=== PATIENT | female | born 1955 | race Caucasian/White ===

== ENCOUNTER 2022-10-10 09:04 | Outpatient (OUT) | payer MEDICARE, OTHER, SELFPAY ==
--- NOTE | 2022-10-10 09:16 | MM_ITS ---
Patient: ELIF DONIS Exam Date: 10/10/2022 : 1955 Gender:F Ordering : DR Maricruz Brown M.D. Admission #: [id number] Family : Order #: [id number] CLICK HERE TO VIEW EXAM RADIOLOGY REPORT PROCEDURE: MM TOMOSYNTHESIS SCREENING BI COMPARISON: MG MAMM SCREEN 3D SANDI CAD, 09/22/2021. MG MAMM SCREEN 3D SANDI CAD, 09/20/2020. MG MAMM SCREEN SANDI W CAD, 09/04/2019. BREAST LOCAL EXP, 08/06/2012. INDICATIONS: Screening Calculator Name NCI Breast Cancer Risk Assessment Tool 5 Year Breast Cancer Risk 2.30% Lifetime Breast Cancer Risk 7.70% Personal Breast Cancer No Personal Ovarian Cancer No Treatments left lower lobe lobectomy, chemo and radiation Family Cancers Grandmother-paternal with breast cancer at age 48; Father with esoph and lung cancer at age ~60; Sister with lung cancer at age 57. LOCATION: [facility] BREAST COMPOSITION: Scattered areas fibroglandular density. FINDINGS: DIAGNOSTIC CATEGORY 2--BENIGN FINDING: RIGHT BREAST: No significant suspicious finding. Scattered benign-appearing calcifications are present. No significant change has occurred. LEFT BREAST: No significant suspicious finding. Scattered benign-appearing calcifications are present. No significant change has occurred. RECOMMENDATIONS: ROUTINE MAMMOGRAM AND CLINICAL EVALUATION IN 12 MONTHS. PLEASE NOTE: A NORMAL MAMMOGRAM DOES NOT EXCLUDE THE POSSIBILITY OF BREAST CANCER. A CLINICALLY SUSPICIOUS PALPABLE LUMP SHOULD BE BIOPSIED. Dictated by: Josef Cedeño M.D. on 10/11/2022 at 12:07 Approved by: Josef Cedeño M.D. on 10/11/2022 at 13:00
== END 2022-10-10 09:05 | disposition home or self-care (01) ==
LOC: MAMMO 09:14
PROVIDERS: PCP Family Medicine; Visit Provider Family Medicine
DX: Z12.31 Encounter for screening mammogram for malignant neoplasm of breast (principal); Z80.3 Family history of malignant neoplasm of breast; Z80.0 Family history of malignant neoplasm of digestive organs; Z80.1 Family history of malignant neoplasm of trachea, bronchus and lung
CPT/HCPCS: 77063; 77067

== ENCOUNTER 2022-11-04 07:25 | Emergency (ER) | payer MEDICARE, OTHER, SELFPAY ==
[2022-11-04 07:29] VITALS: BP 151/87; PULSE 91; RESP 18; TEMP 36.6; O2SAT 97; BMI 24.2
--- NOTE | 2022-11-04 07:44 | ED.GENADUL1 ---
HPI - General Adult General Chief complaint: Upper Respiratory Infection Stated complaint: COVID + Time Seen by Provider: 11/04/22 07:40 Source: patient Mode of arrival: walk-in History of Present Illness HPI narrative: tested positive for covid at home concerned because she has cough and congestion and history of partial lobectomy Related Data Allergies Allergy/AdvReac Type Severity Reaction Status Date / Time pseudoephedrine AdvReac Unknown Verified 11/04/22 07:33 [From [facility]] Exam Narrative Exam Narrative: Nurses notes and vital signs reviewed and patient is not hypoxic. afebrile General: Well-appearing and in no apparent distress. Skin: Warm, dry, no pallor noted. No rash. Head: Normocephalic, atraumatic. Neck: Supple, non-tender. Eye: Pupils are equal, round and EOMI. No scleral icterus. Cardiovascular: Regular Rate and Rhythm without murmur, gallop or rub. Respiratory: No accessory muscle use or respiratory distress. Lungs are clear to auscultation, no wheezing, rales or rhonchi Musculoskeletal: normal ROM Neurological: A&O x4. No cranial nerve dysfunction observed. No truncal ataxia. Moves all extremities. Sensation intact. Psychiatric: Cooperative and interactive. Normal mood and affect. Constitutional Vital Signs, click to edit/add: Last Vital Signs Temp 97.9 F 11/04/22 07:29 Pulse 91 H 11/04/22 07:29 Resp 18 11/04/22 07:29 BP 151/87 H 11/04/22 07:29 Pulse Ox 97 11/04/22 07:29 O2 Del Method Room Air 11/04/22 07:29 Course Vital Signs Vital signs: Vital Signs Temperature 97.9 F 11/04/22 07:29 Pulse Rate 91 H 11/04/22 07:29 Respiratory Rate 18 11/04/22 07:29 Blood Pressure 151/87 H 11/04/22 07:29 Pulse Oximetry 97 11/04/22 07:29 Oxygen Delivery Method Room Air 11/04/22 07:29 Temperature 97.9 F 11/04/22 07:29 Pulse Rate 91 H 11/04/22 07:29 Respiratory Rate 18 11/04/22 07:29 Blood Pressure 151/87 H 11/04/22 07:29 Pulse Oximetry 97 11/04/22 07:29 Oxygen Delivery Method Room Air 11/04/22 07:29 Medical Decision Making MDM Narrative Medical decision making narrative: patient started on paxlovid Discharge Plan Discharge Chief Complaint: Upper Respiratory Infection Clinical Impression: COVID Patient Disposition: Home, Self-Care Time of Disposition Decision: 07:43 Instructions: COVID-19 (Coronavirus Disease 2019) (ED), COVID-19 and Chronic Health Conditions (ED) Stand Alone Forms: Portal Instructions Referrals: Maricruz Brown MD [Primary Care Provider] - 1 week
[2022-11-04 08:16] LABS: Anion Gap 10.3; BUN Creatinine Ratio 12.8; Calcium 9.2 mg/dL (8.5-10.1); Carbon Dioxide 30.5 mmol/L (21.0-32.0); Chloride 101 mmol/L (98-107); Estimated GFR (African America >60 (>=60); Estimated GFR (Non-African Ame 59 (>=60); Glucose 98 mg/dL (74-106); Potassium 3.8 mmol/L (3.5-5.1); Sodium 138 mmol/L (136-145)
== END 2022-11-04 08:45 | disposition home or self-care (01) ==
PROVIDERS: Emergency Provider Emergency Medicine; PCP Family Medicine
DX: U07.1 COVID-19 (principal); Z90.2 Acquired absence of lung [part of]
CPT/HCPCS: 36415; 80048; 99283

== ENCOUNTER 2023-10-19 14:05 | Outpatient (OUT) | payer MEDICARE, OTHER, SELFPAY ==
--- NOTE | 2023-10-19 14:07 | MM_ITS ---
Patient Name: ELIF DONIS MR#: [id number] : 1955 Exam Date: 10/19/2023 Ordering Doctor: DR Maricruz Brown M.D. RADIOLOGY REPORT PROCEDURE: MM TOMOSYNTHESIS SCREENING BI COMPARISON: MM TOMOSYNTHESIS SCREENING BI, 10/10/2022. MG MAMM SCREEN 3D SANDI CAD, 09/22/2021. MG MAMM SCREEN 3D SANDI CAD, 09/20/2020. BREAST LOCAL EXP, 08/06/2012. INDICATIONS: Screening Calculator Name NCI Breast Cancer Risk Assessment Tool 5 Year Breast Cancer Risk 2.30% Lifetime Breast Cancer Risk 7.40% Personal Breast Cancer No Personal Ovarian Cancer No Treatments left lower lobe lobectomy, chemo and radiation Family Cancers Grandmother-paternal with breast cancer at age 48; Father with esoph and lung cancer at age ~60; Sister with lung cancer at age 57. LOCATION: [facility] BREAST COMPOSITION: There are scattered areas of fibroglandular density. FINDINGS: DIAGNOSTIC CATEGORY 2--BENIGN FINDING: RIGHT BREAST: No significant suspicious finding. Scattered benign-appearing calcifications are present. Scattered benign-appearing nodules are present. No significant change has occurred. LEFT BREAST: No significant suspicious finding. Scattered benign-appearing calcifications are present. No significant change has occurred. RECOMMENDATIONS: ROUTINE MAMMOGRAM AND CLINICAL EVALUATION IN 12 MONTHS. PLEASE NOTE: A NORMAL MAMMOGRAM DOES NOT EXCLUDE THE POSSIBILITY OF BREAST CANCER. A CLINICALLY SUSPICIOUS PALPABLE LUMP SHOULD BE BIOPSIED. Dictated by: Josef Cedeño M.D. on 10/19/2023 at 15:00 Approved by: Josef Cedeño M.D. on 10/19/2023 at 15:03
== END 2023-10-19 14:06 | disposition home or self-care (01) ==
LOC: MAMMO 14:05
PROVIDERS: PCP Family Medicine; Visit Provider Family Medicine
DX: Z12.31 Encounter for screening mammogram for malignant neoplasm of breast (principal); Z80.3 Family history of malignant neoplasm of breast; Z80.1 Family history of malignant neoplasm of trachea, bronchus and lung; Z80.8 Family history of malignant neoplasm of other organs or systems
CPT/HCPCS: 77063; 77067

== ENCOUNTER 2024-02-28 13:22 | Outpatient (OUT) | payer MEDICARE, OTHER, SELFPAY ==
--- NOTE | 2024-02-28 13:24 | MR_ITS ---
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 FINDINGS: The cerebral sulci as well as ventricular system are appropriate for age. There is no restricted diffusion. Hyperintensities on T2 and FLAIR images in the javier radiata and centrum semiovale with sparing of U fibers are nonspecific, statistically most likely consistent with microvascular ischemic changes. There is no intracranial mass, mass effect, midline shift, intra or extra-axial fluid collection or large hemorrhage. No abnormal enhancing lesion is noted. Normal flow-void in the intracranial vessels is noted. The visualized portions of mastoid air cells as well as paranasal sinuses are unremarkable. 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 Otherwise, no abnormality of the globe and retrobulbar fat, extraocular muscles or optic pathway and lacrimal gland is noted. MR/MR head/brain wo/w con IMPRESSION: No acute intracranial process is noted. 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 Electronically authenticated by: MENA THOMPSON Date: 02/28/2024 17:44
--- NOTE | 2024-02-28 13:24 | MR_ITS ---
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 FINDINGS: The cerebral sulci as well as ventricular system are appropriate for age. There is no restricted diffusion. Hyperintensities on T2 and FLAIR images in the javier radiata and centrum semiovale with sparing of U fibers are nonspecific, statistically most likely consistent with microvascular ischemic changes. There is no intracranial mass, mass effect, midline shift, intra or extra-axial fluid collection or large hemorrhage. No abnormal enhancing lesion is noted. Normal flow-void in the intracranial vessels is noted. The visualized portions of mastoid air cells as well as paranasal sinuses are unremarkable. 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 Otherwise, no abnormality of the globe and retrobulbar fat, extraocular muscles or optic pathway and lacrimal gland is noted. MR/MR orbit wo/w con IMPRESSION: No acute intracranial process is noted. 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 Electronically authenticated by: MENA THOMPSON Date: 02/28/2024 17:44
--- OUTSIDE RECORDS SUMMARY | 2024-02-28 13:43 | XMS_ITS | CCD ---
Author Organization [facility] Care Team Providers Care Motor Bus Driver Name Role Phone PHYSICIAN, DEFAULT Admitting Unavailable PHYSICIAN, DEFAULT Attending Unavailable KARYN CHISHOLM Admitting Unavailable KARYN CHISHOLM Attending Unavailable AL BRYAN Referring Unavailable AL BRYAN Primary Care Unavailable Al Bryan MD Primary Care Provider Damien Quijano Unavailable Niall Lane MD Unavailable MD Al Bryan Primary Care Provider MD Elsy Douglas V Attending Provider Radha Drew Unavailable RANDI, DR AL Beal Primary Care Unavailable PAY, DR KRUSE Admitting Unavailable PAY, DR KRUSE Attending Unavailable PAY, DR KRUSE Consulting Unavailable JIM, MIGUEL Consulting Unavailable JOE, ALBERTO Consulting Unavailable BRYAN, DR AL Beal Primary Care Unavailable LEYLA TOVAR Admitting Unavailable LEYLA TOVAR Attending Unavailable ZINOY, DR JEANINE Marie Consulting Unavailable LEYLA TOVAR Consulting Unavailable BRYAN, DR AL Beal Admitting Unavailable BRYAN, DR AL Beal Attending Unavailable BRYAN, DR AL Beal Primary Care Unavailable WEST, DR SANDEEP Sanchez Consulting Unavailable BRYAN, DR AL Beal Consulting Unavailable BRYAN, DR AL Beal Admitting Unavailable BRYAN, DR AL Beal Attending Unavailable BRYAN, DR AL Beal Primary Care Unavailable BRYAN, DR AL Beal Consulting Unavailable MOUKARBEL, DR CHIN Admitting Unavailable MOUKARBEL, DR CHIN Attending Unavailable BRYAN, DR AL Beal Primary Care Unavailable MOUKARBEL, DR CHIN Admitting Unavailable MOUKARBEL, DR CHIN Attending Unavailable BRYAN, DR AL Beal Primary Care Unavailable MOUKAMEI, DR CHIN Consulting Unavailable BRYAN, DR AL Beal Primary Care Unavailable DR ANA OLIVARES Admitting Unavailable DR ANA OLIVARES Attending Unavailable DR ANA OLIVARES Consulting Unavailable Al Bryan MD Primary Care Provider Damien Quijano Unavailable Niall Lane MD Unavailable LUCRECIA ENRIQUE Attending Unavailable AL BRYAN Primary Care Unavailable Al Bryan Primary Care Unavailable Elsy Douglas V Attending Unavailable Elsy Douglas V Admitting Unavailable Al Bryan MD [facility] Unavailable Niall Lane MD Unavailable Damien Quijano Unavailable Al Bryan MD Primary Care Provider AL BRYAN Primary Care Unavailable AL BRYAN Primary Care Unavailable NIALL LANE Attending Unavailable NIALL LANE Referring Unavailable NIALL LANE Attending Unavailable AL BRYAN Primary Care Unavailable AL BRYAN Primary Care Unavailable Medications Current Medications Medication Drug Class(es) Dates Sig (Normalized) Sig (Original) fluticasone propionate 0.05 mg/actuat metered dose nasal spray (1 source) Corticosteroid Start: 08-03-2021 take 2 spray(s) nasal route once daily Fluticasone Propionate 50 MCG/ACT 2 sprays Nasally Once a day for 14 day(s) Aug, Active iv contrast (will be provided with radiology test) (6 sources) Start: 01-22-2024 End: 01-23-2024 iv contrast (will be provided with radiology test) CT Chest W -Inject, intravenously, once for 1 dose.No IV access, insert saline lock prior to the beginning of sedation, infusion, injection of imaging exam. Discontinue saline lock post exam. If Pt. has a central line or IVAD, may access for administration according to line specific nursing protocol. Once exam is complete flush line and de-access according to line specific nursing protocol in the CT contrast administration guidelines link. 1 Each 01/22/2024 01/23/2024 Active Start: 07-02-2023 End: 07-03-2023 iv contrast (will be provide d with radiology test) CT Chest W -Inject, intravenously, once for 1 dose.No IV access, insert saline lock prior to the beginning of sedation, infusion, injection of imaging exam. Discontinue saline lock post exam. If Pt. has a central line or IVAD, may access for administration according to line specific nursing protocol. Once exam is complete flush line and de-access according to line specific nursing protocol in the CT contrast administration guidelines link. 1 Each 0 07/02/2023 07/03/2023 Start: 12-26-2022 End: 12-27-2022 iv contrast (will be provide d with radiology test) CT Chest W -Inject, intravenously, once for 1 dose.No IV access, insert saline lock prior to the beginning of sedation, infusion, injection of imaging exam. Discontinue saline lock post exam. If Pt. has a central line or IVAD, may access for administration according to line specific nursing protocol. Once exam is complete flush line and de-access according to line specific nursing protocol in the CT contrast administration guidelines link. 1 Each 0 12/26/2022 12/27/2022 Active Start: 07-11-2022 End: 07-12-2022 iv contrast (will be provide d with radiology test) CT Chest W -Inject, intravenously, once for 1 dose.No IV access, insert saline lock prior to the beginning of sedation, infusion, injection of imaging exam. Discontinue saline lock post exam. If Pt. has a central line or IVAD, may access for administration according to line specific nursing protocol. Once exam is complete flush line and de-access according to line specific nursing protocol in the CT contrast administration guidelines link. 1 Each 0 07/11/2022 07/12/2022 Active Start: 01-03-2022 End: 01-04-2022 iv contrast (will be provide d with radiology test) CT Chest W -Inject, intravenously, once for 1 dose.No IV access, insert saline lock prior to the beginning of sedation, infusion, injection of imaging exam. Discontinue saline lock post exam. If Pt. has a central line or IVAD, may access for administration according to line specific nursing protocol. Once exam is complete flush line and de-access according to line specific nursing protocol in the CT contrast administration guidelines link. 1 Each 0 01/03/2022 01/04/2022 Active Start: 07-05-2021 End: 07-06-2021 iv contrast (will be provide d with radiology test) CT Chest W -Inject, intravenously, once for 1 dose.No IV access, insert saline lock prior to the beginning of sedation, infusion, injection of imaging exam. Discontinue saline lock post exam. If Pt. has a central line or IVAD, may access for administration according to line specific nursing protocol. Once exam is complete flush line and de-access according to line specific nursing protocol in the CT contrast administration guidelines link. 1 Each 0 07/05/2021 07/06/2021 Comment on above: CT Chest W -Inject, intravenously, once for 1 dose.No IV access, insert saline lock prior to the beginning of sedation, infusion, injection of imaging exam. Discontinue saline lock post exam. If Pt. has a central line or IVAD, may access for administration according to line specific nursing protocol. Once exam is complete flush line and de-access according to line specific nursing protocol in the CT contrast administration guidelines link. Completed/Discontinued Medications Medication Drug Class(es) Dates Sig (Normalized) Sig (Original) acetaminophen 500 mg oral tablet (1 source) Start: 12-03-2019 End: 02-22-2021 take 2 tablets by mouth every six hours acetaminophen (TYLENOL) 500 mg tablet Take 2 tablets by mouth every 6 hours. 12/03/2019 02/22/2021 Discontinued cycloSPORINE 0.5 mg/ml ophthalmic suspension (20 sources) Calcineurin Inhibitor Immunosuppressant Start: 06-06-2018 End: 02-22-2021 take 1 drop(s) into the eye(s) twice daily cycloSPORINE (RESTASIS) 0.05 % ophthalmic emulsion Use 1 Drop in both eyes twice daily. 06/06/2018 02/22/2021 Discontinued cycloSPORINE (RE STASIS MULTIDOSE) 0.05 % drop Use 1 Drop in eyes. Active Restasis Active Comment on above: Use 1 Drop in eyes. estrogens, conjugated (care home) 0.45 mg oral tablet (1 source) Estrogen Premarin 0.45 MG 1 tablet Orally Daily for Three Weeks, 1 Week off Not-Taking Problems Active Problems Problem Classification Problem Date Documented Da te Episodic/Chronic Cancer of bronchus; lung (20 sources) Malignant neoplasm of lower lobe of left lung; Translations: [Malignant neoplasm of lower lobe, left bronchus or lung] Onset: 05-05-2015 05-05-2015 Chronic Conditions associated with dizziness or vertigo (1 source) Dizziness; Translations: [Dizziness and giddiness] 03-15-2021 Episodic Disorders of lipid metabolism (20 sources) Hyperlipidemia; Translations: [Hyperlipidemia, unspecified] Onset: 02-09-2015 02-28-2021 Chronic Headache; including migraine (2 sources) Headache disorder; Translations: [Headache] Onset: 12-19-2021 Episodic Other ear and sense organ disorders (4 sources) Otalgia, right ear; Translations: [OTALGIA RIGHT EAR] Onset: 08-03-2021 Episodic Other lower respiratory disease (4 sources) Other forms of dyspnea; Translations: [OTHER FORMS OF DYSPNEA] Onset: 08-04-2021 Episodic Other lower respiratory disease (1 source) Dyspnea; Translations: [Shortness of breath] 01-23-2024 Episodic Other lower respiratory disease (1 source) Dyspnea on exertion; Translations: [Other forms of dyspnea] 02-28-2024 Episodic Other nervous system disorders (1 source) Atypical facial pain; Translations: [ATYPICAL FACIAL PAIN] Onset: 08-05-2021 Episodic Other screening for suspected conditions (not mental disorders or infectious disease) (4 sources) Encounter for screening mammogram for malignant neoplasm of breast; Translations: [ENC SCR MAMMO MALIG NEOPLASM BREAST] Onset: 09-22-2021 Episodic Residual codes; unclassified (1 source) Family history of malignant neoplasm of breast; Translations: [FAMILY HX MALIG NEOPLASM OF BREAST] Onset: 09-27-2021 Episodic Residual codes; unclassified (1 source) Family history of malignant neoplasm of digestive organs; Translations: [FAM HX MALIG NEOPLASM DIGESTIV ORGN] Onset: 09-27-2021 Episodic Residual codes; unclassified (1 source) Family history of malignant neoplasm of trachea, bronchus and lung; Translations: [FAM HX MALIG NEOPLSM TRACH BRON LNG] Onset: 09-27-2021 Episodic Residual codes; unclassified (1 source) Acquired absence of both cervix and uterus; Translations: [ACQUIRED ABSENCE BOTH CERVIX AND UTERUS] Onset: 08-05-2021 Episodic Residual codes; unclassified (1 source) Family history of cancer; Translations: [Family history of malignant neoplasm, unspecified] Episodic Syncope (4 sources) Syncope and collapse; Translations: [SYNCOPE AND COLLAPSE] Onset: 06-07-2018 Episodic Syncope (1 source) Syncope; Translations: [R55 - Syncope and collapse] Onset: 07-29-2021 Unclassified (2 sources) SNYCOPE Onset: 06-07-2018 Unclassified (3 sources) CONTACT W/AND (SUSP) EXPOS COVID-19; Translations: [CONTACT W/AND (SUSP) EXPOS COVID-19] Onset: 01-06-2021 Viral infection (1 source) COVID-19; Translations: [COVID-19] Onset: 07-22-2021 Past or Other Problems Problem Classification Problem Date Documented Date Episodic/Chronic Administrative/social admission (20 sources) Discharge status; Translations: [Encounter for administrative examinations, unspecified] Onset: 12-01-2019 12-03-2019 Episodic Cancer of bronchus; lung (20 sources) History of malignant neoplasm of thoracic cavity structure; Translations: [Personal history of other malignant neoplasm of bronchus and lung] Onset: 08-24-2016 08-24-2016 Episodic Cardiac dysrhythmias (20 sources) Sinus bradycardia; Translations: [Bradycardia, unspecified] Onset: 02-09-2015 02-28-2021 Episodic Essential hypertension (13 sources) Essential hypertension; Translations: [Essential (primary) hypertension] Onset: 02-09-2015 Resolved: 12-02-2019 12-02-2019 Chronic Lymphadenitis (20 sources) Lymphadenopathy; Translations: [Generalized enlarged lymph nodes] Onset: 07-04-2017 07-04-2017 Episodic Nausea and vomiting (20 sources) Postoperative nausea and vomiting; Translations: [Nausea with vomiting, unspecified] Onset: 02-09-2015 02-24-2016 Episodic Noninfectious gastroenteritis (1 source) Noninfective gastroenteritis and colitis, unspecified; Translations: [NONINFECTIVE GE AND COLITIS UNS] Onset: 01-06-2021 Episodic Other connective tissue disease (1 source) Synovial cyst of popliteal space [Chapman], right knee; Translations: [SYNOVIAL CYST POP SPACE RIGHT KNEE] Onset: 10-07-2020 Episodic Other lower respiratory disease (18 sources) Multiple nodules of lung; Translations: [Other nonspecific abnormal finding of lung field] Onset: 01-05-2015 Resolved: 12-02-2019 Episodic Other lower respiratory disease (13 sources) Lung mass; Translations: [Other nonspecific abnormal finding of lung field] Onset: 12-01-2019 Resolved: 12-02-2019 12-02-2019 Episodic Other nervous system disorders (20 sources) Postoperative pain ; Translations: [Other acute postprocedural pain] Onset: 02-09-2015 12-03-2019 Episodic Other skin disorders (3 sources) Localized swelling, mass and lump, right lower limb; Translations: [LOC SWELL MASS LUMP RT LOWER LIMB] Onset: 10-05-2020 Episodic Other upper respiratory infections (1 source) Acute sinusitis, unspecified Onset: 08-03-2021 Resolved: 08-03-2021 Episodic Residual codes; unclassified (20 sources) FH: premature coronary heart disease; Translations: [Family history of ischemic heart disease and other diseases of the circulatory system] Onset: 01-30-2014 01-30-2014 Episodic Residual codes; unclassified (13 sources) Device in situ; Translations: [Other specified health status] Onset: 02-09-2015 Resolved: 02-24-2016 02-24-2016 Episodic Screening and history of mental health and substance abuse codes (1 source) Personal history of nicotine dependence; Translations: [PERSONAL HISTORY OF NICOTINE DEPEND] Onset: 01-06-2021 Episodic Unclassified (1 source) CONTACT W/AND (SUSP) EXPOS COVID-19; Translations: [CONTACT W/AND (SUSP) EXPOS COVID-19] Onset: 07-20-2021 Unclassified (13 sources) DISPOSITION AND FOLLOW-UP Onset: 02-09-2015 Resolved: 02-24-2016 02-24-2016 Results Test Name Value Interpretation Reference Range Facility [facility] 02-04-2024 [facility] Telephone ([id number]) JANA DONIS ([id number]) 1955 F Date Time Provider Department 02/04/24 ZHANE MCDUFFIE [id number] During your visit today, we recorded the following information about you: Zhane Mcduffie 02/04/2024 10:48 AM Signed Spoke with pt to schedule NPV 02/27 Allergies As of Date: 02/04/2024 (No Known Allergies) Date Reviewed: 01/22/2024 Reviewed by: Nicolasa Soria MA - Fully Assessed Prescriptions as of 02/04/2024 - cycloSPORINE (RESTASIS MULTIDOSE) 0.05 % drop Use 1 Drop in eyes. Problem List As Of Date 02/04/2024 Noted Resolved Family history of early CAD [Z82.49] 01/30/2014 Lung nodules [R91.8] 01/05/2015 12/02/2019 Hyperlipidemia [E78.5] 02/09/2015 Essential hypertension [I10] 02/09/2015 12/02/2019 Sinus bradycardia [R00.1] 02/09/2015 Mechanical venous thromboembolism (VTE) prophyl*02/09/2015 02/24/2016 DISPOSITION AND FOLLOW-UP 02/09/2015 02/24/2016 Post-operative nausea and vomiting [R11.2, Z98.*02/09/2015 Post-operative pain [G89.18] 02/09/2015 Malignant neoplasm of lower lobe of left lung (*05/05/2015 Right VATS wedge resection and mediastinal lymp*02/21/2016 History of lung cancer [Z85.118] 08/24/2016 Lymphadenopathy [R59.1] 07/04/2017 Discharge planning issues [Z75.8] 12/01/2019 Lung mass [R91.8] 12/01/2019 12/02/2019 Malignant neoplasm of lower lobe of right lung *12/02/2019 Encounter Status:Closed by ZHANE MCDUFFIE on 02/04/24 [facility] CNOVSPon 01-22-2024 CNOVSP Visit (SP) Office (FUAD) JANA DONIS ([id number]) 1955 F Date Time Provider Department 01/22/24 10:[address] During your visit today, we recorded the following information about you: Temperature Pulse Respiration Blood pressure 97.3 degrees 86/minute 16/minute 110/73 Weight 57.[address] MD 01/23/2024 6:43 AM Signed PATIENT NAME: Jana Donis DATE: 01/22/2024 PRIMARY CARE PHYSICIAN: Dr. Al Bryan OTHER PHYSICIANS: Dr. Lerner, Dr. Samayoa, Dr. Gudelia Mckay ([facility] ID) Portions of this encounter note have been copied from the note from 07/02/2023 and has been updated where appropriate, and reflect my current medical decision making from today. CC: This is a 68 year old female with a history of lung cancer, seen for scheduled follow-up. INTERIM HISTORY: Since the patient's last visit here she has had no significant medical changes. However, on review of systems she does complain of increasing dyspnea on exertion. She developed shortness of breath when walking prolonged distances or upstairs. No significant cough or chest pain. However, she does complain she cannot clear her throat . She has taken Mucinex with minimal improvement. Despite the above she feels well overall. No unusual pain or other systemic symptoms. MEDICATIONS: cycloSPORINE (RESTASIS MULTIDOSE) 0.05 % drop Use 1 Drop in eyes. ALLERGIES: Patient has no known allergies. PAST MEDICAL HISTORY: PAST MEDICAL HISTORY Diagnosis Date Anemia Malignant neoplasm of lower lobe of left lung (HCC) 02/08/2015 Stage IIIA (pT2a, N2, M0) adenocarcinoma of the left lower lobe Malignant neoplasm of lower lobe of right lung (HCC) 02/21/2016 Stage IA (T1a, N0, M0) adenocarcinoma of the right lower lobe Malignant neoplasm of lower lobe of right lung (HCC) 12/01/2019 non small cell lung ca Port catheter in place PAST SURGICAL HISTORY: PAST SURGICAL HISTORY Procedure Laterality Date BIOPSY BREAST right breast COLONSCOPY SCREENING HIGH RISK HEMORRHOIDECTOMY HYSTERECTOMY HX 2006 LUNG BIOPSY 12/31/2014 OTHER SURGICAL HISTORY (PLEASE SPECIFY) HX right jaw surgery OTHER SURGICAL HISTORY (PLEASE SPECIFY) HX PORTOCATH PLACEMENT PORTOCATH PLACEMENT REDUCTION OF LARGE BREAST RMVL LUNG OTHER THAN PNEUMONECTOMY 1 LOBE LOBECT Left 02/08/2015 Muscle sparing thoracotomy, left lower lobectomy with bronchoplasty, vascularized tissue pedicle flap of reconstructed airway, hilar and mediastinal lymphadenectomy WEDGE RESECT LUNG Right 02/21/2016 VATs right lower lung wedge resection and med bx for synchronous stage IA adenocarcinoma WEDGE RESECT LUNG Right 12/01/2019 Robotic assisted right lower lung wedge resection for non small cell lung ca REVIEW OF SYSTEMS: General: No weight loss, malaise or fevers. HEENT: Negative for frequent or significant headaches. No changes in hearing or vision, no nose bleeds or other nasal problems. Respiratory: Negative for cough, wheezing or shortness of breath. Cardiovascular: Negative for chest pain, leg swelling or palpitations. GI: Negative for abdominal discomfort, blood in stools or black stools or change in bowel habits. : No history of dysuria, frequency or incontinence. Musculoskeletal: Negative for joint pain or swelling, back pain and muscle pain. Skin: Negative for lesions, rash, and itching. Hematology/Lymphology : Negative for prolonged bleeding, bruising easily or swollen nodes. Neuro: No history of headaches, syncope, paralysis, seizures or tremors. PHYSICAL EXAM: Vitals: BP 110/73 Pulse 86 Temp 36.3 ?C (97.3 ?F) (Temporal) Resp 16 Wt 57.2 kg (126 lb 1.7 oz) SpO2 98% BMI 23.84 kg/m? Pulse ox walking - lowest 93% Exam limited to gross visualization where appropriate due to COVID-19. Gen.: This is an age-appropriate patient in no acute distress. Head: Appears atraumatic with no visible lesions. Eyes: Pupils equally round and reactive to light, extraocular muscles are intact. Neck: Supple. Mouth: Mucous membranes appeared to be moist. Respiratory: Appears to be respiring comfortably. Neurologic: Nonfocal to gross visualization. Alert and oriented ?3. Psychiatric: No evidence of inappropriate anxiety or depression. Skin: Visible areas of skin without rash, lesions, wounds or petechiae. PATHOLOGY: 12/01/2019 Right lower lobe wedge resection FINAL DIAGNOSIS 1. Right lung, lower lobe, wedge excision (A) - Invasive adenocarcinoma, micropapillary predominant. Greatest dimension: 0.9 cm - Focal necrotizing granuloma. 2. Right lung, lower lobe, new margin, excision (B) No significant pathologic changes. 3. Lymph node, level 8R, excision (C) Fibroadipose tissue with histiocytic aggregates; negative for neoplasm. 4. Lymph nodes, level 9R, level 7, excision, (D-E) - Lymph nodes; negative for neop (more content not included)... Normal [facility] CBC W Auto Differential pane l (Bld)on 12-25-2023 Basophils (Bld) [#/Vol] 0.03 10*3/uL [facility] Basophils/100 WBC (Bld) 0.8 % [facility] Differential cell count method Nom (Bld) Auto [facility] Eosinophils (Bld) [#/Vol] 0.06 10*3/uL [facility] Eosinophils/100 WBC (Bld) 1.6 % [facility] Erythrocyte distribution width (RBC) [Ratio] 12.9 % 11.5 - 15.0 % [facility] Hematocrit (Bld) [Volume fraction] 35.2 % Low 36.0 - 46.0 % [facility] Hemoglobin (Bld) [Mass/Vol] 11.9 g/dL 11.5 - 15.5 g/dL [facility] Immature granulocytes (Bld) [#/Vol] [facility] Immature granulocytes/100 WBC (Bld) 0.3 % [facility] Interpretation and review of laboratory results Abnormal [facility] Lymphocytes (Bld) [#/Vol] 1.39 10*3/uL [facility] Lymphocytes/100 WBC (Bld) 36.0 % [facility] MCH (RBC) [Entitic mass] 31.4 pg 26.0 - 34.0 pg [facility] MCHC (RBC) [Mass/Vol] 33.8 g/dL 30.5 - 36.0 g/dL [facility] MCV (RBC) [Entitic vol] 92.9 fL 80.0 - 100.0 fL [facility] Monocytes (Bld) [#/Vol] 0.36 10*3/uL [facility] Monocytes/100 WBC (Bld) 9.3 % [facility] Neutrophils (Bld) [#/Vol] 2.01 10*3/uL [facility] Neutrophils/100 WBC (Bld) 52.0 % [facility] Nucleated RBC (Bld) [#/Vol] [facility] Nucleated RBC/100 WBC (Bld) [Ratio] 0.0 % /100 WBC [facility] Platelet mean volume (Bld) [Entitic vol] 10.4 fL 9.0 - 12.7 fL [facility] Platelets (Bld) [#/Vol] 230 10*3/uL [facility] RBC (Bld) [#/Vol] 3.79 10*6/uL Low 3.90 - 5.2 0 m/uL [facility] WBC (Bld) [#/Vol] 3.86 10*3/uL [facility] Basophils (Bld) [#/Vol] 0.03 10*3/uL Normal <0.11 [facility] Comment on above: Order Comment: Speci men Type: BLOOD SPECIMEN Ordering Facility: [facility] Address: [address] [place] [address] Performed By: #### 5 7021-8 #### [facility] CLIA [id number] [address] [place] [id number] Basophils/100 WBC (Bld) 0.8 % Normal [facility] Comment on above: Order Comment: Speci men Type: BLOOD SPECIMEN Ordering Facility: [facility] Address: [address] [place] [address] Performed By: #### 5 7021-8 #### [facility] CLIA [id number] [address] [place] [id number] Differential cell count method Nom (Bld) Auto Normal [facility] Comment on above: Order Comment: Speci men Type: BLOOD SPECIMEN Ordering Facility: [facility] Address: [address] [place] [address] Performed By: #### 5 7021-8 #### [facility] CLIA [id number] [address] [place] [phone] Eosinophils (Bld) [#/Vol] 0.06 10*3/uL Normal <0.46 [facility] Comment on above: Order Comment: Speci men Type: BLOOD SPECIMEN Ordering Facility: [facility] Address: [address] [place] [address] Performed By: #### 5 7021-8 #### [facility] CLIA [id number] [address] [place] [phone] Eosinophils/100 WBC (Bld) 1.6 % Normal [facility] Comment on above: Order Comment: Speci men Type: BLOOD SPECIMEN Ordering Facility: [facility] Address: [address] [place] [address] Performed By: #### 5 7021-8 #### [facility] CLIA [id number] [address] [place] [id number] Erythrocyte distribution width (RBC) [Ratio] 12.9 % Normal 11.5-15.0 [facility] Comment on above: Order Comment: Speci men Type: BLOOD SPECIMEN Ordering Facility: [facility] Address: [address] [place] [address] Performed By: #### 5 7021-8 #### [facility] CLIA [id number] [address] [place] [phone] Hematocrit (Bld) [Volume fraction] 35.2 % Low 36.0-46.0 [facility] Comment on above: Order Comment: Speci men Type: BLOOD SPECIMEN [facility] Facility[facility] Address: [address] [place] [address] Performed By: #### 5 7021-8 #### [facility] CLIA [id number] [address] [place] [address] 77831 Hemoglobin (Bld) [Mass/Vol] 11.9 g/dL Normal 11.5-15.5 [facility] Comment on above: Order Comment: Speci men Type: BLOOD SPECIMEN Ordering Facility: [facility] Address: [address] [place] [address] Performed By: #### 5 7021-8 #### [facility] CLIA [id number] [address] [place] [address] 63965 Immature granulocytes (Bld) [#/Vol] 10*3/uL Normal <0.10 [facility] Comment on above: Order Comment: Speci men Type: BLOOD SPECIMEN Ordering Facility: [facility] Address: [address] [place] [address] Performed By: #### 5 7021-8 #### [facility] CLIA [id number] [address] [place] [address] 92079 Immature granulocytes/100 WBC (Bld) 0.3 % Normal [facility] Comment on above: Order Comment: Speci men Type: BLOOD SPECIMEN [facility] Address: [address] [place] [address] Performed By: #### 5 7021-8 #### [facility] CLIA [id number] [address] [place] [address] 74503 Lymphocytes (Bld) [#/Vol] 1.39 10*3/uL Normal 1.00-4.00 [facility] Comment on above: Order Comment: Speci men Type: BLOOD SPECIMEN [facility]ing [facility] Address: [address] [place] [address] Performed By: #### 5 7021-8 #### [facility] CLIA [id number] [address] [place] [address] 65704 Lymphocytes/100 WBC (Bld) 36.0 % Normal [facility] Comment on above: Order Comment: Speci men Type: BLOOD SPECIMEN [facility] Address: [address] [place] [address] Performed By: #### 5 7021-8 #### [facility] CLIA [id number] [address] [place] [address] 69671 MCH (RBC) [Entitic mass] 31.4 pg Normal 26.0-34.0 [facility] Comment on above: Order Comment: Speci men Type: BLOOD SPECIMEN [facility] Address: [address] [place] [address] Performed By: #### 5 7021-8 #### [facility] CLIA [id number] [address] [place] [address] 58545 MCHC (RBC) [Mass/Vol] 33.8 g/dL Normal 30.5-36.0 [facility] Comment on above: Order Comment: Speci men Type: BLOOD SPECIMEN [facility] Address: [address] [place] [address] Performed By: #### 5 7021-8 #### [facility] CLIA [id number] [address] [place] [address] 64705 MCV (RBC) [Entitic vol] 92.9 fL Normal 80.0-100.0 [facility] Comment on above: Order Comment: Speci men Type: BLOOD SPECIMEN [facility]ing [facility] Address: [address] [place] [address] Performed By: #### 5 7021-8 #### [facility] CLIA [id number] [address] [place] [address] 49297 Monocytes (Bld) [#/Vol] 0.36 10*3/uL Normal <0.87 [facility] Comment on above: Order Comment: Speci men Type: BLOOD SPECIMEN [facility] Address: [address] [place] [address] Performed By: #### 5 7021-8 #### [facility] CLIA [id number] [address] [place] [address] 41852 Monocytes/100 WBC (Bld) 9.3 % Normal [facility] Comment on above: Order Comment: Speci men Type: BLOOD SPECIMEN [facility] Address: [address] [place] [address] Performed By: #### 5 7021-8 #### [facility] CLIA [id number] [address] [place] [address] 76516 Neutrophils (Bld) [#/Vol] 2.01 10*3/uL Normal 1.45-7.50 [facility] Comment on above: Order Comment: Speci men Type: BLOOD SPECIMEN Ordering [facility]: [facility] Address: [address] [place] [address] Performed By: #### 5 7021-8 #### [facility] CLIA [id number] [address] [place] [address] Neutrophils/100 WBC (Bld) 52.0 % Normal [facility] Comment on above: Order Comment: Speci men Type: BLOOD SPECIMEN [facility] Address: [address] [place] [address] Performed By: #### 5 7021-8 #### [facility] CLIA [id number] [address] [place] [address] Nucleated RBC (Bld) [#/Vol] 10*3/uL Normal <0.01 [facility] Comment on above: Order Comment: Speci men Type: BLOOD SPECIMEN [facility] Address: [address] [place] [address] Performed By: #### 5 7021-8 #### [facility] CLIA [id number] [address] [place] [address] 42432 Nucleated RBC/100 WBC (Bld) [Ratio] 0.0 /100 WBC Normal [facility] Comment on above: Order Comment: Speci men Type: BLOOD SPECIMEN Order[facility] Address: [address] [place] [address] Performed By: #### 5 7021-8 #### [facility] CLIA [id number] [address] [place] [address] 74124 Platelet mean volume (Bld) [Entitic vol] 10.4 fL Normal 9.0-12.7 [facility] Comment on above: Order Comment: Speci men Type: BLOOD SPECIMEN [facility] Address: [address] [place] [address] Performed By: #### 5 7021-8 #### [facility] CLIA [id number] [address] [place] [address] 61222 Platelets (Bld) [#/Vol] 230 10*3/uL Normal 150-400 [facility] Comment on above: Order Comment: Speci men Type: BLOOD SPECIMEN [facility] Address: [address] [place] [address] [place] [address] Performed By: #### 5 7021-8 #### [facility] CLIA [id number] [address] [place] [address] 63230 RBC (Bld) [#/Vol] 3.79 10*6/uL Low 3.90-5.20 [facility] Comment on above: Order Comment: Speci men Type: BLOOD SPECIMEN [facility] Address: [address] [place] [address] Performed By: #### 5 7021-8 #### [facility] CLIA [id number] [address] [place] [address] WBC (Bld) [#/Vol] 3.86 10*3/uL Normal 3.70-11.00 [facility] Comment on above: Order Comment: Speci men Type: BLOOD SPECIMEN [facility] Address: [address] [place] [address] Performed By: #### 5 7021-8 #### [facility] CLIA [id number] [address] [place] [address] CHEST [address] IV[address] CT CHEST W IVCON * * *Final Report* * * DATE OF EXAM: Dec 25 2023 9:58AM [facility] 0539 - CT CHEST W IVCON / PROCEDURE REASON: Non-small cell lung cancer (NSCLC), monitor * * * * Physician Interpretation * * * * RESULT: EXAMINATION: CHEST CT WITH CONTRAST CLINICAL HISTORY: Non-small cell lung cancer, monitor Technique: Spiral CT acquisition of the chest from the thoracic inlet to the upper abdomen following IV contrast. MQ: CTCW_6 Contrast: 50 mL Omnipaque [address] Radiation dose: Integrated Dose-length product (DLP) for this visit = 155 mGy*cm CT Dose Reduction Employed: Automated exposure control (AEC) Comparison: Multiple previous chest CTs, the most recent dated 06/27/2023 RESULT: Limitations: None. Lines, tubes, and devices: None. Lung parenchyma and airways: Redemonstrated postsurgical changes from left lower lobectomy and right lower lobe wedge resection, with unchanged associated pleural parenchymal scarring noted in both lungs. There is a stable appearing paramedian opacity along the posterior aspect of the right perihilar and infrahilar region, perhaps representing stable post radiation therapy change for example on series 4 image 93. Redemonstration of groundglass and solid pulmonary nodules, comparison to previously measured nodules is as follows: 1.4 cm right upper lobe groundglass nodule on series 4 image 29. 0.8 cm right upper lobe groundglass nodule on series 4 image 61. 1.3 cm right middle lobe groundglass nodule on series 4 image 118. 5 mm right middle lobe nodule on series 4 image 137. All of the above nodules are unchanged from previously. There are a few additional smaller solid and groundglass pulmonary nodules in the lungs which are stable from prior as well. No new pulmonary nodules or masses are identified. Incidental calcified granulomas are noted in the right lung. No new airspace consolidation. Mild apical pleural-parenchymal scarring. The central airways are patent. Pleural space: No pleural effusion. No pleural thickening. Lower neck, lymph nodes, and mediastinum: The imaged thyroid gland is normal. No lymphadenopathy in the supraclavicular, axillary, mediastinal, or hilar regions. Heart, pericardium, and thoracic vessels: The thoracic aorta and main pulmonary artery are normal in caliber. The cardiac chambers are normal in size. No coronary artery atherosclerotic calcifications are noted, although the study is not optimized for coronary assessment. No pericardial effusion or thickening. Bones and soft tissues: No destructive bone lesion. Chest wall is unremarkable. Mild multilevel thoracic spine degenerative disease. Upper abdomen: The included images of the upper abdomen are unremarkable Localizer images: No additional findings. IMPRESSION: 1. No CT evidence of new metastatic disease in the chest. 2. Stable appearing groundglass and solid pulmonary nodules in both lungs. No new or enlarging pulmonary nodules are identified. 3. No pathologically enlarged lymph nodes identified in the chest. Transcribe Date/Time: Dec 25 2023 2:33P Dictated by: UMA MOYER MD This examination was interpreted and the report reviewed and electronically signed by: UMA MOYER MD on Dec 25 2023 2:40PM EST Thank you for allowing us to participate in the care of your patient. Should there be any questions regarding this interpretation, please call [phone]. If you are unable to reach us at the number above, please feel free to contact [facility]Radiology at [phone]. [id number] N Normal [facility] CT Chest W contrast Jorge IMPRESSION: 1. No CT evidence of new metastatic disease in the chest. 2. Stable appearing groundglass and solid pulmonary nodules in both lungs. No new or enlarging pulmonary nodules are identified. 3. No pathologically enlarged lymph nodes identified in the chest. Transcribe Date/Time: Dec 25 2023 2:33P Dictated by: UMA MOYER MD This examination was interpreted and the report reviewed and electronically signed by: UMA MOYER MD on Dec 25 2023 2:40PM EST Thank you for allowing us to participate in the care of your patient. Should there be any questions regarding this interpretation, please call [phone]. If you are unable to reach us at the number above, please feel free to contact [facility] at [phone]. DIVISION OF RADIOLOGY * * *Final Report* * * DATE OF EXAM: Dec 25 2023 9:58AM [facility] 0539 - CT CHEST W IVCON / PROCEDURE REASON: Non-small cell lung cancer (NSCLC), monitor * * * * Physician Interpretation * * * * RESULT: EXAMINATION: CHEST CT WITH CONTRAST CLINICAL HISTORY: Non-small cell lung cancer, monitor Technique: Spiral CT acquisition of the chest from the thoracic inlet to the upper abdomen following IV contrast. MQ: CTCW_6 Contrast: 50 mL Omnipaque [address] Radiation dose: Integrated Dose-length product (DLP) for this visit = 155 mGy*cm CT Dose Reduction Employed: Automated exposure control (AEC) Comparison: Multiple previous chest CTs, the most recent dated 06/27/2023 RESULT: Limitations: None. Lines, tubes, and devices: None. Lung parenchyma and airways: Redemonstrated postsurgical changes from left lower lobectomy and right lower lobe wedge resection, with unchanged associated pleural parenchymal scarring noted in both lungs. There is a stable appearing paramedian opacity along the posterior aspect of the right perihilar and infrahilar region, perhaps representing stable post radiation therapy change for example on series 4 image 93. Redemonstration of groundglass and solid pulmonary nodules, comparison to previously measured nodules is as follows: 1.4 cm right upper lobe groundglass nodule on series 4 image 29. 0.8 cm right upper lobe groundglass nodule on series 4 image 61. 1.3 cm right middle lobe groundglass nodule on series 4 image 118. 5 mm right middle lobe nodule on series 4 image 137. All of the above nodules are unchanged from previously. There are a few additional smaller solid and groundglass pulmonary nodules in the lungs which are stable from prior as well. No new pulmonary nodules or masses are identified. Incidental calcified granulomas are noted in the right lung. No new airspace consolidation. Mild apical pleural-parenchymal scarring. The central airways are patent. Pleural space: No pleural effusion. No pleural thickening. Lower neck, lymph nodes, and mediastinum: The imaged thyroid gland is normal. No lymphadenopathy in the supraclavicular, axillary, mediastinal, or hilar regions. Heart, pericardium, and thoracic vessels: The thoracic aorta and main pulmonary artery are normal in caliber. The cardiac chambers are normal in size. No coronary artery atherosclerotic calcifications are noted, although the study is not optimized for coronary assessment. No pericardial effusion or thickening. Bones and soft tissues: No destructive bone lesion. Chest wall is unremarkable. Mild multilevel thoracic spine degenerative disease. Upper abdomen: The included images of the upper abdomen are unremarkable Localizer images: No additional findings. DIVISION OF RADIOLOGY Provider, [facility] - 12/25/2023 * * *Final Report* * * DATE OF EXAM: Dec 25 2023 9:58AM [facility] 0539 - CT CHEST W IVCON / PROCEDURE REASON: Non-small cell lung cancer (NSCLC), monitor * * * * Physician Interpretation * * * * RESULT: EXAMINATION: CHEST CT WITH CONTRAST CLINICAL HISTORY: Non-small cell lung cancer, monitor Technique: Spiral CT acquisition of the chest from the thoracic inlet to the upper abdomen following IV contrast. MQ: CTCW_6 Contrast: 50 mL Omnipaque [address] Radiation dose: Integrated Dose-length product (DLP) for this visit = 155 mGy*cm CT Dose Reduction Employed: Automated exposure control (AEC) Comparison: Multiple previous chest CTs, the most recent dated 06/27/2023 RESULT: Limitations: None. Lines, tubes, and devices: None. Lung parenchyma and airways: Redemonstrated postsurgical changes from left lower lobectomy and right lower lobe wedge resection, with unchanged associated pleural parenchymal scarring noted in both lungs. There is a stable appearing paramedian opacity along the posterior aspect of the right perihilar and infrahilar region, perhaps representing stable post radiation therapy change for example on series 4 image 93. Redemonstration of groundglass and solid pulmonary nodules, comparison to previously measured nodules is as follows: 1.4 cm right upper lobe groundglass nodule on series 4 image 29. 0.8 cm right upper lobe groundglass nodule on series 4 image 61. 1.3 cm right middle lobe groundglass nodule on series 4 image 118. 5 mm right middle lobe nodule on series 4 image 137. All of the above nodules are unchanged from previously. There are a few additional smaller solid and groundglass pulmonary nodules in the lungs which are stable from prior as well. No new pulmonary nodules or masses are identified. Incidental calcified granulomas are noted in the right lung. No new airspace consolidation. Mild apical pleural-parenchymal scarring. The central airways are patent. Pleural space: No pleural effusion. No pleural thickening. Lower neck, lymph nodes, and mediastinum: The imaged thyroid gland is normal. No lymphadenopathy in the supraclavicular, axillary, mediastinal, or hilar regions. Heart, pericardium, and thoracic vessels: The thoracic aorta and main pulmonary artery are normal in caliber. The cardiac chambers are normal in size. No coronary artery atherosclerotic calcifications are noted, although the study is not optimized for coronary assessment. No pericardial effusion or thickening. Bones and soft tissues: No destructive bone lesion. Chest wall is unremarkable. Mild multilevel thoracic spine degenerative disease. Upper abdomen: The included images of the upper abdomen are unremarkable Localizer images: No additional findings. IMPRESSION IMPRESSION: 1. No CT evidence of new metastatic disease in the chest. 2. Stable appearing groundglass and solid pulmonary nodules in both lungs. No new or enlarging pulmonary nodules are identified. 3. No pathologically enlarged lymph nodes identified in the chest. Transcribe Date/Time: Dec 25 2023 2:33P Dictated by: UMA MOYER MD This examination was interpreted and the report reviewed and electronically signed by: UMA MOYER MD on Dec 25 2023 2:40PM EST Thank you for allowing us to participate in the care of your patient. Should there be any questions regarding this interpretation, please call [phone]. If you are unable to reach us at the number above, please feel free to contact [facility]Radiology at [phone]. [facility] Radiology Study observation (narrative) [facility] CT Chest W contrast IVOrdere d By: [facility] Provider on 12-25-2023 [facility] Comprehensive metabolic 2000 panelOrdered By: Kodak Espinosa on 12-25-2023 Albumin [Mass/Vol] 4.3 g/dL 3.9 - 4.9 g/dL [facility] ALP [Catalytic activity/Vol] 81 U/L 34 - 123 U/L [facility] ALT [Catalytic activity/Vol] 14 U/L 7 - 38 U/L [facility] Anion gap [Moles/Vol] 10 mmol/L 8 - 15 mmol/L [facility] AST [Catalytic activity/Vol] 17 U/L 13 - 35 U/L [facility] Bilirubin [Mass/Vol] 0.6 mg/dL 0.2 - 1.3 mg/dL [facility] Calcium [Mass/Vol] 9.2 mg/dL 8.5 - 10. 2 mg/dL [facility] Chloride [Moles/Vol] 108 mmol/L High 98 - 107 mmol/L [facility] CO2 [Moles/Vol] 26 mmol/L 22 - 30 mmol/L [facility] Creatinine [Mass/Vol] 0.87 mg/dL 0.58 - 0.96 mg/dL [facility] GFR/1.73 sq M.predicted among non-blacks MDRD (S/P/Bld) [Vol rate/Area] 73 mL/min/{1.73_m2} - PINF [facility] Comment on above: Estimated Glomerular Filtration Rate (eGFR) is calculated using the 2020 CKD-EPI creatinine equation. This equation utilizes serum creatinine, sex, and age as parameters. The creatinine assay has traceable calibration to isotope dilution-mass spectrometry. Refer to KDIGO guidelines for clinical interpretation. In patients with unstable renal function, e.g. those with acute kidney injury, the eGFR may not accurately reflect actual GFR. Glucose [Mass/Vol] 89 mg/dL 74 - 99 mg/dL [facility] Comment on above: The [place] Diab[employer] s Association (ADA) provides guidance for cutoff values for fasting glucose and random glucose. The ADA defines fasting as no caloric intake for at least 8 hours. Fasting plasma glucose results between 100 to 125 mg/dL indicate increased risk for diabetes (prediabetes). Fasting plasma glucose results greater than or equal to 126 mg/dL meet the criteria for diagnosis of diabetes. In the absence of unequivocal hyperglycemia, results should be confirmed by repeat testing. In a patient with classic symptoms of hyperglycemia or hyperglycemic crisis, random plasma glucose results greater than or equal to 200 mg/dL meet the criteria for diagnosis of diabetes. Reference: Standards of Medical Care in Diabetes 2016, [place] [employer]. Diabetes Care. 2016.39(Suppl 1). Interpretation and review of laboratory results Abnormal [facility] Potassium [Moles/Vol] 4.1 mmol/L 3.7 - 5.1 mmol/L [facility] Protein [Mass/Vol] 6.8 g/dL 6.3 - 8.0 g/dL [facility] Sodium [Moles/Vol] 144 mmol/L 136 - 144 mmol/L [facility] Urea nitrogen [Mass/Vol] 17 mg/dL 7 - 21 mg/dL [facility] Comprehensive metabolic 2000 panelon 12-25-2023 Albumin [Mass/Vol] 4.3 g/dL Normal 3.9-4.9 [facility] Comment on above: Order Comment: Cheryl bishop Type: BLOOD SPECIMEN [facility] Address: [address] [place] [address] Performed By: #### 2 4323-8 #### [facility] CLIA [id number] [address] [place] [address]147 ALP [Catalytic activity/Vol] 81 U/L Normal 34-123 [facility] Comment on above: Order Comment: Jimboi men Type: BLOOD SPECIMEN [facility] Address: [address] [place] [address] Performed By: #### 2 4323-8 #### [facility] CLIA [id number] [address] [place] [address] 92859 ALT [Catalytic activity/Vol] 14 U/L Normal 7-38 [facility] Comment on above: Order Comment: Speci men Type: BLOOD SPECIMEN [facility] Address: [address] [place] [address] Performed By: #### 2 4323-8 #### [facility] CLIA [id number] [address] [place] [address] Anion gap [Moles/Vol] 10 mmol/L Normal 8-15 [facility] Comment on above: Order Comment: Speci men Type: BLOOD SPECIMEN [facility] Address: [address] [place] [address] Performed By: #### 2 4323-8 #### [facility] CLIA [id number] [address] [place] [address] 63549 AST [Catalytic activity/Vol] 17 U/L Normal 13-35 [facility] Comment on above: Order Comment: Speci men Type: BLOOD SPECIMEN [facility] Address: [address] [place] [address] Performed By: #### 2 4323-8 #### [facility] CLIA [id number] [address] [place] [address] 78205 Bilirubin [Mass/Vol] 0.6 mg/dL Normal 0.2-1.3 [facility] Comment on above: Order Comment: Speci men Type: BLOOD SPECIMEN [facility] Address: [address] [place] [address] Performed By: #### 2 4323-8 #### [facility] CLIA [id number] [address] [place] [address] 49227 Calcium [Mass/Vol] 9.2 mg/dL Normal 8.5-10.2 [facility] Comment on above: Order Comment: Speci men Type: BLOOD SPECIMEN [facility] Address: [address] [place] [address] Performed By: #### 2 4323-8 #### [facility] CLIA [id number] [address] [place] [address] 46002 Chloride [Moles/Vol] 108 mmol/L High 98-107 [facility] Comment on above: Order Comment: Speci men Type: BLOOD SPECIMEN [facility] Address: [address] [place] [id number] Performed By: #### 2 4323-8 #### [facility] CLIA [id number] [address] [place] [address] CO2 [Moles/Vol] 26 mmol/L Normal 22-30 [facility] Comment on above: Order Comment: Speci men Type: BLOOD SPECIMEN [facility] Address: [address] [place] [address] Performed By: #### 2 4323-8 #### [facility] CLIA [id number] [address] [place] [address] 31682 Creatinine [Mass/Vol] 0.87 mg/dL Normal 0.58-0.96 [facility] Comment on above: Order Comment: Speci men Type: BLOOD SPECIMEN [facility] Address: [address] [place] [address] Performed By: #### 2 4323-8 #### [facility] CLIA [id number] [address] [place] [address] 66342 Creatinine and Glomerular filtration rate.predicted panel (S/P/Bld) 73 mL/min/1.73m??? Normal >=60 [facility] Comment on above: Order Comment: Speci men Type: BLOOD SPECIMEN [facility]: [facility] Address: [address] [place] [address] Result Comment: Meena mated Glomerular Filtration Rate (eGFR) is calculated using the 2020 CKD-EPI creatinine equation. This equation utilizes serum creatinine, sex, and age as parameters. The creatinine assay has traceable calibration to isotope dilution-mass spectrometry. Refer to KDIGO guidelines for clinical interpretation. In patients with unstable renal function, e.g. those with acute kidney injury, the eGFR may not accurately reflect actual GFR. Performed By: #### 2 4323-8 #### [facility] CLIA [id number] [address] [place] [address] 62589 Glucose [Mass/Vol] 89 mg/dL Normal 74-99 [facility] Comment on above: Order Comment: Speci men Type: BLOOD SPECIMEN [facility]ing [facility]: [facility] Address: [address] [place] [address] 33440 Result Comment: The [place] Diabetes Association (ADA) provides guidance for cutoff values for fasting glucose and random glucose. The ADA defines fasting as no caloric intake for at least 8 hours. Fasting plasma glucose results between 100 to 125 mg/dL indicate increased risk for diabetes (prediabetes). Fasting plasma glucose results greater than or equal to 126 mg/dL meet the criteria for diagnosis of diabetes. In the absence of unequivocal hyperglycemia, results should be confirmed by repeat testing. In a patient with classic symptoms of hyperglycemia or hyperglycemic crisis, random plasma glucose results greater than or equal to 200 mg/dL meet the criteria for diagnosis of diabetes. Reference: Standards of Medical Care in Diabetes 2016, [place] Diabetes Association. Diabetes Care. 2016.39(Suppl 1). Performed By: #### 2 4323-8 #### [facility] CLIA [id number] [address] [place] [address] 74804 Potassium [Moles/Vol] 4.1 mmol/L Normal 3.7-5.1 [facility] Comment on above: Order Comment: Jimboi dario Type: BLOOD SPECIMEN [facility] Address: [address] [place] [address] Performed By: #### 2 4323-8 #### [facility] CLIA [id number] [address] [place] [address] 56291 Protein [Mass/Vol] 6.8 g/dL Normal 6.3-8.0 [facility] Comment on above: Order Comment: Speci men Type: BLOOD SPECIMEN [facility] Address: [address] [place] [address] Performed By: #### 2 4323-8 #### [facility] CLIA [id number] [address] [place] [address] 00909 Sodium [Moles/Vol] 144 mmol/L Normal 136-144 [facility] Comment on above: Order Comment: Speci men Type: BLOOD SPECIMEN [facility] Address: [address] [place] [address] Performed By: #### 2 4323-8 #### [facility] CLIA [id number] [address] [place] [address] 65949 Urea nitrogen [Mass/Vol] 17 mg/dL Normal 7-21 [facility] Comment on above: Order Comment: Speci men Type: BLOOD SPECIMEN [facility] Address: [address] [place] [address] Performed By: #### 2 4323-8 #### [facility] CLIA [id number] [address] [place] [address] 29582 CNPSariah 11-13-2023 CNPN Telephone (HEMTSA) JANA DONIS ([id number]) 1955 F Date Time Provider Department 11/13/23 ARMIDA FALCON During your visit today, we recorded the following information about you: Armida Falcon RN 11/13/2023 2:40 PM Signed Patient is scheduled for scan on 12/24. F/u with you on 12/30. An updated cre is needed prior to scan. I pended labs for f/u please sign if agreeable, Thanks! Armida Falcon RN Allergies As of Date: 11/13/2023 (No Known Allergies) Date Reviewed: 07/02/2023 Reviewed by: Zhanna Cornelius MA - Fully Assessed Reason for Visit: Orders [681] Primary Visit Diagnosis:Malignant neoplasm of lower lobe of left lung (HCC) [C34.32] Order(s):COMPLETE BLOOD COUNT AND DIFFERENTIAL [SQCBCDIF] Order #: [id number] FUTURE COMPREHENSIVE METABOLIC PANEL [SQCMP] Order #: [id number] FUTURE Prescriptions as of 11/20/2023 - cycloSPORINE (RESTASIS MULTIDOSE) 0.05 % drop Use 1 Drop in eyes. Problem List As Of Date 11/13/2023 Noted Resolved Family history of early CAD [Z82.49] 01/30/2014 Lung nodules [R91.8] 01/05/2015 12/02/2019 Hyperlipidemia [E78.5] 02/09/2015 Essential hypertension [I10] 02/09/2015 12/02/2019 Sinus bradycardia [R00.1] 02/09/2015 Mechanical venous thromboembolism (VTE) prophyl*02/09/2015 02/24/2016 DISPOSITION AND FOLLOW-UP 02/09/2015 02/24/2016 Post-operative nausea and vomiting [R11.2, Z98.*02/09/2015 Post-operative pain [G89.18] 02/09/2015 Malignant neoplasm of lower lobe of left lung (*05/05/2015 Right VATS wedge resection and mediastinal lymp*02/21/2016 History of lung cancer [Z85.118] 08/24/2016 Lymphadenopathy [R59.1] 07/04/2017 Discharge planning issues [Z75.8] 12/01/2019 Lung mass [R91.8] 12/01/2019 12/02/2019 Malignant neoplasm of lower lobe of right lung *12/02/2019 Encounter Status:Closed by ARMIDA FALCON on 11/20/23 [facility] CNOVSPon 07-02-2023 CNOVS Visit (SP) Office (HEMASA) JANA DONIS ([id number]) 1955 F Date Time Provider Department 07/02/23 2:[address] During your visit today, we recorded the following information about you: Temperature Pulse Respiration Blood pressure 97.8 degrees 83/minute 18/minute 126/74 Weight 58.[address] MD 07/04/2023 9:32 AM Signed PATIENT NAME: Jana Donis DATE: 07/02/2023 PRIMARY CARE PHYSICIAN: Dr. Al Bryan OTHER PHYSICIANS: Dr. Lerner, Dr. Samayoa, Dr. Gudelia Mckay Portions of this encounter note have been copied from the note from 12/26/2022 and has been updated where appropriate, and reflect my current medical decision making from today. CC: This is a 68 year old female with a history of lung cancer, seen for scheduled follow-up. INTERIM HISTORY: Since the patient's last visit here she has had no significant medical changes. She has mild shortness of breath with activity, otherwise no pulmonary symptoms. No unusual pain or other systemic complaints. No recent neurological symptoms. Overall the patient feels extremely well with no particular complaints today. MEDICATIONS: cycloSPORINE (RESTASIS MULTIDOSE) 0.05 % drop Use 1 Drop in eyes. ALLERGIES: Patient has no known allergies. PAST MEDICAL HISTORY: PAST MEDICAL HISTORY Diagnosis Date Anemia Malignant neoplasm of lower lobe of left lung (HCC) 02/08/2015 Stage IIIA (pT2a, N2, M0) adenocarcinoma of the left lower lobe Malignant neoplasm of lower lobe of right lung (HCC) 02/21/2016 Stage IA (T1a, N0, M0) adenocarcinoma of the right lower lobe Malignant neoplasm of lower lobe of right lung (HCC) 12/01/2019 non small cell lung ca Port catheter in place PAST SURGICAL HISTORY: PAST SURGICAL HISTORY Procedure Laterality Date BIOPSY BREAST right breast COLONSCOPY SCREENING HIGH RISK HEMORRHOIDECTOMY HYSTERECTOMY HX 2006 LUNG BIOPSY 12/31/2014 OTHER SURGICAL HISTORY (PLEASE SPECIFY) HX right jaw surgery OTHER SURGICAL HISTORY (PLEASE SPECIFY) HX PORTOCATH PLACEMENT PORTOCATH PLACEMENT REDUCTION OF LARGE BREAST RMVL LUNG OTHER THAN PNEUMONECTOMY 1 LOBE LOBECT Left 02/08/2015 Muscle sparing thoracotomy, left lower lobectomy with bronchoplasty, vascularized tissue pedicle flap of reconstructed airway, hilar and mediastinal lymphadenectomy WEDGE RESECT LUNG Right 02/21/2016 VATs right lower lung wedge resection and med bx for synchronous stage IA adenocarcinoma WEDGE RESECT LUNG Right 12/01/2019 Robotic assisted right lower lung wedge resection for non small cell lung ca REVIEW OF SYSTEMS: General: No weight loss, malaise or fevers. HEENT: Negative for frequent or significant headaches. No changes in hearing or vision, no nose bleeds or other nasal problems. Respiratory: Negative for cough, wheezing or shortness of breath. Cardiovascular: Negative for chest pain, leg swelling or palpitations. GI: Negative for abdominal discomfort, blood in stools or black stools or change in bowel habits. : No history of dysuria, frequency or incontinence. Musculoskeletal: Negative for joint pain or swelling, back pain and muscle pain. Skin: Negative for lesions, rash, and itching. Hematology/Lymphology : Negative for prolonged bleeding, bruising easily or swollen nodes. Neuro: No history of headaches, syncope, paralysis, seizures or tremors. PHYSICAL EXAM: Vitals: BP 126/74 Pulse 83 Temp 36.6 ?C (97.8 ?F) (Temporal) Resp 18 Wt 58.3 kg (128 lb 8.5 oz) SpO2 98% BMI 24.30 kg/m? ECOG 0 Exam limited to gross visualization where appropriate due to COVID-19. Gen.: This is an age-appropriate patient in no acute distress. Head: Appears atraumatic with no visible lesions. Eyes: Pupils equally round and reactive to light, extraocular muscles are intact. Neck: Supple. Mouth: Mucous membranes appeared to be moist. Respiratory: Appears to be respiring comfortably. Neurologic: Nonfocal to gross visualization. Alert and oriented ?3. Psychiatric: No evidence of inappropriate anxiety or depression. Skin: Visible areas of skin without rash, lesions, wounds or petechiae. PATHOLOGY: 12/01/2019 Right lower lobe wedge resection FINAL DIAGNOSIS 1. Right lung, lower lobe, wedge excision (A) - Invasive adenocarcinoma, micropapillary predominant. Greatest dimension: 0.9 cm - Focal necrotizing granuloma. 2. Right lung, lower lobe, new margin, excision (B) No significant pathologic changes. 3. Lymph node, level 8R, excision (C) Fibroadipose tissue with histiocytic aggregates; negative for neoplasm. 4. Lymph nodes, level 9R, level 7, excision, (D-E) - Lymph nodes; negative for neoplasm. - Necrotizing granulomas (level 7, part E), see comment. Immunohistochemistry for PD-L1 expression Tumor Cells Positive: less than1% EGFR - A sequence change [id number] AG (more content not included)... Normal [facility] CBC W Auto Differential pane l (Bld)on 06-27-2023 Basophils (Bld) [#/Vol] 0.05 10*3/uL [facility] Basophils/100 WBC (Bld) 1.4 % [facility] Differential cell count method Nom (Bld) Auto [facility] Eosinophils (Bld) [#/Vol] 0.09 10*3/uL [facility] Eosinophils/100 WBC (Bld) 2.5 % [facility] Erythrocyte distribution width (RBC) [Ratio] 12.6 % 11.5 - 15.0 % [facility] Hematocrit (Bld) [Volume fraction] 37.7 % 36.0 - 46.0 % [facility] Hemoglobin (Bld) [Mass/Vol] 12.2 g/dL 11.5 - 15.5 g/dL [facility] Immature granulocytes (Bld) [#/Vol] [facility] Immature granulocytes/100 WBC (Bld) 0.0 % [facility] Interpretation and review of laboratory results Abnormal [facility] Lymphocytes (Bld) [#/Vol] 1.15 10*3/uL [facility] Lymphocytes/100 WBC (Bld) 32.3 % [facility] MCH (RBC) [Entitic mass] 29.6 pg 26.0 - 34.0 pg [facility] MCHC (RBC) [Mass/Vol] 32.4 g/dL 30.5 - 36.0 g/dL [facility] MCV (RBC) [Entitic vol] 91.5 fL 80.0 - 100.0 fL [facility] Monocytes (Bld) [#/Vol] 0.26 10*3/uL [facility] Monocytes/100 WBC (Bld) 7.3 % [facility] Neutrophils (Bld) [#/Vol] 2.01 10*3/uL [facility] Neutrophils/100 WBC (Bld) 56.5 % [facility] Nucleated RBC (Bld) [#/Vol] [facility] Nucleated RBC/100 WBC (Bld) [Ratio] 0.0 % /100 WBC [facility] Platelet mean volume (Bld) [Entitic vol] 9.9 fL 9.0 - 12.7 fL [facility] Platelets (Bld) [#/Vol] 257 10*3/uL [facility] RBC (Bld) [#/Vol] 4.12 10*6/uL 3.90 - 5.2 0 m/uL [facility] WBC (Bld) [#/Vol] 3.56 10*3/uL Low [facility] Basophils (Bld) [#/Vol] 0.05 10*3/uL Normal <0.11 [facility] Comment on above: Order Comment: Speci men Type: BLOOD SPECIMEN [facility] Address: [address] [place] [address] Performed By: #### 5 7021-8 #### [facility] CLIA [id number] [address] [place] [address] 80700 Basophils/100 WBC (Bld) 1.4 % Normal [facility] Comment on above: Order Comment: Speci men Type: BLOOD SPECIMEN [facility] Address: [address] [place] [address] Performed By: #### 5 7021-8 #### [facility] CLIA [id number] [address] [place] [address] 83490 Differential cell count method Nom (Bld) Auto Normal [facility] Comment on above: Order Comment: Speci men Type: BLOOD SPECIMEN [facility] Address: [address] [place] [address] Performed By: #### 5 7021-8 #### [facility] CLIA [id number] [address] [place] [address] 73612 Eosinophils (Bld) [#/Vol] 0.09 10*3/uL Normal <0.46 [facility] Comment on above: Order Comment: Speci men Type: BLOOD SPECIMEN [facility] Address: [address] [place] [address] Performed By: #### 5 7021-8 #### [facility] CLIA [id number] [address] [place] [address] 16879 Eosinophils/100 WBC (Bld) 2.5 % Normal [facility] Comment on above: Order Comment: Speci men Type: BLOOD SPECIMEN [facility] Address: [address] [place] [address] Performed By: #### 5 7021-8 #### [facility] CLIA [id number] [address] [place] [address] Erythrocyte distribution width (RBC) [Ratio] 12.6 % Normal 11.5-15.0 [facility] Comment on above: Order Comment: Speci men Type: BLOOD SPECIMEN [facility] Address: [address] [place] [address] Performed By: #### 5 7021-8 #### [facility] CLIA [id number] [address] [place] [address] 91006 Hematocrit (Bld) [Volume fraction] 37.7 % Normal 36.0-46.0 [facility] Comment on above: Order Comment: Speci men Type: BLOOD SPECIMEN [facility] Address: [address] [place] [address] Performed By: #### 5 7021-8 #### [facility] CLIA [id number] [address] [place] [address] 24084 Hemoglobin (Bld) [Mass/Vol] 12.2 g/dL Normal 11.5-15.5 [facility] Comment on above: Order Comment: Speci men Type: BLOOD SPECIMEN [facility] Address: [address] [place] [address] Performed By: #### 5 7021-8 #### [facility] CLIA [id number] [address] [place] [address] 00651 Immature granulocytes (Bld) [#/Vol] 10*3/uL Normal <0.10 [facility] Comment on above: Order Comment: Speci men Type: BLOOD SPECIMEN [facility] Address: [address] [place] [address] Performed By: #### 5 7021-8 #### [facility] CLIA [id number] [address] [place] [address] 04053 Immature granulocytes/100 WBC (Bld) 0.0 % Normal [facility] Comment on above: Order Comment: Speci men Type: BLOOD SPECIMEN [facility] Address: [address] [place] [address] Performed By: #### 5 7021-8 #### [facility] CLIA [id number] [address] [place] [address] 45854 Lymphocytes (Bld) [#/Vol] 1.15 10*3/uL Normal 1.00-4.00 [facility] Comment on above: Order Comment: Speci men Type: BLOOD SPECIMEN [facility] Address: [address] [place] [address] Performed By: #### 5 7021-8 #### [facility] CLIA [id number] [address] [place] [address] 95589 Lymphocytes/100 WBC (Bld) 32.3 % Normal [facility] Comment on above: Order Comment: Speci men Type: BLOOD SPECIMEN [facility] Address: [address] [place] [address] Performed By: #### 5 7021-8 #### [facility] CLIA [id number] [address] [place] [address] 80443 MCH (RBC) [Entitic mass] 29.6 pg Normal 26.0-34.0 [facility] Comment on above: Order Comment: Speci men Type: BLOOD SPECIMEN [facility] Address: [address] [place] [address]180 Performed By: #### 5 7021-8 #### [facility] CLIA [id number] [address] [place] [address] 53435 MCHC (RBC) [Mass/Vol] 32.4 g/dL Normal 30.5-36.0 [facility] Comment on above: Order Comment: Speci men Type: BLOOD SPECIMEN [facility] Address: [address] [place] [address] Performed By: #### 5 7021-8 #### [facility] CLIA [id number] [address] [place] [address] 75487 MCV (RBC) [Entitic vol] 91.5 fL Normal 80.0-100.0 [facility] Comment on above: Order Comment: Speci men Type: BLOOD SPECIMEN [facility] Address: [address] [place] [address] Performed By: #### 5 7021-8 #### [facility] CLIA [id number] [address] [place] [address] 37150 Monocytes (Bld) [#/Vol] 0.26 10*3/uL Normal <0.87 [facility] Comment on above: Order Comment: Speci men Type: BLOOD SPECIMEN [facility] Address: [address] [place] [address] Performed By: #### 5 7021-8 #### [facility] CLIA [id number] [address] [place] [address] 83760 Monocytes/100 WBC (Bld) 7.3 % Normal [facility] Comment on above: Order Comment: Speci men Type: BLOOD SPECIMEN [facility] Address: [address] [place] [address] Performed By: #### 5 7021-8 #### [facility] CLIA [id number] [address] [place] [address] 08995 Neutrophils (Bld) [#/Vol] 2.01 10*3/uL Normal 1.45-7.50 [facility] Comment on above: Order Comment: Speci men Type: BLOOD SPECIMEN [facility] Address: [address] [place] [address] Performed By: #### 5 7021-8 #### [facility] CLIA [id number] [address] [place] [address] 45615 Neutrophils/100 WBC (Bld) 56.5 % Normal [facility] Comment on above: Order Comment: Speci men Type: BLOOD SPECIMEN [facility] Address: [address] [place] [address] Performed By: #### 5 7021-8 #### [facility] CLIA [id number] [address] [place] [address] Nucleated RBC (Bld) [#/Vol] 10*3/uL Normal <0.01 [facility] Comment on above: Order Comment: Speci men Type: BLOOD SPECIMEN [facility] Address: [address] [place] [address] Performed By: #### 5 7021-8 #### [facility] CLIA [id number] [address] [place] [address] 42346 Nucleated RBC/100 WBC (Bld) [Ratio] 0.0 /100 WBC Normal [facility] Comment on above: Order Comment: Speci men Type: BLOOD SPECIMEN [facility] Address: [address] [place], [place] [address] Performed By: #### 5 7021-8 #### [facility] CLIA [id number] [address] [place] [address] 48337 Platelet mean volume (Bld) [Entitic vol] 9.9 fL Normal 9.0-12.7 [facility] Comment on above: Order Comment: Speci men Type: BLOOD SPECIMEN [facility] Address: [address] [place] [address] Performed By: #### 5 7021-8 #### [facility] CLIA [id number] [address] [place] [address] 62109 Platelets (Bld) [#/Vol] 257 10*3/uL Normal 150-400 [facility] Comment on above: Order Comment: Speci men Type: BLOOD SPECIMEN [facility] Address: [address] [place] [address]22 Performed By: #### 5 7021-8 #### [facility] CLIA [id number] [address] [place] [address] 29185 RBC (Bld) [#/Vol] 4.12 10*6/uL Normal 3.90-5.20 [facility] Comment on above: Order Comment: Speci men Type: BLOOD SPECIMEN [facility] Address: [address] [place] [address] Performed By: #### 5 7021-8 #### [facility] CLIA [id number] [address] [place] [address] 59898 WBC (Bld) [#/Vol] 3.56 10*3/uL Low 3.70-11.00 [facility] Comment on above: Order Comment: Speci men Type: BLOOD SPECIMEN [facility] Address: [address] [place] [address] Performed By: #### 5 7021-8 #### [facility] CLIA [id number] [address] [place] [address] CHEST W IV[address] CHEST W IVCON * * *Final Report* * * DATE OF EXAM: Jun 27 2023 9:32AM [facility] 0539 - CT CHEST W IVCON / PROCEDURE REASON: Non-small cell lung cancer (NSCLC), monitor * * * * Physician Interpretation * * * * RESULT: EXAMINATION: CHEST CT WITH CONTRAST CLINICAL HISTORY: Non-small cell lung cancer (NSCLC), monitor Technique: Spiral CT acquisition of the chest from the thoracic inlet to the upper abdomen following IV contrast. MQ: CTCWR_5 Contrast: 50 mL Omnipaque [address] Dose-Length Product: 163 mGy*cm CT Dose Reduction Employed: Automated exposure control (AEC) Comparison: 12/18/2022 07/04/2022 12/27/2021 RESULT: Lines, tubes, and devices: None. Lung parenchyma and airways: Trachea and central airways are patent. Left lower lobectomy and right lower lobe wedge resection. Postsurgical scarring along the left lower lobectomy site. Multiple unchanged solid and groundglass nodular opacities. Index opacities are as follows: * 1.4 cm groundglass opacity right apex (image 32) * 0.9 cm groundglass opacity right upper lobe (image 64) * 5 mm right middle lobe nodule (image 141) Pleural space: No pleural effusion or pneumothorax. Lower neck, lymph nodes, and mediastinum: No axillary, supraclavicular, mediastinal or hilar lymphadenopathy by CT size criteria. Heart, pericardium, and thoracic vessels: The heart is normal in size. No pericardial effusion. The thoracic aorta and main pulmonary artery are normal in caliber. Atherosclerotic calcifications of the thoracic aorta and coronary arteries. Bones/Soft Tissues: No aggressive osseous lesions. Upper abdomen: Visualized upper abdomen is grossly unremarkable. [employer] Supervisor (topogram) images: Unremarkable. IMPRESSION: Unchanged appearance of the chest since essentially 12/27/2021. No developing metastatic disease in chest. Transcribe Date/Time: Jun 27 2023 11:18A Dictated by: ALLEN POWELL MD This examination was interpreted and the report reviewed and electronically signed by: ALLEN POWELL MD on Jun 27 2023 11:40AM EST Thank you for allowing us to participate in the care of your patient. Should there be any questions regarding this interpretation, please call [phone]. If you are unable to reach us at the number above, please feel free to contact [facility] at [phone]. [id number] Normal [facility] CT Chest W contrast Jorge IMPRESSION: Unchanged appearance of the chest since essentially 12/27/2021. No developing metastatic disease in chest. Transcribe Date/Time: Jun 27 2023 11:18A Dictated by: ALLEN POWELL MD This examination was interpreted and the report reviewed and electronically signed by: ALLEN POWELL MD on Jun 27 2023 11:40AM EST Thank you for allowing us to participate in the care of your patient. Should there be any questions regarding this interpretation, please call [phone]. If you are unable to reach us at the number above, please feel free to contact [facility] at [phone]. DIVISION OF RADIOLOGY * * *Final Report* * * DATE OF EXAM: Jun 27 2023 9:32AM [facility] 0539 - CT CHEST W IVCON / PROCEDURE REASON: Non-small cell lung cancer (NSCLC), monitor * * * * Physician Interpretation * * * * RESULT: EXAMINATION: CHEST CT WITH CONTRAST CLINICAL HISTORY: Non-small cell lung cancer (NSCLC), monitor Technique: Spiral CT acquisition of the chest from the thoracic inlet to the upper abdomen following IV contrast. MQ: CTCWR_5 Contrast: 50 mL Omnipaque [address] Dose-Length Product: 163 mGy*cm CT Dose Reduction Employed: Automated exposure control (AEC) Comparison: 12/18/2022 07/04/2022 12/27/2021 RESULT: Lines, tubes, and devices: None. Lung parenchyma and airways: Trachea and central airways are patent. Left lower lobectomy and right lower lobe wedge resection. Postsurgical scarring along the left lower lobectomy site. Multiple unchanged solid and groundglass nodular opacities. Index opacities are as follows: * 1.4 cm groundglass opacity right apex (image 32) * 0.9 cm groundglass opacity right upper lobe (image 64) * 5 mm right middle lobe nodule (image 141) Pleural space: No pleural effusion or pneumothorax. Lower neck, lymph nodes, and mediastinum: No axillary, supraclavicular, mediastinal or hilar lymphadenopathy by CT size criteria. Heart, pericardium, and thoracic vessels: The heart is normal in size. No pericardial effusion. The thoracic aorta and main pulmonary artery are normal in caliber. Atherosclerotic calcifications of the thoracic aorta and coronary arteries. Bones/Soft Tissues: No aggressive osseous lesions. Upper abdomen: Visualized upper abdomen is grossly unremarkable. Abattoir Supervisor (topogram) images: Unremarkable. DIVISION OF RADIOLOGY Provider, [facility] - 06/27/2023 * * *Final Report* * * DATE OF EXAM: Jun 27 2023 9:32AM [facility] 0539 - CT CHEST W IVCON / PROCEDURE REASON: Non-small cell lung cancer (NSCLC), monitor * * * * Physician Interpretation * * * * RESULT: EXAMINATION: CHEST CT WITH CONTRAST CLINICAL HISTORY: Non-small cell lung cancer (NSCLC), monitor Technique: Spiral CT acquisition of the chest from the thoracic inlet to the upper abdomen following IV contrast. MQ: CTCWR_5 Contrast: 50 mL Omnipaque [address] Dose-Length Product: 163 mGy*cm CT Dose Reduction Employed: Automated exposure control (AEC) Comparison: 12/18/2022 07/04/2022 12/27/2021 RESULT: Lines, tubes, and devices: None. Lung parenchyma and airways: Trachea and central airways are patent. Left lower lobectomy and right lower lobe wedge resection. Postsurgical scarring along the left lower lobectomy site. Multiple unchanged solid and groundglass nodular opacities. Index opacities are as follows: * 1.4 cm groundglass opacity right apex (image 32) * 0.9 cm groundglass opacity right upper lobe (image 64) * 5 mm right middle lobe nodule (image 141) Pleural space: No pleural effusion or pneumothorax. Lower neck, lymph nodes, and mediastinum: No axillary, supraclavicular, mediastinal or hilar lymphadenopathy by CT size criteria. Heart, pericardium, and thoracic vessels: The heart is normal in size. No pericardial effusion. The thoracic aorta and main pulmonary artery are normal in caliber. Atherosclerotic calcifications of the thoracic aorta and coronary arteries. Bones/Soft Tissues: No aggressive osseous lesions. Upper abdomen: Visualized upper abdomen is grossly unremarkable. Abattoir Supervisor (topogram) images: Unremarkable. IMPRESSION IMPRESSION: Unchanged appearance of the chest since essentially 12/27/2021. No developing metastatic disease in chest. Transcribe Date/Time: Jun 27 2023 11:18A Dictated by: ALLEN POWELL MD This examination was interpreted and the report reviewed and electronically signed by: ALLEN POWELL MD on Jun 27 2023 11:40AM EST Thank you for allowing us to participate in the care of your patient. Should there be any questions regarding this interpretation, please call [phone]. If you are unable to reach us at the number above, please feel free to contact [facility] at [phone]. [facility] Radiology Study observation (narrative) [facility] CT Chest W contrast IVOrdere d By: [facility] Provider on 06-27-2023 [facility] Comprehensive metabolic 2000 panelOrdered By: Monet Yin on 06-27-2023 Albumin [Mass/Vol] 4.4 g/dL 3.9 - 4.9 g/dL [facility] ALP [Catalytic activity/Vol] 86 U/L 34 - 123 U/L [facility] ALT [Catalytic activity/Vol] 11 U/L 7 - 38 U/L [facility] Anion gap [Moles/Vol] 11 mmol/L 9 - 18 mmol/L [facility] AST [Catalytic activity/Vol] 15 U/L 13 - 35 U/L [facility] Bilirubin [Mass/Vol] 0.9 mg/dL 0.2 - 1.3 mg/dL [facility] Calcium [Mass/Vol] 10.0 mg/dL 8.5 - 10. 2 mg/dL [facility] Chloride [Moles/Vol] 105 mmol/L 97 - 105 mmol/L [facility] CO2 [Moles/Vol] 27 mmol/L 22 - 30 mmol/L [facility] Creatinine [Mass/Vol] 0.84 mg/dL 0.58 - 0.96 mg/dL [facility] GFR/1.73 sq M.predicted among non-blacks MDRD (S/P/Bld) [Vol rate/Area] 76 mL/min/{1.73_m2} - PINF [facility] Comment on above: Estimated Glomerular Filtration Rate (eGFR) is calculated using the 2020 CKD-EPI creatinine equation. This equation utilizes serum creatinine, sex, and age as parameters. The creatinine assay has traceable calibration to isotope dilution-mass spectrometry. Refer to KDIGO guidelines for clinical interpretation. In patients with unstable renal function, e.g. those with acute kidney injury, the eGFR may not accurately reflect actual GFR. Glucose [Mass/Vol] 93 mg/dL 74 - 99 mg/dL [facility] Comment on above: The [place] Diabete s Association (ADA) provides guidance for cutoff values for fasting glucose and random glucose. The ADA defines fasting as no caloric intake for at least 8 hours. Fasting plasma glucose results between 100 to 125 mg/dL indicate increased risk for diabetes (prediabetes). Fasting plasma glucose results greater than or equal to 126 mg/dL meet the criteria for diagnosis of diabetes. In the absence of unequivocal hyperglycemia, results should be confirmed by repeat testing. In a patient with classic symptoms of hyperglycemia or hyperglycemic crisis, random plasma glucose results greater than or equal to 200 mg/dL meet the criteria for diagnosis of diabetes. Reference: Standards of Medical Care in Diabetes 2016, [employer] Diabetes [employer]. Diabetes Care. 2016.39(Suppl 1). Interpretation and review of laboratory results Normal [facility] Potassium [Moles/Vol] 4.2 mmol/L 3.7 - 5.1 mmol/L [facility] Protein [Mass/Vol] 7.1 g/dL 6.3 - 8.0 g/dL [facility] Sodium [Moles/Vol] 143 mmol/L 136 - 144 mmol/L [facility] Urea nitrogen [Mass/Vol] 11 mg/dL 7 - 21 mg/dL [facility] Comprehensive metabolic 2000 panelon 06-27-2023 Albumin [Mass/Vol] 4.4 g/dL Normal 3.9-4.9 [facility] Comment on above: Order Comment: Speci men Type: BLOOD SPECIMEN Ordering Facility: [facility] Address: [address] [place] [address] Performed By: #### 5 7021-8 #### [facility] CLIA [id number] [address] [place] [address] ALP [Catalytic activity/Vol] 86 U/L Normal 34-123 [facility] Comment on above: Order Comment: Speci men Type: BLOOD SPECIMEN Ordering Facility: [facility] Address: [address] [place] [address] Performed By: #### 5 7021-8 #### [facility] CLIA [id number] [address] [place] [address] ALT [Catalytic activity/Vol] 11 U/L Normal 7-38 [facility] Comment on above: Order Comment: Speci men Type: BLOOD SPECIMEN Ordering Facility: [facility] Address: [address] [place] [address] Performed By: #### 5 7021-8 #### [facility] CLIA [id number] [address] [place] [address] Anion gap [Moles/Vol] 11 mmol/L Normal 9-18 [facility] Comment on above: Order Comment: Speci men Type: BLOOD SPECIMEN Ordering Facility: [facility] Address: [address] [place] [address] Performed By: #### 5 7021-8 #### [facility] CLIA [id number] [address] [place] [address] AST [Catalytic activity/Vol] 15 U/L Normal 13-35 [facility] Comment on above: Order Comment: Speci men Type: BLOOD SPECIMEN Ordering Facility: [facility] Address: [address] [place] [address] [place] [address] Performed By: #### 5 7021-8 #### [facility] CLIA [id number] [address] [place] [address] Bilirubin [Mass/Vol] 0.9 mg/dL Normal 0.2-1.3 [facility] Comment on above: Order Comment: Speci men Type: BLOOD SPECIMEN Ordering Facility: [facility] Address: [address] [place] [address] Performed By: #### 5 7021-8 #### [facility] CLIA [id number] [address] [place] [address] Calcium [Mass/Vol] 10.0 mg/dL Normal 8.5-10.2 [facility] Comment on above: Order Comment: Speci men Type: BLOOD SPECIMEN Ordering Facility: [facility] Address: [address] [place] [address] Performed By: #### 5 7021-8 #### [facility] CLIA [id number] [address] [place] [address] Chloride [Moles/Vol] 105 mmol/L Normal 97-105 [facility] Comment on above: Order Comment: Speci men Type: BLOOD SPECIMEN Ordering Facility: [facility] Address: [address] [place] [address] Performed By: #### 5 7021-8 #### [facility] CLIA [id number] [address] [place] [address] CO2 [Moles/Vol] 27 mmol/L Normal 22-30 [facility] Comment on above: Order Comment: Speci men Type: BLOOD SPECIMEN Ordering Facility: [facility] Address: [facility] [place] [id number] Performed By: #### 5 7021-8 #### [facility] CLIA [id number] [address] [place] [address] Creatinine [Mass/Vol] 0.84 mg/dL Normal 0.58-0.96 [facility] Comment on above: Order Comment: Speci men Type: BLOOD SPECIMEN Ordering Facility: [facility] Address: [address] [place], [place] [id number] Performed By: #### 5 7021-8 #### [facility] CLIA [id number] [address] [place] [address] Creatinine and Glomerular filtration rate.predicted panel (S/P/Bld) 76 mL/min/1.73m??? Normal >=60 [facility] Comment on above: Order Comment: Cheryl bishop Type: BLOOD SPECIMEN Ordering Facility: [facility] Address: [address] [place] [address] Result Comment: Meena mated Glomerular Filtration Rate (eGFR) is calculated using the 2020 CKD-EPI creatinine equation. This equation utilizes serum creatinine, sex, and age as parameters. The creatinine assay has traceable calibration to isotope dilution-mass spectrometry. Refer to KDIGO guidelines for clinical interpretation. In patients with unstable renal function, e.g. those with acute kidney injury, the eGFR may not accurately reflect actual GFR. Performed By: #### 5 7021-8 #### [facility] CLIA [id number] [address] [place] [address] Glucose [Mass/Vol] 93 mg/dL Normal 74-99 [facility] Comment on above: Order Comment: Cheryl bishop Type: BLOOD SPECIMEN Ordering Facility: [facility] Address: [address] [place] [address] Result Comment: The [place] Diabetes Association (ADA) provides guidance for cutoff values for fasting glucose and random glucose. The ADA defines fasting as no caloric intake for at least 8 hours. Fasting plasma glucose results between 100 to 125 mg/dL indicate increased risk for diabetes (prediabetes). Fasting plasma glucose results greater than or equal to 126 mg/dL meet the criteria for diagnosis of diabetes. In the absence of unequivocal hyperglycemia, results should be confirmed by repeat testing. In a patient with classic symptoms of hyperglycemia or hyperglycemic crisis, random plasma glucose results greater than or equal to 200 mg/dL meet the criteria for diagnosis of diabetes. Reference: Standards of Medical Care in Diabetes 2016, [place] Diabetes Association. Diabetes Care. 2016.39(Suppl 1). Performed By: #### 5 7021-8 #### [facility] CLIA [id number] [address] [place] [address] Potassium [Moles/Vol] 4.2 mmol/L Normal 3.7-5.1 [facility] Comment on above: Order Comment: Speci men Type: BLOOD SPECIMEN Ordering Facility: [facility] Address: [address] [place] [address] Performed By: #### 5 7021-8 #### [facility] CLIA [id number] [address] [place] [address] Protein [Mass/Vol] 7.1 g/dL Normal 6.3-8.0 [facility] Comment on above: Order Comment: Speci men Type: BLOOD SPECIMEN Ordering Facility: [facility] Address: [address] [place] [address] Performed By: #### 5 7021-8 #### [facility] CLIA [id number] [address] [place] [address] Sodium [Moles/Vol] 143 mmol/L Normal 136-144 [facility] Comment on above: Order Comment: Speci men Type: BLOOD SPECIMEN Ordering Facility: [facility] Address: [address] [place], [place] [address] Performed By: #### 5 7021-8 #### [facility] CLIA [id number] [address] [place] [address] Urea nitrogen [Mass/Vol] 11 mg/dL Normal 7-21 [facility] Comment on above: Order Comment: Speci men Type: BLOOD SPECIMEN Ordering Facility: [facility] Address: [address] [place] [address] Performed By: #### 5 7021-8 #### [facility] CLIA [id number] [address] [place] [address] Chest W contrast Jorge IMPRESSION: 1. Stable postoperative CT examination of the chest. Numerous bilateral pulmonary nodules, right greater than left, postoperative changes involving the lower lobes bilaterally, unchanged. 2. No substantial intrathoracic adenopathy is appreciated. Transcribe Date/Time: Dec 19 2022 9:18A Dictated by: YAHIR MCGEE MD This examination was interpreted and the report reviewed and electronically signed by: YAHIR MCGEE MD on Dec 19 2022 1:22PM EST Thank you for allowing us to participate in the care of your patient. Should there be any questions regarding this interpretation, please call [phone]. If you are unable to reach us at the number above, please feel free to [facility] at [phone]. DIVISION OF RADIOLOGY * * *Final Report* * * DATE OF EXAM: Dec 18 2022 12:20PM [facility] 0539 - CT CHEST W IVCON / PROCEDURE REASON: Non-small cell lung cancer (NSCLC), monitor * * * * Physician Interpretation * * * * RESULT: EXAMINATION: CHEST CT WITH CONTRAST CLINICAL HISTORY: Non-small cell lung carcinoma Technique: Spiral CT acquisition of the chest from the thoracic inlet to the upper abdomen following IV contrast. MQ: CTCW_6 Contrast: 50 mL Omnipaque [address] Radiation dose: Integrated Dose-length product (DLP) for this visit = 151 mGy*cm CT Dose Reduction Employed: Automated exposure control (AEC) Comparison: CT chest 07/04/2022 RESULT: Limitations: None. Lines, tubes, and devices: None. Lung parenchyma , airways, and pleural space: Postoperative changes, compatible with left lower lobectomy and right lower lobe wedge resection. Postoperative area of atelectasis/scarring within the right lower lobe adjacent to surgical suture material is again appreciated, unchanged. Mild volume loss involving left hemithorax, stable. Patchy left perihilar opacities are again appreciated, likely on the basis of prior radiation therapy, unchanged. Mild biapical pleural scarring, stable. 1.3 x 1.1 cm right apical groundglass opacity, image 31, series 4, stable. Approximate 1.0 cm groundglass opacity within the central right upper lobe, image 59, series 4, stable. 1.0 cm partially calcified nodule at the lateral aspect of the right middle lobe, image 155, series 4, stable. Numerous additional subcentimeter groundglass and solid nodules are again appreciated within the right lung, stable. Subpleural 4 mm left upper lobe nodule, image 34, series 4, stable. Lower neck, lymph nodes, and mediastinum: The visualized thyroid gland is stable. No substantial supraclavicular or axillary lymphadenopathy is identified. Scattered subcentimeter mediastinal lymph nodes are again identified, postoperative changes of the left hilum, unchanged. Small hiatal hernia, stable. Heart, pericardium, and thoracic vessels: The thoracic aorta is normal in caliber. No substantial pericardial effusion is appreciated. Bones/Soft Tissues: No osseous destructive process. Mild degenerative change within the thoracic spine. Upper Abdomen: Limited images through the upper abdomen appears stable. Abattoir Supervisor (topogram) images: No additional findings. DIVISION OF RADIOLOGY Provider, [facility] - 12/19/2022 * * *Final Report* * * DATE OF EXAM: Dec 18 2022 12:20PM [facility] 0539 - CT CHEST W IVCON / PROCEDURE REASON: Non-small cell lung cancer (NSCLC), monitor * * * * Physician Interpretation * * * * RESULT: EXAMINATION: CHEST CT WITH CONTRAST CLINICAL HISTORY: Non-small cell lung carcinoma Technique: Spiral CT acquisition of the chest from the thoracic inlet to the upper abdomen following IV contrast. MQ: CTCW_6 Contrast: 50 mL Omnipaque [address] Radiation dose: Integrated Dose-length product (DLP) for this visit = 151 mGy*cm CT Dose Reduction Employed: Automated exposure control (AEC) Comparison: CT chest 07/04/2022 RESULT: Limitations: None. Lines, tubes, and devices: None. Lung parenchyma , airways, and pleural space: Postoperative changes, compatible with left lower lobectomy and right lower lobe wedge resection. Postoperative area of atelectasis/scarring within the right lower lobe adjacent to surgical suture material is again appreciated, unchanged. Mild volume loss involving left hemithorax, stable. Patchy left perihilar opacities are again appreciated, likely on the basis of prior radiation therapy, unchanged. Mild biapical pleural scarring, stable. 1.3 x 1.1 cm right apical groundglass opacity, image 31, series 4, stable. Approximate 1.0 cm groundglass opacity within the central right upper lobe, image 59, series 4, stable. 1.0 cm partially calcified nodule at the lateral aspect of the right middle lobe, image 155, series 4, stable. Numerous additional subcentimeter groundglass and solid nodules are again appreciated within the right lung, stable. Subpleural 4 mm left upper lobe nodule, image 34, series 4, stable. Lower neck, lymph nodes, and mediastinum: The visualized thyroid gland is stable. No substantial supraclavicular or axillary lymphadenopathy is identified. Scattered subcentimeter mediastinal lymph nodes are again identified, postoperative changes of the left hilum, unchanged. Small hiatal hernia, stable. Heart, pericardium, and thoracic vessels: The thoracic aorta is normal in caliber. No substantial pericardial effusion is appreciated. Bones/Soft Tissues: No osseous destructive process. Mild degenerative change within the thoracic spine. Upper Abdomen: Limited images through the upper abdomen appears stable. Abattoir Supervisor (topogram) images: No additional findings. IMPRESSION IMPRESSION: 1. Stable postoperative CT examination of the chest. Numerous bilateral pulmonary nodules, right greater than left, postoperative changes involving the lower lobes bilaterally, unchanged. 2. No substantial intrathoracic adenopathy is appreciated. Transcribe Date/Time: Dec 19 2022 9:18A Dictated by: YAHIR MCGEE MD This examination was interpreted and the report reviewed and electronically signed by: YAHIR MCGEE MD on Dec 19 2022 1:22PM EST Thank you for allowing us to participate in the care of your patient. Should there be any questions regarding this interpretation, please call [phone]. If you are unable to reach us at the number above, please feel free to contact [facility] at [phone]. [facility] CT Chest W contrast IVOrdere d By: Ccf Provider on 12-19-2022 [facility] CBC W Auto Differential pane l (Bld)on 12-18-2022 Basophils (Bld) [#/Vol] 0.04 10*3/uL [facility] Basophils/100 WBC (Bld) 0.8 % [facility] Differential cell count method Nom (Bld) Auto [facility] Eosinophils (Bld) [#/Vol] 0.08 10*3/uL [facility] Eosinophils/100 WBC (Bld) 1.7 % [facility] Erythrocyte distribution width (RBC) [Ratio] 12.9 % 11.5 - 15.0 % [facility] Hematocrit (Bld) [Volume fraction] 37.7 % 36.0 - 46.0 % [facility] Hemoglobin (Bld) [Mass/Vol] 12.2 g/dL 11.5 - 15.5 g/dL [facility] Immature granulocytes (Bld) [#/Vol] NINF [facility] Immature granulocytes/100 WBC (Bld) 0.2 % [facility] Interpretation and review of laboratory results Abnormal [facility] Lymphocytes (Bld) [#/Vol] 0.92 10*3/uL Low [facility] Lymphocytes/100 WBC (Bld) 19.0 % [facility] MCH (RBC) [Entitic mass] 29.5 pg 26.0 - 34.0 pg [facility] MCHC (RBC) [Mass/Vol] 32.4 g/dL 30.5 - 36.0 g/dL [facility] MCV (RBC) [Entitic vol] 91.1 fL 80.0 - 100.0 fL [facility] Monocytes (Bld) [#/Vol] 0.31 10*3/uL NINF [facility] Monocytes/100 WBC (Bld) 6.4 % [facility] Neutrophils (Bld) [#/Vol] 3.48 10*3/uL [facility] Neutrophils/100 WBC (Bld) 71.9 % [facility] Nucleated RBC (Bld) [#/Vol] NINF [facility] Nucleated RBC/100 WBC (Bld) [Ratio] 0.0 % /100 WBC [facility] Platelet mean volume (Bld) [Entitic vol] 9.8 fL 9.0 - 12.7 fL [facility] Platelets (Bld) [#/Vol] 263 10*3/uL [facility] RBC (Bld) [#/Vol] 4.14 10*6/uL 3.90 - 5.2 0 m/uL [facility] WBC (Bld) [#/Vol] 4.84 10*3/uL [facility] CT Chest W contrast Jorge Radiology Study observation (narrative) [facility] Comprehensive metabolic 2000 panelOrdered By: Monet Yin on 12-18-2022 Albumin [Mass/Vol] 4.7 g/dL 3.9 - 4.9 g/dL [facility] ALP [Catalytic activity/Vol] 95 U/L 34 - 123 U/L [facility] ALT [Catalytic activity/Vol] 16 U/L 7 - 38 U/L [facility] Anion gap [Moles/Vol] 10 mmol/L 9 - 18 mmol/L [facility] AST [Catalytic activity/Vol] 18 U/L 13 - 35 U/L [facility] Bilirubin [Mass/Vol] 0.7 mg/dL 0.2 - 1.3 mg/dL [facility] Calcium [Mass/Vol] 10.4 mg/dL High 8.5 - 10. 2 mg/dL [facility] Chloride [Moles/Vol] 104 mmol/L 97 - 105 mmol/L [facility] CO2 [Moles/Vol] 27 mmol/L 22 - 30 mmol/L [facility] Creatinine [Mass/Vol] 0.85 mg/dL 0.58 - 0.96 mg/dL [facility] GFR/1.73 sq M.predicted among non-blacks MDRD (S/P/Bld) [Vol rate/Area] 75 mL/min/{1.73_m2} - PINF [facility] Comment on above: Estimated Glomerular Filtration Rate (eGFR) is calculated using the 2020 CKD-EPI creatinine equation. This equation utilizes serum creatinine, sex, and age as parameters. The creatinine assay has traceable calibration to isotope dilution-mass spectrometry. Refer to KDIGO guidelines for clinical interpretation. In patients with unstable renal function, e.g. those with acute kidney injury, the eGFR may not accurately reflect actual GFR. Glucose [Mass/Vol] 98 mg/dL 74 - 99 mg/dL [facility] Comment on above: The [place] Diab[employer] s Association (ADA) provides guidance for cutoff values for fasting glucose and random glucose. The ADA defines fasting as no caloric intake for at least 8 hours. Fasting plasma glucose results between 100 to 125 mg/dL indicate increased risk for diabetes (prediabetes). Fasting plasma glucose results greater than or equal to 126 mg/dL meet the criteria for diagnosis of diabetes. In the absence of unequivocal hyperglycemia, results should be confirmed by repeat testing. In a patient with classic symptoms of hyperglycemia or hyperglycemic crisis, random plasma glucose results greater than or equal to 200 mg/dL meet the criteria for diagnosis of diabetes. Reference: Standards of Medical Care in Diabetes 2016, [place] [employer]. Diabetes Care. 2016.39(Suppl 1). Interpretation and review of laboratory results Abnormal [facility] Potassium [Moles/Vol] 4.3 mmol/L 3.7 - 5.1 mmol/L [facility] Protein [Mass/Vol] 7.3 g/dL 6.3 - 8.0 g/dL [facility] Sodium [Moles/Vol] 141 mmol/L 136 - 144 mmol/L [facility] [facility] Urea nitrogen [Mass/Vol] 16 mg/dL 7 - 21 mg/dL [facility] CBC W Auto Differential pane l (Bld)on 07-04-2022 Basophils (Bld) [#/Vol] 0.06 10*3/uL [facility] Basophils/100 WBC (Bld) 1.4 % [facility] Differential cell count method Nom (Bld) Auto [facility] Eosinophils (Bld) [#/Vol] 0.27 10*3/uL [facility] Eosinophils/100 WBC (Bld) 6.1 % [facility] Erythrocyte distribution width (RBC) [Ratio] 13.0 % 11.5 - 15.0 % [facility] Hematocrit (Bld) [Volume fraction] 39.3 % 36.0 - 46.0 % [facility] Hemoglobin (Bld) [Mass/Vol] 12.8 g/dL 11.5 - 15.5 g/dL [facility] Immature granulocytes (Bld) [#/Vol] [facility] Immature granulocytes/100 WBC (Bld) 0.2 % [facility] Lymphocytes (Bld) [#/Vol] 1.21 10*3/uL [facility] Lymphocytes/100 WBC (Bld) 27.3 % [facility] MCH (RBC) [Entitic mass] 30.3 pg 26.0 - 34.0 pg [facility] MCHC (RBC) [Mass/Vol] 32.6 g/dL 30.5 - 36.0 g/dL [facility] MCV (RBC) [Entitic vol] 92.9 fL 80.0 - 100.0 fL [facility] Monocytes (Bld) [#/Vol] 0.29 10*3/uL [facility] Monocytes/100 WBC (Bld) 6.5 % [facility] Neutrophils (Bld) [#/Vol] 2.59 10*3/uL [facility] Neutrophils/100 WBC (Bld) 58.5 % [facility] Nucleated RBC (Bld) [#/Vol] [facility] Nucleated RBC/100 WBC (Bld) [Ratio] 0.0 % /100 WBC [facility] Platelet mean volume (Bld) [Entitic vol] 10.1 fL 9.0 - 12.7 fL [facility] Platelets (Bld) [#/Vol] 244 10*3/uL [facility] RBC (Bld) [#/Vol] 4.23 10*6/uL 3.90 - 5.2 0 m/uL [facility] WBC (Bld) [#/Vol] 4.43 10*3/uL [facility] CT Chest W contrast Jorge IMPRESSION: 1. Overall stable CT of the chest. Stable appearance of multiple right-sided nodules. No new or enlarging nodules are visualized. 2. Stable left perihilar opacity, in keeping with prior radiation therapy. 3. No evidence of bulky intrathoracic lymphadenopathy. Transcribe Date/Time: Jul 04 2022 2:05P Dictated by: GLENNY PADILLA MD This examination was interpreted and the report reviewed and electronically signed by: GLENNY PADILLA MD on Jul 04 2022 2:21PM EST Thank you for allowing us to participate in the care of your patient. Should there be any questions regarding this interpretation, please call [phone]. If you are unable to reach us at the number above, please feel free to contact [facility] eRadiology at [phone]. DIVISION OF RADIOLOGY * * *Final Report* * * DATE OF EXAM: Jul 04 2022 9:39AM [facility] 0539 - CT CHEST W IVCON / PROCEDURE REASON: Malignant neoplasm of unspecified part of unspecified bronchus or lung (HCC) * * * * Physician Interpretation * * * * RESULT: EXAMINATION: CHEST CT WITH CONTRAST CLINICAL HISTORY: History of lung cancer. Technique: Spiral CT acquisition of the chest from the thoracic inlet to the upper abdomen following IV contrast. MQ: CTCW_6 Contrast: 50 mL Omnipaque [address] Radiation dose: Integrated Dose-length product (DLP) for this visit = 154 mGy*cm CT Dose Reduction Employed: Automated exposure control (AEC) Comparison: CT chest performed 12/27/2021 RESULT: Limitations: None. Lines, tubes, and devices: None. Lung parenchyma and airways: Postsurgical changes are noted in keeping with left lower lobectomy. Wedge resection is also noted in the right lower lobe. No new dense lobar consolidation is identified. There is stable left perihilar consolidative opacity, likely on the basis of postradiation change. There is stable scarring along the right lower lobe suture margin. Multiple right-sided nodular opacities are again visualized. These include the following: Right upper lobe (4:31) groundglass nodule measuring 1.3 x 1.1 cm, stable when measured in similar fashion Right upper lobe (4:43) 0.5 cm subpleural nodule, stable Right upper lobe (4:60) ill-defined 1 cm groundglass nodule, stable Right upper lobe (4:94) 0.6 cm, stable Right middle lobe (4:115) 0.5 cm, stable Right middle lobe (4:128) 0.4 cm, stable Right middle lobe (4:142) 0.5 cm, stable Right middle lobe (4:159) 1 cm nodule with central calcification, stable Right lower lobe (4:129) 0.7 cm, stable No new or enlarging nodules are seen. The central airways are widely patent. Pleural space: No pleural effusion. No pleural thickening. Lower neck, lymph nodes, and mediastinum: The imaged thyroid gland is normal. No lymphadenopathy in the supraclavicular, axillary, mediastinal, or hilar regions. Heart, pericardium, and thoracic vessels: The thoracic aorta and main pulmonary artery are normal in caliber. The cardiac chambers are normal in size. No coronary artery atherosclerotic calcifications are noted, although the study is not optimized for coronary assessment. No pericardial effusion or thickening. Bones and soft tissues: Mild degenerative changes noted in the thoracic spine. Superficial soft tissues are unremarkable. Upper abdomen: No abnormality in the imaged upper abdomen. Abattoir Supervisor (topogram) images: No additional findings. DIVISION OF RADIOLOGY Provider, [facility] - 07/04/2022 * * *Final Report* * * DATE OF EXAM: Jul 04 2022 9:39AM [facility] 0539 - CT CHEST W IVCON / PROCEDURE REASON: Malignant neoplasm of unspecified part of unspecified bronchus or lung (HCC) * * * * Physician Interpretation * * * * RESULT: EXAMINATION: CHEST CT WITH CONTRAST CLINICAL HISTORY: History of lung cancer. Technique: Spiral CT acquisition of the chest from the thoracic inlet to the upper abdomen following IV contrast. MQ: CTCW_6 Contrast: 50 mL Omnipaque [address] Radiation dose: Integrated Dose-length product (DLP) for this visit = 154 mGy*cm CT Dose Reduction Employed: Automated exposure control (AEC) Comparison: CT chest performed 12/27/2021 RESULT: Limitations: None. Lines, tubes, and devices: None. Lung parenchyma and airways: Postsurgical changes are noted in keeping with left lower lobectomy. Wedge resection is also noted in the right lower lobe. No new dense lobar consolidation is identified. There is stable left perihilar consolidative opacity, likely on the basis of postradiation change. There is stable scarring along the right lower lobe suture margin. Multiple right-sided nodular opacities are again visualized. These include the following: Right upper lobe (4:31) groundglass nodule measuring 1.3 x 1.1 cm, stable when measured in similar fashion Right upper lobe (4:43) 0.5 cm subpleural nodule, stable Right upper lobe (4:60) ill-defined 1 cm groundglass nodule, stable Right upper lobe (4:94) 0.6 cm, stable Right middle lobe (4:115) 0.5 cm, stable Right middle lobe (4:128) 0.4 cm, stable Right middle lobe (4:142) 0.5 cm, stable Right middle lobe (4:159) 1 cm nodule with central calcification, stable Right lower lobe (4:129) 0.7 cm, stable No new or enlarging nodules are seen. The central airways are widely patent. Pleural space: No pleural effusion. No pleural thickening. Lower neck, lymph nodes, and mediastinum: The imaged thyroid gland is normal. No lymphadenopathy in the supraclavicular, axillary, mediastinal, or hilar regions. Heart, pericardium, and thoracic vessels: The thoracic aorta and main pulmonary artery are normal in caliber. The cardiac chambers are normal in size. No coronary artery atherosclerotic calcifications are noted, although the study is not optimized for coronary assessment. No pericardial effusion or thickening. Bones and soft tissues: Mild degenerative changes noted in the thoracic spine. Superficial soft tissues are unremarkable. Upper abdomen: No abnormality in the imaged upper abdomen. Abattoir Supervisor (topogram) images: No additional findings. IMPRESSION IMPRESSION: 1. Overall stable CT of the chest. Stable appearance of multiple right-sided nodules. No new or enlarging nodules are visualized. 2. Stable left perihilar opacity, in keeping with prior radiation therapy. 3. No evidence of bulky intrathoracic lymphadenopathy. Transcribe Date/Time: Jul 04 2022 2:05P Dictated by: GLENNY PADILLA MD This examination was interpreted and the report reviewed and electronically signed by: GLENNY PADILLA MD on Jul 04 2022 2:21PM EST Thank you for allowing us to participate in the care of your patient. Should there be any questions regarding this interpretation, please call [phone]. If you are unable to reach us at the number above, please feel free to contact [facility] eRadiology at [phone]. [facility] Radiology Study observation (narrative) [facility] CT Chest W contrast IVOrdere d By: [facility] Provider on 07-04-2022 [facility] Comprehensive metabolic 2000 panelOrdered By: Juliet Elizalde on 07-04-2022 Albumin [Mass/Vol] 4.5 g/dL 3.9 - 4.9 g/dL [facility] ALP [Catalytic activity/Vol] 103 U/L 34 - 123 U/L [facility] ALT [Catalytic activity/Vol] 18 U/L 7 - 38 U/L [facility] Anion gap [Moles/Vol] 9 mmol/L 9 - 18 mmol/L [facility] AST [Catalytic activity/Vol] 19 U/L 13 - 35 U/L [facility] Bilirubin [Mass/Vol] 0.7 mg/dL 0.2 - 1.3 mg/dL [facility] Calcium [Mass/Vol] 10.1 mg/dL 8.5 - 10. 2 mg/dL [facility] Chloride [Moles/Vol] 102 mmol/L 97 - 105 mmol/L [facility] CO2 [Moles/Vol] 29 mmol/L 22 - 30 mmol/L [facility] Creatinine [Mass/Vol] 0.94 mg/dL 0.58 - 0.96 mg/dL [facility] GFR/1.73 sq M.predicted among non-blacks MDRD (S/P/Bld) [Vol rate/Area] 67 mL/min/{1.73_m2} - PINF [facility] Comment on above: Estimated Glomerular Filtration Rate (eGFR) is calculated using the 2020 CKD-EPI creatinine equation. This equation utilizes serum creatinine, sex, and age as parameters. The creatinine assay has traceable calibration to isotope dilution-mass spectrometry. Refer to KDIGO guidelines for clinical interpretation. In patients with unstable renal function, e.g. those with acute kidney injury, the eGFR may not accurately reflect actual GFR. Glucose [Mass/Vol] 96 mg/dL 74 - 99 mg/dL [facility] Comment on above: The [place] Di[employer] (ADA) provides guidance for cutoff values for fasting glucose and random glucose. The ADA defines fasting as no caloric intake for at least 8 hours. Fasting plasma glucose results between 100 to 125 mg/dL indicate increased risk for diabetes (prediabetes). Fasting plasma glucose results greater than or equal to 126 mg/dL meet the criteria for diagnosis of diabetes. In the absence of unequivocal hyperglycemia, results should be confirmed by repeat testing. In a patient with classic symptoms of hyperglycemia or hyperglycemic crisis, random plasma glucose results greater than or equal to 200 mg/dL meet the criteria for diagnosis of diabetes. Reference: Standards of Medical Care in Diabetes 2016, [place] [employer]. Diabetes Care. 2016.39(Suppl 1). Interpretation and review of laboratory results Normal [facility] Potassium [Moles/Vol] 3.8 mmol/L 3.7 - 5.1 mmol/L [facility] Protein [Mass/Vol] 7.4 g/dL 6.3 - 8.0 g/dL [facility] Sodium [Moles/Vol] 140 mmol/L 136 - 144 mmol/L [facility] Urea nitrogen [Mass/Vol] 18 mg/dL 7 - 21 mg/dL [facility] CT Chest W contrast Jorge IMPRESSION: 1. Stable postoperative appearance to the chest. Left perihilar opacities likely related to prior radiation therapy, stable. 2. Multiple bilateral solid and groundglass nodular opacities are again appreciated, stable in appearance from the prior study of 07/01/2021. 3. No substantial intrathoracic adenopathy is identified. Transcribe Date/Time: Dec 27 2021 3:37P Dictated by: YAHIR MCGEE MD This examination was interpreted and the report reviewed and electronically signed by: YAHIR MCGEE MD on Dec 28 2021 8:05AM EST Thank you for allowing us to participate in the care of your patient. Should there be any questions regarding this interpretation, please call [phone]. If you are unable to reach us at the number above, please feel free to contact [facility] eRadiology at [phone]. DIVISION OF RADIOLOGY * * *Final Report* * * DATE OF EXAM: Dec 27 2021 10:27AM [facility] 0539 - CT CHEST W IVCON / PROCEDURE REASON: Lung nodules * * * * Physician Interpretation * * * * RESULT: EXAMINATION: CHEST CT WITH CONTRAST CLINICAL HISTORY: Lung nodules Technique: Spiral CT acquisition of the chest from the thoracic inlet to the upper abdomen following IV contrast. MQ: CTCW_6 Contrast: 50 mL Omnipaque [address] Radiation dose: Integrated Dose-length product (DLP) for this visit = 150 mGy*cm CT Dose Reduction Employed: Automated exposure control (AEC) Comparison: CT chest 07/01/2021 RESULT: Limitations: None. Lines, tubes, and devices: None. Lung parenchyma , airways, and pleural space: No new consolidative process or pleural effusion. The trachea and major airways appear patent. Minimal biapical pleural scarring, stable. Postoperative changes, compatible with prior left lower lobectomy, stable. Patchy opacity at the posterior aspect of the left hilum extending to the medial aspect of left midlung zone is again appreciated, stable, likely related to prior radiation therapy, stable. Postoperative changes and associated areas of postoperative atelectasis/scarring at the right lower lobe, stable. 7-8mm nodularity within this region, images 126 and 131, series 4, stable. 1.1 cm right apical groundglass opacity, image 28, series 4, stable. 1.0 cm groundglass opacity within the right upper lobe, image 58, series 4, stable. Numerous bilateral solid pulmonary nodules are again identified, largest at the lateral aspect of right middle lobe measuring approximately 1.1 cm, stable. Lower neck, lymph nodes, and mediastinum: The visualized thyroid gland is stable. No substantial supraclavicular or axillary lymphadenopathy. Subcentimeter mediastinal lymph nodes, stable. Postoperative changes of the left hilum are again appreciated. No substantial mediastinal or hilar adenopathy is identified. Heart, pericardium, and thoracic vessels: The thoracic aorta is normal in caliber. No substantial pericardial effusion is identified. Bones/Soft Tissues: Degenerative change involving the thoracic spine is again appreciated. No osseous destructive process is appreciated. Upper Abdomen: Limited images through the upper abdomen appears stable. Abattoir Supervisor (topogram) images: No additional findings. DIVISION OF RADIOLOGY Provider, Praveen Frias [facility] - 12/28/2021 * * *Final Report* * * DATE OF EXAM: Dec 27 2021 10:27AM [facility] 0539 - CT CHEST W IVCON / PROCEDURE REASON: Lung nodules * * * * Physician Interpretation * * * * RESULT: EXAMINATION: CHEST CT WITH CONTRAST CLINICAL HISTORY: Lung nodules Technique: Spiral CT acquisition of the chest from the thoracic inlet to the upper abdomen following IV contrast. MQ: CTCW_6 Contrast: 50 mL Omnipaque [address] Radiation dose: Integrated Dose-length product (DLP) for this visit = 150 mGy*cm CT Dose Reduction Employed: Automated exposure control (AEC) Comparison: CT chest 07/01/2021 RESULT: Limitations: None. Lines, tubes, and devices: None. Lung parenchyma , airways, and pleural space: No new consolidative process or pleural effusion. The trachea and major airways appear patent. Minimal biapical pleural scarring, stable. Postoperative changes, compatible with prior left lower lobectomy, stable. Patchy opacity at the posterior aspect of the left hilum extending to the medial aspect of left midlung zone is again appreciated, stable, likely related to prior radiation therapy, stable. Postoperative changes and associated areas of postoperative atelectasis/scarring at the right lower lobe, stable. 7-8mm nodularity within this region, images 126 and 131, series 4, stable. 1.1 cm right apical groundglass opacity, image 28, series 4, stable. 1.0 cm groundglass opacity within the right upper lobe, image 58, series 4, stable. Numerous bilateral solid pulmonary nodules are again identified, largest at the lateral aspect of right middle lobe measuring approximately 1.1 cm, stable. Lower neck, lymph nodes, and mediastinum: The visualized thyroid gland is stable. No substantial supraclavicular or axillary lymphadenopathy. Subcentimeter mediastinal lymph nodes, stable. Postoperative changes of the left hilum are again appreciated. No substantial mediastinal or hilar adenopathy is identified. Heart, pericardium, and thoracic vessels: The thoracic aorta is normal in caliber. No substantial pericardial effusion is identified. Bones/Soft Tissues: Degenerative change involving the thoracic spine is again appreciated. No osseous destructive process is appreciated. Upper Abdomen: Limited images through the upper abdomen appears stable. Abattoir Supervisor (topogram) images: No additional findings. IMPRESSION IMPRESSION: 1. Stable postoperative appearance to the chest. Left perihilar opacities likely related to prior radiation therapy, stable. 2. Multiple bilateral solid and groundglass nodular opacities are again appreciated, stable in appearance from the prior study of 07/01/2021. 3. No substantial intrathoracic adenopathy is identified. Transcribe Date/Time: Dec 27 2021 3:37P Dictated by: YAHIR MCGEE MD This examination was interpreted and the report reviewed and electronically signed by: YAHIR MCGEE MD on Dec 28 2021 8:05AM EST Thank you for allowing us to participate in the care of your patient. Should there be any questions regarding this interpretation, please call [phone]. If you are unable to reach us at the number above, please feel free to contact [facility] eRadiology at [phone]. [facility] CT Chest W contrast IVOrdere d By: [facility] Provider on 12-28-[address] [facility] [address] Chest W contrast Jorge Radiology Study observation (narrative) [facility] Comprehensive metabolic 2000 panelOrdered By: Kodak Espinosa on 12-27-2021 Albumin [Mass/Vol] 4.4 g/dL 3.9 - 4.9 g/dL [facility] ALP [Catalytic activity/Vol] 79 U/L 34 - 123 U/L [facility] ALT [Catalytic activity/Vol] 9 U/L 7 - 38 U/L [facility] Anion gap [Moles/Vol] 8 mmol/L Low 9 - 18 mmol/L [facility] AST [Catalytic activity/Vol] 16 U/L 13 - 35 U/L [facility] Bilirubin [Mass/Vol] 0.5 mg/dL 0.2 - 1.3 mg/dL [facility] Calcium [Mass/Vol] 9.6 mg/dL 8.5 - 10. 2 mg/dL [facility] Chloride [Moles/Vol] 101 mmol/L 97 - 105 mmol/L [facility] CO2 [Moles/Vol] 27 mmol/L 22 - 30 mmol/L [facility] Creatinine [Mass/Vol] 0.87 mg/dL 0.58 - 0.96 mg/dL [facility] GFR/1.73 sq M.predicted among non-blacks MDRD (S/P/Bld) [Vol rate/Area] 74 mL/min/{1.73_m2} - PINF [facility] Comment on above: Estimated Glomerular Filtration Rate (eGFR) is calculated using the 2020 CKD-EPI creatinine equation. This equation utilizes serum creatinine, sex, and age as parameters. The creatinine assay has traceable calibration to isotope dilution-mass spectrometry. Refer to KDIGO guidelines for clinical interpretation. In patients with unstable renal function, e.g. those with acute kidney injury, the eGFR may not accurately reflect actual GFR. Glucose [Mass/Vol] 88 mg/dL 74 - 99 mg/dL [facility] Comment on above: The [place] Di[employer] (ADA) provides guidance for cutoff values for fasting glucose and random glucose. The ADA defines fasting as no caloric intake for at least 8 hours. Fasting plasma glucose results between 100 to 125 mg/dL indicate increased risk for diabetes (prediabetes). Fasting plasma glucose results greater than or equal to 126 mg/dL meet the criteria for diagnosis of diabetes. In the absence of unequivocal hyperglycemia, results should be confirmed by repeat testing. In a patient with classic symptoms of hyperglycemia or hyperglycemic crisis, random plasma glucose results greater than or equal to 200 mg/dL meet the criteria for diagnosis of diabetes. Reference: Standards of Medical Care in Diabetes 2016, [place] [employer]. Diabetes Care. 2016.39(Suppl 1). Interpretation and review of laboratory results Abnormal [facility] Potassium [Moles/Vol] 3.9 mmol/L 3.7 - 5.1 mmol/L [facility] Protein [Mass/Vol] 6.9 g/dL 6.3 - 8.0 g/dL [facility] Sodium [Moles/Vol] 136 mmol/L 136 - 144 mmol/L [facility] Urea nitrogen [Mass/Vol] 17 mg/dL 7 - 21 mg/dL [facility] CBC W Auto Differential pane l (Bld)on 12-19-2021 Basophils (Bld) [#/Vol] 0.03 10*3/uL Normal <0.11 [facility] Comment on above: Order Comment: Speci men Type: BLOOD SPECIMEN Ordering Facility: [facility] Address: [address] [place], [place] [id number] Performed By: #### 5 7021-8 #### [facility] [place] [id number] [place] [address] [place] Basophils/100 WBC (Bld) 0.7 % Normal [facility] Comment on above: Order Comment: Speci men Type: BLOOD SPECIMEN Ordering Facility: [facility] Address: [address] [place], [place] [id number] Performed By: #### 5 7021-8 #### [facility] [place] [id number] [place] [address] [place] Differential cell count method Nom (Bld) Auto Normal [facility] Comment on above: Order Comment: Speci men Type: BLOOD SPECIMEN Ordering Facility: [facility] Address: [address] [place] [address] Performed By: #### 5 7021-8 #### [facility] [place] [id number] [place] [address] [place] Eosinophils (Bld) [#/Vol] 0.06 10*3/uL Normal <0.46 [facility] Comment on above: Order Comment: Speci men Type: BLOOD SPECIMEN Ordering Facility: [facility] Address: [address] [place], [place] [id number] Performed By: #### 5 7021-8 #### [facility] CLIA [id number] [facility] [address] [place] Eosinophils/100 WBC (Bld) 1.4 % Normal [facility] Comment on above: Order Comment: Speci men Type: BLOOD SPECIMEN Ordering Facility: [facility] Address: [address] [place], [place] [address] Performed By: #### 5 7021-8 #### [facility] [place] [id number] [place] [address] [place] Erythrocyte distribution width (RBC) [Ratio] 12.5 % Normal 11.5-15.0 [facility] Comment on above: Order Comment: Speci men Type: BLOOD SPECIMEN Ordering Facility: [facility] Address: [address] [place] [address] Performed By: #### 5 7021-8 #### [facility] [place] [id number] [place] Hematocrit (Bld) [Volume fraction] 35.7 % Low 36.0-46.0 [facility] Comment on above: Order Comment: Speci men Type: BLOOD SPECIMEN Ordering Facility: [facility] Address: [address] [place] [address] Performed By: #### 5 7021-8 #### [facility] [place] [id number] [place] [address] [place] Hemoglobin (Bld) [Mass/Vol] 11.7 g/dL Normal 11.5-15.5 [facility] Comment on above: Order Comment: Speci men Type: BLOOD SPECIMEN Ordering Facility: [facility] Address: [address] [place] [address] Performed By: #### 5 7021-8 #### [facility] [place] [id number] [place] Immature granulocytes (Bld) [#/Vol] 10*3/uL Normal <0.10 [facility] Comment on above: Order Comment: Speci men Type: BLOOD SPECIMEN Ordering Facility: [facility] Address: [address] [place], [place] [id number] Performed By: #### 5 7021-8 #### [facility] [place] [id number] [place] Immature granulocytes/100 WBC (Bld) 0.2 % Normal [facility] Comment on above: Order Comment: Speci men Type: BLOOD SPECIMEN [facility] Address: [address] [place], [place] [address] Performed By: #### 5 7021-8 #### [facility] [place] [id number] [address] [place] [address] [place] Lymphocytes (Bld) [#/Vol] 1.00 10*3/uL Normal 1.00-4.00 [facility] Comment on above: Order Comment: Speci men Type: BLOOD SPECIMEN [facility]: [facility] Address: [address] [place] [address] Performed By: #### 5 7021-8 #### [facility] [place] [id number] [place] Lymphocytes/100 WBC (Bld) 23.4 % Normal [facility] Comment on above: Order Comment: Speci men Type: BLOOD SPECIMEN [facility] Address: [address] [place] [address] Performed By: #### 5 7021-8 #### [facility] [place] [id number] [address] [place] MCH (RBC) [Entitic mass] 30.3 pg Normal 26.0-34.0 [facility] Comment on above: Order Comment: Speci men Type: BLOOD SPECIMEN [facility] Address: [address] [place] [address] Performed By: #### 5 7021-8 #### [facility] IA [id number] [address] [place] [address] [place] MCHC (RBC) [Mass/Vol] 32.8 g/dL Normal 30.5-36.0 [facility] Comment on above: Order Comment: Speci men Type: BLOOD SPECIMEN [facility] Address: [address] [place] [address] Performed By: #### 5 7021-8 #### [facility] [place] [id number] [address] [place] MCV (RBC) [Entitic vol] 92.5 fL Normal 80.0-100.0 [facility] Comment on above: Order Comment: Speci men Type: BLOOD SPECIMEN [facility]ing [facility]: [facility] Address: [address] [place], [place] [address] Performed By: #### 5 7021-8 #### [facility] [place] [id number] [address] [place] [address] [place] Monocytes (Bld) [#/Vol] 0.48 10*3/uL Normal <0.87 [facility] Comment on above: Order Comment: Speci men Type: BLOOD SPECIMEN [facility] Address: [address] [place], [place] [address] Performed By: #### 5 7021-8 #### [facility] IA [id number] [address] [place] [address] [place] Monocytes/100 WBC (Bld) 11.2 % Normal [facility] Comment on above: Order Comment: Speci men Type: BLOOD SPECIMEN [facility] Address: [address] [place] [address] Performed By: #### 5 7021-8 #### [facility] IA [id number] [address] [place] [address] [place] Neutrophils (Bld) [#/Vol] 2.70 10*3/uL Normal 1.45-7.50 [facility] Comment on above: Order Comment: Speci men Type: BLOOD SPECIMEN [facility] Address: [address] [place], [place] [address] Performed By: #### 5 7021-8 #### [facility] [place] [id number] [address] [place] [address] [place] Neutrophils/100 WBC (Bld) 63.1 % Normal [facility] Comment on above: Order Comment: Speci men Type: BLOOD SPECIMEN [facility] Address: [address] [place], [place] [address] Performed By: #### 5 7021-8 #### [facility] [place] [id number] [address] [place] [address] [place] Nucleated RBC (Bld) [#/Vol] 10*3/uL Normal <0.01 [facility] Comment on above: Order Comment: Speci men Type: BLOOD SPECIMEN [facility] Address: [address] [place], [place] [address] Performed By: #### 5 7021-8 #### [facility] CLIA [id number] [address] [place] [address] [place] Nucleated RBC/100 WBC (Bld) [Ratio] 0.0 /100 WBC Normal [facility] Comment on above: Order Comment: Speci men Type: BLOOD SPECIMEN [facility] Address: [address] [place], [place] [address] Performed By: #### 5 7021-8 #### [facility] IA [id number] [address] [place] [address] [place] Platelet mean volume (Bld) [Entitic vol] 10.9 fL Normal 9.0-12.7 [facility] Comment on above: Order Comment: Speci men Type: BLOOD SPECIMEN [facility] Address: [address] [place], [place] [address] Performed By: #### 5 7021-8 #### [facility] IA [id number] [address] [place] [address] [place] Platelets (Bld) [#/Vol] 202 10*3/uL Normal 150-400 [facility] Comment on above: Order Comment: Speci men Type: BLOOD SPECIMEN [facility] Address: [address] [place], [place] [address] Performed By: #### 5 7021-8 #### [facility] CLIA [id number] [address] [place] [address] [place] RBC (Bld) [#/Vol] 3.86 10*6/uL Low 3.90-5.20 [facility] Comment on above: Order Comment: Speci men Type: BLOOD SPECIMEN [facility] Address: [address] [place], [place] [address] Performed By: #### 5 7021-8 #### [facility] CLIA [id number] [address] [place] [address] [place] WBC (Bld) [#/Vol] 4.28 10*3/uL Normal 3.70-11.00 [facility] Comment on above: Order Comment: Speci men Type: BLOOD SPECIMEN [facility] Address: [address] [place], [place] [address] Performed By: #### 5 7021-8 #### [facility] CLIA [id number] [address] [place] [address] [place] CRP SerPl-mCncon 12-19-2021 CRP [Mass/Vol] mg/L Normal <0.9 [facility] Comment on above: Order Comment: Speci men Type: BLOOD SPECIMEN [facility] Address: [address] [place], [place] [phone] Performed By: #### 2 4323-8, 1987-07 #### [facility] CLIA [id number] [address] [place] [address] [place] CT BRAIN WO IVCONon 12-20-19 CT BRAIN WO IVCON * * *Final Report* * * DATE OF EXAM: Dec 19 2021 2:51PM [facility] 0504 - CT BRAIN WO IVCON / PROCEDURE REASON: Headache, sudden, severe * * * * Physician Interpretation * * * * EXAMINATION: CT BRAIN WO IVCON CLINICAL HISTORY: Sudden headache TECHNIQUE: Serial axial images without IV contrast were obtained from the vertex to the foramen magnum. MQ: CTBWO_3 CT Radiation dose: Integrated Dose-Length Product (DLP) for this visit = 700 mGy*cm CT Dose Reduction Employed: No dose reduction techniques were required COMPARISON: 03/15/2021 RESULT: Post-operative change: None. Acute change: No evidence of an acute infarct or other acute parenchymal process. Hemorrhage: No evidence of acute intracranial hemorrhage. ECASS hemorrhagic transformation score: Not Applicable Mass Lesion / Mass Effect: There is no evidence of an intracranial mass or extraaxial fluid collection. No significant mass effect. Chronic change: None apparent. Parenchyma: There is no significant volume loss. The brain parenchyma is otherwise within normal limits for age. Ventricles: The ventricles are within normal limits of size and configuration for age. Paranasal sinuses and skull base: The visualized paranasal sinuses are grossly clear. The skull base and imaged soft tissues are unremarkable. Abattoir Supervisor (topogram) images: No additional findings. IMPRESSION: No acute intracranial hemorrhage or mass effect is seen Consulting Systems Engineer: PSCB Transcribe Date/Time: Dec 19 2021 2:57P Dictated by : MARAH CBOB MD This examination was interpreted and the report reviewed and electronically signed by: MARAH COBB MD on Dec 19 2021 2:59PM EST [id number] N Normal [facility] Comprehensive metabolic 2000 panelon 12-19-2021 Albumin [Mass/Vol] 4.3 g/dL Normal 3.9-4.9 [facility] Comment on above: Order Comment: Cheryl bishop Type: BLOOD SPECIMEN [facility] Address: [address] [place] [address] Performed By: #### 2 4322-10, 1987-07 #### [facility] CLIA [id number] [address] [place] [address] [place] ALP [Catalytic activity/Vol] 77 U/L Normal 34-123 [facility] Comment on above: Order Comment: Cheryl bishop Type: BLOOD SPECIMEN [facility] Address: [address] [place] [address] Performed By: #### 2 1987-07 #### [facility] CLIA [id number] [address] [place] [address] [place] ALT [Catalytic activity/Vol] 10 U/L Normal 7-38 [facility] Comment on above: Order Comment: Cheryl bishop Type: BLOOD SPECIMEN [facility] Address: [address] [place] [address] Performed By: #### 2 4322-10, 1987-07 #### [facility] CLIA [id number] [address] [place] [address] [place] Anion gap [Moles/Vol] 6 mmol/L Low 9-18 [facility] Comment on above: Order Comment: Speci men Type: BLOOD SPECIMEN [facility] Address: [address] [place] [phone] Performed By: #### 2 4322-10, 1987-07 #### [facility] CLIA [id number] [address] [place] [address] [place] AST [Catalytic activity/Vol] 14 U/L Normal 13-35 [facility] Comment on above: Order Comment: Speci men Type: BLOOD SPECIMEN [facility] Address: [address] [place] [phone] Performed By: #### 2 4322-10, 1987-07 #### [facility] CLIA [id number] [address] [place] [address] [place] Bilirubin [Mass/Vol] 0.9 mg/dL Normal 0.2-1.3 [facility] Comment on above: Order Comment: Speci men Type: BLOOD SPECIMEN [facility] Address: [address] [place] [phone] Performed By: #### 2 4322-10, 1987-07 #### [facility] IA [id number] [address] [place] [address] [place] Calcium [Mass/Vol] 9.2 mg/dL Normal 8.5-10.2 [facility] Comment on above: Order Comment: Speci men Type: BLOOD SPECIMEN [facility] Address: [address] [place] [phone] Performed By: #### 2 4322-10, 1987-07 #### [facility] CLIA [id number] [address] [place] [address] [place] Chloride [Moles/Vol] 104 mmol/L Normal 97-105 [facility] Comment on above: Order Comment: Speci men Type: BLOOD SPECIMEN [facility] Address: [address] [place] [phone] Performed By: #### 2 1987-07 #### [facility] CLIA [id number] [address] [place] [address] [place] CO2 [Moles/Vol] 28 mmol/L Normal 22-30 [facility] Comment on above: Order Comment: Speci men Type: BLOOD SPECIMEN [facility] Address: [address] [place] [address] Performed By: #### 2 4322-10, 1987-07 #### [facility] CLIA [id number] [address] [place] [address] [place] Creatinine [Mass/Vol] 0.79 mg/dL Normal 0.58-0.96 [facility] Comment on above: Order Comment: Speci men Type: BLOOD SPECIMEN [facility] Address: [address] [place] [address] Performed By: #### 2 4322-10, 1987-07 #### [facility] IA [id number] [address] [place] ESTIMATED GLOMERULAR FILTRATION RATE 83 mL/min/1.73m??? Normal >=60 [facility] Comment on above: Order Comment: Speci men Type: BLOOD SPECIMEN [facility] Address: [address] [place] [address] Result Comment: Meena mated Glomerular Filtration Rate (eGFR) is calculated using the 2020 CKD-EPI creatinine equation. This equation utilizes serum creatinine, sex, and age as parameters. The creatinine assay has traceable calibration to isotope dilution-mass spectrometry. Refer to KDIGO guidelines for clinical interpretation. In patients with unstable renal function, e.g. those with acute kidney injury, the eGFR may not accurately reflect actual GFR. Performed By: #### 2 4322-10, 1987-07 #### [facility] CLIA [id number] [address] [place] [address] [place] Glucose [Mass/Vol] 89 mg/dL Normal 74-99 [facility] Comment on above: Order Comment: Speci men Type: BLOOD SPECIMEN [facility] Address: [address] [place] [address] [place] [address] Result Comment: The [place] Diabetes Association (ADA) provides guidance for cutoff values for fasting glucose and random glucose. The ADA defines fasting as no caloric intake for at least 8 hours. Fasting plasma glucose results between 100 to 125 mg/dL indicate increased risk for diabetes (prediabetes). Fasting plasma glucose results greater than or equal to 126 mg/dL meet the criteria for diagnosis of diabetes. In the absence of unequivocal hyperglycemia, results should be confirmed by repeat testing. In a patient with classic symptoms of hyperglycemia or hyperglycemic crisis, random plasma glucose results greater than or equal to 200 mg/dL meet the criteria for diagnosis of diabetes. Reference: Standards of Medical Care in Diabetes 2016, [place] Diabetes Association. Diabetes Care. 2016.39(Suppl 1). Performed By: #### 2 4322-10, 1987-07 #### [facility] CLIA [id number] [address] [place] [address] [place] Potassium [Moles/Vol] 3.8 mmol/L Normal 3.7-5.1 [facility] Comment on above: Order Comment: Speci men Type: BLOOD SPECIMEN [facility] Address: [address] [place] [address] Performed By: #### 2 4322-10, 1987-07 #### [facility] CLIA [id number] [address] [place] [address] [place] Protein [Mass/Vol] 6.6 g/dL Normal 6.3-8.0 [facility] Comment on above: Order Comment: Speci men Type: BLOOD SPECIMEN [facility] Address: [address] [place] [address] Performed By: #### 2 4322-10, 1987-07 #### [facility] CLIA [id number] [address] [place] [address] [place] Sodium [Moles/Vol] 138 mmol/L Normal 136-144 [facility] Comment on above: Order Comment: Speci men Type: BLOOD SPECIMEN [facility] Address: [address] [phone] Performed By: #### 2 4323-8, 1987-07 #### [facility] CLIA [id number] [address] [facility] [place] [address] [facility] Urea nitrogen [Mass/Vol] 13 mg/dL Normal 09-22 [facility] Comment on above: Order Comment: Speci men Type: BLOOD SPECIMEN [facility] Address: [address] [place] [address] [place] [address] Performed By: #### 2 432[address], 1987-07 #### [facility] CLIA [id number] [address] [facility] [place] [address] [facility] ED NOTEon 12-19-2021 ED NOTE HNO ID: [id number] Author: Poli Rangel RN Service: ? Author Type: Registered Nurse Type: ED Notes Filed: 12/19/2021 5:36 PM Note Text: DC given to patient at bedside. Patient verbalizes understanding of instructions. All questions answered. All prescriptions reviewed with patient, patient verbalizes understanding of ss when to return to ed and to follow-up with PCP. Patient A AND O x 3 and ambulates with steady gait. VSS and patient left in no acute distress. RR even and unlabored. Normal [facility] ED NOTE HNO ID: [id number] Author: Gisselle Muro RN Service: ? Author Type: Registered Nurse Type: ED Notes Filed: 12/19/2021 2:11 PM Note Text: Pt presents to the ED with frontal headache since Sunday (10/12). Pt took 400mg ibuprofen at 0830 with minimal relief. Pt denies vision changes and neuro status is intact. Normal [facility] ED PROV NOTEon 12-19-2021 ED PROV NOTE HNO ID: [id number] Author: Lucrecia Enrique MD Service: Emergency Medicine Author Type: Physician Type: ED Provider Notes Filed: 12/19/2021 5:09 PM Note Text: ED Provider Note Patient Name: Jana Donis : 1955 SERVICE DATE: 12/19/21 History Patient presents with: Headache: Frontal headache since Sunday 66-year-old female with a history of lung cancer presents to the emergency department with a frontal headache. Symptoms been ongoing for the past 5 days, waxing and waning. Worse with any sort of movement. Mildly improved with ibuprofen. She states that she has had 10 headaches total in her entire life, this is very abnormal for her. She does report photophobia and phonophobia. She also reports nausea, no vomiting. No neck pain or stiffness. No numbness, paresthesias, weakness. No confusion. No speech or gait abnormality. No fevers. PAST MEDICAL HISTORY Diagnosis Date Anemia Malignant neoplasm of lower lobe of left lung (HCC) 02/08/2015 Stage IIIA (pT2a, N2, M0) adenocarcinoma of the left lower lobe Malignant neoplasm of lower lobe of right lung (HCC) 02/21/2016 Stage IA (T1a, N0, M0) adenocarcinoma of the right lower lobe Malignant neoplasm of lower lobe of right lung (HCC) 12/01/2019 non small cell lung ca Port catheter in place PAST SURGICAL HISTORY Procedure Laterality Date BIOPSY BREAST right breast COLONSCOPY SCREENING HIGH RISK HEMORRHOIDECTOMY HYSTERECTOMY HX 2006 LUNG BIOPSY 12/31/2014 OTHER SURGICAL HISTORY (PLEASE SPECIFY) HX right jaw surgery OTHER SURGICAL HISTORY (PLEASE SPECIFY) HX PORTOCATH PLACEMENT PORTOCATH PLACEMENT REDUCTION OF LARGE BREAST RMVL LUNG OTHER THAN PNEUMONECTOMY 1 LOBE LOBECT Left 02/08/2015 Muscle sparing thoracotomy, left lower lobectomy with bronchoplasty, vascularized tissue pedicle flap of reconstructed airway, hilar and mediastinal lymphadenectomy WEDGE RESECT LUNG Right 02/21/2016 VATs right lower lung wedge resection and med bx for synchronous stage IA adenocarcinoma WEDGE RESECT LUNG Right 12/01/2019 Robotic assisted right lower lung wedge resection for non small cell lung ca FAMILY HISTORY Problem Relation Age of Onset Hypertension Mother Heart Father age 48 other (Cancer of epiglottis and lung cancer) Father Heart Sister Heart Sister Hypertension Sister other (lung cancer) Sister Breast Cancer Paternal Grandmother other (Brain tumor) Maternal Grandfather Social History Tobacco Use Smoking status: Former Packs/day: 0.50 Years: 11.00 Pack years: 5.50 Types: Cigarettes Start date: 04/01/1973 Quit date: 04/01/1984 Years since quittin.7 Smokeless tobacco: Never Tobacco comments: second hand cigarette exposure as a child Vaping Use Vaping Use: Former Substance and Sexual Activity Alcohol use: Yes Comment: occasionally Drug use: No Sexual activity: Not Currently Partners: Male ALLERGIES No Known Allergies Review of Systems Constitutional: Negative for activity change and fatigue. HENT: Negative for congestion and sinus pressure. Eyes: Positive for photophobia. Negative for visual disturbance. Gastrointestinal: Positive for nausea. Negative for abdominal pain and vomiting. Musculoskeletal: Negative for neck stiffness. Skin: Negative for pallor. Allergic/Immunologic: Negative for immunocompromised state. Neurological: Positive for headaches. Negative for dizziness, seizures, syncope, weakness, light-headedness and numbness. Hematological: Does not bruise/bleed easily. Psychiatric/Behaviora l: Negative for confusion. Physical Exam Vitals [12/19/21 1409] BP Pulse Temp Temp src Resp SpO2 Weight Height 142/92 (!) 100 36.6 ?C (97.9 ?F) Oral 18 99 % 55.8 kg (123 lb) 1.549 m (5' 1 ) Physical Exam Vitals and nursing note reviewed. Constitutional: General: She is not in acute distress. Appearance: Normal appearance. HENT: Head: Normocephalic and atraumatic. Mouth/Throat: Pharynx: Oropharynx is clear. Eyes: Conjunctiva/sclera: Conjunctivae normal. Cardiovascular: Rate and Rhythm: Normal rate and regular rhythm. Pulmonary: Effort: Pulmonary effort is normal. Breath sounds: Normal breath sounds. Abdominal: General: There is no distension. Palpations: Abdomen is soft. Tenderness: There is no abdominal tenderness. Musculoskeletal: General: Normal range of motion. Cervical back: Normal range of motion and neck supple. No rigidity. Skin: General: Skin is warm and dry. Coloration: Skin is not pale. Neurological: General: No focal deficit present. Mental Status: She is alert and oriented to person, place, and time. GCS: GCS eye subscore is 4. GCS verbal subscore is 5. GCS motor subscore is 6. Cranial Nerves: Cranial nerves 2-12 are intact. Sensory: Sensation is intact. Motor: Motor function is intact. Coordination: Coordination is intact. Gait: Gait is intact. Diagnostic Test (more content not included)... Normal [facility] MG MAMM SCREEN 3D SANDI CADon 09-22-2021 MG MAMM SCREEN 3D SANDI CAD Patient: JANA DONIS Exam Date: 09/22/2021 : 1955 Gender:F Ordering : DR AL BRYAN M.D. Admission #: [id number] Family : Order #: [id number] CLICK HERE TO VIEW EXAM RADIOLOGY REPORT PROCEDURE: MAMMOGRAM SCREENING 3D BILATERAL CAD COMPARISON: MG MAMM SCREEN 3D SANDI CAD, 09/20/2020. MG MAMM SCREEN SANDI W CAD, 09/04/2019. INDICATIONS: Screening mammography Calculator Name NCI Breast Cancer Risk Assessment Tool 5 Year Breast Cancer Risk 2.30% Lifetime Breast Cancer Risk 8.00% Personal Breast Cancer No Personal Ovarian Cancer No Treatments left lower lobe lobectomy, chemo and radiation Family Cancers Grandmother-paternal with breast cancer at age 48; Father with esoph and lung cancer at age 60; Sister with lung cancer at age 57. LOCATION: [facility] BREAST COMPOSITION: Heterogeneously dense,which may obscure small masses. FINDINGS: DIAGNOSTIC CATEGORY 1--NEGATIVE. NO CHANGE FROM COMPARISON ASSESSMENT. Scattered benign-appearing calcifications are present. Scattered benign-appearing lymph nodes are present. RIGHT BREAST: No significant suspicious finding. LEFT BREAST: No significant suspicious finding. RECOMMENDATIONS: ROUTINE MAMMOGRAM AND CLINICAL EVALUATION IN 12 MONTHS. PLEASE NOTE: A NORMAL MAMMOGRAM DOES NOT EXCLUDE THE POSSIBILITY OF BREAST CANCER. A CLINICALLY SUSPICIOUS PALPABLE LUMP SHOULD BE BIOPSIED. Dictated by: Sandeep Rose MD on 09/22/2021 at 12:24 Approved by: Sandeep Rose MD on 09/22/2021 at 12:26 Normal [facility] LIPID PROFILEon 09-13-2021 CHOL-HDL RATIO NORM SEE BELOW Normal [facility] Comment on above: Result Comment: 3.3 - 4.4 LOW RISK 4.4 - 7.1 AVERAGE RISK 7.1 - 11.0 MODERATE RISK >11.0 HIGH RISK Performed By: #### L IPID #### [facility] [address] [address] [address] Sonny Bustos Cholesterol [Mass/Vol] 248 mg/dL Critically high <=200 [facility] Comment on above: Performed By: #### L IPID #### [facility] [address] [place], [place] [address] Dr. Sonny Bustos Cholesterol in HDL [Mass/Vol] 84 mg/dL Critically high 40-60 [facility] Comment on above: Performed By: #### L IPID #### [facility] [address] [address] [address] Sonny Bustos Cholesterol in LDL [Mass/Vol] 131.0 mg/dL Normal [facility] Comment on above: Performed By: #### L IPID #### [facility] [address] [place] [address] Dr. Sonny Bustos Cholesterol.total/C holesterol in HDL [Mass ratio] 3.0 {ratio} Normal [facility] Comment on above: Performed By: #### L IPID #### [facility] [address] [place] [address] Dr. Sonny Bustos HDL NORMAL > or = 60 mg/dl - LO W CARDIOVASCULAR RISK <40 mg/dl - HIGH CARDIOVASCULAR RISK Normal [facility] Comment on above: Performed By: #### L IPID #### [facility] [address] [place] [address] Dr. Sonny Bustos LDL CALC NORMAL SEE BELOW Normal [facility] Comment on above: Result Comment: <100 mg/dl OPTIMAL 100 - 129 mg/dl NEAR OR ABOVE OPTIMAL 130 - 159 mg/dl BORDERLINE HIGH 160 - 189 mg/dl HIGH >190 mg/dl VERY HIGH Performed By: #### L IPID #### [facility] [address] [place] [address] Dr. Sonny Bustos Triglyceride [Mass/Vol] 165 mg/dL Critically high <=150 [facility] Comment on above: Performed By: #### L IPID #### [facility] [facility] [address] [place] [address] Dr. Sonny Bustos VLDL CALC 33.0 mg/dL Normal [facility] Comment on above: Performed By: #### L IPID #### [facility] [address] [address] [address] Sonny Bustos CBC AUTO DIFFon 08-03-2021 BASO # 0.0 103/ul Normal 0.0-0.1 [facility] Comment on above: Performed By: #### C BC #### [facility] [address] [place] [address] Dr. Sonny Bustos Basophils/100 WBC (Bld) 0.3 % Normal 0.2-2.0 [facility] Comment on above: Performed By: #### C BC #### [facility] [address] [place] [address] Dr. Sonny Bustos EO # 0.0 103/ul Normal 0.0-0.7 [facility] Comment on above: Performed By: #### C BC #### [facility] [address] [place] [address] Dr. Sonny Bustos Eosinophils/100 WBC (Bld) 0.1 % Critically low 0.9-7.0 [facility] Comment on above: Performed By: #### C BC #### [facility] [address] [place] [address] Dr. Sonny Bustos Erythrocyte distribution width (RBC) [Ratio] 12.9 % Normal 11.0-15.0 [facility] Comment on above: Performed By: #### C BC #### [facility] [address] [place] [address] Dr. Sonny Bustos Hematocrit (Bld) [Volume fraction] 38.7 % Normal 36.0-48.0 [facility] Comment on above: Performed By: #### C BC #### [facility] [address] [place] [address] Dr. Sonny Bustos Hemoglobin (Bld) [Mass/Vol] 12.4 g/dL Normal 12.0-16.0 [facility] Comment on above: Performed By: #### C BC #### [facility] [address] [place] [address] Dr. Sonny Bustos IG # 0.03 10e3/ul Normal 0.00-0.03 [facility] Comment on above: Performed By: #### C BC #### [facility] [address] [place] [address] Dr. Sonny Bustos IG % 0.3 % Normal 0.0-0.5 [facility] Comment on above: Performed By: #### C BC #### [facility] [address] [place] [address] Dr. Sonny Bustos LYMPH # 0.7 103/ul Critically low 1.2-3.8 [facility] Comment on above: Performed By: #### C BC #### [facility] [address] [place] [address] Dr. Sonny Bustos Lymphocytes/100 WBC (Bld) 6.4 % Critically low 20.5-60.0 [facility] Comment on above: Performed By: #### C BC #### [facility] [address] [place] [address] Dr. Sonny Bustos MANUAL DIFF REQ NO Normal [facility] Comment on above: Performed By: #### C BC #### [facility] [address] [place] [address] Dr. Sonny Bustos MCH (RBC) [Entitic mass] 30.1 pg Normal 26.7-34.0 [facility] Comment on above: Performed By: #### C BC #### [facility] [address] [place] [address] Dr. Sonny Bustos MCHC (RBC) [Mass/Vol] 32.0 g/dL Normal 29.9-35.2 [facility] Comment on above: Performed By: #### C BC #### [facility] [address] [place] [address] Dr. Sonny Bustos MCV (RBC) [Entitic vol] 93.9 fL Normal 81.0-99.0 [facility] Comment on above: Performed By: #### C BC #### [facility] [address] [place] [address] Dr. Sonny Bustos MONO # 0.7 103/ul Normal 0.3-0.8 [facility] Comment on above: Performed By: #### C BC #### [facility] [address] [place] [address] Dr. Sonny Bustos Monocytes/100 WBC (Bld) 6.0 % Normal 1.7-12.0 [facility] Comment on above: Performed By: #### C BC #### [facility] [address] [place] [address] Dr. Snony Bustos NEUT # 9.8 103/ul Critically high 1.4-6.5 [facility] Comment on above: Performed By: #### C BC #### [facility] [address] [place], [place] [address] Dr. Sonny Bustos Neutrophils/100 WBC (Bld) 86.9 % Critically high 43.0-75.0 [facility] Comment on above: Performed By: #### C BC #### [facility] [address] [place], [place] [address] Dr. Sonny Bustos Platelet mean volume (Bld) [Entitic vol] 12.7 fL Normal 9.5-13.5 [facility] Comment on above: Performed By: #### C BC #### [facility] [address] [address] [address] Sonny Bustos PLT 130 103/ul Critically low 150-450 [facility] Comment on above: Performed By: #### C BC #### [facility] [address] [address] [address] Sonny Bustos RBC 4.12 106/ul Critically low 4.20-5.40 [facility] Comment on above: Performed By: #### C BC #### [facility] [address] [place], [place] [address] Dr. Sonny Bustos WBC 11.3 103/ul Critically high 4.0-11.0 [facility] Comment on above: Performed By: #### C BC #### [facility] [address] [place], [place] [address] Dr. Sonny Bustos CRPon 08-03-2021 CRP [Mass/Vol] mg/L Normal <=1.0 [facility] Comment on above: Performed By: #### B MP, HSTROPN, CRP ####[facility] [address] [place], [place] [address]YcDr. Sonny Bustos CTA NECK WO W CONon 08-04-19 CTA NECK WO W CON EXAMINATION: CTA NEC K WO W CON HISTORY: Acute bilateral jaw pain COMPARISON: None. TECHNIQUE: Axial CT scans of the neck were obtained with IV contrast administration. MPR and MIP (maximum intensity projection) images were performed. Carotid stenosis is reported according to NASCET criteria. Dose reduction techniques were achieved by using automated exposure control and/or adjustment of mA and/or kV according to patient size and/or use of iterative reconstruction technique. FINDINGS: No abnormal soft tissue mass in the neck. The visualized upper lungs show a 1.2 x 0.9 cm groundglass opacity in the right upper lobe laterally. No destructive bony lesions. Right and left TMJs appear unremarkable. Decreased disc height and associated discovertebral complexes a from C4 to C7 without central spinal stenosis. The visualized aortic arch shows no dissection. The great vessels of the arch show no significant stenosis. Vertebral arteries, common carotids and internal carotids show no significant stenosis or dissection. IMPRESSION: Carotids and vertebral arteries show no dissection or significant stenosis. Right and left TMJs appear unremarkable. Electronically authenticated by: ALBERTO JOE Date: 2021-08-03 19:29 Normal [facility] PROF CHEM 8 (BAS METB)on Anion gap [Moles/Vol] 12.7 mmol/L Normal [facility] Comment on above: Performed By: #### B MP HSTROPN, CRP #### [facility] [address] [place] [address] Dr. Sonny Bustos Calcium [Mass/Vol] 9.4 mg/dL Normal 8.5-10.1 [facility] Comment on above: Performed By: #### B DONAVAN HSTROPN, CRP #### [facility] [address] [place] [address] Dr. Sonny Bustos Chloride [Moles/Vol] 101 mmol/L Normal 98-107 [facility] Comment on above: Performed By: #### B MP, HSTROPN, CRP #### [facility] [address] [place] [address] Dr. Sonny Bustos CO2 [Moles/Vol] 26.1 mmol/L Normal 21.0-32.0 [facility] Comment on above: Performed By: #### B MP HSTROPN, CRP #### [facility] [address] [place] [address] Dr. Sonny Bustos Creatinine [Mass/Vol] 0.70 mg/dL Normal 0.55-1.02 [facility] Comment on above: Performed By: #### B MP HSTROPN, CRP #### [facility] [address] [address] [address] Sonny Bustos EGFR-AF BELARUSIAN >60 Normal >=60 [facility] Comment on above: Performed By: #### B MP, HSTROPN, CRP #### [facility] [address] [address] [address] Sonny Bustos EGFR-NON AF BELARUSIAN >60 Normal >=60 [facility] Comment on above: Performed By: #### B MP, HSTROPN, CRP #### [facility] [address] [address] [address] Sonny Bustos Glucose [Mass/Vol] 106 mg/dL Normal 74-106 [facility] Comment on above: Performed By: #### B MP, HSTROPN, CRP #### [facility] [address] [address] [address] Sonny Bustos Potassium [Moles/Vol] 3.8 mmol/L Normal 3.5-5.1 [facility] Comment on above: Performed By: #### B MP, HSTROPN, CRP #### [facility] [address] [address] [address] Sonny Bustos Sodium [Moles/Vol] 136 mmol/L Normal 136-145 [facility] Comment on above: Performed By: #### B MP, HSTROPN, CRP #### [facility] [address] [address] [address] Sonny Bustos Urea nitrogen [Mass/Vol] 16.0 mg/dL Normal 7.0-18.0 [facility] Comment on above: Performed By: #### B MP, HSTROPN, CRP #### [facility] [address] [address] [address] Sonny Bustos Urea nitrogen/Creatinine [Mass ratio] 22.9 mg/mg Normal [facility] Comment on above: Performed By: #### B MP, HSTROPN, CRP #### [facility] [address] [address] [address] Sonny Bustos SED RATE [facility] 2021 SED RATE 15 mm/hr Normal <=30 [facility] Comment on above: Performed By: #### S EDR ####[facility] [address] [place], [place] [address]NcDr. Sonny Bustos TROPONIN, HIGH SENSITIVITYon 08-03-2021 HSTROP 23.4 pg/mL Normal 4.0-51.3 [facility] Comment on above: Result Comment: CUT- OFF POINTS HAVE BEEN ESTABLISHED BASED ON THE FOURTH UNIVERSAL DEFINITIONS OF MYOCARDIAL INFARCTION. THE UPPER REFERENCE LIMIT (URL) OF TROPONIN, DEFINED THE 99TH PERCENTILE OF cTnI DISTRIBUTION IN A REFERENCE POPULATION, HAS BEEN CONFIRMED THE DECISION THRESHOLD FOR [place] DIAGNOSIS. Performed By: #### B MP, HSTROPN, CRP #### [facility] [address] [place], [place] [address] Dr. Sonny Bustos [facility] echo transthoracicon [facility] echo transthoracic [facility] [place] [address] Echocardiogram Signed Patient: Jana Donis MR#: [id number] 3 : 1955 Acct:[id number] Age/Sex: 66 / F ADM Date: 07/29/21 Loc: Room: Type: [facility] Attending Dr: Elsy Douglas MD Ordering Provider: Elsy Douglas MD Date of Service: 07/29/21/ [facility] echo transthoracic: SYNCOPE Copies to: MD Chris Mcleod MD Physician: Elsy Douglas V Height: 61 in Weight: 121 lb Performed By: STEVEN Nicole BSA: 1.5 m2 BP: 119/77 mmHg HR: 75 Reason For Study: SYNCOPE History: family history of CAD, lung cancer with chemo/radiation, left lower lung lobe removed, partial right lung removed Interpretation Summary The left ventricular size, thickness and function are normal The left ventricular wall motion is normal. Ejection Fraction = 60-65%. Normal transthoracic echocardiogram. There is no comparison study available. Procedure/Quality: A two-dimensional transthoracic echocardiogram with color flow and Doppler was performed. The study was technically good in quality. Left Ventricle: The left ventricular size, thickness and function are normal. Ejection Fraction = 60-65%. The left ventricular wall motion is normal. Left Atrium: The left atrium appears normal in size. Right Atrium: The right atrium appears normal in size. Right Ventricle: The right ventricular size, thickness and function are normal. Aortic Valve: The aortic valve is normal in structure and function. No aortic regurgitation is present. Mitral Valve: The mitral valve is normal in structure and function. There is no mitral regurgitation noted. Tricuspid Valve: The tricuspid valve is normal in structure and function. No tricuspid regurgitation. Pulmonic Valve: The pulmonic valve is normal in structure and function. Arteries: The aortic root is normal size. Pericardium/Pleura: No pericardial effusion seen. There is no pleural effusion. IVC/Hepatic Viens: The inferior vena cava is normal in size, with a normal collapsibility index. Measurements with Normals IVSd: 1.0 cm (0.7-1.1 cm)LVIDd: 3.9 cm (3.7-5.4 cm) LVPWd: 1.1 cm (0.7-1.1 cm)LVIDs: 2.5 cm (2.3-3.6 cm) LA dimension: 2.9 cm (2.3-4.0 cm)Ao root diam: 3.0 cm(2.0-3.6 cm) asc Aorta Diam: 3.4 cm(2.1-3.4cm) Doppler with Normals MV E max coco: 99.0 cm/sec(0.8-1.3m/s) MV A max coco: 97.7 cm/sec(0.0-0.0m/s) MV E/A: 1.0 (<1.5) MMode/2D Measurements Calculations TAPSE: 2.0 cm FS: 36.5 % Ao root area: 7.1 [id number] ap4: 7.2 cm RV S Coco: EDV(Teich): 64.4 ml EDV(MOD-sp4): 8.3 cm/sec ESV(Teich): 21.3 ml 39.0 ml EF(Teich): 67.0 % LVLs ap4: 6.6 cm ESV(MOD-sp4): 11.7 ml EF(MOD-sp4): 70.0 % __ SV(MOD-sp4): LAV(MOD-sp4): LA A2 area: 12.3 cm2 27.3 ml 18.4 ml LAV(MOD-sp2): LA A4 area: 10.0 cm2 27.0 ml LA length (vol): 4.3 cm LA vol: 24.1 ml LA vol index: 15.8 ml/m2 Doppler Measurements Calculations MV dec time: 0.19 sec E/E' lat: 14.9 E/E' med: 17.5 MV dec slope: 520.5 cm/sec2 Transcribed By: SCV Performed At: 07/29/21 0848 Signed By: Chris Butler MD 07/29/21 0951 Normal [facility] US carotid doppler BIon - US carotid doppler BI [facility] [place] [address] Ultrasound Report Signed Patient: Jana Donis MR#: [id number] 3 : 1955 Acct:[id number] Age/Sex: 66 / F ADM Date: 07/29/21 Loc: Room: Type: [facility] Attending Dr: Elsy Douglas MD Ordering Provider: Elsy Douglas MD Date of Service: 07/29/21 US/US carotid doppler BI: [id number] Copies to: Elsy Douglas MD CAROTID DUPLEX INDICATION: Syncope PROCEDURE: Color-flow duplex scanning is used to interrogate the extracranial carotid arterial system, as well as both vertebral arteries. Both carotid bifurcations show mild to moderate heterogeneous plaque formation. The proximal right internal carotid artery shows a highest peak systolic velocity of 118 cm/s with an end-diastolic velocity of 35.3 cm/s . The mid internal carotid artery measures 91.7 cm/s peak systolic and 39.2 cm/s end diastolic. The distal segment measures 107 cm/s peak systolic with an end diastolic velocity of 40 cm/s . The velocities of the right common carotid artery are 117 cm/s peak systolic and 29.4 cm/s end-diastolic proximally and 129 cm/s peak systolic and 47.8 cm/s end diastolic distally. The peak systolic velocity ratio of the internal to the common carotid artery is 0.91. The right external carotid artery measures 99.6 cm/s peak systolic. The right vertebral artery is patent at 56.7 cm/s with antegrade flow. The proximal left internal carotid artery shows a highest peak systolic velocity of 179 cm/s with an end-diastolic velocity of 68.3 cm/s . The mid internal carotid artery measures 182 cm/s peak systolic and 76.8 cm/s end diastolic. The distal segment measures 117 cm/s peak systolic with an end diastolic velocity of 44.7 cm/s . The velocities of the left common carotid artery are 117 cm/s peak systolic and 33.8 cm/s end-diastolic proximally and 145 cm/s peak systolic and 59.8 cm/s end diastolic distally. The peak systolic velocity ratio of the internal to the common carotid artery is 1.26 . The left external carotid artery measures 123 cm/s peak systolic. The left vertebral artery is patent at 74.6 cm/s with antegrade flow. US/US carotid doppler BI IMPRESSION: Mild plaque formation with less than 50% stenosis of the right extracranial internal carotid artery. The right vertebral artery is patent with antegrade flow. 50-69% stenosis of the left extracranial internal carotid artery. The left vertebral artery is patent with antegrade flow.. Impression dictated by: Ciro Boyd M.D.07/29/2021 12:40 PM Dictation Location: [id number] Tech: Kiki Degroot Transcribed By: MYRON 07/29/21 1240 Dictated By: Ciro Boyd MD 07/29/21 1238 Signed By: 07/29/21 1240 [facility] Covid-19 PCR (CVDTBH)on 07-03 SARS-CoV-2 (COVID-19) RNA MART+probe Ql (Unsp spec) Detected Critically abnormal NOT DETECTED [facility] Comment on above: Result Comment: This test is not yet approved or cleared by the [place] FDA. When there are no FDA-approved or cleared tests available, and other criteria are met, FDA can make tests available under an emergency access mechanism called an Emergency Use Authorization (EUA). The EUA for this test is supported by the Aeronautical Engineering Officer of Health and Human Service's (HHS's) declaration that circumstances exist to justify the emergency use of in vitro diagnostics for the detection and/or diagnosis of the virus that causes COVID-19. This EUA will remain in effect (meaning this test can be used) for the duration of the COVID-19 declaration justifying emergency of IVDs, unless it is terminated or revoked by FDA (after which the test may no longer be used). Performed By: #### C [facility] ####[facility] [address] [place], [place] [address]Jl. Sonny Bustos CBC W Auto Differential pane l (Bld)on 07-01-2021 Basophils (Bld) [#/Vol] 0.03 10*3/uL [facility] Basophils/100 WBC (Bld) 0.7 % [facility] Differential cell count method Nom (Bld) Auto [facility] Eosinophils (Bld) [#/Vol] 0.08 10*3/uL [facility] Eosinophils/100 WBC (Bld) 1.9 % [facility] Erythrocyte distribution width (RBC) [Ratio] 13.1 % 11.5 - 15.0 % [facility] Hematocrit (Bld) [Volume fraction] 37.1 % 36.0 - 46.0 % [facility] Hemoglobin (Bld) [Mass/Vol] 12.2 g/dL 11.5 - 15.5 g/dL [facility] Immature granulocytes (Bld) [#/Vol] [facility] Immature granulocytes/100 WBC (Bld) 0.2 % [facility] Lymphocytes (Bld) [#/Vol] 1.13 10*3/uL [facility] Lymphocytes/100 WBC (Bld) 27.4 % [facility] MCH (RBC) [Entitic mass] 30.6 pg 26.0 - 34.0 pg [facility] MCHC (RBC) [Mass/Vol] 32.9 g/dL 30.5 - 36.0 g/dL [facility] MCV (RBC) [Entitic vol] 93.0 fL 80.0 - 100.0 fL [facility] Monocytes (Bld) [#/Vol] 0.39 10*3/uL [facility] Monocytes/100 WBC (Bld) 9.4 % [facility] Neutrophils (Bld) [#/Vol] 2.49 10*3/uL [facility] Neutrophils/100 WBC (Bld) 60.4 % [facility] Nucleated RBC (Bld) [#/Vol] NINF [facility] Nucleated RBC/100 WBC (Bld) [Ratio] 0.0 % /100 WBC [facility] Platelet mean volume (Bld) [Entitic vol] 9.9 fL 9.0 - 12.7 fL [facility] Platelets (Bld) [#/Vol] 256 10*3/uL [facility] RBC (Bld) [#/Vol] 3.99 10*6/uL 3.90 - 5.2 0 m/uL [facility] WBC (Bld) [#/Vol] 4.13 10*3/uL [facility] This is an appended report. These results have been appended to a previously verified report. [facility] CT Chest W contrast Jorge IMPRESSION: 1. No interval change since 02/15/21. 2. Multiple nodular opacities and groundglass opacities, stable. 3. Bilateral perihilar post radiation changes, stable. Transcribe Date/Time: Jul 01 2021 10:37A Dictated by: TRISTIAN CHUNG MD This examination was interpreted and the report reviewed and electronically signed by: TRISTIAN CHUNG MD on Jul 01 2021 11:56AM EST Thank you for allowing us to participate in the care of your patient. Should there be any questions regarding this interpretation, please call [phone]. If you are unable to reach us at the number above, please feel free to contact [facility] eRadiology at [phone]. [email or web address]_USE _DIVISION OF RADIOLOGY * * *Final Report* * * DATE OF EXAM: Jul 01 2021 9:29AM [facility] 0539 - CT CHEST W IVCON / PROCEDURE REASON: Lung nodules * * * * Physician Interpretation * * * * RESULT: EXAMINATION: CHEST CT WITH CONTRAST CLINICAL HISTORY: Lung nodule(s) Technique: Spiral CT acquisition of the chest from the thoracic inlet to the upper abdomen following IV contrast. MQ: CTCW_6 Contrast: 50 mL Omnipaque [address] Radiation dose: Integrated Dose-length product (DLP) for this visit = 174 mGy*cm CT Dose Reduction Employed: Automated exposure control (AEC) Comparison: 02/15/21 RESULT: Limitations: None. Lines, tubes, and devices: None Lung parenchyma and pleura: Postoperative changes are noted compatible with a left lower lobe lobectomy. Mild bilateral perihilar postradiation change, left greater than right is stable. A surgical staple line is noted in the right lower lobe with adjacent streaky scarring. 1.1 cm right upper lobe groundglass opacity (3: 31) and 1.0 cm right upper lobe groundglass opacity (3:58), stable. 1.0 cm nodular opacity in the right middle lobe demonstrating central calcification (3: 158) most likely a partially calcified granuloma, stable. Multiple subcentimeter nodular opacities in the right lung (3: 42, 92, 116, 125, 126, 141) measuring up to 5 mm, stable. No pleural effusion. No new airspace opacities. Thoracic inlet, heart, and mediastinum: No lymphadenopathy in the axillary, mediastinal, or hilar regions. The thoracic aorta and main pulmonary artery are normal in caliber. The cardiac chambers are normal in size. No coronary artery atherosclerotic calcifications are noted, although the study is not optimized for coronary assessment. Thickening of esophageal wall is noted suggestive of an esophagitis. Heterogeneity of the thyroid gland is again noted. Bones and soft tissues: No new osseous abnormalities. Postoperative changes of left ribs are noted. Upper abdomen: No evidence of an adrenal mass. [email or web address]_USE _DIVISION OF RADIOLOGY Provider, [facility] - 07/01/2021 * * *Final Report* * * DATE OF EXAM: Jul 01 2021 9:29AM [facility] 0539 - CT CHEST W IVCON / PROCEDURE REASON: Lung nodules * * * * Physician Interpretation * * * * RESULT: EXAMINATION: CHEST CT WITH CONTRAST CLINICAL HISTORY: Lung nodule(s) Technique: Spiral CT acquisition of the chest from the thoracic inlet to the upper abdomen following IV contrast. MQ: CTCW_6 Contrast: 50 mL Omnipaque [address] Radiation dose: Integrated Dose-length product (DLP) for this visit = 174 mGy*cm CT Dose Reduction Employed: Automated exposure control (AEC) Comparison: 02/15/21 RESULT: Limitations: None. Lines, tubes, and devices: None Lung parenchyma and pleura: Postoperative changes are noted compatible with a left lower lobe lobectomy. Mild bilateral perihilar postradiation change, left greater than right is stable. A surgical staple line is noted in the right lower lobe with adjacent streaky scarring. 1.1 cm right upper lobe groundglass opacity (3: 31) and 1.0 cm right upper lobe groundglass opacity (3:58), stable. 1.0 cm nodular opacity in the right middle lobe demonstrating central calcification (3: 158) most likely a partially calcified granuloma, stable. Multiple subcentimeter nodular opacities in the right lung (3: 42, 92, 116, 125, 126, 141) measuring up to 5 mm, stable. No pleural effusion. No new airspace opacities. Thoracic inlet, heart, and mediastinum: No lymphadenopathy in the axillary, mediastinal, or hilar regions. The thoracic aorta and main pulmonary artery are normal in caliber. The cardiac chambers are normal in size. No coronary artery atherosclerotic calcifications are noted, although the study is not optimized for coronary assessment. Thickening of esophageal wall is noted suggestive of an esophagitis. Heterogeneity of the thyroid gland is again noted. Bones and soft tissues: No new osseous abnormalities. Postoperative changes of left ribs are noted. Upper abdomen: No evidence of an adrenal mass. IMPRESSION IMPRESSION: 1. No interval change since 02/15/21. 2. Multiple nodular opacities and groundglass opacities, stable. 3. Bilateral perihilar post radiation changes, stable. Transcribe Date/Time: Jul 01 2021 10:37A Dictated by: TRISTIAN CHUNG MD This examination was interpreted and the report reviewed and electronically signed by: TRISTIAN CHUNG MD on Jul 01 2021 11:56AM EST Thank you for allowing us to participate in the care of your patient. Should there be any questions regarding this interpretation, please call [phone]. If you are unable to reach us at the number above, please feel free to contact [facility] eRadiology at [phone]. [facility] Radiology Study observation (narrative) [facility] CT Chest W contrast IVOrdere d By: Ccreagan Provider on 07-01-2021 [facility] Comprehensive metabolic 2000 panelOrdered By: Monet Yin on 07-01-2021 Albumin [Mass/Vol] 4.6 g/dL 3.9 - 4.9 g/dL [facility] ALP [Catalytic activity/Vol] 91 U/L 34 - 123 U/L [facility] ALT [Catalytic activity/Vol] 15 U/L 7 - 38 U/L [facility] Anion gap [Moles/Vol] 10 mmol/L 9 - 18 mmol/L [facility] AST [Catalytic activity/Vol] 20 U/L 13 - 35 U/L [facility] Bilirubin [Mass/Vol] 0.5 mg/dL 0.2 - 1.3 mg/dL [facility] Calcium [Mass/Vol] 9.9 mg/dL 8.5 - 10. 2 mg/dL [facility] Chloride [Moles/Vol] 103 mmol/L 97 - 105 mmol/L [facility] CO2 [Moles/Vol] 29 mmol/L 22 - 30 mmol/L [facility] Creatinine [Mass/Vol] 0.93 mg/dL 0.58 - 0.96 mg/dL [facility] GFR/1.73 sq M.predicted among non-blacks MDRD (S/P/Bld) [Vol rate/Area] 68 mL/min/{1.73_m2} - PINF [facility] Comment on above: Estimated Glomerular Filtration Rate (eGFR) is calculated using the 2020 CKD-EPI creatinine equation. This equation utilizes serum creatinine, sex, and age as parameters. The creatinine assay has traceable calibration to isotope dilution-mass spectrometry. Refer to KDIGO guidelines for clinical interpretation. In patients with unstable renal function, e.g. those with acute kidney injury, the eGFR may not accurately reflect actual GFR. Glucose [Mass/Vol] 94 mg/dL 74 - 99 mg/dL [facility] Comment on above: The [place] Di[employer] Association (ADA) provides guidance for cutoff values for fasting glucose and random glucose. The ADA defines fasting as no caloric intake for at least 8 hours. Fasting plasma glucose results between 100 to 125 mg/dL indicate increased risk for diabetes (prediabetes). Fasting plasma glucose results greater than or equal to 126 mg/dL meet the criteria for diagnosis of diabetes. In the absence of unequivocal hyperglycemia, results should be confirmed by repeat testing. In a patient with classic symptoms of hyperglycemia or hyperglycemic crisis, random plasma glucose results greater than or equal to 200 mg/dL meet the criteria for diagnosis of diabetes. Reference: Standards of Medical Care in Diabetes 2016, [place] [employer]. Diabetes Care. 2016.39(Suppl 1). Interpretation and review of laboratory results Normal [facility] Potassium [Moles/Vol] 4.1 mmol/L 3.7 - 5.1 mmol/L [facility] Protein [Mass/Vol] 6.9 g/dL 6.3 - 8.0 g/dL [facility] Sodium [Moles/Vol] 142 mmol/L 136 - 144 mmol/L [facility] Urea nitrogen [Mass/Vol] 20 mg/dL 7 - 21 mg/dL [facility] MR Brain WO and W contrast I Von 03-15-2021 IMPRESSION: Minimal chronic microvascular change. Grossly normal brain volume and morphology. No mass effect or abnormal enhancement to suggest intracranial metastatic disease. Based on the axial T2 flow void pattern, proximal intracranial arterial vasculature, major cortical draining veins, and dural venous sinuses are patent. Concordant appearance on the post gadolinium scans. Consulting Systems Engineer: [facility] Transcribe Date/Time: Mar 15 2021 10:25A Dictated by : DAVID BROWNING MD This examination was interpreted and the report reviewed and electronically signed by: DAVID BROWNING MD on Mar 15 2021 10:33AM [facility] DIVISION OF RADIOLOGY * * *Final Report* * * DATE OF EXAM: Mar 15 2021 10:12AM [facility] - MRI BRAIN WO/W IVCON / PROCEDURE REASON: multiple diagnoses * * * * Physician Interpretation * * * * EXAMINATION: MRI BRAIN WO/W IVCON HISTORY: Dizziness Malignant neoplasm of lower lobe of left lung (HCC). This information is taken directly from the order desk clerk system. TECHNIQUE: Routine brain MRI protocol without and with contrast including diffusion and gradient echo images. MQ: MRBWOW_2 Contrast: 10 mL Dotarem IV COMPARISON: Previous PET-CT 10/08/2019. Prior outside MRI of the brain 08/11/2019 and 09/23/2019. Additional prior MRI of the brain 02/13/2017. RESULT: Acute Change: There is no evidence of restricted diffusion to suggest an acute infarct. Hemorrhage: No evidence of prior parenchymal hemorrhage on the gradient echo images. Mass Lesion/ Mass Effect: No evidence of an intracranial mass or extra-axial fluid collection. No abnormal parenchymal or leptomeningeal enhancement is noted following contrast administration. No significant mass effect. Chronic Change: Scattered punctate foci of increased T2 and FLAIR signal are noted in the supratentorial white matter which is a nonspecific finding, but likely represents minimal chronic microvascular ischemia. Parenchyma: No significant volume loss for age. The brain parenchyma is otherwise within normal limits of signal intensity and morphology. Ventricles: Normal caliber and morphology. Skull Base: Hypothalamic and pituitary region are grossly normal. Craniocervical junction is normal. No significant marrow replacement process. Vasculature: Major intracranial arterial structures, and dural venous sinuses show typical flow void, suggesting patency by spin echo criteria. Left vertebral artery is dominant. Right is small on a developmental basis. Typical enhancement of major cortical draining veins, deep venous structures, and dural venous sinuses. Right transverse sinus is dominant. Other: The visualized paranasal sinuses and mastoid air cells are clear. The orbits and extracranial soft tissues are unremarkable. DIVISION OF RADIOLOGY Provider, [facility] - 03/15/2021 * * *Final Report* * * DATE OF EXAM: Mar 15 2021 10:12AM [facility] - MRI BRAIN WO/W IVCON / PROCEDURE REASON: multiple diagnoses * * * * Physician Interpretation * * * * EXAMINATION: MRI BRAIN WO/W IVCON HISTORY: Dizziness Malignant neoplasm of lower lobe of left lung (HCC). This information is taken directly from the order desk clerk system. TECHNIQUE: Routine brain MRI protocol without and with contrast including diffusion and gradient echo images. MQ: MRBWOW_2 Contrast: 10 mL Dotarem IV COMPARISON: Previous PET-CT 10/08/2019. Prior outside MRI of the brain 08/11/2019 and 09/23/2019. Additional prior MRI of the brain 02/13/2017. RESULT: Acute Change: There is no evidence of restricted diffusion to suggest an acute infarct. Hemorrhage: No evidence of prior parenchymal hemorrhage on the gradient echo images. Mass Lesion/ Mass Effect: No evidence of an intracranial mass or extra-axial fluid collection. No abnormal parenchymal or leptomeningeal enhancement is noted following contrast administration. No significant mass effect. Chronic Change: Scattered punctate foci of increased T2 and FLAIR signal are noted in the supratentorial white matter which is a nonspecific finding, but likely represents minimal chronic microvascular ischemia. Parenchyma: No significant volume loss for age. The brain parenchyma is otherwise within normal limits of signal intensity and morphology. Ventricles: Normal caliber and morphology. Skull Base: Hypothalamic and pituitary region are grossly normal. Craniocervical junction is normal. No significant marrow replacement process. Vasculature: Major intracranial arterial structures, and dural venous sinuses show typical flow void, suggesting patency by spin echo criteria. Left vertebral artery is dominant. Right is small on a developmental basis. Typical enhancement of major cortical draining veins, deep venous structures, and dural venous sinuses. Right transverse sinus is dominant. Other: The visualized paranasal sinuses and mastoid air cells are clear. The orbits and extracranial soft tissues are unremarkable. IMPRESSION IMPRESSION: Minimal chronic microvascular change. Grossly normal brain volume and morphology. No mass effect or abnormal enhancement to suggest intracranial metastatic disease. Based on the axial T2 flow void pattern, proximal intracranial arterial vasculature, major cortical draining veins, and dural venous sinuses are patent. Concordant appearance on the post gadolinium scans. Consulting Systems Engineer: [employer] Transcribe Date/Time: Mar 15 2021 10:25A Dictated by : DAVID BROWNING MD This examination was interpreted and the report reviewed and electronically signed by: DAVID BROWNING MD on Mar 15 2021 10:33AM EST [facility] Radiology Study observation (narrative) [facility] MR Brain WO and W contrast I VOrdered By: Ccf Provider on 03-15-[address] [facility] [address] Chest W contrast Jorge IMPRESSION: 1. Since 11/19/2020, no significant change. 2. Stable postsurgical changes involving the left lung and right lower lobe. 3. Multiple right lung nodules are unchanged. 4. No lymphadenopathy. 5. Mild fluid within the superior thoracic esophagus, which may be secondary to reflux or esophageal dysmotility. Transcribe Date/Time: Feb 15 2021 11:18A Dictated by: ALLAN PORRAS MD This examination was interpreted and the report reviewed and electronically signed by: ALLAN PORRAS MD on Feb 15 2021 1:44PM EST Thank you for allowing us to participate in the care of your patient. Should there be any questions regarding this interpretation, please call [phone]. If you are unable to reach us at the number above, please feel free to [facility] at [phone]. DIVISION OF RADIOLOGY * * *Final Report* * * DATE OF EXAM: Feb 15 2021 11:08AM [facility] 0539 - CT CHEST W IVCON / PROCEDURE REASON: Lung nodules * * * * Physician Interpretation * * * * RESULT: EXAMINATION: CHEST CT WITH CONTRAST CLINICAL HISTORY: Lung nodule Technique: Spiral CT acquisition of the chest from the thoracic inlet to the upper abdomen following IV contrast. MQ: CTCW_6 Contrast: 50 mL Omnipaque [address] Radiation dose: Integrated Dose-length product (DLP) for this visit = 159 mGy*cm CT Dose Reduction Employed: Automated exposure control (AEC) Comparison: CT chest 11/19/2020; 07/13/2020 and 03/15/2020 RESULT: Limitations: None. Lines, tubes, and devices: None. Lung parenchyma and airways: There is no airspace consolidation. The central tracheobronchial tree is patent. Operative changes reflect left lower lobectomy. Mild bilateral perihilar airspace opacification, left greater than right, is unchanged and compatible with posttreatment effect. A right lower lobe wedge resection line and adjacent linear scarring/atelectasis are unchanged. Pulmonary nodules over 1 cm are detailed as follows on series 3: -Image 29, right lung apex groundglass nodule, 1.1 cm (unchanged) -Image 159, right middle lobe nodule with central calcification, likely a granuloma, 1.1 cm (unchanged) Subcentimeter nodular opacities are similarly unchanged, with reference nodules as follows on series 3: -Image 127, right lower lobe, along scarring, 0.8 cm (previously 0.8 cm, when remeasured in a similar axis) -Image 127, right lower lobe, 0.5 cm (unchanged) -Image 115, right middle lobe, 0.5 cm (unchanged) -Image 93, right upper lobe, 0.6 cm (unchanged) -Image 86, right upper lobe, 0.3 cm (unchanged) No enlarging nodules are identified. Pleural space: No pleural effusion. No pleural thickening. Lower neck, lymph nodes, and mediastinum: The imaged thyroid gland is normal. No lymphadenopathy in the supraclavicular, axillary, mediastinal, or hilar regions. A small amount of fluid is present within the superior thoracic esophagus. Heart, pericardium, and thoracic vessels: The thoracic aorta and main pulmonary artery are normal in caliber. The cardiac chambers are normal in size. No coronary artery atherosclerotic calcifications are noted, although the study is not optimized for coronary assessment. No pericardial effusion or thickening. Bones and soft tissues: No destructive bone lesion. Postoperative changes involve left ribs. Upper abdomen: No abnormality in the imaged upper abdomen. Abattoir Supervisor (topogram) images: No additional findings. DIVISION OF RADIOLOGY Provider, [facility] - 02/15/2021 * * *Final Report* * * DATE OF EXAM: Feb 15 2021 11:08AM [facility] 0539 - CT CHEST W IVCON / PROCEDURE REASON: Lung nodules * * * * Physician Interpretation * * * * RESULT: EXAMINATION: CHEST CT WITH CONTRAST CLINICAL HISTORY: Lung nodule Technique: Spiral CT acquisition of the chest from the thoracic inlet to the upper abdomen following IV contrast. MQ: CTCW_6 Contrast: 50 mL Omnipaque [address] Radiation dose: Integrated Dose-length product (DLP) for this visit = 159 mGy*cm CT Dose Reduction Employed: Automated exposure control (AEC) Comparison: CT chest 11/19/2020; 07/13/2020 and 03/15/2020 RESULT: Limitations: None. Lines, tubes, and devices: None. Lung parenchyma and airways: There is no airspace consolidation. The central tracheobronchial tree is patent. Operative changes reflect left lower lobectomy. Mild bilateral perihilar airspace opacification, left greater than right, is unchanged and compatible with posttreatment effect. A right lower lobe wedge resection line and adjacent linear scarring/atelectasis are unchanged. Pulmonary nodules over 1 cm are detailed as follows on series 3: -Image 29, right lung apex groundglass nodule, 1.1 cm (unchanged) -Image 159, right middle lobe nodule with central calcification, likely a granuloma, 1.1 cm (unchanged) Subcentimeter nodular opacities are similarly unchanged, with reference nodules as follows on series 3: -Image 127, right lower lobe, along scarring, 0.8 cm (previously 0.8 cm, when remeasured in a similar axis) -Image 127, right lower lobe, 0.5 cm (unchanged) -Image 115, right middle lobe, 0.5 cm (unchanged) -Image 93, right upper lobe, 0.6 cm (unchanged) -Image 86, right upper lobe, 0.3 cm (unchanged) No enlarging nodules are identified. Pleural space: No pleural effusion. No pleural thickening. Lower neck, lymph nodes, and mediastinum: The imaged thyroid gland is normal. No lymphadenopathy in the supraclavicular, axillary, mediastinal, or hilar regions. A small amount of fluid is present within the superior thoracic esophagus. Heart, pericardium, and thoracic vessels: The thoracic aorta and main pulmonary artery are normal in caliber. The cardiac chambers are normal in size. No coronary artery atherosclerotic calcifications are noted, although the study is not optimized for coronary assessment. No pericardial effusion or thickening. Bones and soft tissues: No destructive bone lesion. Postoperative changes involve left ribs. Upper abdomen: No abnormality in the imaged upper abdomen. Abattoir Supervisor (topogram) images: No additional findings. IMPRESSION IMPRESSION: 1. Since 11/19/2020, no significant change. 2. Stable postsurgical changes involving the left lung and right lower lobe. 3. Multiple right lung nodules are unchanged. 4. No lymphadenopathy. 5. Mild fluid within the superior thoracic esophagus, which may be secondary to reflux or esophageal dysmotility. Transcribe Date/Time: Feb 15 2021 11:18A Dictated by: ALLAN PORRAS MD This examination was interpreted and the report reviewed and electronically signed by: ALLAN OPRRAS MD on Feb 15 2021 1:44PM EST Thank you for allowing us to participate in the care of your patient. Should there be any questions regarding this interpretation, please call [phone]. If you are unable to reach us at the number above, please feel free to contact [facility] eRadiology at [phone]. [facility] Radiology Study observation (narrative) [facility] CT Chest W contrast IVOrdere d By: Ccf Provider on 02-15-2021 [facility] AMYLASEon 01-05-2021 Amylase [Catalytic activity/Vol] 41 U/L Normal 31-110 [facility] Comment on above: Performed By: #### A MY, LIPA, CMP #### [facility] [address] [place], [place] [address] Dr. Sonny Bustos CBC AUTO DIFFon 01-05-2021 BASO # 0.0 103/ul Normal 0.0-0.1 [facility] Comment on above: Performed By: #### C BC ####[facility] [address] [place] [id number] Bustos Basophils/100 WBC (Bld) 0.3 % Normal 0.2-2.0 [facility] Comment on above: Performed By: #### C BC ####[facility] [address] [place] [address]DrFelipe Bustos EO # 0.1 103/ul Normal 0.0-0.7 [facility] Comment on above: Performed By: #### C BC ####[facility] [address] [place] [address]DrFelipe Bustos Eosinophils/100 WBC (Bld) 0.5 % Critically low 0.9-7.0 [facility] Comment on above: Performed By: #### C BC ####[facility] [address] [place] [address]DrFelipe Bustos Erythrocyte distribution width (RBC) [Ratio] 12.5 % Normal 11.0-15.0 [facility] Comment on above: Performed By: #### C BC ####[facility] [address] [place] [address]DrFelipe Bustos Hematocrit (Bld) [Volume fraction] 37.5 % Normal 36.0-48.0 [facility] Comment on above: Performed By: #### C BC ####[facility] [address] [place] [address]DrFelipe Bustos Hemoglobin (Bld) [Mass/Vol] 12.0 g/dL Normal 12.0-16.0 [facility] Comment on above: Performed By: #### C BC ####[facility] [address] [place] [address]DrFelipe Bustos IG # 0.03 10e3/ul Normal 0.00-0.03 [facility] Comment on above: Performed By: #### C BC ####[facility] [address] [place] [address]DrFelipe Sonny Bustos IG % 0.3 % Normal 0.0-0.5 [facility] Comment on above: Performed By: #### C BC ####[facility] [address] [place] [address]DrFelipe Sonny Akash LYMPH # 0.7 103/ul Critically low 1.2-3.8 [facility] Comment on above: Performed By: #### C BC ####[facility] [address] [place] [address]DrFelipe Sonny Akash Lymphocytes/100 WBC (Bld) 6.7 % Critically low 20.5-60.0 [facility] Comment on above: Performed By: #### C BC ####[facility] [address] [place] [address]DrFelipe Maryamantonio Bustos MANUAL DIFF REQ NO Normal [facility] Comment on above: Performed By: #### C BC ####[facility] [address] [place] [address]DrFelipe Sonny Akash MCH (RBC) [Entitic mass] 30.5 pg Normal 26.7-34.0 [facility] Comment on above: Performed By: #### C BC ####[facility] [address] [place] [address]DrFelipe Sonny Akash MCHC (RBC) [Mass/Vol] 32.0 g/dL Normal 29.9-35.2 [facility] Comment on above: Performed By: #### C BC ####[facility] [address] [place] [id number] Sonny Akash MCV (RBC) [Entitic vol] 95.4 fL Normal 81.0-99.0 [facility] Comment on above: Performed By: #### C BC ####[facility] [address] [place] [address]DrFelipe Bustos MONO # 1.0 103/ul Critically high 0.3-0.8 [facility] Comment on above: Performed By: #### C BC ####[facility] [address] [place] [address]Dr. Sonny Bustos Monocytes/100 WBC (Bld) 9.5 % Normal 1.7-12.0 [facility] Comment on above: Performed By: #### C BC ####[facility] [address] [place] [id number]. Sonny Bustos NEUT # 8.9 103/ul Critically high 1.4-6.5 [facility] Comment on above: Performed By: #### C BC ####[facility] [address] [place] [address]Dr. Sonny Bustos Neutrophils/100 WBC (Bld) 82.7 % Critically high 43.0-75.0 [facility] Comment on above: Performed By: #### C BC ####[facility] [address] [place] [address]Dr. Sonny Bustos Platelet mean volume (Bld) [Entitic vol] 10.2 fL Normal 9.5-13.5 [facility] Comment on above: Performed By: #### C BC ####[facility] [address] [place], [place] [address]Dr. Sonny Bustos PLT 239 103/ul Normal 150-450 [facility] Comment on above: Performed By: #### C BC ####[facility] [address] [place] [address]Dr. Sonny Bustos RBC 3.93 106/ul Critically low 4.20-5.40 [facility] Comment on above: Performed By: #### C BC ####[facility] [address] [place] [id number]. Sonny Bustos WBC 10.8 103/ul Normal 4.0-11.0 [facility] Comment on above: Performed By: #### C BC ####[facility] [address] [place] [address]Dr. Sonny Bustos [facility]-19 PCR [facility]on SARS-CoV-2 (COVID-19) RNA MART+probe Ql (Unsp spec) Not detected Normal NOT DETECTED [facility] Comment on above: Result Comment: When diagnostic testing is negative, the possibility of a false negative should be considered in the context of a patient's recent exposures and the presence of clinical signs and symptoms consistent with SARS-CoV-2. Performed By: #### C VDTB ####[facility] [address] [place] [address]Dr. Sonny Bustos LIPASEon 01-05-2021 Lipase [Catalytic activity/Vol] 85.0 U/L Normal 23.0-300.0 [facility] Comment on above: Performed By: #### A OC HUMMEL, CMP #### [facility] [address] [place] [address] Dr. Sonny Bustos PROF 14(COMP METB)on 021 Albumin [Mass/Vol] 3.6 g/dL Normal 3.5-5.0 [facility] Comment on above: Performed By: #### A ESTEPHANIE LIPA, CMP #### [facility] [address] [place] [address] Dr. Sonny Bustos Albumin/Globulin [Mass ratio] 1.1 {ratio} Normal [facility] Comment on above: Performed By: #### A KAILASH HUMMELA, CMP #### [facility] [address] [place] [address] Dr. Sonny Bustos ALP [Catalytic activity/Vol] 80 U/L Normal 38-126 [facility] Comment on above: Performed By: #### A ESTEPHANIE LIPA, CMP #### [facility] [address] [place] [address] Dr. Sonny Bustos ALT [Catalytic activity/Vol] 28 U/L Normal 9-52 [facility] Comment on above: Performed By: #### A ESTEPHANIE LIPA, CMP #### [facility] [address] [place] [address] Dr. Sonny Bustos Anion gap [Moles/Vol] 10.5 mmol/L Normal [facility] Comment on above: Performed By: #### A MY, LIPA, CMP #### [facility] [address] [address] [address] Sonny Bustos AST [Catalytic activity/Vol] 20 U/L Normal 14-36 [facility] Comment on above: Performed By: #### A MY, LIPA, CMP #### [facility] [address] [address] [address] Sonny Bustos Bilirubin [Mass/Vol] 0.4 mg/dL Normal 0.2-1.3 [facility] Comment on above: Performed By: #### A MY, LIPA, CMP #### [facility] [address] [address] [address] Sonny Bustos Calcium [Mass/Vol] 8.8 mg/dL Normal 8.4-10.2 [facility] Comment on above: Performed By: #### A MY, LIPA, CMP #### [facility] [address] [place] [address] Dr. Sonny Bustos Chloride [Moles/Vol] 108 mmol/L Critically high 98-107 [facility] Comment on above: Performed By: #### A MY, LIPA, CMP #### [facility] [address] [address] [address] Sonny Bustos CO2 [Moles/Vol] 28.0 mmol/L Normal 22.0-30.0 [facility] Comment on above: Performed By: #### A MY, LIPA, CMP #### [facility] [address] [address] [address] Sonny Bustos Creatinine [Mass/Vol] 0.96 mg/dL Normal 0.52-1.04 [facility] Comment on above: Performed By: #### A MY, LIPA, CMP #### [facility] [address] [address] [address] Sonny Bustos EGFR-AF BELARUSIAN >60 Normal >=60 [facility] Comment on above: Performed By: #### A MY, LIPA, CMP #### [facility] [address] [address] [address] Sonny Bustos EGFR-NON AF BELARUSIAN 58 mL/min/1.73m2 Critically low >=60 [facility] Comment on above: Performed By: #### A ESTEPHANIE LIPA, CMP #### [facility] [address] [address] [address] Sonny Bustos Globulin (S) [Mass/Vol] 3.3 g/dL Normal [facility] Comment on above: Performed By: #### A ESTEPHANIE LIPA, CMP #### [facility] [address] [address] [address] Sonny Bustos Glucose [Mass/Vol] 95 mg/dL Normal 74-106 [facility] Comment on above: Performed By: #### A ESTEPHANIE LIPA, CMP #### [facility] [address] [place] [address] Dr. Sonny Bustos Potassium [Moles/Vol] 4.5 mmol/L Normal 3.4-5.0 [facility] Comment on above: Performed By: #### A ESTEPHANIE LIPA, CMP #### [facility] [address] [place] [address] Dr. Sonny Bustos Protein [Mass/Vol] 6.9 g/dL Normal 6.1-8.2 [facility] Comment on above: Performed By: #### A ESTEPHANIE LIPA, CMP #### [facility] [address] [place] [address] Dr. Sonny Bustos Sodium [Moles/Vol] 142 mmol/L Normal 137-145 [facility] Comment on above: Performed By: #### A ESTEPHANIE LIPA, CMP #### [facility] [address] [place] [address] Dr. Sonny Bustos Urea nitrogen [Mass/Vol] 20.0 mg/dL Critically high 7.0-17.0 [facility] Comment on above: Performed By: #### A ESTEPHANIE LIPA, CMP #### [facility] [address] [place] [address] Dr. Sonny Bustos Urea nitrogen/Creatinine [Mass ratio] 20.8 mg/mg Normal [facility] Comment on above: Performed By: #### A ESTEPHANIE LIPA, CMP #### [facility] [address] [place], [place] [address] Dr. Sonny Bustos US JAYCOB DOP LEG RTon 10-06-19 21 US JAYCOB DOP LEG RT EXAMINATION: US JAYCOB DOP LEG RT HISTORY: Swelling COMPARISON: No relevant comparison available. FINDINGS: REGION: Right lower extremity THROMBI: None. COMPRESSIBILITY: Normal compressibility. FLOW: Normal waveform and antegrade flow between 5 and 20 cm/s. OTHER: Small Chapman's cyst within the popliteal fossa. Nonspecific 1.7 x 1.5 x 0.7 cm oval hyperechoic area within the subcutaneous fat of the distal medial thigh; likely lipoma or proteinaceous sebaceous gland cyst. IMPRESSION: 1. No deep vein thrombus within the right lower extremity. 2. Small Chapman's cyst within the popliteal fossa which may account for the patient's symptoms. Electronically authenticated by: JEANINE HANKS Date: 2020-10-05 14:42 Normal [facility] 2019 Ophthalmic Eye Exam DOCUMENT REVIEWED BY : Lucrecia Malin MD DOCUMENT SIGNED ELECTRONICALLY BY Lucrecia Malin MD ON 10/07/2019 04:57:23 PM [place] [id number] [place], [address] [phone] THIS DOCUMENT WAS CREATED ON: 10/07/2019 04:57:18 PM BY: SAL Amaya MD [id number] Exam Date: Monday, October 07, 2019 PATIENT NAME: JANA DONIS DATE: 1955 AGE: 64 GENDER: Female RACE: PRIMARY CARE PHYSICIAN: Al Bryan History Chief Complaint/Reason For Visit: Here for FUV Right optic atrophy-- Pt sts long hx of optic atrophy OD x 20 years ---then along with positive visual phenomenon brain vs retina. s/p PC IOL OD 10/2018. s/p Yag Cap OD 07/2019. pt reports tunnel vision OD since cataract surgery Pt sts blurriness superior and to the right OS mostly No headaches . Pt has MRI results with her. 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 Right eye vision has been stable. She had further laboratory evaluation and imaging. HISTORY OF PRESENT ILLNESS: PROBLEM: Follow-up visit for Optic atrophy OD CONTEXT/ONSET: a month ago LOCATION: both eyes,right eye HPI was performed by Dr. Lucrecia Malin MD and scribed by Dragan Malin MD PAST MEDICAL HISTORY: PROCEDURES : PC IOL OD 10/14/2018 Yag Cap OD 07/2019 PC IOL OS SURGERIES: History of Appendectomy; History of Hysterectomy; History of Lung Surgery SOCIAL HISTORY: SMOKING: Former smoker (V15.82 Z87.891) FAMILY HISTORY: Family History Last Reviewed on:10/07/2019 FATHER: Family history of cardiac disorder MOTHER: Family history of cerebrovascular accident (CVA), Family history of hypertension Father,Sister:Family history of lung cancer Maternal Grandmother:Family history of macular degeneration CURRENT MEDICATIONS: Restasis 0.05 % Ophthalmic Emulsion - Emulsion, [Reported] ALLERGIES: No Known Drug Allergies Exam ORIENTATION, MOOD AND AFFECT: Appropriate for age RIGHT EYE LEFT EYE UNCORRECTED VA 20/50 20/20 PINHOLE No improvement PRESSURE METHOD: Goldmann Goldmann PRESSURES: 16 15 DATE-TIME: 03:37 PM 03:37 [employer]: Kaur Dietrich CONFRONTATION VF see HVF, temporal depression see HVF, full to finger to finger counting counting all 4 quadrants EXTERNAL EYE EXAM: LID: Good Position Good Position PUPIL: 5 to 2 mm, +RAPD 0.9 log 5 to 2 mm, no RAPD units ADNEXA: Normal Normal MUSCLE BALANCE: Ortho OCULAR MOTILITY: Full COLOR VA ISHIHARA OUT OF 11 OD: 6 COLOR VA ISHIHARA OUT OF 11 OS: 11 ANTERIOR SEGMENT EXAM: TEARFILM: Good Good CONJUNCTIVA: White and quiet White and quiet CORNEA: Clear Clear ANTERIOR CHAMBER: Deep and quiet Deep and quiet IRIS: Round and reactive Round and reactive LENS: 1+ NS 1+ NS ANTERIOR VITREOUS: Clear Clear FUNDUS EXAM: CUP TO DISC: .55 .35 OPTIC DISC: atrophy Mark and sharp VITREOUS: PVD syneresis MACULA: Normal reflex Normal reflex VESSELS: Normal Normal PERIPHERY: No tears, breaks, or holes No tears, breaks, or holes Impression 1 H47.20 Right optic nerve atrophy-Stable 2 H43.811 Pvd (posterior vitreous detachment), right eye-Stable 3 H25.812 Combined form of age-related cataract, left eye-Stable 4 H25.811 Combined form of age-related cataract, right eye-Stable Discussion Letter prepared by:Lucrecia Malin MD Letter prepared by:Lucrecia Malin MD Plan TODAY (OU) - Visual Field 24-2 REGGIE STD By:Lucrecia Malin MD TODAY (OU) - OCT RNFL By:Lucrecia Malin MD 09/23/2019 MRI orbits with contrast, by report, shows ?Asymmetric moderate atrophy of the entire right optic nerve with no focal or enhancing mass.? 09/23/2019 ESR 8. CRP <0.5 mg/dL. B12 256. Thiamine wnl. Folate wnl. MARIA EUGENIA wnl. RPR NR. Lyme ab negative. Quantiferon TB negative. B12 BORDELINE LOW. STUDY MORE. 09/23/2019 MRI orbits with contrast, which I personally reviewed, shows a smaller right optic nerve, but no evidence of compressive or infiltrating lesion. By report, it shows ?Asymmetric moderate atrophy of the entire right optic nerve with no focal or enhancing mass.? 08/11/2019 MRI brain with contrast, which I personally reviewed previously, shows overall stable findings compared to 02/13/2017. 02/13/2017 MRI brain AND orbits with contrast, which I personally reviewed from disc previously, shows mild periventricular white matter FLAIR hyperintensities. 09/23/2019 ESR 8. CRP <0.5 mg/dL. B12 256. Thiamine wnl. Folate wnl. MARIA EUGENIA wnl. RPR NR. Lyme ab negative. Quantiferon TB negative. 09/03/2019 OCT RNFL OD 54 AND OS 104. (stable) 02/20/2017 OCT RNFL OD 50 AND OS 95. 08/05/2019 HVF 24-2 OD superior AND temporal depression MD -5.51 AND OS wnl MD +0.45. 03/28/2018 HVF 24-2 OD wnl MD -1.19 AND OS wnl MD +0.68 (poor legibility). 01/31/2017 HVF 24-2 OD FP 2%, FN 7%, superior defect, possible arcuate MD -3.40 AND OS FP 2%, FN 3%, wnl MD +0.32. 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 Right optic atrophy is similar, but with worse visual field performance. Findings again are consistent with right optic neuropathy without a clear etiology. Some findings are worse, such as color vision. Acuity today is more in line with prior evaluations. Acute awareness is possible. I remain suspicious of a meningioma or other canal lesion below the limit of detection with the imaging she had. Paraneoplastic disease also remains a concern. There was not evidence of another cause on laboratory testing. B12 is borderline low and worth further evaluation. Plan Check B12 deficiency laboratory studies. Pursue autoantibody testing. Consider repeat MRI orbits with contrast at 3T. Consider lumbar puncture with M tb PCR. Follow up in 3 months with HVF AND OCT. created by:Lucrecia Malin MD Lucrecia Malin MD DOCUMENT CREATE DATE: 10/07/2019 04:57:18 PM Received for:Lucrecia Malin Oct 07 2019 4:57PM Eastern Standard Time Normal [facility] Ophthalmic Letteron 10-07-19 Ophthalmic Letter DOCUMENT REVIEWED BY : Lucrecia Malin MD DOCUMENT SIGNED ELECTRONICALLY BY Lucrecia Malin MD ON 10/07/2019 04:57:11 PM 10/07/2019 Patient Name: JANA DONIS Birthdate: 1955 Gender: female Dear Dr. Denys Bah: I am writing to share my findings regarding our mutual patient JANA DONIS from her visit with me 10/07/2019. The full visit note with complete findings follows on subsequent pages. 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 s/p PC IOL OD 10/2018. s/p Yag Cap OD 07/2019. pt reports tunnel vision OD since cataract surgery Pt sts blurriness superior and to the right OS mostly No headaches . Pt has MRI results with her. 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 Right eye vision has been stable. She had further laboratory evaluation and imaging. Diagnoses 377.10 Right optic nerve atrophy 02 379.21 PVD (posterior vitreous detachment), right eye 03 366.19 Combined form of age-related cataract, left eye 04 366.19 Combined form of age-related cataract, right eye 05 162.9 Lung cancer Impression AND Plan 09/23/2019 MRI orbits with contrast, by report, shows ?Asymmetric moderate atrophy of the entire right optic nerve with no focal or enhancing mass.? 09/23/2019 ESR 8. CRP <0.5 mg/dL. B12 256. Thiamine wnl. Folate wnl. MARIA EUGENIA wnl. RPR NR. Lyme ab negative. Quantiferon TB negative. B12 BORDELINE LOW. STUDY MORE. 09/23/2019 MRI orbits with contrast, which I personally reviewed, shows a smaller right optic nerve, but no evidence of compressive or infiltrating lesion. By report, it shows ?Asymmetric moderate atrophy of the entire right optic nerve with no focal or enhancing mass.? 08/11/2019 MRI brain with contrast, which I personally reviewed previously, shows overall stable findings compared to 02/13/2017. 02/13/2017 MRI brain AND orbits with contrast, which I personally reviewed from disc previously, shows mild periventricular white matter FLAIR hyperintensities. 09/23/2019 ESR 8. CRP <0.5 mg/dL. B12 256. Thiamine wnl. Folate wnl. MARIA EUGENIA wnl. RPR NR. Lyme ab negative. Quantiferon TB negative. 09/03/2019 OCT RNFL OD 54 AND OS 104. (stable) 02/20/2017 OCT RNFL OD 50 AND OS 95. 08/05/2019 HVF 24-2 OD superior AND temporal depression MD -5.51 AND OS wnl MD +0.45. 03/28/2018 HVF 24-2 OD wnl MD -1.19 AND OS wnl MD +0.68 (poor legibility). 01/31/2017 HVF 24-2 OD FP 2%, FN 7%, superior defect, possible arcuate MD -3.40 AND OS FP 2%, FN 3%, wnl MD +0.32. 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 Right optic atrophy is similar, but with worse visual field performance. Findings again are consistent with right optic neuropathy without a clear etiology. Some findings are worse, such as color vision. Acuity today is more in line with prior evaluations. Acute awareness is possible. I remain suspicious of a meningioma or other canal lesion below the limit of detection with the imaging she had. Paraneoplastic disease also remains a concern. There was not evidence of another cause on laboratory testing. B12 is borderline low and worth further evaluation. Plan Check B12 deficiency laboratory studies. Pursue autoantibody testing. Consider repeat MRI orbits with contrast at 3T. Consider lumbar puncture with M tb PCR. Follow up in 3 months with HVF AND OCT. I appreciate the opportunity to see JANA DONIS today and to share in her care with you. Please do not hesitate to contact me with any questions regarding this patient, nor to consult me whenever I can be of help to another of your patients with neuro-ophthalmologica l problems. Sincerely, Lucrecia Malin M.D., Ph.D. Neuro-Ophthalmology Service [facility] [address] [place] [address] Email: [email or web address] Received for:Lucrecia Malin Oct 07 2019 4:57PM Eastern Standard Time Normal [facility] Ophthalmic Eye Ex[facility] 2019 Ophthalmic Eye Exam DOCUMENT REVIEWED BY : Lucrecia Malin MD DOCUMENT SIGNED ELECTRONICALLY BY Lucrecia Malin MD ON 09/03/2019 04:14:[address], [address] THIS DOCUMENT WAS CREATED ON: 09/03/2019 04:14:36 PM BY: Lucrecia Altman performed [id number] Exam Date: Tuesday, September 03, 2019 PATIENT NAME: JANA DONIS DATE: 1955 AGE: 64 GENDER: Female RACE: White PRIMARY CARE PHYSICIAN: Al Bryan History Chief Complaint/Reason For Visit: Pt referred for evaluation of R optic atrophy then along with positive visual phenomenon brain vs retina. s/p PC IOL OD 2018. s/p Yag Cap OD 07/2019. pt reports tunnel vision OD since cataract surgery. pt has MRI results with her. 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 She notes right eye decreased vision loss since July 2019. She notes vision is like lookting through a tunnel and not crisp. She had MRI performed based on care from Dr. Denys Bah. She reports 1 year of antibiotics as a teenager when a PPD was positive. HISTORY OF PRESENT ILLNESS: PROBLEM: R optic atrophy then along with positive visual phenomenon brain vs retina CONTEXT/ONSET: gradual LOCATION: right eye TIMING: constant ASSOCIATED SS: none HPI was performed by Dr. Lucrecia Malin MD and scribed by Dragan Malin MD PAST MEDICAL HISTORY: OCULAR: Optic neuropathy PROCEDURES : No known ocular procedures INFECTIOUS: No known previous infections OCULAR SIGNIFICANT: No known ocular significant illnesses ILLNESSES: h/o lung CA; SURGERIES: History of Appendectomy; History of Hysterectomy; History of Lung Surgery, foot sx; HEAD/OCULAR TRAUMA: No known history of trauma SOCIAL HISTORY: SMOKING: Former smoker (V15.82 Z87.891); FAMILY HISTORY: Family History Last Reviewed on:09/03/2019 FATHER: Family history of cardiac disorder MOTHER: Family history of cerebrovascular accident (CVA), Family history of hypertension Father,Sister:Family history of lung cancer Maternal Grandmother:Family history of macular degeneration CURRENT MEDICATIONS: Restasis 0.05 % Ophthalmic Emulsion - Emulsion, [Reported] ALLERGIES: No Known Drug Allergies REVIEW OF SYSTEMS: All other Review Of Systems negative Exam ORIENTATION, MOOD AND AFFECT: Alert AND oriented x3 RIGHT EYE LEFT EYE UNCORRECTED VA 20/70+1 20/20-1 PINHOLE 20/60+1 PRESSURE METHOD: Tonopen Tonopen PRESSURES: 14 14 DATE-TIME: 03:01 PM 03:01 [employer]: jaz sebastian CONFRONTATION VF Full to count fingers Full to count fingers EXTERNAL EYE EXAM: LID: Good Position Good Position PUPIL: 5 to 2 mm, +RAPD 1.2 log 5 to 2 mm, no RAPD units ADNEXA: Normal Normal MUSCLE BALANCE: Ortho OCULAR MOTILITY: Full COLOR VA ISHIHARA OUT OF 11 OD: 7 COLOR VA ISHIHARA OUT OF 11 OS: 11 ANTERIOR SEGMENT EXAM: TEARFILM: Good Good CONJUNCTIVA: White and quiet White and quiet CORNEA: Clear Clear ANTERIOR CHAMBER: Deep and quiet Deep and quiet IRIS: Round and reactive Round and reactive LENS: 1+ NS 1+ NS ANTERIOR VITREOUS: Clear Clear FUNDUS EXAM: DILATION and NUMBING DROPS: Mydriacyl 1% AND Alfredo 2 1/2% OU 09/03/2019 03:38:26 PM CUP TO DISC: .55 .35 OPTIC DISC: atrophy Mark and sharp VITREOUS: PVD syneresis MACULA: Normal reflex Normal reflex VESSELS: Normal Normal PERIPHERY: No tears, breaks, or holes No tears, breaks, or holes Impression 1 H47.20 Right optic nerve atrophy-Stable 2 H43.811 Pvd (posterior vitreous detachment), right eye-Stable 3 H25.812 Combined form of age-related cataract, left eye-Stable 4 H25.811 Combined form of age-related cataract, right eye-Stable Plan TODAY (OU) - OCT RNFL By:Lucrecia Malin MD 08/11/2019 MRI brain with contrast, which I personally reviewed, shows overall stable findings compared to 02/13/2017 02/13/2017 MRI brain AND orbits with contrast, which I personally reviewed from disc previously, shows mild periventricular white matter FLAIR hyperintensities. 09/03/2019 OCT RNFL OD 54 AND OS 104. (stable) 02/20/2017 OCT RNFL OD 50 AND OS 95. 08/05/2019 HVF 24-2 OD superior AND temporal depression MD -5.51 AND OS wnl MD +0.45. 03/28/2018 HVF 24-2 OD wnl MD -1.19 AND OS wnl MD +0.68 (poor legibility). 01/31/2017 HVF 24-2 OD FP 2%, FN 7%, superior defect, possible arcuate MD -3.40 AND OS FP 2%, FN 3%, wnl MD +0.32. 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 She has again right optic atrophy without much change of the optic atrophy compared to prior OCT retinal nerve fiber layer 02/20/2017. However, acuity is about a line worse and color vision declined along with an evident relative afferent pupillary defect not seen previously. 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 Some of these findings are clearly old, but others seem new. Concerns include optic neuritis, compressive optic neuritis and an ischemic lesion. With the history of lung cancer, a paraneoplastic process is possible. Acute awareness could play some role. Check MRI orbits with contrast. Check B12, folate, thiamine, syphilis antibody, T-SPOT AND MARIA EUGENIA. Check NMO/AQP4 AND MOG antibodies along with paraneoplastic panel looking for CRMP-5 specifically. Consider autoantibody testing. Consider lumbar puncture with M tb PCR. Follow up in 1-2 months with HVF AND OCT. created by:Lucrecia Malin MD Lucrecia Malin MD DOCUMENT CREATE DATE: 09/03/2019 04:14:36 PM Received for:Lucrecia Malin Sep 03 2019 4:14PM Eastern Standard Time Normal [facility] Ophthalmic Letteron 09-03-19 Ophthalmic Letter DOCUMENT REVIEWED BY : Lucrecia Malin MD DOCUMENT SIGNED ELECTRONICALLY BY Lucrecia Malin MD ON 09/03/2019 04:09:27 PM 09/03/2019 Patient Name: JANA DONIS Birthdate: 1955 Gender: female Dear Dr. Denys Bah: I am writing to share my findings regarding our mutual patient JANA DONIS from her visit with me 09/03/2019. The full visit note with complete findings follows on subsequent pages. History of Present Illness Pt referred for evaluation of R optic atrophy then along with positive visual phenomenon brain vs retina. s/p PC IOL OD 2018. s/p Yag Cap OD 07/2019. pt reports tunnel vision OD since cataract surgery. pt has MRI results with her. 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 She notes right eye decreased vision loss since July 2019. She notes vision is like lookting through a tunnel and not crisp. She had MRI performed based on care from Dr. Denys Bah. 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 09/03/2019 OCT RNFL OD 54 AND OS 104. (stable) 02/20/2017 OCT RNFL OD 50 AND OS 95. 08/05/2019 HVF 24-2 OD superior AND temporal depression MD -5.51 AND OS wnl MD +0.45. 03/28/2018 HVF 24-2 OD wnl MD -1.19 AND OS wnl MD +0.68 (poor legibility). 01/31/2017 HVF 24-2 OD FP 2%, FN 7%, superior defect, possible arcuate MD -3.40 AND OS FP 2%, FN 3%, wnl MD +0.32. 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 She has again right optic atrophy without much change of the optic atrophy compared to prior OCT retinal nerve fiber layer 02/20/2017. However, acuity is about a line worse and color vision declined along with an evident relative afferent pupillary defect not seen previously. 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 Some of these findings are clearly old, but others seem new. Concerns include optic neuritis, compressive optic neuritis and an ischemic lesion. With the history of lung cancer, a paraneoplastic process is possible. Acute awareness could play some role. Check MRI orbits with contrast. Check B12, folate, thiamine, syphilis antibody, T-SPOT AND MARIA EUGENIA. Check NMO/AQP4 AND MOG antibodies along with paraneoplastic panel looking for CRMP-5 specifically. Consider autoantibody testing. Follow up in 1-2 months with HVF AND OCT. I appreciate the opportunity to see JANA DONIS today and to share in her care with you. Please do not hesitate to contact me with any questions regarding this patient, nor to consult me whenever I can be of help to another of your patients with neuro-ophthalmologica l problems. Sincerely, Lucrecia Malin M.D., Ph.D. Neuro-Ophthalmology Service [facility] [place] [address] Email: [email or web address] Received for:Lucrecia Malin Sep 03 2019 4:09PM Eastern Standard Time Normal [facility] Vital Signs Date Time Vital Sign Value Performing Clinician Facility 02-28-2024 07:54-0500 Body height 153.9 cm Niall Zaldivar MD Work Phone: [facility] 02-28-2024 07:54-0500 Body mass index (BMI) [Ratio] 23.17 kg/m2 Niall Zaldivar MD Work Phone: [facility] 02-28-2024 07:54-0500 Body weight 54.9 kg Niall Zaldivar MD Work Phone: [facility] 02-28-2024 07:54-0500 Diastolic blood pressure 65 mm[Hg] Niall Zaldivar MD Work Phone: [facility] 02-28-2024 07:54-0500 Heart rate 71 /min Niall Zaldivar MD Work Phone: [facility] 02-28-2024 07:54-0500 SaO2% (BldA) [Mass fraction] 99 % Niall Zaldivar MD Work Phone: [facility] Comment on above: 02-28-2024 07:54-0500 Systolic blood pressure 122 mm[Hg] Niall Zaldivar MD Work Phone: [facility] 01-22-2024 10:46-0500 SaO2% (BldA) [Mass fraction] 95 % Niall Lane MD Work Phone: [facility] Comment on above: with walking 2x around [facility] 01-22-2024 10:19-0500 Body mass index (BMI) [Ratio] 23.84 kg/m2 Niall Lane MD Work Phone: [facility] 01-22-2024 10:19-0500 Body temperature 97.3 [degF] Niall Lane MD Work Phone: [facility] 01-22-2024 10:19-0500 Body weight 57.[address] MD Work Phone: [facility] 01-22-2024 10:19-0500 Diastolic blood pressure 73 mm[Hg] Niall Lane MD Work Phone: [facility] 01-22-2024 10:19-0500 Heart rate 86 /min Niall Lane MD Work Phone: [facility] 01-22-2024 10:19-0500 Respiratory rate 16 /min Niall Lane MD Work Phone: [facility] 01-22-2024 10:19-0500 Systolic blood pressure 110 mm[Hg] Niall Lane MD Work Phone: [facility] 07-02-2023 14:36-0400 Body mass index (BMI) [Ratio] 24.3 kg/m2 Niall Lane MD Work Phone: [facility] 07-02-2023 14:36-0400 Body temperature 97.81 [degF] Niall Lane MD Work Phone: [facility] 07-02-2023 14:36-0400 Body weight 58.[address] MD Work Phone: [facility] 07-02-2023 14:36-0400 Diastolic blood pressure 74 mm[Hg] Niall Lane MD Work Phone: [facility] 07-02-2023 14:36-0400 Heart rate 83 /min Niall Lane MD Work Phone: [facility] 07-02-2023 14:36-0400 Respiratory rate 18 /min Niall Lane MD Work Phone: [facility] 07-02-2023 14:36-0400 SaO2% (BldA) [Mass fraction] 98 % Niall Lane MD Work Phone: [facility] 07-02-2023 14:36-0400 Systolic blood pressure 126 mm[Hg] Niall Lane MD Work Phone: [facility] 12-26-2022 09:54-0400 Body height 154.[address] MD Work Phone: [facility] 12-26-2022 09:54-0400 Body temperature 97.59 [degF] Niall Lane MD Work Phone: [facility] 12-26-2022 09:54-0400 Body weight 58.[address] MD Work Phone: [facility] 12-26-2022 09:54-0400 Diastolic blood pressure 72 mm[Hg] Niall Lane MD Work Phone: [facility] 12-26-2022 09:54-0400 Heart rate 71 /min Niall Lane MD Work Phone: [facility] 12-26-2022 09:54-0400 Respiratory rate 16 /min Niall Lane MD Work Phone: [facility] 12-26-2022 09:54-0400 SaO2% (BldA) [Mass fraction] 100 % Niall Lane MD Work Phone: [facility] 12-26-2022 09:54-0400 Systolic blood pressure 127 mm[Hg] Niall Lane MD Work Phone: [facility] 07-11-2022 09:00-0400 Body height 154.[address] MD Work Phone: [facility] 07-11-2022 09:00-0400 Body temperature 97.2 [degF] Niall Lane MD Work Phone: [facility] 07-11-2022 09:00-0400 Body weight 58.[address] MD Work Phone: [facility] 07-11-2022 09:00-0400 Diastolic blood pressure 84 mm[Hg] Niall Lane MD Work Phone: [facility] 07-11-2022 09:00-0400 Heart rate 80 /min Niall Lane MD Work Phone: [facility] 07-11-2022 09:00-0400 Respiratory rate 16 /min Niall Lane MD Work Phone: [facility] 07-11-2022 09:00-0400 SaO2% (BldA) [Mass fraction] 100 % Niall Lane MD Work Phone: [facility] 07-11-2022 09:00-0400 Systolic blood pressure 110 mm[Hg] Niall Lane MD Work Phone: [facility] 01-03-2022 08:53-0400 Body height 154.[address] MD Work Phone: [facility] 01-03-2022 08:53-0400 Body temperature 97.59 [degF] Niall Lane MD Work Phone: [facility] 01-03-2022 08:53-0400 Body weight 55.[address] MD Work Phone: [facility] 01-03-2022 08:53-0400 Diastolic blood pressure 74 mm[Hg] Niall Lane MD Work Phone: [facility] 01-03-2022 08:53-0400 Heart rate 76 /min Niall Lane MD Work Phone: [facility] 01-03-2022 08:53-0400 Respiratory rate 16 /min Niall Lane MD Work Phone: [facility] 01-03-2022 08:53-0400 SaO2% (BldA) [Mass fraction] 100 % Niall Lane MD Work Phone: [facility] 01-03-2022 08:53-0400 Systolic blood pressure 139 mm[Hg] Niall Lane MD Work Phone: [facility] 08-03-2021 16:05-0400 Body height 154.94 cm Radha Viki Other [facility] Other 08-03-2021 16:05-0400 Body mass index (BMI) [Ratio] 23.62 kg/m2 Radha Viki Other [facility] [employer] Other 08-03-2021 16:05-0400 Body temperature 97.9 [degF] Radha Viki Other [facility] [employer] Other 08-03-2021 16:05-0400 Body weight 56.7 kg Radha Viki Other [facility] [employer] Other 08-03-2021 16:05-0400 Diastolic blood pressure 78 mm[Hg] Radha Viki Other [facility] [employer] Other 08-03-2021 16:05-0400 Respiratory rate 18 /min Radha Drew Other [facility] [employer] Other 08-03-2021 16:05-0400 SaO2% (BldA) [Mass fraction] 99 % Radha Drew Other [facility] [employer] Other 08-03-2021 16:05-0400 Systolic blood pressure 129 mm[Hg] Radha Drew Other [facility] [employer] Other 07-05-2021 08:12-0400 Body height 154.[address] MD Work Phone: [facility] 07-05-2021 08:12-0400 Body temperature 97.2 [degF] Niall Lane MD Work Phone: [facility] 07-05-2021 08:12-0400 Body weight 55.[address] MD Work Phone: [facility] 07-05-2021 08:12-0400 Diastolic blood pressure 71 mm[Hg] Niall Lane MD Work Phone: [facility] 07-05-2021 08:12-0400 Heart rate 77 /min Niall Lane MD Work Phone: [facility] 07-05-2021 08:12-0400 Respiratory rate 16 /min Niall Lane MD Work Phone: [facility] 07-05-2021 08:12-0400 SaO2% (BldA) [Mass fraction] 98 % Niall Lane MD Work Phone: [facility] 07-05-2021 08:12-0400 Systolic blood pressure 149 mm[Hg] Niall Lane MD Work Phone: [facility] Encounters Encounter Date Encounter Type Care Provider Facility Start: 02-28-2024 End: 02-28-2024 Patient encounter procedure Niall Zaldivar MD Work Phone: Pulmonary Medicine Comment on above: MONTES DE OCA (dyspnea on exer tion) [R06.09] (Primary Dx) Start: 02-04-2024 End: 02-04-2024 Telephone encounter Myraemeraldanderson Chloe Stanley CROSS Admitting Start: 01-22-2024 End: 01-22-[address] Facility:[facility] Start: 01-22-2024 End: 01-22-2024 Office outpatient visit [address] MD Work Phone: Hematology/Oncology Comment on above: History of lung canc er (Primary Dx); Shortness of breath Start: 12-25-2023 End: 12-25-2023 ambulatory [facility] Facility:[facility] Start: 12-25-2023 End: 12-25-2023 Subsequent hospital visit by physician Arrival Time Radiology Work Phone: [facility]iology [facility] Start: 11-13-2023 End: 11-20-2023 Telephone encounter Armida Falcon RN Hematology/Oncology Comment on above: Orders Start: 07-02-2023 End: 07-02-[address] MD Work Phone: Hematology/Oncology Comment on above: Malignant neoplasm o f lower lobe of left lung (HCC) (Primary Dx); History of lung cancer Start: 07-02-2023 End: 07-02-2023 Patient encounter procedure Niall Lane MD Work Phone: Hematology/Oncology Start: 06-27-2023 End: 06-27-2023 ambulatory AL BRYAN Facility:[facility] Start: 06-27-2023 End: 06-27-2023 Subsequent hospital visit by physician Arrival Time Radiology Work Phone: Radiology [facility] Start: 12-26-2022 End: 12-26-[address] MD Work Phone: Hematology/Oncology Comment on above: Malignant neoplasm o f lower lobe of left lung (HCC) (Primary Dx) Start: 12-26-2022 End: 12-26-2022 Patient encounter procedure Niall Lane MD Work Phone: [facility] Start: 12-18-2022 End: 12-18-2022 Subsequent hospital visit by physician Arrival Time Radiology Work Phone: Radiology [facility] Start: 11-30-2022 Telephone encounter Niall peterson MD Work Phone: Hematology/Oncology Comment on above: Orders Start: 08-29-2022 End: 08-29-2022 ambulatory Kings Burgos Giorgio Work Phone: [facility] Comment on above: Malignant neoplasm o f lower lobe of right lung (HCC) (Primary Dx); Malignant neoplasm of lower lobe of left lung (HCC); Family history of cancer Start: 08-29-2022 End: 08-29-2022 Telemedicine consultation with patient Kings MATTHEWS Work Phone: [facility] Start: 07-11-2022 End: 07-11-[address] MD Work Phone: Hematology/Oncology Comment on above: History of lung canc er (Primary Dx) Start: 07-11-2022 End: 07-11-2022 Patient encounter procedure Niall Lane MD Work Phone: [facility] Start: 07-04-2022 End: 07-04-2022 Subsequent hospital visit by physician Arrival Time Radiology Work Phone: Radiology [facility] Start: 05-29-2022 Telephone encounter Bibi Miranda Hematology/Oncology Comment on above: Orders Start: 01-03-2022 End: 01-03-[address] MD Work Phone: Hematology/Oncology Comment on above: Malignant neoplasm o f lower lobe of left lung (HCC) (Primary Dx); Primary adenocarcinoma of right lung (HCC); Headaches Start: 01-03-2022 End: 01-03-2022 Patient encounter procedure Niall Lane MD Work Phone: [facility] Start: 12-27-2021 End: 12-27-2021 Subsequent hospital visit by physician Arrival Time Radiology Work Phone: Radiology [facility] Comment on above: Lung nodules [R91.8] Start: 12-19-2021 End: 12-19-2021 Emergency department patient visit LUCRECIA ENRIQUE Facility:[facility] Start: 12-19-2021 Telephone encounter Kiki Scott RN Hematology/Oncology Comment on above: headaches Start: 11-30-2021 Telephone encounter Bibi Miranda Hematology/Oncology Comment on above: Orders Start: 09-22-2021 End: 09-23-[address] AL BRYAN Facility:[facility] Start: 09-13-2021 End: 09-14-[address] ELSY DOUGLAS Facility:[facility] Start: 08-04-2021 End: 08-05-[address] ELSY DOUGLAS Facility:[facility] Start: 08-03-2021 End: 08-03-[address] AL BRYAN [facility] Other Start: 08-03-2021 Office outpatient ne w 20 minutes Radha Drew [facility] Start: 07-29-2021 End: 07-29-2021 ambulatory Al Bryan Facility:[facility] Start: 07-29-2021 End: 07-29-2021 Patient encounter procedure MD Al Bryan Work Phone: [facility] Start: 07-20-2021 End: 07-20-[address] AL BRYAN Facility:[facility] Start: 07-15-[address] MD Work Phone: Hematology/Oncology Comment on above: Covid Positive Start: 07-05-2021 End: 07-05-[address] MD Work Phone: Hematology/Oncology Comment on above: Malignant neoplasm o f lower lobe of left lung (HCC) (Primary Dx); Lung nodules Start: 07-05-2021 End: 07-05-2021 Patient encounter procedure Niall Lane MD Work Phone: [facility] Start: 07-01-2021 End: 07-01-2021 Subsequent hospital visit by physician Arrival Time Radiology Work Phone: [facility]iology [facility] Start: 06-14-2021 Telephone encounter Armida Beck RN R adiology [facility] Comment on above: Lab Orders Start: 03-15-2021 End: 03-15-2021 Subsequent hospital visit by physician Mri [facility] Aneta (1.5t) Work Phone: Radiology Comment on above: Dizziness [R42] Start: 02-15-2021 End: 02-15-2021 Subsequent hospital visit by physician Arrival Time Radiology Work Phone: Radiology [facility] Start: 01-05-2021 End: 01-05-[address] AL BRYAN Facility:[facility] Start: 10-05-2020 End: 10-05-[address] AL BRYAN Facility: Start: 06-07-2018 End: 06-08-2018 Patient encounter procedure KARYN CHISHOLM Facility:[facility] Start: 05-20-2018 End: 05-21-2018 Patient encounter procedure DEFAULT PHYSICIAN Facility:[facility] Procedures Date Procedure Procedure Detail Performing Clinician Start: 12-25-2023 Ct thorax w/contrast material Niall Lane MD Work Phone: Start: 12-25-2023 Blood count complete auto&auto difrntl wbc Niall Lane MD Work Phone: Start: 06-27-2023 Ct thorax w/contrast material Niall Lane MD Work Phone: Start: 06-27-2023 Blood count complete auto&auto difrntl wbc Niall Lane MD Work Phone: Start: 12-18-2022 Ct thorax w/contrast material Niall Lane MD Work Phone: Start: 12-18-2022 Blood count complete auto&auto difrntl wbc Niall Lane MD Work Phone: Start: 08-10-2022 Colonoscopy Kings N[facility]e [facility] Work Phone: Start: 07-04-2022 Ct thorax w/contrast material Niall Lane MD Work Phone: Start: 07-04-2022 Blood count complete auto&auto difrntl wbc Niall Lane MD Work Phone: Start: 12-27-2021 Ct thorax w/contrast material Niall Lane MD Work Phone: Start: 12-27-2021 Comprehensive metabo lic panel Olga Wesley APRN.CNP Work Phone: Start: 07-29-2021 Doppler ultrasonogra phy of bilateral carotid arteries MD Al Bryan Work Phone: Start: 07-05-2021 Adult depression scr eening assessment Niall Lane MD Work Phone: Start: 07-01-2021 Ct thorax w/contrast material Niall Lane MD Work Phone: Start: 07-01-2021 Blood count complete auto&auto difrntl wbc Niall Lane MD Work Phone: Start: 03-15-2021 Mri brain brain stem w/o w/contrast material Niall Lane MD Work Phone: Start: 02-19-2021 Adult depression scr eening assessment Armida Beck RN Start: 02-15-2021 Ct thorax w/contrast material Niall Lane MD Work Phone: Start: 02-15-2021 Lipid 1996 panel - S abimbola or Plasma Niall Lane MD Work Phone: Plan of Treatment Date Care Activity Detail Author Start: 2030 RSV Vaccine (1 - 1-d ose 75+ series) RSV Vaccine (1 - 1-dose 75+ series) [facility] Start: 12-24-2026 Diabetes Screening Diabetes Screenin [facility] Start: 06-26-2026 Diabetes Screening Diabetes Screenin [facility] Start: 02-15-2026 Lipid 1996 panel - S abimbola or Plasma Lipid Screening [facility] Start: 02-15-2026 Lipid panel Lipid Screening [facility] Start: 02-15-2026 LIPID SCREEN LIPID SCREEN [facility] Start: 12-18-2025 Diabetes Screening Diabetes Screenin [facility] Start: 07-04-2025 DIABETES SCREEN DIABETES SCREEN [facility] Start: 07-04-2025 Diabetes Screening Diabetes Screenin g [facility] Start: 12-27-2024 DIABETES SCREEN DIABETES SCREEN [facility] Start: 12-19-2024 DIABETES SCREEN DIABETES SCREEN [facility] Start: 08-28-2024 End: 08-28-2024 Patient encounter procedure 08/28/2024 9:30 AM EDT Office Visit Pulmonary Medicine [address] [place] [address] Niall Zaldivar MD [address] [place] [address] Return in about 6 months (around 08/28/2024). Pulmonary Medicine Comment on above: Return in about 6 mo nths (around 08/28/2024). Start: 07-29-2024 End: 07-29-2024 Follow-up encounter 07/29/2024 10:00 AM EDT Visit (SP) Office Hematology/Oncology [address] [place] [address] MD [address] [place] [address] 6 month follow up after ct and lab / Requested to see [facility] Hematology/Oncology Comment on above: [address] and lab / Requested to see [facility] Start: 07-22-2024 End: 07-22-2024 Patient encounter procedure 07/22/2024 9:45 AM EDT Appointment Radiology [facility] [address] [place] [address] Ct Chest with IV contrast and lab [facility]iology [facility] CT Comment on above: Ct Chest with IV con trast and lab Start: 07-21-2024 End: 10-20-2024 CBC W Auto Differential panel - Blood COMPLETE BLOOD COUNT AND DIFFERENTIAL Lab Routine Expected: 07/21/2024 (Approximate), Expires: 10/20/2024 [facility] Comment on above: Expected: 07/21/2024 (Approximate), Expires: 10/20/2024 Start: 07-21-2024 End: 10-20-2024 Comprehensive metabolic 2000 panel - Serum or Plasma COMPREHENSIVE METABOLIC PANEL Lab Routine Expected: 07/21/2024 (Approximate), Expires: 10/20/2024 [facility] Comment on above: Expected: 07/21/2024 (Approximate), Expires: 10/20/2024 Start: 07-01-2024 DIABETES SCREEN DIABETES SCREEN [facility] Start: 02-28-2024 End: 02-28-2024 Patient encounter procedure 02/28/2024 8:00 AM EST Office Visit Pulmonary Medicine [address] [place] [address] Niall Zaldivar MD [address] [place] [address] hc of Lung cancer and shortness osf breath Pulmonary Medicine Comment on above: hc of Lung cancer an d shortness osf breath Start: 02-16-2024 DIABETES SCREEN DIABETES SCREEN [facility] Start: 01-07-2024 End: 01-07-2024 Follow-up encounter Hematology/Oncology Comment on above: [address] and lab Start: 12-31-2023 End: 12-31-2023 Follow-up encounter 12/31/2023 2:30 PM EDT Visit (SP) Office Hematology/Oncology [address] [place] [address] MD [address] [place] [address] 6 month follow up after ct and lab Hematology/Oncology Comment on above: [address] up [address] and lab Start: 12-25-2023 End: 12-25-2023 Patient encounter procedure 12/25/2023 8:45 AM EDT Appointment Radiology [facility] [address] [place] [address] Ct Chest with contrast and lab Radiology Pet CT Comment on above: Ct Chest with contra st and lab Start: 11-13-2023 End: 02-12-2024 CBC W Auto Differential panel - Blood COMPLETE BLOOD COUNT AND DIFFERENTIAL Lab Routine Malignant neoplasm of lower lobe of left lung (HCC) Expected: 11/13/2023, Expires: 02/12/2024 [facility] Work Phone: Comment on above: Expected: 11/13/2023 , Expires: 02/12/2024 Start: 11-13-2023 End: 02-12-2024 Comprehensive metabolic 2000 panel - Serum or Plasma COMPREHENSIVE METABOLIC PANEL Lab Routine Malignant neoplasm of lower lobe of left lung (HCC) Expected: 11/13/2023, Expires: 02/12/2024 [facility] Comment on above: Expected: 11/13/2023 , Expires: 02/12/2024 Start: 11-04-2023 Covid-19 Vaccine () Covid-19 Vaccine () [facility] Start: 11-04-2023 Covid-19 Vaccine () Covid-19 Vaccine () [facility] Start: 11-04-2023 Influenza vaccination [facility] Start: 08-11-2023 Colonoscopy COLONOSCOPY [facility] Start: 08-11-2023 COLORECTAL CANCER SCREENING COLORECTAL CANCER SCREENING [facility] Start: 08-11-2023 Screening for malign ant neoplasm of colon [facility] Start: 06-27-2023 End: 09-26-2023 CBC W Auto Differential panel - Blood CBC + DIFF Lab Routine Malignant neoplasm of lower lobe of left lung (HCC) Expected: 06/27/2023 (Approximate), Expires: 09/26/2023 [facility] Work Phone: Comment on above: Expected: 06/27/2023 (Approximate), Expires: 09/26/2023 Start: 06-27-2023 End: 09-26-2023 Comprehensive metabolic 2000 panel - Serum or Plasma COMP METABOLIC PANEL Lab Routine Malignant neoplasm of lower lobe of left lung (HCC) Expected: 06/27/2023 (Approximate), Expires: 09/26/2023 [facility] Work Phone: Comment on above: Expected: 06/27/2023 (Approximate), Expires: 09/26/2023 Start: 06-27-2023 End: 01-25-2024 CT CHEST W IVCON CT CHEST W IVCON Radiology Routine Expected: 06/27/2023 (Approximate), Expires: 01/25/2024 [facility] Work Phone: Comment on above: Expected: 06/27/2023 (Approximate), Expires: 01/25/2024 Start: 03-05-2023 Advance Directive Discussion Advance Directive Discussion [facility] Start: 03-05-2023 Behavioral Health Screening Behavioral Health Screening [facility] Start: 01-15-2023 Pneumococcal Vaccine : 50+ (3 of 3 - PCV20 or PCV21) Pneumococcal Vaccine: 50+ (3 of 3 - PCV20 or PCV21) [facility] Start: 01-15-2023 Pneumococcal Vaccine : 65+ (3 - PPSV23 or PCV20) Pneumococcal Vaccine: 65+ (3 - PPSV23 or PCV20) [facility] Start: 01-15-2023 Pneumococcal Vaccine : 65+ (3 of 3 - PPSV23 or PCV20) Pneumococcal Vaccine: 65+ (3 of 3 - PPSV23 or PCV20) [facility] Start: 12-18-2022 End: 02-17-2023 CBC W Auto Differential panel - Blood CBC + DIFF Lab Routine History of lung cancer Expected: 12/18/2022, Expires: 02/17/2023 [facility] Work Phone: Comment on above: Expected: 12/18/2022 , Expires: 02/17/2023 Start: 12-18-2022 End: 02-17-2023 Comprehensive metabolic 2000 panel - Serum or Plasma COMP METABOLIC PANEL Lab Routine History of lung cancer Expected: 12/18/2022, Expires: 02/17/2023 [facility] Work Phone: Comment on above: Expected: 12/18/2022 , Expires: 02/17/2023 Start: 11-03-2022 Covid-19 Vaccine ( season) Covid-19 Vaccine ( season) [facility] Start: 11-03-2022 Influenza vaccination Influenza Vacc ine (#1) [facility] Start: 08-29-2022 End: 10-29-2022 MISC SEND OUT TST 1 [facility] Work Phone: Comment on above: Expected: 08/29/2022 , Expires: 10/29/2022 Start: 07-05-2022 Adult depression screening assessment DEPRESSION SCREENING [facility] Start: 07-04-2022 End: 09-03-2022 CBC W Auto Differential panel - Blood CBC + DIFF Lab Routine Malignant neoplasm of lower lobe of left lung (HCC) Expected: 07/04/2022, Expires: 09/03/2022 [facility] Work Phone: Comment on above: Expected: 07/04/2022 , Expires: 09/03/2022 Start: 07-04-2022 End: 09-03-2022 Comprehensive metabolic 2000 panel - Serum or Plasma COMP METABOLIC PANEL Lab Routine Malignant neoplasm of lower lobe of left lung (HCC) Expected: 07/04/2022, Expires: 09/03/2022 [facility] Work Phone: Comment on above: Expected: 07/04/2022 , Expires: 09/03/2022 Start: 03-31-2022 Covid-19 Vaccine (5 - Moderna series) Covid-19 Vaccine (5 - Moderna series) [facility] Start: 03-05-2022 ADVANCE DIRECTIVE DISCUSSION ADVANCE DIRECTIVE DISCUSSION [facility] Start: 03-05-2022 DEPRESSION ASSESSMENT DEPRESSION ASS ESSMENT [facility] Start: 02-19-2022 Adult depression screening assessment DEPRESSION SCREENING [facility] Start: 11-30-2021 End: 01-30-2022 CBC W Auto Differential panel - Blood CBC + DIFF Lab Routine Lung nodules Expected: 11/30/2021, Expires: 01/30/2022 [facility] Work Phone: Comment on above: Expected: 11/30/2021 , Expires: 01/30/2022 Start: 11-30-2021 End: 01-30-2022 Comprehensive metabolic 2000 panel - Serum or Plasma COMP METABOLIC PANEL Lab Routine Lung nodules Expected: 11/30/2021, Expires: 01/30/2022 [facility] Work Phone: Comment on above: Expected: 11/30/2021 , Expires: 01/30/2022 Start: 11-03-2021 Influenza vaccination [facility] Start: 08-02-2021 End: 10-02-2021 Comprehensive metabolic 2000 panel - Serum or Plasma COMP METABOLIC PANEL Lab Routine Lung nodules Malignant neoplasm of lower lobe of left lung (HCC) Expected: 08/02/2021, Expires: 10/02/2021 [facility] Work Phone: Comment on above: Expected: 08/02/2021 , Expires: 10/02/2021 Start: 07-05-2021 End: 09-04-2021 CBC W Auto Differential panel - Blood CBC + DIFF Lab Routine Lung nodules Malignant neoplasm of lower lobe of left lung (HCC) Expected: 07/05/2021, Expires: 09/04/2021 [facility] Work Phone: Comment on above: Expected: 07/05/2021 , Expires: 09/04/2021 Start: 07-01-2021 End: 08-31-2021 CBC W Auto Differential panel - Blood CBC + DIFF Lab Routine Lung nodules Expected: 07/01/2021 (Approximate), Expires: 08/31/2021 [facility] Work Phone: Comment on above: Expected: 07/01/2021 (Approximate), Expires: 08/31/2021 Start: 07-01-2021 End: 08-31-2021 Comprehensive metabolic 2000 panel - Serum or Plasma COMP METABOLIC PANEL Lab Routine Lung nodules Expected: 07/01/2021 (Approximate), Expires: 08/31/2021 [facility] Work Phone: Comment on above: Expected: 07/01/2021 (Approximate), Expires: 08/31/2021 Start: 05-01-2021 COVID-19 VACCINE (4 - Booster for Moderna series) COVID-19 VACCINE (4 - Booster for Moderna series) [facility] Start: 03-05-2021 ADVANCE DIRECTIVE DISCUSSION ADVANCE DIRECTIVE DISCUSSION [facility] Start: 03-05-2021 DEPRESSION ASSESSMENT DEPRESSION ASS ESSMENT [facility] Start: 02-23-2021 COVID-19 VACCINE (4 - Booster for Moderna series) COVID-19 VACCINE (4 - Booster for Moderna series) [facility] Start: 02-23-2021 PNEUMOCOCCAL: 65+ (#3) PNEUMOCOCCAL: 65+ (#3) [facility] Start: 02-23-2021 PNEUMOCOCCAL: 65+ (3 - PPSV23 if available, else PCV20) PNEUMOCOCCAL: 65+ (3 - PPSV23 if available, else PCV20) [facility] Start: 02-23-2021 PNEUMOVAX AGE 65 AND OVER WITH 5YR LOOKBACK (#1) PNEUMOVAX AGE 65 AND OVER WITH 5YR LOOKBACK (#1) [facility] Start: 02-07-2020 BONE DENSITY BONE DENSITY [facility] Start: 02-07-2020 Bone Density Screening Bone Density Screening [facility] Start: 02-07-2020 Screening for osteoporosis Bone Density Screening [facility] Start: 2015 RSV Vaccine (1 - 1-d ose 60+ series) RSV Vaccine (1 - 1-dose 60+ series) [facility] Start: 2005 SHINGRIX VACCINE (1 of 2) SHINGRIX VACCINE (1 of 2) [facility] Start: 02-07-2000 COLOGUARD (FIT-DNA) COLOGUARD (FIT-D NA) [facility] Start: 02-07-2000 Colonoscopy COLONOSCOPY [facility] Start: 02-07-2000 COLORECTAL CANCER SCREENING COLORECTAL CANCER SCREENING [facility] Start: 02-07-[address] COLONOGRAPHY [facility] Start: 02-07-2000 FECAL OCCULT BLOOD FECAL OCCULT BLOO D [facility] Start: 02-07-2000 Screening for malign ant neoplasm of colon [facility] Start: 02-07-2000 SIGMOIDOSCOPY SIGMOIDOSCOPY [facility] Start: 1995 Mammography [facility] Start: 1995 Screening for malign ant neoplasm of breast Mammogram Screening [facility] Start: 1974 Urine microalbumin profile [facility] Start: 1973 Anxiety Screening Anxiety Screening [facility] Start: 1973 Depression Screening Depression Scre ening [facility] Start: 1973 HEPATITIS C SCREENING HEPATITIS C [facility] Start: 1973 Hepatitis C screening Hepatitis C [facility] End: 07-31-2024 CT Chest W contrast IV CT CHEST W IVCON Radiology Routine 1 Occurrences starting 07/02/2023 until 07/31/2024 [facility] Work Phone: Comment on above: 1 Occurrences starti ng 07/02/2023 until 07/31/2024 End: 02-20-2025 CT Chest W contrast IV CT CHEST W IVCON Radiology Routine 1 Occurrences starting 01/22/2024 until 02/20/2025 [facility] Work Phone: Comment on above: 1 Occurrences starti ng 01/22/2024 until 02/20/2025 End: 02-02-2023 CT CHEST W IVCON CT CHEST W IVCON Radiology Routine 1 Occurrences starting 01/03/2022 until 02/02/2023 [facility] Work Phone: Comment on above: 1 Occurrences starti ng 01/03/2022 until 02/02/2023 End: 08-10-2023 CT CHEST W IVCON CT CHEST W IVCON Radiology Routine 1 Occurrences starting 07/11/2022 until 08/10/2023 [facility] Work Phone: Comment on above: 1 Occurrences starti ng 07/11/2022 until 08/10/2023 End: 08-04-2022 Ct thorax w/contrast material CT CHEST W IVCON Radiology Routine Lung nodules 1 Occurrences starting 07/05/2021 until 08/04/2022 [facility] Work Phone: Comment on above: 1 Occurrences starti ng 07/05/2021 until 08/04/2022 [facility] Immunizations Immunization Date Immunization Notes Care Provider [facility] 02-01-2022 influenza (aIIV4) vaccine, age 65+ yr, quadrivalent, PF (FLUAD QUAD) Niall Lane MD Work Phone: [facility] 02-01-2022 influenza virus vacc ine, unspecified formulation Niall Lane MD Work Phone: [facility] 12-29-2020 COVID-19 original vaccine, full dose, monovalent (MODERNA) Niall Lane MD Work Phone: [facility] 05-12-2020 COVID-19 vaccine, fu ll dose (MODERNA) Armida Beck RN [facility] 04-14-2020 COVID-19 vaccine, fu ll dose (MODERNA) Armida Beck RN [facility] 12-03-2019 influenza, injectabl e, quadrivalent, preservative free Armida Beck RN [facility] 12-20-2018 influenza, injectabl e, quadrivalent, preservative free Armida Beck RN [facility] 03-12-2018 influenza, injectabl e, quadrivalent, contains preservative Armida Beck RN [facility] 03-12-2018 influenza, injectabl e, quadrivalent, preservative free Armida Beck RN [facility] 01-15-2018 pneumococcal conjuga te vaccine, 13 valent Armida Beck RN [facility] 02-24-2016 pneumococcal polysaccharide vaccine, 23 valent Armida Beck RN [facility] 12-30-2015 influenza, injectabl e, quadrivalent, preservative free Armida Beck RN [facility] 02-09-2015 influenza, injectabl e, quadrivalent, preservative free Armida Beck RN [facility] 01-14-2009 novel influenza-H1N1 -09, all formulations Armida Beck RN [facility] 01-14-2009 novel influenza-H1N1 -09, preservative-free, injectable Armida Beck RN [facility] 12-28-2008 influenza virus vacc ine, whole virus Armida Beck [facility] Payers Date Payer Category Payer Self-pay [id number] 2020 Unknown 2017 Medicare MEDICARE MEDICAR E A AND B [id number] 2017-Present [phone] [place] [address] Medicare [id number] 2017 Medicare [id number] 1959 Medicare [id number] 1959 Unknown [id number] 1955 Unknown [id number] [id number] 1955 Unknown [id number] [id number] 1955 Unknown [id number] [id number] 1955 Unknown [id number] [id number] 1955 Unknown [id number]. [id number] 1955 Unknown [id number]. [id number] 1955 Unknown [id number] [id number] 1955 Unknown [id number] [id number] 1955 Unknown [id number] [id number] Private Health Insurance [id number] Unknown [employer] [id number] Unknown [id number] Social History Date Type Detail Facility Start: 01-18-2018 End: 02-28-2024 Tobacco smoking status NHIS Ex-smoker [facility] Start: 04-01-1973 End: 04-01-1984 History of tobacco use Current smoker [facility] Start: 04-01-1973 End: 04-01-1984 History of tobacco use Cigarette Smoker [facility] Start: 02-22-2021 End: 02-28-2024 Alcohol intake Current drinker of alcohol (finding) [facility] Start: 04-01-2013 History SDOH Alcohol Comment occasionally [facility] Start: 12-02-2019 History SDOH Financial 5 [facility] Start: 12-02-2019 History SDOH Food Worry 1 [facility] Start: 12-02-2019 History SDOH Transpo rt Med 2 [facility] Start: 1955 Sex Assigned At Not on file C [facility] Start: 01-16-2021 End: 01-03-2022 Exposure to SARS-CoV-2 (event) Not sure [facility] Start: 1955 Sex Assigned At Female F [facility] Start: 12-02-2019 End: 07-11-2022 Sex Assigned At [facility] Work Phone: Start: 01-18-2018 End: 07-11-2022 Cigarettes smoked current (pack per day) - Reported 0.5 [facility] Work Phone: Start: 01-18-2018 End: 02-28-2024 Tobacco use and exposure Smokeless tobacco non-user [facility] History of tobacco use Passive smoker [facility] Start: 01-03-2022 Tobacco Comment second hand ci garette exposure as a child [facility] How hard is it for y ou to pay for the very basics like food, housing, medical care, and heating Not hard at all [facility] Work Phone: (I/We) worried wheth er (my/our) food would run out before (I/we) got money to buy more. Never true [facility] Work Phone: Clinical Notes 12-01-2019 to 02-28-2024 Patient InstructionsNiall Zaldivar MD - 02/28/2024 8:00 AM Niall Stewart MD - 02/28/2024 8:00 AM ESTTelephone Fadia - Zhane Mcduffie - 02/04/2024 10:48 AM EST Note Date & Type Note Facility 02-28-2024 Instructions Niall Zaldivar MD - 02/28/2024 8:34 AM EST As noted, we reviewed your CT chest and previous Breathing tests We have decided to increase activity to include this activities that cause your shortness of breath to increase stamina. Follow up in 6 months. documented in this encounter [facility] 02-28-2024 History and physical note . [facility] Note Ms. Donis is a 69 year old female who presents to the [facility]. Consultation requested by Dr. Lane for an opinion regarding dyspnea.. My final recommendations/evaluation will be communicated back to the requesting physician by way of shared medical record or letter via US mail. HPI: 69 year old female with adenocarcinoma of the right lung s/p wedge resection (11/11/2019) and s/p Left lower lobectomy (02/2015) that presents for an eval of dyspnea. 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 She likes to be busy, she's always cooking and likes to stay busy. She notes that going upstairs and carrying large items she will get a little winded. She will note that while climbing up the stairs she gets winded. She notes that at rest she feels very well. She denies any wheezing or coughing. She notes that she has noticed exercise intolerance in the last 4 years. Walking fast will cause her some shortness of breath. No formal exercise regiment. No history of asthma as a child. She is very self-motivated. NO fevers, chills, chills nightsweats. She notes that she has more energy than anybody she knows. She notes that she sleeps 3-4 hrs at night, she is refreshed generally in the morning. She is not nap person. No apneas, no snoring. No LE edema, no chest pain. Past Medical History: PAST MEDICAL HISTORY Diagnosis Date Anemia Malignant neoplasm of lower lobe of left lung (HCC) 02/08/2015 Stage IIIA (pT2a, N2, M0) adenocarcinoma of the left lower lobe Malignant neoplasm of lower lobe of right lung (HCC) 02/21/2016 Stage IA (T1a, N0, M0) adenocarcinoma of the right lower lobe Malignant neoplasm of lower lobe of right lung (HCC) 12/01/2019 non small cell lung ca Port catheter in place Past Surgical History: PAST SURGICAL HISTORY Procedure Laterality Date BIOPSY BREAST right breast COLONSCOPY SCREENING HIGH RISK HEMORRHOIDECTOMY HYSTERECTOMY HX 2006 LUNG BIOPSY 12/31/2014 OTHER SURGICAL HISTORY (PLEASE SPECIFY) HX right jaw surgery OTHER SURGICAL HISTORY (PLEASE SPECIFY) HX PORTOCATH PLACEMENT PORTOCATH PLACEMENT REDUCTION OF LARGE BREAST RMVL LUNG OTHER THAN PNEUMONECTOMY 1 LOBE LOBECT Left 02/08/2015 Muscle sparing thoracotomy, left lower lobectomy with bronchoplasty, vascularized tissue pedicle flap of reconstructed airway, hilar and mediastinal lymphadenectomy WEDGE RESECT LUNG Right 02/21/2016 VATs right lower lung wedge resection and med bx for synchronous stage IA adenocarcinoma WEDGE RESECT LUNG Right 12/01/2019 Robotic assisted right lower lung wedge resection for non small cell lung ca Work and Social Histories: Social History Tobacco Use Smoking status: Former Current packs/day: 0.00 Average packs/day: 0.5 packs/day for 11.0 years (5.5 ttl pk-yrs) Types: Cigarettes Start date: 04/01/1973 Quit date: 04/01/1984 Years since quittin.9 Passive exposure: Past Smokeless tobacco: Never Tobacco comments: second hand cigarette exposure as a child Vaping Use Vaping status: Former Substance Use Topics Alcohol use: Yes Comment: occasionally Drug use: No No E cigarettes or vaping Occupation/Exposures: 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 Outpatient Medications: cycloSPORINE (RESTASIS MULTIDOSE) 0.05 % drop Use 1 Drop in eyes. PHYSICAL EXAM: BP 122/65 Pulse 71 Ht 5' .6 (1.54m) Wt 121 lb 0.5 oz (54.9kg) SpO2 99[RA]% BMI 23.18 kg/(m^2). GEN: Alert, comfortable, sitting up in chair, no distress, very pleasant CV: RRR PULM: CTAB, no wheezing or crackles Labs / Imaging / Diagnostic Studies: All radiography listed below personally reviewed by me Data Reviewed from [facility] (in addition to that noted in HPI, and Past histories above): PFT: 11/06/2019: Nl flory, Nl DLCO CT Chest 12/25/23: IMPRESSION: 1. No CT evidence of new metastatic disease in the chest. 2. Stable appearing groundglass and solid pulmonary nodules in both lungs. No new or enlarging pulmonary nodules are identified. 3. No pathologically enlarged lymph nodes identified in the chest. Assessment: Ms. Donis is a 69 year old female who presents to the [facility] for evaluation of Dyspnea MONTES DE OCA -she only notes MONTES DE OCA with heavy exertion and denies any dyspnea or respiratory symptoms at rest or with regular activities -previous PFTs reviewed and are unremarkable -she has no signs or symptoms of asthma and do not suspect she will benefit from inhaler use -we discussed incorporating an exercise routine to slowly build up her stamina to improve tolerance of the strenuous activities that provides her discomfort at this time. -of note, she had a negative stress test and has no symptoms of heart disease currently Lung nodules -she does have a few remaining lung nodules in her chest, overall read as stable per radiology -the most concerning of which is the ALISA groundglass nodule -plan already in place for follow up CT chest Follow up in [address] chest I spent a total of 40 minutes on the date of the service which included [id number] patient care, obtaining and/or reviewing separately obtained history, performing a medically appropriate examination, and counseling and educating the patient/family/caregiver. Niall Zaldivar MD Pulmonary Critical Care Staff [facility] 02-28-2024 History and physical note . [facility] Note Ms. Donis is a 69 year old female who presents to the [facility]. Consultation requested by Dr. Lane for an opinion regarding dyspnea.. My final recommendations/evaluation will be communicated back to the requesting physician by way of shared medical record or letter via [place] mail. HPI: 69 year old female with adenocarcinoma of the right lung s/p wedge resection (11/11/2019) and s/p Left lower lobectomy (02/2015) that presents for an eval of dyspnea. 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 She likes to be busy, she's always cooking and likes to stay busy. She notes that going upstairs and carrying large items she will get a little winded. She will note that while climbing up the stairs she gets winded. She notes that at rest she feels very well. She denies any wheezing or coughing. She notes that she has noticed exercise intolerance in the last 4 years. Walking fast will cause her some shortness of breath. No formal exercise regiment. No history of asthma as a child. She is very self-motivated. NO fevers, chills, chills nightsweats. She notes that she has more energy than anybody she knows. She notes that she sleeps 3-4 hrs at night, she is refreshed generally in the morning. She is not nap person. No apneas, no snoring. No LE edema, no chest pain. Past Medical History: PAST MEDICAL HISTORY Diagnosis Date Anemia Malignant neoplasm of lower lobe of left lung (HCC) 02/08/2015 Stage IIIA (pT2a, N2, M0) adenocarcinoma of the left lower lobe Malignant neoplasm of lower lobe of right lung (HCC) 02/21/2016 Stage IA (T1a, N0, M0) adenocarcinoma of the right lower lobe Malignant neoplasm of lower lobe of right lung (HCC) 12/01/2019 non small cell lung ca Port catheter in place Past Surgical History: PAST SURGICAL HISTORY Procedure Laterality Date BIOPSY BREAST right breast COLONSCOPY SCREENING HIGH RISK HEMORRHOIDECTOMY HYSTERECTOMY HX 2006 LUNG BIOPSY 12/31/2014 OTHER SURGICAL HISTORY (PLEASE SPECIFY) HX right jaw surgery OTHER SURGICAL HISTORY (PLEASE SPECIFY) HX PORTOCATH PLACEMENT PORTOCATH PLACEMENT REDUCTION OF LARGE BREAST RMVL LUNG OTHER THAN PNEUMONECTOMY 1 LOBE LOBECT Left 02/08/2015 Muscle sparing thoracotomy, left lower lobectomy with bronchoplasty, vascularized tissue pedicle flap of reconstructed airway, hilar and mediastinal lymphadenectomy WEDGE RESECT LUNG Right 02/21/2016 VATs right lower lung wedge resection and med bx for synchronous stage IA adenocarcinoma WEDGE RESECT LUNG Right 12/01/2019 Robotic assisted right lower lung wedge resection for non small cell lung ca Work and Social Histories: Social History Tobacco Use Smoking status: Former Current packs/day: 0.00 Average packs/day: 0.5 packs/day for 11.0 years (5.5 ttl pk-yrs) Types: Cigarettes Start date: 04/01/1973 Quit date: 04/01/1984 Years since quittin.9 Passive exposure: Past Smokeless tobacco: Never Tobacco comments: second hand cigarette exposure as a child Vaping Use Vaping status: Former Substance Use Topics Alcohol use: Yes Comment: occasionally Drug use: No No E cigarettes or vaping Occupation/Exposures: 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 Outpatient Medications: cycloSPORINE (RESTASIS MULTIDOSE) 0.05 % drop Use 1 Drop in eyes. PHYSICAL EXAM: BP 122/65 Pulse 71 Ht 5' .6 (1.54m) Wt 121 lb 0.5 oz (54.9kg) SpO2 99[RA]% BMI 23.18 kg/(m^2). GEN: Alert, comfortable, sitting up in chair, no distress, very pleasant CV: RRR PULM: CTAB, no wheezing or crackles Labs / Imaging / Diagnostic Studies: All radiography listed below personally reviewed by me Data Reviewed from [facility] (in addition to that noted in HPI, and Past histories above): PFT: 11/06/2019: Nl flory, Nl DLCO CT Chest 12/25/23: IMPRESSION: 1. No CT evidence of new metastatic disease in the chest. 2. Stable appearing groundglass and solid pulmonary nodules in both lungs. No new or enlarging pulmonary nodules are identified. 3. No pathologically enlarged lymph nodes identified in the chest. Assessment: Ms. Donis is a 69 year old female who presents to the [facility] for evaluation of Dyspnea MONTES DE OCA -she only notes MONTES DE OCA with heavy exertion and denies any dyspnea or respiratory symptoms at rest or with regular activities -previous PFTs reviewed and are unremarkable -she has no signs or symptoms of asthma and do not suspect she will benefit from inhaler use -we discussed incorporating an exercise routine to slowly build up her stamina to improve tolerance of the strenuous activities that provides her discomfort at this time. -of note, she had a negative stress test and has no symptoms of heart disease currently Lung nodules -she does have a few remaining lung nodules in her chest, overall read as stable per radiology -the most concerning of which is the ALISA groundglass nodule -plan already in place for follow up CT chest Follow up in [address] chest I spent a total of 40 minutes on the date of the service which included [id number] patient care, obtaining and/or reviewing separately obtained history, performing a medically appropriate examination, and counseling and educating the patient/family/caregiver. Niall Zaldivar MD Pulmonary Critical Care Staff documented in this encounter [facility] 02-04-2024 Telephone encounter Note Spoke with pt to schedule NPV 02/27 [facility] 02-04-2024 Miscellaneous Notes Spoke with pt to schedule NPV 02/27 documented in this encounter [facility] 01-22-2024 Nurse Note Patient walked around [facility], Oxygen noted at 95% at lowest. Nicolasa Soria MA [facility] 01-22-2024 Nurse Note Patient walked around [place] area, Oxygen noted at 95% at lowest. Nicolasa Soria MA Patient states that she has noticed being more short of breath, going up stairs etc. She doesn't know if it is age or something else going on. Nicolasa Soria MA documented in this encounter [facility] 01-22-2024 Nurse Note Patient states that she has noticed being more short of breath, going up stairs etc. She doesn't know if it is age or something else going on. Nicolasa Soria MA [facility] 01-21-2024 Note HNO ID: [id number] Author: NIALL LANE MD Service: ? Author Type: Physician Type: Progress Notes Filed: 01/23/2024 06:43 Note Text: PATIENT NAME: Jana Donis DATE: 01/22/2024 PRIMARY CARE PHYSICIAN: Dr. Al Bryan OTHER PHYSICIANS: Dr. Lerner, Dr. Samayoa, Dr. Gudelia Mckay ([facility] ID) Portions of this encounter note have been copied from the note from 07/02/2023 and has been updated where appropriate, and reflect my current medical decision making from today. CC: This is a 68 year old female with a history of lung cancer, seen for scheduled follow-up. INTERIM HISTORY: Since the patient's last visit here she has had no significant medical changes. However, on review of systems she does complain of increasing dyspnea on exertion. She developed shortness of breath when walking prolonged distances or upstairs. No significant cough or chest pain. However, she does complain she cannot clear her throat . She has taken Mucinex with minimal improvement. Despite the above she feels well overall. No unusual pain or other systemic symptoms. MEDICATIONS: cycloSPORINE (RESTASIS MULTIDOSE) 0.05 % drop Use 1 Drop in eyes. ALLERGIES: Patient has no known allergies. PAST MEDICAL HISTORY: PAST MEDICAL HISTORY Diagnosis Date Anemia Malignant neoplasm of lower lobe of left lung (HCC) 02/08/2015 Stage IIIA (pT2a, N2, M0) adenocarcinoma of the left lower lobe Malignant neoplasm of lower lobe of right lung (HCC) 02/21/2016 Stage IA (T1a, N0, M0) adenocarcinoma of the right lower lobe Malignant neoplasm of lower lobe of right lung (HCC) 12/01/2019 non small cell lung ca Port catheter in place PAST SURGICAL HISTORY: PAST SURGICAL HISTORY Procedure Laterality Date BIOPSY BREAST right breast COLONSCOPY SCREENING HIGH RISK HEMORRHOIDECTOMY HYSTERECTOMY HX 2006 LUNG BIOPSY 12/31/2014 OTHER SURGICAL HISTORY (PLEASE SPECIFY) HX right jaw surgery OTHER SURGICAL HISTORY (PLEASE SPECIFY) HX PORTOCATH PLACEMENT PORTOCATH PLACEMENT REDUCTION OF LARGE BREAST RMVL LUNG OTHER THAN PNEUMONECTOMY 1 LOBE LOBECT Left 02/08/2015 Muscle sparing thoracotomy, left lower lobectomy with bronchoplasty, vascularized tissue pedicle flap of reconstructed airway, hilar and mediastinal lymphadenectomy WEDGE RESECT LUNG Right 02/21/2016 VATs right lower lung wedge resection and med bx for synchronous stage IA adenocarcinoma WEDGE RESECT LUNG Right 12/01/2019 Robotic assisted right lower lung wedge resection for non small cell lung ca REVIEW OF SYSTEMS: General: No weight loss, malaise or fevers. HEENT: Negative for frequent or significant headaches. No changes in hearing or vision, no nose bleeds or other nasal problems. Respiratory: Negative for cough, wheezing or shortness of breath. Cardiovascular: Negative for chest pain, leg swelling or palpitations. GI: Negative for abdominal discomfort, blood in stools or black stools or change in bowel habits. : No history of dysuria, frequency or incontinence. Musculoskeletal: Negative for joint pain or swelling, back pain and muscle pain. Skin: Negative for lesions, rash, and itching. Hematology/Lymphology: Negative for prolonged bleeding, bruising easily or swollen nodes. Neuro: No history of headaches, syncope, paralysis, seizures or tremors. PHYSICAL EXAM: Vitals: BP 110/73 Pulse 86 Temp 36.3 ?C (97.3 ?F) (Temporal) Resp 16 Wt 57.2 kg (126 lb 1.7 oz) SpO2 98% BMI 23.84 kg/m? Pulse ox walking - lowest 93% Exam limited to gross visualization where appropriate due to COVID-19. Gen.: This is an age-appropriate patient in no acute distress. Head: Appears atraumatic with no visible lesions. Eyes: Pupils equally round and reactive to light, extraocular muscles are intact. Neck: Supple. Mouth: Mucous membranes appeared to be moist. Respiratory: Appears to be respiring comfortably. Neurologic: Nonfocal to gross visualization. Alert and oriented ?3. Psychiatric: No evidence of inappropriate anxiety or depression. Skin: Visible areas of skin without rash, lesions, wounds or petechiae. PATHOLOGY: 12/01/2019 Right lower lobe wedge resection FINAL DIAGNOSIS 1. Right lung, lower lobe, wedge excision (A) - Invasive adenocarcinoma, micropapillary predominant. Greatest dimension: 0.9 cm - Focal necrotizing granuloma. 2. Right lung, lower lobe, new margin, excision (B) No significant pathologic changes. 3. Lymph node, level 8R, excision (C) Fibroadipose tissue with histiocytic aggregates; negative for neoplasm. 4. Lymph nodes, level 9R, level 7, excision, (D-E) - Lymph nodes; negative for neoplasm. - Necrotizing granulomas (level 7, part E), see comment. Immunohistochemistry for PD-L1 expression Tumor Cells Positive: less than1% EGFR - A sequence change [id number] (p.[id number]) in exon 19 was detected at approximately 22% allelic proportion (depth of coverage (more content not included)... [facility] 01-21-2024 History of Presen t illness Narrative PATIENT NAME: Jana Donis DATE: 01/22/2024 PRIMARY CARE PHYSICIAN: Dr. Al Bryan OTHER PHYSICIANS: Dr. Lerner, Dr. Samayoa, Dr. Gudelia Mckay ([facility] ID) Portions of this encounter note have been copied from the note from 07/02/2023 and has been updated where appropriate, and reflect my current medical decision making from today. CC: This is a 68 year old female with a history of lung cancer, seen for scheduled follow-up. INTERIM HISTORY: Since the patient's last visit here she has had no significant medical changes. However, on review of systems she does complain of increasing dyspnea on exertion. She developed shortness of breath when walking prolonged distances or upstairs. No significant cough or chest pain. However, she does complain she cannot clear her throat . She has taken Mucinex with minimal improvement. Despite the above she feels well overall. No unusual pain or other systemic symptoms. MEDICATIONS: cycloSPORINE (RESTASIS MULTIDOSE) 0.05 % drop Use 1 Drop in eyes. ALLERGIES: Patient has no known allergies. PAST MEDICAL HISTORY: PAST MEDICAL HISTORY Diagnosis Date Anemia Malignant neoplasm of lower lobe of left lung (HCC) 02/08/2015 Stage IIIA (pT2a, N2, M0) adenocarcinoma of the left lower lobe Malignant neoplasm of lower lobe of right lung (HCC) 02/21/2016 Stage IA (T1a, N0, M0) adenocarcinoma of the right lower lobe Malignant neoplasm of lower lobe of right lung (HCC) 12/01/2019 non small cell lung ca Port catheter in place PAST SURGICAL HISTORY: PAST SURGICAL HISTORY Procedure Laterality Date BIOPSY BREAST right breast COLONSCOPY SCREENING HIGH RISK HEMORRHOIDECTOMY HYSTERECTOMY HX 2006 LUNG BIOPSY 12/31/2014 OTHER SURGICAL HISTORY (PLEASE SPECIFY) HX right jaw surgery OTHER SURGICAL HISTORY (PLEASE SPECIFY) HX PORTOCATH PLACEMENT PORTOCATH PLACEMENT REDUCTION OF LARGE BREAST RMVL LUNG OTHER THAN PNEUMONECTOMY 1 LOBE LOBECT Left 02/08/2015 Muscle sparing thoracotomy, left lower lobectomy with bronchoplasty, vascularized tissue pedicle flap of reconstructed airway, hilar and mediastinal lymphadenectomy WEDGE RESECT LUNG Right 02/21/2016 VATs right lower lung wedge resection and med bx for synchronous stage IA adenocarcinoma WEDGE RESECT LUNG Right 12/01/2019 Robotic assisted right lower lung wedge resection for non small cell lung ca REVIEW OF SYSTEMS: General: No weight loss, malaise or fevers. HEENT: Negative for frequent or significant headaches. No changes in hearing or vision, no nose bleeds or other nasal problems. Respiratory: Negative for cough, wheezing or shortness of breath. Cardiovascular: Negative for chest pain, leg swelling or palpitations. GI: Negative for abdominal discomfort, blood in stools or black stools or change in bowel habits. : No history of dysuria, frequency or incontinence. Musculoskeletal: Negative for joint pain or swelling, back pain and muscle pain. Skin: Negative for lesions, rash, and itching. Hematology/Lymphology: Negative for prolonged bleeding, bruising easily or swollen nodes. Neuro: No history of headaches, syncope, paralysis, seizures or tremors. PHYSICAL EXAM: Vitals: BP 110/73 Pulse 86 Temp 36.3 C (97.3 F) (Temporal) Resp 16 Wt 57.2 kg (126 lb 1.7 oz) SpO2 98% BMI 23.84 kg/m Pulse ox walking - lowest 93% Exam limited to gross visualization where appropriate due to COVID-19. Gen.: This is an age-appropriate patient in no acute distress. Head: Appears atraumatic with no visible lesions. Eyes: Pupils equally round and reactive to light, extraocular muscles are intact. Neck: Supple. Mouth: Mucous membranes appeared to be moist. Respiratory: Appears to be respiring comfortably. Neurologic: Nonfocal to gross visualization. Alert and oriented 3. Psychiatric: No evidence of inappropriate anxiety or depression. Skin: Visible areas of skin without rash, lesions, wounds or petechiae. PATHOLOGY: 12/01/2019 Right lower lobe wedge resection FINAL DIAGNOSIS 1. Right lung, lower lobe, wedge excision (A) - Invasive adenocarcinoma, micropapillary predominant. Greatest dimension: 0.9 cm - Focal necrotizing granuloma. 2. Right lung, lower lobe, new margin, excision (B) No significant pathologic changes. 3. Lymph node, level 8R, excision (C) Fibroadipose tissue with histiocytic aggregates; negative for neoplasm. 4. Lymph nodes, level 9R, level 7, excision, (D-E) - Lymph nodes; negative for neoplasm. - Necrotizing granulomas (level 7, part E), see comment. Immunohistochemistry for PD-L1 expression Tumor Cells Positive: less than1% EGFR - A sequence change [id number] ([id number]) in exon 19 was detected at approximately 22% allelic proportion (depth of coverage at change [id number] 02/21/2016 Partial right lower lobectomy/lymph node dissection ([facility]) FINAL DIAGNOSIS 1. Lung, right lower lobe, excision/nodulectomy (A) - Minimally invasive adenocarcinoma (1.2 cm). (See synoptic template). - Parenchymal margin negative. 2. Lymph node, level 8, excision (B) - Negative for tumor (0/1). 3. Lymph node, level 9, excision (C) - Negative for tumor (0/1). 4. Lymph node, level 7, excision (D) - Negative for tumor (0/1). 5. Lymph node, 10R, excision (E) - Negative for tumor (0/1). 6. Lung, additional right lower lobe, wedge resection (F) - Negative for tumor. EGFR - A sequence change: [id number] ([id number]) detected at approximately 20% allele proportion. [Reference Sequence: ([id number])]. KRAS - No variant detected [Reference Sequence: (NM_[id number])]. INTERPRETATION: An EGFR exon 20 insertion is present in this sample at an allele proportion of approximately 20%. Exon 20 insertions in this region have been associated with decreased response to EGFR inhibitors. 02/08/2015 Left lower lobectomy/lymph node dissection ([facility]) FINAL DIAGNOSIS 1. Lung, left lower lobe, lobectomy (A) - Adenocarcinoma (2.2 cm), acinar predominant (40%), with additional micropapillary (30%), cribriform (20%) and lepidic (10%) patterns. (See synoptic template). - Visceral pleural invasion present. - Lymphatic invasion present. - Eleven hilar and peribronchial lymph nodes, negative for tumor (0/11). - Margins negative. 2. Lymph node, level 11L, excision (B) - Metastatic adenocarcinoma, involving one (of one) lymph node (1/1). 3. Lymph nodes, 10L posterior, excision (C) - Two lymph nodes, negative for tumor (0/2). 4. Lymph node, 10L anterior, excision (D) - One lymph node, negative for tumor (0/1). 5. Lymph nodes, level 7, excision (E) - Metastatic adenocarcinoma, involving one of two lymph nodes (1/2). 6. Lymph node, level 9, excision (F) - One lymph node, negative for tumor (0/1). 7. Lymph nodes, level 5, excision (G) - Two lymph nodes, negative for tumor (0/2). 8. Lymph nodes, 10L and 11L, excision (H) - Two lymph nodes, negative for tumor (0/2). LABORATORY DATA: Hemoglobin (g/dL) Date Value 12/25/2023 11.9 02/15/2021 12.5 Hematocrit (%) Date Value 12/25/2023 35.2 02/15/2021 39.1 WBC (k/uL) Date Value 12/25/2023 3.86 02/15/2021 5.98 Platelet Count (k/uL) Date Value 12/25/2023 230 02/15/2021 269 RADIOLOGY/OTHER STUDIES: 12/25/2023 CT chest IMPRESSION: 1. No CT evidence of new metastatic disease in the chest. 2. Stable appearing groundglass and solid pulmonary nodules in both lungs. No new or enlarging pulmonary nodules are identified. 3. No pathologically enlarged lymph nodes identified in the chest. 06/27/2023 CT chest IMPRESSION: Unchanged appearance of the chest since essentially 12/27/2021. No developing metastatic disease in chest. 12/18/2022 CT chest IMPRESSION: 1. Stable postoperative CT examination of the chest. Numerous bilateral pulmonary nodules, right greater than left, postoperative changes involving the lower lobes bilaterally, unchanged. 2. No substantial intrathoracic adenopathy is appreciated. 07/04/2022 CT chest IMPRESSION: 1. Overall stable CT of the chest. Stable appearance of multiple right-sided nodules. No new or enlarging nodules are visualized. 2. Stable left perihilar opacity, in keeping with prior radiation therapy. 3. No evidence of bulky intrathoracic lymphadenopathy. 12/27/2021 CT chest IMPRESSION: 1. Stable postoperative appearance to the chest. Left perihilar opacities likely related to prior radiation therapy, stable. 2. Multiple bilateral solid and groundglass nodular opacities are again appreciated, stable in appearance from the prior study of 07/01/2021. 3. No substantial intrathoracic adenopathy is identified. 12/19/2021 CT brain IMPRESSION: No acute intracranial hemorrhage or mass effect is seen 07/01/2021 CT chest IMPRESSION: 1. No interval change since 02/15/21. 2. Multiple nodular opacities and groundglass opacities, stable. 3. Bilateral perihilar post radiation changes, stable. 03/15/2021 MRI brain IMPRESSION: Minimal chronic microvascular change. Grossly normal brain volume and morphology. No mass effect or abnormal enhancement to suggest intracranial metastatic disease. Based on the axial T2 flow void pattern, proximal intracranial arterial vasculature, major cortical draining veins, and dural venous sinuses are patent. Concordant appearance on the post gadolinium scans. 02/15/2021 CT chest IMPRESSION: 1. Since 11/19/2020, no significant change. 2. Stable postsurgical changes involving the left lung and right lower lobe. 3. Multiple right lung nodules are unchanged. 4. No lymphadenopathy. 5. Mild fluid within the superior thoracic esophagus, which may be secondary to reflux or esophageal dysmotility. 11/19/2020 CT CHEST IMPRESSION: 1. No interval change since 07/13/2020. 2. Multiple nodular opacities and groundglass opacities, stable. 3. Bilateral perihilar post radiation changes, stable. 07/14/2020 CT CHEST IMPRESSION: 1. Postoperative changes involving the lungs bilaterally. Bilateral perihilar opacities, likely on the basis of prior radiation therapy or postoperative in nature, stable. 2. Several bilateral subcentimeter pulmonary nodules are again identified, unchanged. 03/15/2020 CT CHEST IMPRESSION: 1. Postsurgical changes as noted above. Previously described right lower lobe nodular opacities are no longer visualized. 2. New nodular opacity along a surgical scar. Recommend continued follow-up. 3. Numerous right-sided solid and groundglass nodular opacities, similar in appearance to prior exam. 4. No evidence of bulky intrathoracic lymphadenopathy. 10/08/2019 PET SCAN IMPRESSION: INTERVAL INCREASE IN SIZE OF A LOBULATED NODULE WITH SOFT TISSUE DENSITY IN THE INFERIOR MOST RIGHT LOWER LOBE. PERCEPTIBLE FDG UPTAKE. FINDINGS ARE CONCERNING AND AT A MINIMUM, CLOSE INTERVAL SURVEILLANCE IS SUGGESTED WITH REPEAT CT IN 3 MONTHS. 09/25/[address] IMPRESSION: 1. 1.1 x 0.7 cm lobular right lower lobe nodular opacity, stable since 03/10/2019 but clearly enlarged since 10/16/2017, worrisome for neoplasm. 2. 1 cm right upper lobe groundglass opacity, stable since 03/10/2019 but enlarged since 10/16/2017. Differential diagnosis includes atypical adenomatous hyperplasia, minimally invasive adenocarcinoma, adenocarcinoma in situ and focal fibrosis. 3. Other additional nodular opacities measuring up to 1 cm are stable since 10/16/2017. Almost 2 year stability favors a benign etiology. 4. Bilateral perihilar post radiation changes, stable. ASSESSMENT/PLAN: 1. Primary adenocarcinoma of right lung (lung cancer #3) Stage IA (T1a, N0, M0) adenocarcinoma of the right lower lobe diagnosed November 2019. Status post wedge resection 12/01/2019. Final pathology: Invasive adenocarcinoma, micropapillary predominant, greatest dimension: 0.9 cm. An EGFR in-frame exon 19 deletion was detected in the specimen. Adjuvant chemotherapy and radiation therapy not indicated. Genomic analysis September 2022 revealed no deleterious mutations. Currently the patient is clinically stable with no evidence of disease. Most recent chest CT 12/25/2023 stable. At this time will continue close observation. Repeat chest CT in 6 months, the patient will then return for follow-up. 2. Primary adenocarcinoma of right lung (lung cancer #2) Stage IA (T1a, N0, M0) adenocarcinoma of the right lower lobe diagnosed January 2016. Status post wedge resection of right lower lobe 02/21/2016. No additional adjuvant therapy given. 3. Malignant neoplasm of lower lobe of left lung (lung cancer #1) Stage IIIA (pT2a, N2, M0) adenocarcinoma of the left lower lobe diagnosed January 2015. Status post left lower lobectomy and lymph node dissection 02/08/2015. Postop the patient received adjuvant chemotherapy with cisplatin and pemetrexed 4 cycles completed 05/31/2015. The patient subsequently received adjuvant radiation therapy to the left left lower lobe and mediastinum 06/30/2015 - 08/09/2015 (5,040 cGy in 28 fractions). The patient's primary tumor was EGFR positive, therefore after completing radiation therapy she was enrolled on the [place] [id number] trial randomizing patients to receive Erlotinib vs placebo 2 years in the adjuvant setting. The patient started treatment per protocol 10/07/2015. The patient was removed from study after being diagnosed with a new primary lung cancer. 4. Pulmonary histoplasmosis Pathology obtained at the time of the patient's right lung surgery November 2019 revealed evidence of histoplasmosis. Per [facility] infectious disease no treatment recommended. 5. Shortness of breath - ICD9: 786.05, ICD10: R06.02 The patient has chronic dyspnea on exertion which has slowly worsened. Etiology multifactorial, in part due to multiple lung surgeries as well as previous pulmonary histoplasmosis. Per patient request we will refer to [facility] pulmonary for evaluation and management. The patient requests to be seen at a [facility] facility [facility] Niall Lane MD documented in this encounter [facility] 12-25-2023 History of Presen t illness Narrative RADIOLOGY SERVICE PROGRESS NOTE SERVICE DATE: 12/25/2023 SERVICE TIME: 10:16 AM PATIENT IDENTITY VERIFICATION COMPLETED USING TWO (2) STANDARD IDENTIFIERS: Name and Date of confirmed by patient verbally FALL SCREENING: Has the patient had 2 falls in the last year or 1 fall with injury or currently using an Ambulatory Assistive Device (Walker, Cane, Wheelchair, Crutches, etc.)? No PATIENT GENDER DATA: .female : No ALLERGIES: Reviewed and unchanged MEDICATIONS REVIEWED: Not applicable PATIENT RELEVANT IMPLANT DATA REVIEWED: Not Applicable PATIENT PRESENTS WITH AN IMPLANTABLE OR ATTACHED TARIFF COUNSEL: No CREATININE: Creatinine Date Value Ref Range Status 12/25/2023 0.87 0.58 - 0.96 mg/dL Final 06/27/2023 0.84 0.58 - 0.96 mg/dL Final 12/18/2022 0.85 0.58 - 0.96 mg/dL Final Estimated Glomerular Filtration Rate Date Value Ref Range Status 12/25/2023 73 >=60 mL/min/1.73m Final Comment: Estimated Glomerular Filtration Rate (eGFR) is calculated using the 2020 CKD-EPI creatinine equation. This equation utilizes serum creatinine, sex, and age as parameters. The creatinine assay has traceable calibration to isotope dilution-mass spectrometry. Refer to KDIGO guidelines for clinical interpretation. In patients with unstable renal function, e.g. those with acute kidney injury, the eGFR may not accurately reflect actual GFR. eGFR- Date Value Ref Range Status 02/15/2021 >60 Final P.O.C.T. RESULTS: N/A December 25, [address] PERFORMED: Yes. RADIOLOGIST NOTIFIED?: No CONTRAST ALLERGY: NO. PREMEDICATED: No CONTRAST: IV 50 ml IV contrast (300) given DIABETIC PATIENT: Not applicable IV SITE: Ambulatory: A peripheral IV was started in the Right antecubital site with a Angio cath: 20 gauge. POST EXAM PIV STATUS: Discontinued PROCEDURE TYPE: CT Chest with contrast PATIENT DISCHARGED TO: Ambulatory patient, left [place] department area. A Diagnostic radioactive procedure has taken place, with no further precautions necessary other than routine body substance precautions. More information regarding radiation safety can be found using this link: [email or web address] SIGNATURE: RT Radha(R) PATIENT NAME: Jana Donis DATE: December 25, 2023 TIME: 10:16 AM PAGER/CONTACT #: documented in this encounter [facility] 12-25-2023 Note HNO ID: [id number] Author: LYUBOV VASQUEZ RT(R) Service: ? Author Type: Technologist Type: Progress Notes Filed: 12/25/2023 10:22 Note Text: RADIOLOGY SERVICE PROGRESS NOTE SERVICE DATE: 12/25/2023 SERVICE TIME: 10:16 AM PATIENT IDENTITY VERIFICATION COMPLETED USING TWO (2) STANDARD IDENTIFIERS: Name and Date of confirmed by patient verbally FALL SCREENING: Has the patient had 2 falls in the last year or 1 fall with injury or currently using an Ambulatory Assistive Device (Walker, Cane, Wheelchair, Crutches, etc.)? No PATIENT GENDER DATA: .female : No ALLERGIES: Reviewed and unchanged MEDICATIONS REVIEWED: Not applicable PATIENT RELEVANT IMPLANT DATA REVIEWED: Not Applicable PATIENT PRESENTS WITH AN IMPLANTABLE OR ATTACHED TARIFF COUNSEL: No CREATININE: Creatinine Date Value Ref Range Status 12/25/2023 0.87 0.58 - 0.96 mg/dL Final 06/27/2023 0.84 0.58 - 0.96 mg/dL Final 12/18/2022 0.85 0.58 - 0.96 mg/dL Final Estimated Glomerular Filtration Rate Date Value Ref Range Status 12/25/2023 73 >=60 mL/min/1.73m? Final Comment: Estimated Glomerular Filtration Rate (eGFR) is calculated using the 2020 CKD-EPI creatinine equation. This equation utilizes serum creatinine, sex, and age as parameters. The creatinine assay has traceable calibration to isotope dilution-mass spectrometry. Refer to KDIGO guidelines for clinical interpretation. In patients with unstable renal function, e.g. those with acute kidney injury, the eGFR may not accurately reflect actual GFR. eGFR- Date Value Ref Range Status 02/15/2021 >60 Final P.O.C.T. RESULTS: N/A December 25, [address] PERFORMED: Yes. RADIOLOGIST NOTIFIED?: No CONTRAST ALLERGY: NO. PREMEDICATED: No CONTRAST: IV 50 ml IV contrast (300) given DIABETIC PATIENT: Not applicable IV SITE: Ambulatory: A peripheral IV was started in the Right antecubital site with a Angio cath: 20 gauge. POST EXAM PIV STATUS: Discontinued PROCEDURE TYPE: CT Chest with contrast PATIENT DISCHARGED TO: Ambulatory patient, left [place] department area. A Diagnostic radioactive procedure has taken place, with no further precautions necessary other than routine body substance precautions. More information regarding radiation safety can be found using this link: [email or web address] SIGNATURE: RT Radha(R) PATIENT NAME: Jana Donis DATE: December 25, 2023 TIME: 10:16 AM PAGER/CONTACT #: [facility] 11-13-2023 Telephone encounter Note Patient is scheduled for scan on 12/24. F/u with you on 12/30. An updated cre is needed prior to scan. I pended labs for f/u please sign if agreeable, Thanks! Armida Falcon RN [facility] 11-13-2023 Miscellaneous Notes Patient is scheduled for scan on 12/24. F/u with you on 12/30. An updated cre is needed prior to scan. I pended labs for f/u please sign if agreeable, Thanks! Armida Falcon RN documented in this encounter [facility] 07-01-2023 Note HNO ID: [id number] Author: NIALL LANE MD Service: ? Author Type: Physician Type: Progress Notes Filed: 07/04/2023 09:32 Note Text: PATIENT NAME: Jana Donis DATE: 07/02/2023 PRIMARY CARE PHYSICIAN: Dr. Al Bryan OTHER PHYSICIANS: Dr. Lerner, Dr. Samayoa, Dr. Gudelia Mckay Portions of this encounter note have been copied from the note from 12/26/2022 and has been updated where appropriate, and reflect my current medical decision making from today. CC: This is a 68 year old female with a history of lung cancer, seen for scheduled follow-up. INTERIM HISTORY: Since the patient's last visit here she has had no significant medical changes. She has mild shortness of breath with activity, otherwise no pulmonary symptoms. No unusual pain or other systemic complaints. No recent neurological symptoms. Overall the patient feels extremely well with no particular complaints today. MEDICATIONS: cycloSPORINE (RESTASIS MULTIDOSE) 0.05 % drop Use 1 Drop in eyes. ALLERGIES: Patient has no known allergies. PAST MEDICAL HISTORY: PAST MEDICAL HISTORY Diagnosis Date Anemia Malignant neoplasm of lower lobe of left lung (HCC) 02/08/2015 Stage IIIA (pT2a, N2, M0) adenocarcinoma of the left lower lobe Malignant neoplasm of lower lobe of right lung (HCC) 02/21/2016 Stage IA (T1a, N0, M0) adenocarcinoma of the right lower lobe Malignant neoplasm of lower lobe of right lung (HCC) 12/01/2019 non small cell lung ca Port catheter in place PAST SURGICAL HISTORY: PAST SURGICAL HISTORY Procedure Laterality Date BIOPSY BREAST right breast COLONSCOPY SCREENING HIGH RISK HEMORRHOIDECTOMY HYSTERECTOMY HX 2006 LUNG BIOPSY 12/31/2014 OTHER SURGICAL HISTORY (PLEASE SPECIFY) HX right jaw surgery OTHER SURGICAL HISTORY (PLEASE SPECIFY) HX PORTOCATH PLACEMENT PORTOCATH PLACEMENT REDUCTION OF LARGE BREAST RMVL LUNG OTHER THAN PNEUMONECTOMY 1 LOBE LOBECT Left 02/08/2015 Muscle sparing thoracotomy, left lower lobectomy with bronchoplasty, vascularized tissue pedicle flap of reconstructed airway, hilar and mediastinal lymphadenectomy WEDGE RESECT LUNG Right 02/21/2016 VATs right lower lung wedge resection and med bx for synchronous stage IA adenocarcinoma WEDGE RESECT LUNG Right 12/01/2019 Robotic assisted right lower lung wedge resection for non small cell lung ca REVIEW OF SYSTEMS: General: No weight loss, malaise or fevers. HEENT: Negative for frequent or significant headaches. No changes in hearing or vision, no nose bleeds or other nasal problems. Respiratory: Negative for cough, wheezing or shortness of breath. Cardiovascular: Negative for chest pain, leg swelling or palpitations. GI: Negative for abdominal discomfort, blood in stools or black stools or change in bowel habits. : No history of dysuria, frequency or incontinence. Musculoskeletal: Negative for joint pain or swelling, back pain and muscle pain. Skin: Negative for lesions, rash, and itching. Hematology/Lymphology: Negative for prolonged bleeding, bruising easily or swollen nodes. Neuro: No history of headaches, syncope, paralysis, seizures or tremors. PHYSICAL EXAM: Vitals: BP 126/74 Pulse 83 Temp 36.6 ?C (97.8 ?F) (Temporal) Resp 18 Wt 58.3 kg (128 lb 8.5 oz) SpO2 98% BMI 24.30 kg/m? ECOG 0 Exam limited to gross visualization where appropriate due to COVID-19. Gen.: This is an age-appropriate patient in no acute distress. Head: Appears atraumatic with no visible lesions. Eyes: Pupils equally round and reactive to light, extraocular muscles are intact. Neck: Supple. Mouth: Mucous membranes appeared to be moist. Respiratory: Appears to be respiring comfortably. Neurologic: Nonfocal to gross visualization. Alert and oriented ?3. Psychiatric: No evidence of inappropriate anxiety or depression. Skin: Visible areas of skin without rash, lesions, wounds or petechiae. PATHOLOGY: 12/01/2019 Right lower lobe wedge resection FINAL DIAGNOSIS 1. Right lung, lower lobe, wedge excision (A) - Invasive adenocarcinoma, micropapillary predominant. Greatest dimension: 0.9 cm - Focal necrotizing granuloma. 2. Right lung, lower lobe, new margin, excision (B) No significant pathologic changes. 3. Lymph node, level 8R, excision (C) Fibroadipose tissue with histiocytic aggregates; negative for neoplasm. 4. Lymph nodes, level 9R, level 7, excision, (D-E) - Lymph nodes; negative for neoplasm. - Necrotizing granulomas (level 7, part E), see comment. Immunohistochemistry for PD-L1 expression Tumor Cells Positive: less than1% EGFR - A sequence change [id number] ([id number]) in exon 19 was detected at approximately 22% allelic proportion (depth [place] coverage at change 13184 02/21/2016 Partial right lower lobectomy/lymph node dissection ([facility]) FINAL DIAGNOSIS 1. Lung, right lower lobe, excision/nodulectomy (A) - Minimally invasive adenocar (more content not included)... [facility] 07-01-2023 History of Presen t illness Narrative PATIENT NAME: Jana Donis DATE: 07/02/2023 PRIMARY CARE PHYSICIAN: Dr. Al Bryan OTHER PHYSICIANS: Dr. Lerner, Dr. Samayoa, Dr. Gudelia Mckay Portions of this encounter note have been copied from the note from 12/26/2022 and has been updated where appropriate, and reflect my current medical decision making from today. CC: This is a 68 year old female with a history of lung cancer, seen for scheduled follow-up. INTERIM HISTORY: Since the patient's last visit here she has had no significant medical changes. She has mild shortness of breath with activity, otherwise no pulmonary symptoms. No unusual pain or other systemic complaints. No recent neurological symptoms. Overall the patient feels extremely well with no particular complaints today. MEDICATIONS: cycloSPORINE (RESTASIS MULTIDOSE) 0.05 % drop Use 1 Drop in eyes. ALLERGIES: Patient has no known allergies. PAST MEDICAL HISTORY: PAST MEDICAL HISTORY Diagnosis Date Anemia Malignant neoplasm of lower lobe of left lung (HCC) 02/08/2015 Stage IIIA (pT2a, N2, M0) adenocarcinoma of the left lower lobe Malignant neoplasm of lower lobe of right lung (HCC) 02/21/2016 Stage IA (T1a, N0, M0) adenocarcinoma of the right lower lobe Malignant neoplasm of lower lobe of right lung (HCC) 12/01/2019 non small cell lung ca Port catheter in place PAST SURGICAL HISTORY: PAST SURGICAL HISTORY Procedure Laterality Date BIOPSY BREAST right breast COLONSCOPY SCREENING HIGH RISK HEMORRHOIDECTOMY HYSTERECTOMY HX 2006 LUNG BIOPSY 12/31/2014 OTHER SURGICAL HISTORY (PLEASE SPECIFY) HX right jaw surgery OTHER SURGICAL HISTORY (PLEASE SPECIFY) HX PORTOCATH PLACEMENT PORTOCATH PLACEMENT REDUCTION OF LARGE BREAST RMVL LUNG OTHER THAN PNEUMONECTOMY 1 LOBE LOBECT Left 02/08/2015 Muscle sparing thoracotomy, left lower lobectomy with bronchoplasty, vascularized tissue pedicle flap of reconstructed airway, hilar and mediastinal lymphadenectomy WEDGE RESECT LUNG Right 02/21/2016 VATs right lower lung wedge resection and med bx for synchronous stage IA adenocarcinoma WEDGE RESECT LUNG Right 12/01/2019 Robotic assisted right lower lung wedge resection for non small cell lung ca REVIEW OF SYSTEMS: General: No weight loss, malaise or fevers. HEENT: Negative for frequent or significant headaches. No changes in hearing or vision, no nose bleeds or other nasal problems. Respiratory: Negative for cough, wheezing or shortness of breath. Cardiovascular: Negative for chest pain, leg swelling or palpitations. GI: Negative for abdominal discomfort, blood in stools or black stools or change in bowel habits. : No history of dysuria, frequency or incontinence. Musculoskeletal: Negative for joint pain or swelling, back pain and muscle pain. Skin: Negative for lesions, rash, and itching. Hematology/Lymphology: Negative for prolonged bleeding, bruising easily or swollen nodes. Neuro: No history of headaches, syncope, paralysis, seizures or tremors. PHYSICAL EXAM: Vitals: BP 126/74 Pulse 83 Temp 36.6 C (97.8 F) (Temporal) Resp 18 Wt 58.3 kg (128 lb 8.5 oz) SpO2 98% BMI 24.30 kg/m ECOG 0 Exam limited to gross visualization where appropriate due to COVID-19. Gen.: This is an age-appropriate patient in no acute distress. Head: Appears atraumatic with no visible lesions. Eyes: Pupils equally round and reactive to light, extraocular muscles are intact. Neck: Supple. Mouth: Mucous membranes appeared to be moist. Respiratory: Appears to be respiring comfortably. Neurologic: Nonfocal to gross visualization. Alert and oriented 3. Psychiatric: No evidence of inappropriate anxiety or depression. Skin: Visible areas of skin without rash, lesions, wounds or petechiae. PATHOLOGY: 12/01/2019 Right lower lobe wedge resection FINAL DIAGNOSIS 1. Right lung, lower lobe, wedge excision (A) - Invasive adenocarcinoma, micropapillary predominant. Greatest dimension: 0.9 cm - Focal necrotizing granuloma. 2. Right lung, lower lobe, new margin, excision (B) No significant pathologic changes. 3. Lymph node, level 8R, excision (C) Fibroadipose tissue with histiocytic aggregates; negative for neoplasm. 4. Lymph nodes, level 9R, level 7, excision, (D-E) - Lymph nodes; negative for neoplasm. - Necrotizing granulomas (level 7, part E), see comment. Immunohistochemistry for PD-L1 expression Tumor Cells Positive: less than1% EGFR - A sequence change [id number] ([id number]) in exon 19 was detected at approximately 22% allelic proportion (depth of coverage at change [id number] 02/21/2016 Partial right lower lobectomy/lymph node dissection ([facility]) FINAL DIAGNOSIS 1. Lung, right lower lobe, excision/nodulectomy (A) - Minimally invasive adenocarcinoma (1.2 cm). (See synoptic template). - Parenchymal margin negative. 2. Lymph node, level 8, excision (B) - Negative for tumor (0/1). 3. Lymph node, level 9, excision (C) - Negative for tumor (0/1). 4. Lymph node, level 7, excision (D) - Negative for tumor (0/1). 5. Lymph node, 10R, excision (E) - Negative for tumor (0/1). 6. Lung, additional right lower lobe, wedge resection (F) - Negative for tumor. EGFR - A sequence change: [id number] ([id number]) detected at approximately 20% allele proportion. [Reference Sequence: (NM_005228.3)]. KRAS - No variant detected [Reference Sequence: (NM_[id number])]. INTERPRETATION: An EGFR exon 20 insertion is present in this sample at an allele proportion of approximately 20%. Exon 20 insertions in this region have been associated with decreased response to EGFR inhibitors. 02/08/2015 Left lower lobectomy/lymph node dissection ([facility]) FINAL DIAGNOSIS 1. Lung, left lower lobe, lobectomy (A) - Adenocarcinoma (2.2 cm), acinar predominant (40%), with additional micropapillary (30%), cribriform (20%) and lepidic (10%) patterns. (See synoptic template). - Visceral pleural invasion present. - Lymphatic invasion present. - Eleven hilar and peribronchial lymph nodes, negative for tumor (0/11). - Margins negative. 2. Lymph node, level 11L, excision (B) - Metastatic adenocarcinoma, involving one (of one) lymph node (1/1). 3. Lymph nodes, 10L posterior, excision (C) - Two lymph nodes, negative for tumor (0/2). 4. Lymph node, 10L anterior, excision (D) - One lymph node, negative for tumor (0/1). 5. Lymph nodes, level 7, excision (E) - Metastatic adenocarcinoma, involving one of two lymph nodes (1/2). 6. Lymph node, level 9, excision (F) - One lymph node, negative for tumor (0/1). 7. Lymph nodes, level 5, excision (G) - Two lymph nodes, negative for tumor (0/2). 8. Lymph nodes, 10L and 11L, excision (H) - Two lymph nodes, negative for tumor (0/2). LABORATORY DATA: Hemoglobin (g/dL) Date Value 06/27/2023 12.2 02/15/2021 12.5 Hematocrit (%) Date Value 06/27/2023 37.7 02/15/2021 39.1 WBC (k/uL) Date Value 06/27/2023 3.56 02/15/2021 5.98 Platelet Count (k/uL) Date Value 06/27/2023 257 02/15/2021 269 RADIOLOGY/OTHER STUDIES: 06/27/2023 CT chest IMPRESSION: Unchanged appearance of the chest since essentially 12/27/2021. No developing metastatic disease in chest. 12/18/2022 CT chest IMPRESSION: 1. Stable postoperative CT examination of the chest. Numerous bilateral pulmonary nodules, right greater than left, postoperative changes involving the lower lobes bilaterally, unchanged. 2. No substantial intrathoracic adenopathy is appreciated. 07/04/2022 CT chest IMPRESSION: 1. Overall stable CT of the chest. Stable appearance of multiple right-sided nodules. No new or enlarging nodules are visualized. 2. Stable left perihilar opacity, in keeping with prior radiation therapy. 3. No evidence of bulky intrathoracic lymphadenopathy. 12/27/2021 CT chest IMPRESSION: 1. Stable postoperative appearance to the chest. Left perihilar opacities likely related to prior radiation therapy, stable. 2. Multiple bilateral solid and groundglass nodular opacities are again appreciated, stable in appearance from the prior study of 07/01/2021. 3. No substantial intrathoracic adenopathy is identified. 12/19/2021 CT brain IMPRESSION: No acute intracranial hemorrhage or mass effect is seen 07/01/2021 CT chest IMPRESSION: 1. No interval change since 02/15/21. 2. Multiple nodular opacities and groundglass opacities, stable. 3. Bilateral perihilar post radiation changes, stable. 03/15/2021 MRI brain IMPRESSION: Minimal chronic microvascular change. Grossly normal brain volume and morphology. No mass effect or abnormal enhancement to suggest intracranial metastatic disease. Based on the axial T2 flow void pattern, proximal intracranial arterial vasculature, major cortical draining veins, and dural venous sinuses are patent. Concordant appearance on the post gadolinium scans. 02/15/2021 CT chest IMPRESSION: 1. Since 11/19/2020, no significant change. 2. Stable postsurgical changes involving the left lung and right lower lobe. 3. Multiple right lung nodules are unchanged. 4. No lymphadenopathy. 5. Mild fluid within the superior thoracic esophagus, which may be secondary to reflux or esophageal dysmotility. 11/19/2020 CT CHEST IMPRESSION: 1. No interval change since 07/13/2020. 2. Multiple nodular opacities and groundglass opacities, stable. 3. Bilateral perihilar post radiation changes, stable. 07/14/2020 CT CHEST IMPRESSION: 1. Postoperative changes involving the lungs bilaterally. Bilateral perihilar opacities, likely on the basis of prior radiation therapy or postoperative in nature, stable. 2. Several bilateral subcentimeter pulmonary nodules are again identified, unchanged. 03/15/2020 CT CHEST IMPRESSION: 1. Postsurgical changes as noted above. Previously described right lower lobe nodular opacities are no longer visualized. 2. New nodular opacity along a surgical scar. Recommend continued follow-up. 3. Numerous right-sided solid and groundglass nodular opacities, similar in appearance to prior exam. 4. No evidence of bulky intrathoracic lymphadenopathy. 10/08/2019 PET SCAN IMPRESSION: INTERVAL INCREASE IN SIZE OF A LOBULATED NODULE WITH SOFT TISSUE DENSITY IN THE INFERIOR MOST RIGHT LOWER LOBE. PERCEPTIBLE FDG UPTAKE. FINDINGS ARE CONCERNING AND AT A MINIMUM, CLOSE INTERVAL SURVEILLANCE IS SUGGESTED WITH REPEAT CT IN 3 MONTHS. 09/25/[address] IMPRESSION: 1. 1.1 x 0.7 cm lobular right lower lobe nodular opacity, stable since 03/10/2019 but clearly enlarged since 10/16/2017, worrisome for neoplasm. 2. 1 cm right upper lobe groundglass opacity, stable since 03/10/2019 but enlarged since 10/16/2017. Differential diagnosis includes atypical adenomatous hyperplasia, minimally invasive adenocarcinoma, adenocarcinoma in situ and focal fibrosis. 3. Other additional nodular opacities measuring up to 1 cm are stable since 10/16/2017. Almost 2 year stability favors a benign etiology. 4. Bilateral perihilar post radiation changes, stable. ASSESSMENT/PLAN: 1. Primary adenocarcinoma of right lung (lung cancer #3) Stage IA (T1a, N0, M0) adenocarcinoma of the right lower lobe diagnosed November 2019. Status post wedge resection 12/01/2019. Final pathology: Invasive adenocarcinoma, micropapillary predominant, greatest dimension: 0.9 cm. An EGFR in-frame exon 19 deletion was detected in the specimen. Adjuvant chemotherapy and radiation therapy not indicated. Genomic analysis September 2022 revealed no deleterious mutations. Currently the patient is clinically stable with no evidence of disease. Most recent chest CT 06/27/2023 stable. At this time we will continue close observation. Repeat chest CT in 6 months, the patient will then return for follow-up. 2. Primary adenocarcinoma of right lung (lung cancer #2) Stage IA (T1a, N0, M0) adenocarcinoma of the right lower lobe diagnosed January 2016. Status post wedge resection of right lower lobe 02/21/2016. No additional adjuvant therapy given. 3. Malignant neoplasm of lower lobe of left lung (lung cancer #1) Stage IIIA (pT2a, N2, M0) adenocarcinoma of the left lower lobe diagnosed January 2015. Status post left lower lobectomy and lymph node dissection 02/08/2015. Postop the patient received adjuvant chemotherapy with cisplatin and pemetrexed 4 cycles completed 05/31/2015. The patient subsequently received adjuvant radiation therapy to the left left lower lobe and mediastinum 06/30/2015 - 08/09/2015 (5,040 cGy in 28 fractions). The patient's primary tumor was EGFR positive, therefore after completing radiation therapy she was enrolled on the [place] [id number] trial randomizing patients to receive Erlotinib vs placebo 2 years in the adjuvant setting. The patient started treatment per protocol 10/07/2015. The patient was removed from study after being diagnosed with a new primary lung cancer. 4. Pulmonary histoplasmosis Pathology obtained at the time of the patient's right lung surgery November 2019 revealed evidence of histoplasmosis. Currently asymptomatic. Continue management per [facility] pulmonary. 5. History of dizziness, history of headache Intermittent dizziness with visual changes since December 2020. Brain MRI 03/15/2021 revealed minimal chronic microvascular changes, otherwise normal. Due to acute headaches the patient underwent a brain CT on 12/19/2021 which was negative. With supportive measures the headaches have resolved. Currently no ongoing neurological symptoms. She will follow-up with her PCP if symptoms recur, in which case a neurology evaluation would be recommended. Niall Lane MD documented in this encounter [facility] 06-27-2023 History of Presen t illness Narrative Radiology Service Progress Note DATE OF SERVICE: June 27, 2023 TIME: 8:28 AM PATIENT WEIGHT: 127LBS PATIENT IDENTITY VERIFICATION COMPLETED USING TWO (2) STANDARD IDENTIFIERS: Name and Date of confirmed by patient verbally. FALL SCREENING: Has the patient had 2 falls in the last year or 1 fall with injury or currently using an Ambulatory Assistive Device (Walker, Cane, Wheelchair, Crutches, etc.)? No PATIENT GENDER DATA: Female. status: : No status: NO. ALLERGIES: Reviewed and unchanged CONTRAST ALLERGY: No EXAM: CT -CONTRAST INDUCED NEPHROPATHY RISK FACTORS: Patient age > 60 years CREATININE: Creatinine Date Value Ref Range Status 12/18/2022 0.85 0.58 - 0.96 mg/dL Final 07/04/2022 0.94 0.58 - 0.96 mg/dL Final 12/27/2021 0.87 0.58 - 0.96 mg/dL Final Estimated Glomerular Filtration Rate Date Value Ref Range Status 12/18/2022 75 >=60 mL/min/1.73m Final Comment: Estimated Glomerular Filtration Rate (eGFR) is calculated using the 2020 CKD-EPI creatinine equation. This equation utilizes serum creatinine, sex, and age as parameters. The creatinine assay has traceable calibration to isotope dilution-mass spectrometry. Refer to KDIGO guidelines for clinical interpretation. In patients with unstable renal function, e.g. those with acute kidney injury, the eGFR may not accurately reflect actual GFR. eGFR- Date Value Ref Range Status 02/15/2021 >60 Final P.O.C.T. RESULTS: POC done: Yes, See Lab Tab June 27, 2023 TREATMENT: N/A IV SITE: Ambulatory: A peripheral IV was started in the Left antecubital site with a Angio cath: 20 gauge. IV SITE APPEARANCE: Clean,Dry and Intact SIGNATURE: Elodia Miller RN PATIENT NAME: Jana Donis DATE: June 27, 2023 TIME: 8:28 AM Radiology Service Progress Note PATIENT NAME: Jana Donis DATE OF SERVICE: June 27, 2023 TIME: 9:24 AM PATIENT IDENTITY VERIFICATION COMPLETED USING TWO (2) IDENTIFIERS: Name and Date of confirmed by patient verbally. FALL SCREENING: Has the patient had 2 falls in the last year or 1 fall with injury or currently using an Ambulatory Assistive Device (Walker, Cane, Wheelchair, Crutches, etc.)? No PATIENT GENDER DATA: Female. status: : No status: NO. PATIENT RELEVANT IMPLANT DATA REVIEWED: Not Applicable PATIENT PRESENTS WITH AN IMPLANTABLE OR ATTACHED TARIFF COUNSEL: No RADIOLOGY DEPARTMENT: CT; Exam(s) Completed: Chest PERIPHERAL IV DATA: Site assessment: Clean,Dry and Intact, Site disposition Discontinued SIGNED BY: RT Jenny(Cynthia) June 27, 2023 9:24 AM documented in this encounter [facility] 06-27-2023 Note HNO ID: [id number] Author: BROOKLYN BOLES RT (R) Service: ? Author Type: Technologist Type: Progress Notes Filed: 06/27/2023 09:25 Note Text: Radiology Service Progress Note PATIENT NAME: Jana Donis DATE OF SERVICE: June 27, 2023 TIME: 9:24 AM PATIENT IDENTITY VERIFICATION COMPLETED USING TWO (2) IDENTIFIERS: Name and Date of confirmed by patient verbally. FALL SCREENING: Has the patient had 2 falls in the last year or 1 fall with injury or currently using an Ambulatory Assistive Device (Walker, Cane, Wheelchair, Crutches, etc.)? No PATIENT GENDER DATA: Female. status: : No status: NO. PATIENT RELEVANT IMPLANT DATA REVIEWED: Not Applicable PATIENT PRESENTS WITH AN IMPLANTABLE OR ATTACHED TARIFF COUNSEL: No RADIOLOGY DEPARTMENT: CT; Exam(s) Completed: Chest PERIPHERAL IV DATA: Site assessment: Clean,Dry and Intact, Site disposition Discontinued SIGNED BY: RT Jenny(Cynthia) June 27, 2023 9:24 AM [facility] 06-27-2023 Note HNO ID: [id number] Author: ELODIA MILLER RN Service: ? Author Type: Registered Nurse Type: Progress Notes Filed: 06/27/2023 08:29 Note Text: Radiology Service Progress Note DATE OF SERVICE: June 27, 2023 TIME: 8:28 AM PATIENT WEIGHT: 127LBS PATIENT IDENTITY VERIFICATION COMPLETED USING TWO (2) STANDARD IDENTIFIERS: Name and Date of confirmed by patient verbally. FALL SCREENING: Has the patient had 2 falls in the last year or 1 fall with injury or currently using an Ambulatory Assistive Device (Walker, Cane, Wheelchair, Crutches, etc.)? No PATIENT GENDER DATA: Female. status: : No status: NO. ALLERGIES: Reviewed and unchanged CONTRAST ALLERGY: No EXAM: CT -CONTRAST INDUCED NEPHROPATHY RISK FACTORS: Patient age > 60 years CREATININE: Creatinine Date Value Ref Range Status 12/18/2022 0.85 0.58 - 0.96 mg/dL Final 07/04/2022 0.94 0.58 - 0.96 mg/dL Final 12/27/2021 0.87 0.58 - 0.96 mg/dL Final Estimated Glomerular Filtration Rate Date Value Ref Range Status 12/18/2022 75 >=60 mL/min/1.73m? Final Comment: Estimated Glomerular Filtration Rate (eGFR) is calculated using the 2020 CKD-EPI creatinine equation. This equation utilizes serum creatinine, sex, and age as parameters. The creatinine assay has traceable calibration to isotope dilution-mass spectrometry. Refer to KDIGO guidelines for clinical interpretation. In patients with unstable renal function, e.g. those with acute kidney injury, the eGFR may not accurately reflect actual GFR. eGFR- Date Value Ref Range Status 02/15/2021 >60 Final P.O.C.T. RESULTS: POC done: Yes, See Lab Tab June 27, 2023 TREATMENT: N/A IV SITE: Ambulatory: A peripheral IV was started in the Left antecubital site with a Angio cath: 20 gauge. IV SITE APPEARANCE: Clean,Dry and Intact SIGNATURE: Elodia Miller RN PATIENT NAME: Jana Donis DATE: June 27, 2023 TIME: 8:28 AM [facility] 12-26-2022 History of Presen t illness Narrative PATIENT NAME: Jana Donis DATE: 12/26/2022 PRIMARY CARE PHYSICIAN: Dr. Al Bryan OTHER PHYSICIANS: Dr. Lerner, Dr. Samayoa, Dr. Gudelia Mckay Portions of this encounter note have been copied from the note from 07/11/2022 and has been updated where appropriate, and reflect my current medical decision making from today. CC: This is a 67 year old female with a history of lung cancer, seen for scheduled follow-up. INTERIM HISTORY: Since the patient's last visit here she developed acute pain in her right mid back, which ultimately resolved with physical therapy. Currently she has no pain or other complaints. She denies any cough, shortness of breath, or other pulmonary symptoms. She still has occasional neurological symptoms (predominately lightheadedness) which she assumes is due to low blood pressure. Overall the patient feels extremely well with no particular complaints today. MEDICATIONS: cycloSPORINE (RESTASIS MULTIDOSE) 0.05 % drop Use 1 Drop in eyes. ALLERGIES: Patient has no known allergies. PAST MEDICAL HISTORY: PAST MEDICAL HISTORY Diagnosis Date Anemia Malignant neoplasm of lower lobe of left lung (HCC) 02/08/2015 Stage IIIA (pT2a, N2, M0) adenocarcinoma of the left lower lobe Malignant neoplasm of lower lobe of right lung (HCC) 02/21/2016 Stage IA (T1a, N0, M0) adenocarcinoma of the right lower lobe Malignant neoplasm of lower lobe of right lung (HCC) 12/01/2019 non small cell lung ca Port catheter in place PAST SURGICAL HISTORY: PAST SURGICAL HISTORY Procedure Laterality Date BIOPSY BREAST right breast COLONSCOPY SCREENING HIGH RISK HEMORRHOIDECTOMY HYSTERECTOMY HX 2006 LUNG BIOPSY 12/31/2014 OTHER SURGICAL HISTORY (PLEASE SPECIFY) HX right jaw surgery OTHER SURGICAL HISTORY (PLEASE SPECIFY) HX PORTOCATH PLACEMENT PORTOCATH PLACEMENT REDUCTION OF LARGE BREAST RMVL LUNG OTHER THAN PNEUMONECTOMY 1 LOBE LOBECT Left 02/08/2015 Muscle sparing thoracotomy, left lower lobectomy with bronchoplasty, vascularized tissue pedicle flap of reconstructed airway, hilar and mediastinal lymphadenectomy WEDGE RESECT LUNG Right 02/21/2016 VATs right lower lung wedge resection and med bx for synchronous stage IA adenocarcinoma WEDGE RESECT LUNG Right 12/01/2019 Robotic assisted right lower lung wedge resection for non small cell lung ca REVIEW OF SYSTEMS: General: No weight loss, malaise or fevers. HEENT: Negative for frequent or significant headaches. No changes in hearing or vision, no nose bleeds or other nasal problems. Respiratory: Negative for cough, wheezing or shortness of breath. Cardiovascular: Negative for chest pain, leg swelling or palpitations. GI: Negative for abdominal discomfort, blood in stools or black stools or change in bowel habits. : No history of dysuria, frequency or incontinence. Musculoskeletal: Negative for joint pain or swelling, back pain and muscle pain. Skin: Negative for lesions, rash, and itching. Hematology/Lymphology: Negative for prolonged bleeding, bruising easily or swollen nodes. Neuro: No history of headaches, syncope, paralysis, seizures or tremors. PHYSICAL EXAM: Vitals: BP 127/72 Pulse 71 Temp 36.4 C (97.6 F) (Temporal) Resp 16 Ht 154.9 cm (5' 0.98 ) Wt 58.3 kg (128 lb 9.6 oz) SpO2 100% BMI 24.31 kg/m ECOG 0 Exam limited to gross visualization where appropriate due to COVID-19. Gen.: This is an age-appropriate patient in no acute distress. Head: Appears atraumatic with no visible lesions. Eyes: Pupils equally round and reactive to light, extraocular muscles are intact. Neck: Supple. Mouth: Mucous membranes appeared to be moist. Respiratory: Appears to be respiring comfortably. Neurologic: Nonfocal to gross visualization. Alert and oriented 3. Psychiatric: No evidence of inappropriate anxiety or depression. Skin: Visible areas of skin without rash, lesions, wounds or petechiae. PATHOLOGY: 12/01/2019 Right lower lobe wedge resection FINAL DIAGNOSIS 1. Right lung, lower lobe, wedge excision (A) - Invasive adenocarcinoma, micropapillary predominant. Greatest dimension: 0.9 cm - Focal necrotizing granuloma. 2. Right lung, lower lobe, new margin, excision (B) No significant pathologic changes. 3. Lymph node, level 8R, excision (C) Fibroadipose tissue with histiocytic aggregates; negative for neoplasm. 4. Lymph nodes, level 9R, level 7, excision, (D-E) - Lymph nodes; negative for neoplasm. - Necrotizing granulomas (level 7, part E), see comment. Immunohistochemistry for PD-L1 expression Tumor Cells Positive: less than1% EGFR - A sequence change [id number] ([id number]) in exon 19 was detected at approximately 22% allelic proportion (depth of coverage at change [id number] 02/21/2016 Partial right lower lobectomy/lymph node dissection ([facility]) FINAL DIAGNOSIS 1. Lung, right lower lobe, excision/nodulectomy (A) - Minimally invasive adenocarcinoma (1.2 cm). (See synoptic template). - Parenchymal margin negative. 2. Lymph node, level 8, excision (B) - Negative for tumor (0/1). 3. Lymph node, level 9, excision (C) - Negative for tumor (0/1). 4. Lymph node, level 7, excision (D) - Negative for tumor (0/1). 5. Lymph node, 10R, excision (E) - Negative for tumor (0/1). 6. Lung, additional right lower lobe, wedge resection (F) - Negative for tumor. EGFR - A sequence change: [id number] ([id number]) detected at approximately 20% allele proportion. [Reference Sequence: ([id number])]. KRAS - No variant detected [Reference Sequence: ([id number])]. INTERPRETATION: An EGFR exon 20 insertion is present in this sample at an allele proportion of approximately 20%. Exon 20 insertions in this region have been associated with decreased response to EGFR inhibitors. 02/08/2015 Left lower lobectomy/lymph node dissection ([facility]) FINAL DIAGNOSIS 1. Lung, left lower lobe, lobectomy (A) - Adenocarcinoma (2.2 cm), acinar predominant (40%), with additional micropapillary (30%), cribriform (20%) and lepidic (10%) patterns. (See synoptic template). - Visceral pleural invasion present. - Lymphatic invasion present. - Eleven hilar and peribronchial lymph nodes, negative for tumor (0/11). - Margins negative. 2. Lymph node, level 11L, excision (B) - Metastatic adenocarcinoma, involving one (of one) lymph node (1/1). 3. Lymph nodes, 10L posterior, excision (C) - Two lymph nodes, negative for tumor (0/2). 4. Lymph node, 10L anterior, excision (D) - One lymph node, negative for tumor (0/1). 5. Lymph nodes, level 7, excision (E) - Metastatic adenocarcinoma, involving one of two lymph nodes (1/2). 6. Lymph node, level 9, excision (F) - One lymph node, negative for tumor (0/1). 7. Lymph nodes, level 5, excision (G) - Two lymph nodes, negative for tumor (0/2). 8. Lymph nodes, 10L and 11L, excision (H) - Two lymph nodes, negative for tumor (0/2). LABORATORY DATA: Hemoglobin (g/dL) Date Value 12/18/2022 12.2 02/15/2021 12.5 Hematocrit (%) Date Value 12/18/2022 37.7 02/15/2021 39.1 WBC (k/uL) Date Value 12/18/2022 4.84 02/15/2021 5.98 Platelet Count (k/uL) Date Value 12/18/2022 263 02/15/2021 269 RADIOLOGY/OTHER STUDIES: 12/18/2022 CT chest IMPRESSION: 1. Stable postoperative CT examination of the chest. Numerous bilateral pulmonary nodules, right greater than left, postoperative changes involving the lower lobes bilaterally, unchanged. 2. No substantial intrathoracic adenopathy is appreciated. 07/04/2022 CT chest IMPRESSION: 1. Overall stable CT of the chest. Stable appearance of multiple right-sided nodules. No new or enlarging nodules are visualized. 2. Stable left perihilar opacity, in keeping with prior radiation therapy. 3. No evidence of bulky intrathoracic lymphadenopathy. 12/27/2021 CT chest IMPRESSION: 1. Stable postoperative appearance to the chest. Left perihilar opacities likely related to prior radiation therapy, stable. 2. Multiple bilateral solid and groundglass nodular opacities are again appreciated, stable in appearance from the prior study of 07/01/2021. 3. No substantial intrathoracic adenopathy is identified. 12/19/2021 CT brain IMPRESSION: No acute intracranial hemorrhage or mass effect is seen 07/01/2021 CT chest IMPRESSION: 1. No interval change since 02/15/21. 2. Multiple nodular opacities and groundglass opacities, stable. 3. Bilateral perihilar post radiation changes, stable. 03/15/2021 MRI brain IMPRESSION: Minimal chronic microvascular change. Grossly normal brain volume and morphology. No mass effect or abnormal enhancement to suggest intracranial metastatic disease. Based on the axial T2 flow void pattern, proximal intracranial arterial vasculature, major cortical draining veins, and dural venous sinuses are patent. Concordant appearance on the post gadolinium scans. 02/15/2021 CT chest IMPRESSION: 1. Since 11/19/2020, no significant change. 2. Stable postsurgical changes involving the left lung and right lower lobe. 3. Multiple right lung nodules are unchanged. 4. No lymphadenopathy. 5. Mild fluid within the superior thoracic esophagus, which may be secondary to reflux or esophageal dysmotility. 11/19/2020 CT CHEST IMPRESSION: 1. No interval change since 07/13/2020. 2. Multiple nodular opacities and groundglass opacities, stable. 3. Bilateral perihilar post radiation changes, stable. 07/14/2020 CT CHEST IMPRESSION: 1. Postoperative changes involving the lungs bilaterally. Bilateral perihilar opacities, likely on the basis of prior radiation therapy or postoperative in nature, stable. 2. Several bilateral subcentimeter pulmonary nodules are again identified, unchanged. 03/15/2020 CT CHEST IMPRESSION: 1. Postsurgical changes as noted above. Previously described right lower lobe nodular opacities are no longer visualized. 2. New nodular opacity along a surgical scar. Recommend continued follow-up. 3. Numerous right-sided solid and groundglass nodular opacities, similar in appearance to prior exam. 4. No evidence of bulky intrathoracic lymphadenopathy. 10/08/2019 PET SCAN IMPRESSION: INTERVAL INCREASE IN SIZE OF A LOBULATED NODULE WITH SOFT TISSUE DENSITY IN THE INFERIOR MOST RIGHT LOWER LOBE. PERCEPTIBLE FDG UPTAKE. FINDINGS ARE CONCERNING AND AT A MINIMUM, CLOSE INTERVAL SURVEILLANCE IS SUGGESTED WITH REPEAT CT IN 3 MONTHS. 09/25/[address] IMPRESSION: 1. 1.1 x 0.7 cm lobular right lower lobe nodular opacity, stable since 03/10/2019 but clearly enlarged since 10/16/2017, worrisome for neoplasm. 2. 1 cm right upper lobe groundglass opacity, stable since 03/10/2019 but enlarged since 10/16/2017. Differential diagnosis includes atypical adenomatous hyperplasia, minimally invasive adenocarcinoma, adenocarcinoma in situ and focal fibrosis. 3. Other additional nodular opacities measuring up to 1 cm are stable since 10/16/2017. Almost 2 year stability favors a benign etiology. 4. Bilateral perihilar post radiation changes, stable. ASSESSMENT/PLAN: 1. Primary adenocarcinoma of right lung (lung cancer #3) Stage IA (T1a, N0, M0) adenocarcinoma of the right lower lobe diagnosed November 2019. Status post wedge resection 12/01/2019. Final pathology: Invasive adenocarcinoma, micropapillary predominant, greatest dimension: 0.9 cm. An EGFR in-frame exon 19 deletion was detected in the specimen. Adjuvant chemotherapy and radiation therapy not indicated. Genomic analysis September 2022 revealed no deleterious mutations. Currently the patient is clinically stable with no evidence of disease. Most recent chest CT 12/18/2022 stable. At this time we will continue close observation. Repeat chest CT in 6 months, the patient will then return for follow-up. 2. Primary adenocarcinoma of right lung (lung cancer #2) Stage IA (T1a, N0, M0) adenocarcinoma of the right lower lobe diagnosed January 2016. Status post wedge resection of right lower lobe 02/21/2016. No additional adjuvant therapy given. 3. Malignant neoplasm of lower lobe of left lung (lung cancer #1) Stage IIIA (pT2a, N2, M0) adenocarcinoma of the left lower lobe diagnosed January 2015. Status post left lower lobectomy and lymph node dissection 02/08/2015. Postop the patient received adjuvant chemotherapy with cisplatin and pemetrexed 4 cycles completed 05/31/2015. The patient subsequently received adjuvant radiation therapy to the left left lower lobe and mediastinum 06/30/2015 - 08/09/2015 (5,040 cGy in 28 fractions). The patient's primary tumor was EGFR positive, therefore after completing radiation therapy she was enrolled on the [place] [id number] trial randomizing patients to receive Erlotinib vs placebo 2 years in the adjuvant setting. The patient started treatment per protocol 10/07/2015. The patient was removed from study after being diagnosed with a new primary lung cancer. 4. Pulmonary histoplasmosis Pathology obtained at the time of the patient's right lung surgery November 2019 revealed evidence of histoplasmosis. Currently asymptomatic. Continue management per [facility] pulmonary. 5. History of dizziness, history of headache Intermittent dizziness with visual changes since December 2020. Brain MRI 03/15/2021 revealed minimal chronic microvascular changes, otherwise normal. Due to acute headaches the patient underwent a brain CT on 12/19/2021 which was negative. With supportive measures the headaches have resolved. Currently no ongoing neurological symptoms. She will follow-up with her PCP if symptoms recur, in which case a neurology evaluation would be recommended. Niall Lane MD documented in this encounter [facility] 12-18-2022 History of Presen t illness Narrative Radiology Service Progress Note PATIENT NAME: Jana Donis DATE OF SERVICE: December 18, 2022 TIME: 12:39 PM PATIENT IDENTITY VERIFICATION COMPLETED USING TWO (2) IDENTIFIERS: Name and Date of confirmed by patient verbally. FALL SCREENING: Has the patient had 2 falls in the last year or 1 fall with injury or currently using an Ambulatory Assistive Device (Walker, Cane, Wheelchair, Crutches, etc.)? No PATIENT GENDER DATA: Female. status: : No status: NO. PATIENT RELEVANT IMPLANT DATA REVIEWED: Not Applicable RADIOLOGY DEPARTMENT: CT; Exam(s) Completed: Chest PERIPHERAL IV DATA: Site assessment: Clean,Dry and Intact, Site disposition Discontinued SIGNED BY: RT Radha(R) December 18, 2022 12:39 PM documented in this encounter [facility] 11-30-2022 Miscellaneous Notes Please order labs for upcoming appt with you-will draw with CT on 12/18 Thank You! Elodia Miller RN documented in this encounter [facility] 08-29-2022 History of Presen t illness Narrative [facility] Consultation Note Genetic Counselor: Kings Burgos MS, CGC Patient: Jana Donis Patient Name and confirmed at initiation of visit. Appointment occurred with audiovisual communication through MyChart Virtual Visit. I have communicated my name and active licensure. The patient's identity and physical location were verified at the time of this visit. Either the patient or their legal cordage sales representative has been informed of the risks and benefits of -- and alternatives to -- treatment through a remote evaluation and consents to proceed with the evaluation remotely. HIGH LEVEL SUMMARY: The patient's personal and family history is potentially suggestive of a hereditary cancer syndrome. The patient provided informed consent for Multi-Cancer panel through [facility]. Results are expected in 2-3 weeks. IDENTIFICATION AND CHIEF COMPLAINT: Dr. Niall Lane requested a consultation for genetic counseling and risk assessment for Jana Donis, a 67 year old female, for discussion of her personal history of lung cancer. She presents to clinic today to discuss the possibility of a genetic predisposition to cancer, and to further clarify her risks, as well as her family members' risks for cancer. HISTORY OF PRESENT ILLNESS: Jana Donis is a 67 year old female with a personal history of multiple lung cancers. She was initially diagnosed with a left-sided lung cancer in 2014 and underwent a left lower lobectomy/lymph node dissection. This was followed by adjuvant chemotherapy and radiation therapy. Then a year later she had a right-sided lung cancer. She received a partial right lower lobectomy/lymph node dissection with no additional therapy. In 2019 she had another right lung cancer and underwent a wedge resection with no further therapy. PAST MEDICAL HISTORY Diagnosis Date Anemia Malignant neoplasm of lower lobe of left lung (HCC) 02/08/2015 Stage IIIA (pT2a, N2, M0) adenocarcinoma of the left lower lobe Malignant neoplasm of lower lobe of right lung (HCC) 02/21/2016 Stage IA (T1a, N0, M0) adenocarcinoma of the right lower lobe Malignant neoplasm of lower lobe of right lung (HCC) 12/01/2019 non small cell lung ca Port catheter in place PAST SURGICAL HISTORY Procedure Laterality Date BIOPSY BREAST right breast COLONSCOPY SCREENING HIGH RISK HEMORRHOIDECTOMY HYSTERECTOMY HX 2006 LUNG BIOPSY 12/31/2014 OTHER SURGICAL HISTORY (PLEASE SPECIFY) HX right jaw surgery OTHER SURGICAL HISTORY (PLEASE SPECIFY) HX PORTOCATH PLACEMENT PORTOCATH PLACEMENT REDUCTION OF LARGE BREAST RMVL LUNG OTHER THAN PNEUMONECTOMY 1 LOBE LOBECT Left 02/08/2015 Muscle sparing thoracotomy, left lower lobectomy with bronchoplasty, vascularized tissue pedicle flap of reconstructed airway, hilar and mediastinal lymphadenectomy WEDGE RESECT LUNG Right 02/21/2016 VATs right lower lung wedge resection and med bx for synchronous stage IA adenocarcinoma WEDGE RESECT LUNG Right 12/01/2019 Robotic assisted right lower lung wedge resection for non small cell lung ca SOCIAL HISTORY: Social History Tobacco Use Smoking status: Former Packs/day: 0.50 Years: 11.00 Pack years: 5.50 Types: Cigarettes Start date: 04/01/1973 Quit date: 04/01/1984 Years since quittin.4 Passive exposure: Past Smokeless tobacco: Never Tobacco comments: second hand cigarette exposure as a child Vaping Use Vaping Use: Former Substance Use Topics Alcohol use: Yes Comment: occasionally Drug use: No FAMILY HISTORY: We obtained a detailed, 4-generation family history. Significant diagnoses are listed below: Sister: lung cancer Sister: glioblastoma Father: oral and lung cancers Paternal aunt: pancreatic cancer A copy of the patient's pedigree will be available under the scanned documents tab following today's visit. GENETIC COUNSELING RISK ASSESSMENT, DISCUSSION, AND SUGGESTED FOLLOW UP: We reviewed the natural history and genetic etiology of sporadic, familial and hereditary cancer syndromes. The patient's personal and family history is potentially suggestive of a hereditary cancer syndrome. The patient meets NCCN HBOC testing criteria. We discussed that identification of a hereditary cancer syndrome may help her care providers tailor her medical management. If a mutation is detected, the patient will be referred back to the referring provider and to any additional appropriate care providers to discuss the relevant options. Inheritance of hereditary cancer syndromes was discussed with the patient. If a mutation is not found in the patient, this will decrease the likelihood of a hereditary cancer syndrome as the explanation for the patient's personal and family history of cancer. However, it cannot completely rule out this possibility. Cancer surveillance options would be discussed for the patient according to the appropriate standard National Comprehensive Cancer Network and [place] [employer] guidelines, with consideration of their personal and family history risk factors. In this case, the patient will be referred back to their care providers for discussions of management. Based on this assessment of the patient's family and personal history, genetic testing is recommended. The patient was offered Multi-Cancer panel through [facility]. After considering the risks, benefits, and limitations, the patient chose to pursue and provided informed consent for the following testing: Multi-Cancer panel through [facility]. The Multi-Cancer Panel includes AIP, ALK, APC, RAYMOND, AXIN2, BAP1, BARD1, BLM, BMPR1A, BRCA1, BRCA2, BRIP1, CASR, CDC73, CDH1, CDK4, CDKN1B, CDKN1C, CDKN2A, CEBPA, CHEK2, CTNNA1, DICER1, DIS3L2, EGFR, EPCAM, FH, FLCN, GATA2, GPC3, GREM1, HOXB13, HRAS, KIT, MAX, MEN1, MET, MITF, MLH1, MSH2, MSH3, MSH6, MUTYH, NBN, NF1, NF2, NTHL1, PALB2, PDGFRA, PHOX2B, PMS2, POLD1, POLE, POT1, MVJMH4E, PTCH1, PTEN, RAD50, RAD51C, RAD51D, RB1, RECQL4, RET, RUNX1, SDHA, SDHAF2, SDHB, SDHC, SDHD, SMAD4, SMARCA4, SMARCB1, SMARCE1, STK11, SUFU, TERC, TERT, YKCT758, TP53, TSC1, TSC2, VHL, WRN, and WT1. The Multi-Cancer panel looks at genes related to the following organ systems: Breast and gynecologic (breast, ovarian, uterine) Gastrointestinal (colorectal, gastric, pancreatic) Endocrine (thyroid, paraganglioma/pheochromocytoma, parathyroid, pituitary) Genitourinary (renal/urinary tract, prostate) Skin (melanoma, basal cell carcinoma) Brain/nervous system Sarcoma Hematologic (myelodysplastic syndrome/leukemia) We discussed that an NGS panel can rarely result in an unexpected finding in a gene which may or may not be related to the presenting phenotype. We discussed how [facility] will communicate about any billing related concerns to the patient by text or email. We discussed that the genetic testing lab will contact them with any out of pocket cost over $100 and the maximum out of pocket cost is the $250. The patient may receive an Explanation of Benefits (EOB) from their insurance provider. I explained that this is not a bill and any billing related costs for testing will come directly from the genetic testing lab. Per the patient's request, I will contact her by telephone to discuss these results. A follow up genetic counseling visit will be scheduled if requested. The patient was seen for a total of 40 minutes, greater than 50% of which was spent [id number] counseling. This plan is being carried out under the oversight of Dr. Olga Lidia Henriquez. This note will also be sent to the referring provider via the electronic medical record. Kings Burgos, MS, [facility] [place], Certified Genetic Counselor [facility] CC: Dr. Niall Yip documented in this encounter [facility] 07-11-2022 History of Presen t illness Narrative PATIENT NAME: Jana Donis DATE: 07/11/2022 PRIMARY CARE PHYSICIAN: Dr. Al Bryan OTHER PHYSICIANS: Dr. Lerner, Dr. Samayoa, Dr. Gudelia Mckay Portions of this encounter note have been copied from the note from 01/03/2022 and has been updated where appropriate, and reflect my current medical decision making from today. CC: This is a 67 year old female with a history of lung cancer, seen for scheduled follow-up. INTERIM HISTORY: Since the patient's last visit here she has had no significant medical changes. She denies any cough, shortness of breath, or other pulmonary symptoms. She still has occasional neurological symptoms (predominately lightheadedness) which she assumes is due to low blood pressure. Overall the patient feels extremely well with no particular complaints today. MEDICATIONS: cycloSPORINE (RESTASIS MULTIDOSE) 0.05 % drop Use 1 Drop in eyes. ALLERGIES: Patient has no known allergies. PAST MEDICAL HISTORY: PAST MEDICAL HISTORY Diagnosis Date Anemia Malignant neoplasm of lower lobe of left lung (HCC) 02/08/2015 Stage IIIA (pT2a, N2, M0) adenocarcinoma of the left lower lobe Malignant neoplasm of lower lobe of right lung (HCC) 02/21/2016 Stage IA (T1a, N0, M0) adenocarcinoma of the right lower lobe Malignant neoplasm of lower lobe of right lung (HCC) 12/01/2019 non small cell lung ca Port catheter in place PAST SURGICAL HISTORY: PAST SURGICAL HISTORY Procedure Laterality Date BIOPSY BREAST right breast COLONSCOPY SCREENING HIGH RISK HEMORRHOIDECTOMY HYSTERECTOMY HX 2006 LUNG BIOPSY 12/31/2014 OTHER SURGICAL HISTORY (PLEASE SPECIFY) HX right jaw surgery OTHER SURGICAL HISTORY (PLEASE SPECIFY) HX PORTOCATH PLACEMENT PORTOCATH PLACEMENT REDUCTION OF LARGE BREAST RMVL LUNG OTHER THAN PNEUMONECTOMY 1 LOBE LOBECT Left 02/08/2015 Muscle sparing thoracotomy, left lower lobectomy with bronchoplasty, vascularized tissue pedicle flap of reconstructed airway, hilar and mediastinal lymphadenectomy WEDGE RESECT LUNG Right 02/21/2016 VATs right lower lung wedge resection and med bx for synchronous stage IA adenocarcinoma WEDGE RESECT LUNG Right 12/01/2019 Robotic assisted right lower lung wedge resection for non small cell lung ca REVIEW OF SYSTEMS: General: No weight loss, malaise or fevers. HEENT: Negative for frequent or significant headaches. No changes in hearing or vision, no nose bleeds or other nasal problems. Respiratory: Negative for cough, wheezing or shortness of breath. Cardiovascular: Negative for chest pain, leg swelling or palpitations. GI: Negative for abdominal discomfort, blood in stools or black stools or change in bowel habits. : No history of dysuria, frequency or incontinence. Musculoskeletal: Negative for joint pain or swelling, back pain and muscle pain. Skin: Negative for lesions, rash, and itching. Hematology/Lymphology: Negative for prolonged bleeding, bruising easily or swollen nodes. Neuro: No history of headaches, syncope, paralysis, seizures or tremors. PHYSICAL EXAM: Vitals: BP 110/84 Pulse 80 Temp 36.2 C (97.2 F) (Temporal) Resp 16 Ht 154.9 cm (5' 0.98 ) Wt 58.4 kg (128 lb 12.8 oz) SpO2 100% BMI 24.35 kg/m ECOG 0 Exam limited to gross visualization where appropriate due to COVID-19. Gen.: This is an age-appropriate patient in no acute distress. Head: Appears atraumatic with no visible lesions. Eyes: Pupils equally round and reactive to light, extraocular muscles are intact. Neck: Supple. Mouth: Mucous membranes appeared to be moist. Respiratory: Appears to be respiring comfortably. Neurologic: Nonfocal to gross visualization. Alert and oriented 3. Psychiatric: No evidence of inappropriate anxiety or depression. Skin: Visible areas of skin without rash, lesions, wounds or petechiae. PATHOLOGY: 12/01/2019 Right lower lobe wedge resection FINAL DIAGNOSIS 1. Right lung, lower lobe, wedge excision (A) - Invasive adenocarcinoma, micropapillary predominant. Greatest dimension: 0.9 cm - Focal necrotizing granuloma. 2. Right lung, lower lobe, new margin, excision (B) No significant pathologic changes. 3. Lymph node, level 8R, excision (C) Fibroadipose tissue with histiocytic aggregates; negative for neoplasm. 4. Lymph nodes, level 9R, level 7, excision, (D-E) - Lymph nodes; negative for neoplasm. - Necrotizing granulomas (level 7, part E), see comment. Immunohistochemistry for PD-L1 expression Tumor Cells Positive: less than1% EGFR - A sequence change [id number] ([id number]) in exon 19 was detected at approximately 22% allelic proportion (depth of coverage at change [id number] 02/21/2016 Partial right lower lobectomy/lymph node dissection ([facility]) FINAL DIAGNOSIS 1. Lung, right lower lobe, excision/nodulectomy (A) - Minimally invasive adenocarcinoma (1.2 cm). (See synoptic template). - Parenchymal margin negative. 2. Lymph node, level 8, excision (B) - Negative for tumor (0/1). 3. Lymph node, level 9, excision (C) - Negative for tumor (0/1). 4. Lymph node, level 7, excision (D) - Negative for tumor (0/1). 5. Lymph node, 10R, excision (E) - Negative for tumor (0/1). 6. Lung, additional right lower lobe, wedge resection (F) - Negative for tumor. EGFR - A sequence change: [id number] ([id number]) detected at approximately 20% allele proportion. [Reference Sequence: ([id number])]. KRAS - No variant detected [Reference Sequence: ([id number])]. INTERPRETATION: An EGFR exon 20 insertion is present in this sample at an allele proportion of approximately 20%. Exon 20 insertions in this region have been associated with decreased response to EGFR inhibitors. 02/08/2015 Left lower lobectomy/lymph node dissection ([facility]) FINAL DIAGNOSIS 1. Lung, left lower lobe, lobectomy (A) - Adenocarcinoma (2.2 cm), acinar predominant (40%), with additional micropapillary (30%), cribriform (20%) and lepidic (10%) patterns. (See synoptic template). - Visceral pleural invasion present. - Lymphatic invasion present. - Eleven hilar and peribronchial lymph nodes, negative for tumor (0/11). - Margins negative. 2. Lymph node, level 11L, excision (B) - Metastatic adenocarcinoma, involving one (of one) lymph node (1/1). 3. Lymph nodes, 10L posterior, excision (C) - Two lymph nodes, negative for tumor (0/2). 4. Lymph node, 10L anterior, excision (D) - One lymph node, negative for tumor (0/1). 5. Lymph nodes, level 7, excision (E) - Metastatic adenocarcinoma, involving one of two lymph nodes (1/2). 6. Lymph node, level 9, excision (F) - One lymph node, negative for tumor (0/1). 7. Lymph nodes, level 5, excision (G) - Two lymph nodes, negative for tumor (0/2). 8. Lymph nodes, 10L and 11L, excision (H) - Two lymph nodes, negative for tumor (0/2). LABORATORY DATA: Hemoglobin (g/dL) Date Value 07/04/2022 12.8 02/15/2021 12.5 Hematocrit (%) Date Value 07/04/2022 39.3 02/15/2021 39.1 WBC (k/uL) Date Value 07/04/2022 4.43 02/15/2021 5.98 Platelet Count (k/uL) Date Value 07/04/2022 244 02/15/2021 269 RADIOLOGY/OTHER STUDIES: 07/04/2022 CT chest IMPRESSION: 1. Overall stable CT of the chest. Stable appearance of multiple right-sided nodules. No new or enlarging nodules are visualized. 2. Stable left perihilar opacity, in keeping with prior radiation therapy. 3. No evidence of bulky intrathoracic lymphadenopathy. 12/27/2021 CT chest IMPRESSION: 1. Stable postoperative appearance to the chest. Left perihilar opacities likely related to prior radiation therapy, stable. 2. Multiple bilateral solid and groundglass nodular opacities are again appreciated, stable in appearance from the prior study of 07/01/2021. 3. No substantial intrathoracic adenopathy is identified. 12/19/2021 CT brain IMPRESSION: No acute intracranial hemorrhage or mass effect is seen 07/01/2021 CT chest IMPRESSION: 1. No interval change since 02/15/21. 2. Multiple nodular opacities and groundglass opacities, stable. 3. Bilateral perihilar post radiation changes, stable. 03/15/2021 MRI brain IMPRESSION: Minimal chronic microvascular change. Grossly normal brain volume and morphology. No mass effect or abnormal enhancement to suggest intracranial metastatic disease. Based on the axial T2 flow void pattern, proximal intracranial arterial vasculature, major cortical draining veins, and dural venous sinuses are patent. Concordant appearance on the post gadolinium scans. 02/15/2021 CT chest IMPRESSION: 1. Since 11/19/2020, no significant change. 2. Stable postsurgical changes involving the left lung and right lower lobe. 3. Multiple right lung nodules are unchanged. 4. No lymphadenopathy. 5. Mild fluid within the superior thoracic esophagus, which may be secondary to reflux or esophageal dysmotility. 11/19/2020 CT CHEST IMPRESSION: 1. No interval change since 07/13/2020. 2. Multiple nodular opacities and groundglass opacities, stable. 3. Bilateral perihilar post radiation changes, stable. 07/14/2020 CT CHEST IMPRESSION: 1. Postoperative changes involving the lungs bilaterally. Bilateral perihilar opacities, likely on the basis of prior radiation therapy or postoperative in nature, stable. 2. Several bilateral subcentimeter pulmonary nodules are again identified, unchanged. 03/15/2020 CT CHEST IMPRESSION: 1. Postsurgical changes as noted above. Previously described right lower lobe nodular opacities are no longer visualized. 2. New nodular opacity along a surgical scar. Recommend continued follow-up. 3. Numerous right-sided solid and groundglass nodular opacities, similar in appearance to prior exam. 4. No evidence of bulky intrathoracic lymphadenopathy. 10/08/2019 PET SCAN IMPRESSION: INTERVAL INCREASE IN SIZE OF A LOBULATED NODULE WITH SOFT TISSUE DENSITY IN THE INFERIOR MOST RIGHT LOWER LOBE. PERCEPTIBLE FDG UPTAKE. FINDINGS ARE CONCERNING AND AT A MINIMUM, CLOSE INTERVAL SURVEILLANCE IS SUGGESTED WITH REPEAT CT IN 3 MONTHS. 09/25/[address] IMPRESSION: 1. 1.1 x 0.7 cm lobular right lower lobe nodular opacity, stable since 03/10/2019 but clearly enlarged since 10/16/2017, worrisome for neoplasm. 2. 1 cm right upper lobe groundglass opacity, stable since 03/10/2019 but enlarged since 10/16/2017. Differential diagnosis includes atypical adenomatous hyperplasia, minimally invasive adenocarcinoma, adenocarcinoma in situ and focal fibrosis. 3. Other additional nodular opacities measuring up to 1 cm are stable since 10/16/2017. Almost 2 year stability favors a benign etiology. 4. Bilateral perihilar post radiation changes, stable. ASSESSMENT/PLAN: 1. Primary adenocarcinoma of right lung (lung cancer #3) Stage IA (T1a, N0, M0) adenocarcinoma of the right lower lobe diagnosed November 2019. Status post wedge resection 12/01/2019. Final pathology: Invasive adenocarcinoma, micropapillary predominant, greatest dimension: 0.9 cm. An EGFR in-frame exon 19 deletion was detected in the specimen. Adjuvant chemotherapy and radiation therapy not indicated. Currently the patient is clinically stable with no evidence of disease. Most recent chest CT 07/04/2022 stable. At this time we will continue close observation. Repeat chest CT in 6 months, the patient will then return for follow-up. Today the patient mentioned that she has concerns about a possible inheritable cancer predisposition based on her family history. Several close relatives have also been diagnosed with lung cancer, and 1 with a brain cancer. At patient request we will refer to [employer] for genomic analysis. 2. Primary adenocarcinoma of right lung (lung cancer #2) Stage IA (T1a, N0, M0) adenocarcinoma of the right lower lobe diagnosed January 2016. Status post wedge resection of right lower lobe 02/21/2016. No additional adjuvant therapy given. 3. Malignant neoplasm of lower lobe of left lung (lung cancer #1) Stage IIIA (pT2a, N2, M0) adenocarcinoma of the left lower lobe diagnosed January 2015. Status post left lower lobectomy and lymph node dissection 02/08/2015. Postop the patient received adjuvant chemotherapy with cisplatin and pemetrexed 4 cycles completed 05/31/2015. The patient subsequently received adjuvant radiation therapy to the left left lower lobe and mediastinum 06/30/2015 - 08/09/2015 (5,040 cGy in 28 fractions). The patient's primary tumor was EGFR positive, therefore after completing radiation therapy she was enrolled on the [place] [id number] trial randomizing patients to receive Erlotinib vs placebo 2 years in the adjuvant setting. The patient started treatment per protocol 10/07/2015. The patient was removed from study after being diagnosed with a new primary lung cancer. 4. Pulmonary histoplasmosis Pathology obtained at the time of the patient's right lung surgery November 2019 revealed evidence of histoplasmosis. Continue management per [facility] pulmonary. 5. History of dizziness, history of headache Intermittent dizziness with visual changes since December 2020. Brain MRI 03/15/2021 revealed minimal chronic microvascular changes, otherwise normal. Due to acute headaches the patient underwent a brain CT on 12/19/2021 which was negative. With supportive measures the headaches have resolved. Currently no ongoing neurological symptoms. She will follow-up with her PCP if symptoms recur, in which case a neurology evaluation would be recommended. Niall Lane MD documented in this encounter [facility] 07-04-2022 History of Presen t illness Narrative Radiology Service Progress Note PATIENT NAME: Jana Donis DATE OF SERVICE: July 04, 2022 TIME: 9:43 AM PATIENT IDENTITY VERIFICATION COMPLETED USING TWO (2) IDENTIFIERS: Name and Date of confirmed by patient verbally. FALL SCREENING: Has the patient had 2 falls in the last year or 1 fall with injury or currently using an Ambulatory Assistive Device (Walker, Cane, Wheelchair, Crutches, etc.)? No PATIENT GENDER DATA: Female. status: : No status: NO. PATIENT RELEVANT IMPLANT DATA REVIEWED: Not Applicable RADIOLOGY DEPARTMENT: CT; Exam(s) Completed: Chest PERIPHERAL IV DATA: Site assessment: Clean,Dry and Intact, Site disposition Discontinued SIGNED BY: RT Radha(R) July 04, 2022 9:43 AM Radiology Service Progress Note DATE OF SERVICE: July 04, 2022 TIME: 9:45 AM PATIENT WEIGHT: 123 kg PATIENT IDENTITY VERIFICATION COMPLETED USING TWO (2) STANDARD IDENTIFIERS: Name and Date of confirmed by patient verbally. FALL SCREENING: Has the patient had 2 falls in the last year or 1 fall with injury or currently using an Ambulatory Assistive Device (Walker, Cane, Wheelchair, Crutches, etc.)? No PATIENT GENDER DATA: Female. status: : No status: NO. ALLERGIES: Reviewed and unchanged CONTRAST ALLERGY: No EXAM: CT -CONTRAST INDUCED NEPHROPATHY RISK FACTORS: Patient age > 60 years CREATININE: Creatinine Date Value Ref Range Status 07/04/2022 0.94 0.58 - 0.96 mg/dL Final 12/27/2021 0.87 0.58 - 0.96 mg/dL Final 12/19/2021 0.79 0.58 - 0.96 mg/dL Final Estimated Glomerular Filtration Rate Date Value Ref Range Status 07/04/2022 67 >=60 mL/min/1.73m Final Comment: Estimated Glomerular Filtration Rate (eGFR) is calculated using the 2020 CKD-EPI creatinine equation. This equation utilizes serum creatinine, sex, and age as parameters. The creatinine assay has traceable calibration to isotope dilution-mass spectrometry. Refer to KDIGO guidelines for clinical interpretation. In patients with unstable renal function, e.g. those with acute kidney injury, the eGFR may not accurately reflect actual GFR. eGFR- Date Value Ref Range Status 02/15/2021 >60 Final P.O.C.T. RESULTS: POC done: Yes, See Lab Tab July 04, 2022 TREATMENT: N/A IV SITE: Ambulatory: A peripheral IV was started in the Left antecubital site with a Angio cath: 20 gauge. IV SITE APPEARANCE: Clean,Dry and Intact SIGNATURE: Manisha Gamboa RN PATIENT NAME: Jana Donis DATE: July 04, 2022 TIME: 9:45 AM documented in this encounter [facility] 05-29-2022 Miscellaneous Notes Please sign pended labs for follow up to obtain with CT. Bibi Ramos RN documented in this encounter [facility] 01-03-2022 History of Presen t illness Narrative PATIENT NAME: Jana Donis DATE: 01/03/2022 PRIMARY CARE PHYSICIAN: Dr. Al Bryan OTHER PHYSICIANS: Dr. Lerner, Dr. Samayoa, Dr. Gudelia Mckay Portions of this encounter note have been copied from the note from 07/05/2021 and has been updated where appropriate, and reflect my current medical decision making from today. CC: This is a 66 year old female with a history of lung cancer, seen for scheduled follow-up. INTERIM HISTORY: Since the patient's last visit here she developed severe headaches, and was seen at the [facility] ER on 12/19/2021. Brain CT (without contrast) was negative. She was given a headache cocktail (normal saline bolus, Reglan, Benadryl and Toradol) and her headaches resolved. Currently patient denies any other neurological symptoms. Follow-up chest CT 12/27/2021 was stable. The patient denies any shortness of breath, but does occasional notice the feeling of something clogged in her throat . She apparently coughs and the symptoms improve. No other pulmonary problems. MEDICATIONS: cycloSPORINE (RESTASIS MULTIDOSE) 0.05 % drop Use 1 Drop in eyes. ALLERGIES: Patient has no known allergies. PAST MEDICAL HISTORY: PAST MEDICAL HISTORY Diagnosis Date Anemia Malignant neoplasm of lower lobe of left lung (HCC) 02/08/2015 Stage IIIA (pT2a, N2, M0) adenocarcinoma of the left lower lobe Malignant neoplasm of lower lobe of right lung (HCC) 02/21/2016 Stage IA (T1a, N0, M0) adenocarcinoma of the right lower lobe Malignant neoplasm of lower lobe of right lung (HCC) 12/01/2019 non small cell lung ca Port catheter in place PAST SURGICAL HISTORY: PAST SURGICAL HISTORY Procedure Laterality Date BIOPSY BREAST right breast COLONSCOPY SCREENING HIGH RISK HEMORRHOIDECTOMY HYSTERECTOMY HX 2006 LUNG BIOPSY 12/31/2014 OTHER SURGICAL HISTORY (PLEASE SPECIFY) HX right jaw surgery OTHER SURGICAL HISTORY (PLEASE SPECIFY) HX PORTOCATH PLACEMENT PORTOCATH PLACEMENT REDUCTION OF LARGE BREAST RMVL LUNG OTHER THAN PNEUMONECTOMY 1 LOBE LOBECT Left 02/08/2015 Muscle sparing thoracotomy, left lower lobectomy with bronchoplasty, vascularized tissue pedicle flap of reconstructed airway, hilar and mediastinal lymphadenectomy WEDGE RESECT LUNG Right 02/21/2016 VATs right lower lung wedge resection and med bx for synchronous stage IA adenocarcinoma WEDGE RESECT LUNG Right 12/01/2019 Robotic assisted right lower lung wedge resection for non small cell lung ca REVIEW OF SYSTEMS: General: No weight loss, malaise or fevers. HEENT: Negative for frequent or significant headaches. No changes in hearing or vision, no nose bleeds or other nasal problems. Respiratory: Negative for cough, wheezing or shortness of breath. Cardiovascular: Negative for chest pain, leg swelling or palpitations. GI: Negative for abdominal discomfort, blood in stools or black stools or change in bowel habits. : No history of dysuria, frequency or incontinence. Musculoskeletal: Negative for joint pain or swelling, back pain and muscle pain. Skin: Negative for lesions, rash, and itching. Hematology/Lymphology: Negative for prolonged bleeding, bruising easily or swollen nodes. Neuro: No history of headaches, syncope, paralysis, seizures or tremors. PHYSICAL EXAM: Vitals: BP 139/74 Pulse 76 Temp 36.4 C (97.6 F) (Temporal) Resp 16 Ht 154.9 cm (5' 0.98 ) Wt 55.8 kg (123 lb) SpO2 100% BMI 23.25 kg/m ECOG 0 Exam limited to gross visualization where appropriate due to COVID-19. Gen.: This is an age-appropriate patient in no acute distress. Head: Appears atraumatic with no visible lesions. Eyes: Pupils equally round and reactive to light, extraocular muscles are intact. Neck: Supple. Mouth: Mucous membranes appeared to be moist. Respiratory: Appears to be respiring comfortably. Neurologic: Nonfocal to gross visualization. Alert and oriented 3. Psychiatric: No evidence of inappropriate anxiety or depression. Skin: Visible areas of skin without rash, lesions, wounds or petechiae. PATHOLOGY: 12/01/2019 Right lower lobe wedge resection FINAL DIAGNOSIS 1. Right lung, lower lobe, wedge excision (A) - Invasive adenocarcinoma, micropapillary predominant. Greatest dimension: 0.9 cm - Focal necrotizing granuloma. 2. Right lung, lower lobe, new margin, excision (B) No significant pathologic changes. 3. Lymph node, level 8R, excision (C) Fibroadipose tissue with histiocytic aggregates; negative for neoplasm. 4. Lymph nodes, level 9R, level 7, excision, (D-E) - Lymph nodes; negative for neoplasm. - Necrotizing granulomas (level 7, part E), see comment. Immunohistochemistry for PD-L1 expression Tumor Cells Positive: less than1% EGFR - A sequence change [id number] ([id number]) in exon 19 was detected at approximately 22% allelic proportion (depth of coverage at change [id number] 02/21/2016 Partial right lower lobectomy/lymph node dissection ([facility]) FINAL DIAGNOSIS 1. Lung, right lower lobe, excision/nodulectomy (A) - Minimally invasive adenocarcinoma (1.2 cm). (See synoptic template). - Parenchymal margin negative. 2. Lymph node, level 8, excision (B) - Negative for tumor (0/1). 3. Lymph node, level 9, excision (C) - Negative for tumor (0/1). 4. Lymph node, level 7, excision (D) - Negative for tumor (0/1). 5. Lymph node, 10R, excision (E) - Negative for tumor (0/1). 6. Lung, additional right lower lobe, wedge resection (F) - Negative for tumor. EGFR - A sequence change: [id number] ([id number]) detected at approximately 20% allele proportion. [Reference Sequence: ([id number])]. KRAS - No variant detected [Reference Sequence: ([id number])]. INTERPRETATION: An EGFR exon 20 insertion is present in this sample at an allele proportion of approximately 20%. Exon 20 insertions in this region have been associated with decreased response to EGFR inhibitors. 02/08/2015 Left lower lobectomy/lymph node dissection ([facility]) FINAL DIAGNOSIS 1. Lung, left lower lobe, lobectomy (A) - Adenocarcinoma (2.2 cm), acinar predominant (40%), with additional micropapillary (30%), cribriform (20%) and lepidic (10%) patterns. (See synoptic template). - Visceral pleural invasion present. - Lymphatic invasion present. - Eleven hilar and peribronchial lymph nodes, negative for tumor (0/11). - Margins negative. 2. Lymph node, level 11L, excision (B) - Metastatic adenocarcinoma, involving one (of one) lymph node (1/1). 3. Lymph nodes, 10L posterior, excision (C) - Two lymph nodes, negative for tumor (0/2). 4. Lymph node, 10L anterior, excision (D) - One lymph node, negative for tumor (0/1). 5. Lymph nodes, level 7, excision (E) - Metastatic adenocarcinoma, involving one of two lymph nodes (1/2). 6. Lymph node, level 9, excision (F) - One lymph node, negative for tumor (0/1). 7. Lymph nodes, level 5, excision (G) - Two lymph nodes, negative for tumor (0/2). 8. Lymph nodes, 10L and 11L, excision (H) - Two lymph nodes, negative for tumor (0/2). LABORATORY DATA: Hemoglobin (g/dL) Date Value 12/19/2021 11.7 02/15/2021 12.5 Hematocrit (%) Date Value 12/19/2021 35.7 02/15/2021 39.1 WBC (k/uL) Date Value 12/19/2021 4.28 02/15/2021 5.98 Platelet Count (k/uL) Date Value 12/19/2021 202 02/15/2021 269 RADIOLOGY/OTHER STUDIES: 12/27/2021 CT chest IMPRESSION: 1. Stable postoperative appearance to the chest. Left perihilar opacities likely related to prior radiation therapy, stable. 2. Multiple bilateral solid and groundglass nodular opacities are again appreciated, stable in appearance from the prior study of 07/01/2021. 3. No substantial intrathoracic adenopathy is identified. 12/19/2021 CT brain IMPRESSION: No acute intracranial hemorrhage or mass effect is seen 07/01/2021 CT chest IMPRESSION: 1. No interval change since 02/15/21. 2. Multiple nodular opacities and groundglass opacities, stable. 3. Bilateral perihilar post radiation changes, stable. 03/15/2021 MRI brain IMPRESSION: Minimal chronic microvascular change. Grossly normal brain volume and morphology. No mass effect or abnormal enhancement to suggest intracranial metastatic disease. Based on the axial T2 flow void pattern, proximal intracranial arterial vasculature, major cortical draining veins, and dural venous sinuses are patent. Concordant appearance on the post gadolinium scans. 02/15/2021 CT chest IMPRESSION: 1. Since 11/19/2020, no significant change. 2. Stable postsurgical changes involving the left lung and right lower lobe. 3. Multiple right lung nodules are unchanged. 4. No lymphadenopathy. 5. Mild fluid within the superior thoracic esophagus, which may be secondary to reflux or esophageal dysmotility. 11/19/2020 CT CHEST IMPRESSION: 1. No interval change since 07/13/2020. 2. Multiple nodular opacities and groundglass opacities, stable. 3. Bilateral perihilar post radiation changes, stable. 07/14/2020 CT CHEST IMPRESSION: 1. Postoperative changes involving the lungs bilaterally. Bilateral perihilar opacities, likely on the basis of prior radiation therapy or postoperative in nature, stable. 2. Several bilateral subcentimeter pulmonary nodules are again identified, unchanged. 03/15/2020 CT CHEST IMPRESSION: 1. Postsurgical changes as noted above. Previously described right lower lobe nodular opacities are no longer visualized. 2. New nodular opacity along a surgical scar. Recommend continued follow-up. 3. Numerous right-sided solid and groundglass nodular opacities, similar in appearance to prior exam. 4. No evidence of bulky intrathoracic lymphadenopathy. 10/08/2019 PET SCAN IMPRESSION: INTERVAL INCREASE IN SIZE OF A LOBULATED NODULE WITH SOFT TISSUE DENSITY IN THE INFERIOR MOST RIGHT LOWER LOBE. PERCEPTIBLE FDG UPTAKE. FINDINGS ARE CONCERNING AND AT A MINIMUM, CLOSE INTERVAL SURVEILLANCE IS SUGGESTED WITH REPEAT CT IN 3 MONTHS. 09/25/[address] IMPRESSION: 1. 1.1 x 0.7 cm lobular right lower lobe nodular opacity, stable since 03/10/2019 but clearly enlarged since 10/16/2017, worrisome for neoplasm. 2. 1 cm right upper lobe groundglass opacity, stable since 03/10/2019 but enlarged since 10/16/2017. Differential diagnosis includes atypical adenomatous hyperplasia, minimally invasive adenocarcinoma, adenocarcinoma in situ and focal fibrosis. 3. Other additional nodular opacities measuring up to 1 cm are stable since 10/16/2017. Almost 2 year stability favors a benign etiology. 4. Bilateral perihilar post radiation changes, stable. ASSESSMENT/PLAN: 1. Primary adenocarcinoma of right lung (lung cancer #3) Stage IA (T1a, N0, M0) adenocarcinoma of the right lower lobe diagnosed November 2019. Status post wedge resection 12/01/2019. Final pathology: Invasive adenocarcinoma, micropapillary predominant, greatest dimension: 0.9 cm. An EGFR in-frame exon 19 deletion was detected in the specimen. Adjuvant chemotherapy and radiation therapy not indicated. Currently the patient is clinically stable with no evidence of disease. Most recent chest CT 12/27/2021 was stable without new findings. At this time we recommended continued close observation. We will arrange for a follow-up chest CT in 6 months, she will then return for follow-up. She does complain of occasional feeling like something stuck in her throat which resolves with coughing. I suggested she follow-up with pulmonary for further evaluation, possibly to include bronchoscopy. Her symptoms are minimal, and she elected to hold off for now. 2. Primary adenocarcinoma of right lung (lung cancer #2) Stage IA (T1a, N0, M0) adenocarcinoma of the right lower lobe diagnosed January 2016. Status post wedge resection of right lower lobe 02/21/2016. No additional adjuvant therapy given. 3. Malignant neoplasm of lower lobe of left lung (lung cancer #1) Stage IIIA (pT2a, N2, M0) adenocarcinoma of the left lower lobe diagnosed January 2015. Status post left lower lobectomy and lymph node dissection 02/08/2015. Postop the patient received adjuvant chemotherapy with cisplatin and pemetrexed 4 cycles completed 05/31/2015. The patient subsequently received adjuvant radiation therapy to the left left lower lobe and mediastinum 06/30/2015 - 08/09/2015 (5,040 cGy in 28 fractions). The patient's primary tumor was EGFR positive, therefore after completing radiation therapy she was enrolled on the [place] [id number] trial randomizing patients to receive Erlotinib vs placebo 2 years in the adjuvant setting. The patient started treatment per protocol 10/07/2015. The patient was removed from study after being diagnosed with a new primary lung cancer. 4. Pulmonary histoplasmosis Pathology obtained at the time of the patient's right lung surgery November 2019 revealed evidence of histoplasmosis. Continue management per [facility] pulmonary. 5. History of dizziness, history of headache Intermittent dizziness with visual changes since December 2020. Brain MRI 03/15/2021 revealed minimal chronic microvascular changes, otherwise normal. Due to acute headaches the patient underwent a brain CT on 12/19/2021 which was negative. With supportive measures the headaches have resolved. Currently no ongoing neurological symptoms. She will follow-up with her PCP if symptoms recur, in which case a neurology evaluation would be recommended. Niall Lane MD documented in this encounter [facility] 12-27-2021 History of Presen t illness Narrative Radiology Service Progress Note PATIENT NAME: Jana Donis DATE OF SERVICE: December 27, 2021 TIME: 9:51 AM PATIENT IDENTITY VERIFICATION COMPLETED USING TWO (2) IDENTIFIERS: Name and Date of confirmed by patient verbally. FALL SCREENING: Has the patient had 2 falls in the last year or 1 fall with injury or currently using an Ambulatory Assistive Device (Walker, Cane, Wheelchair, Crutches, etc.)? No PATIENT GENDER DATA: Female. status: : No status: NO. PATIENT RELEVANT IMPLANT DATA REVIEWED: Not Applicable RADIOLOGY DEPARTMENT: CT; Exam(s) Completed: Chest PERIPHERAL IV DATA: Site assessment: Clean,Dry and Intact, Site disposition Discontinued SIGNED BY: RT Radha(R) December 27, 2021 9:51 AM Radiology Service Progress Note DATE OF SERVICE: December 27, 2021 TIME: 10:25 AM PATIENT WEIGHT: 122.2LBS PATIENT IDENTITY VERIFICATION COMPLETED USING TWO (2) STANDARD IDENTIFIERS: Name and Date of confirmed by patient verbally. FALL SCREENING: Has the patient had 2 falls in the last year or 1 fall with injury or currently using an Ambulatory Assistive Device (Walker, Cane, Wheelchair, Crutches, etc.)? No PATIENT GENDER DATA: Female. status: : No status: NO. ALLERGIES: Reviewed and unchanged CONTRAST ALLERGY: No EXAM: CT -CONTRAST INDUCED NEPHROPATHY RISK FACTORS: Patient age > 60 years CREATININE: Creatinine Date Value Ref Range Status 12/27/2021 0.87 0.58 - 0.96 mg/dL Final 12/19/2021 0.79 0.58 - 0.96 mg/dL Final 07/01/2021 0.93 0.58 - 0.96 mg/dL Final Estimated Glomerular Filtration Rate Date Value Ref Range Status 12/27/2021 74 >=60 mL/min/1.73m Final Comment: Estimated Glomerular Filtration Rate (eGFR) is calculated using the 2020 CKD-EPI creatinine equation. This equation utilizes serum creatinine, sex, and age as parameters. The creatinine assay has traceable calibration to isotope dilution-mass spectrometry. Refer to KDIGO guidelines for clinical interpretation. In patients with unstable renal function, e.g. those with acute kidney injury, the eGFR may not accurately reflect actual GFR. eGFR- Date Value Ref Range Status 02/15/2021 >60 Final P.O.C.T. RESULTS: POC done: Yes, See Lab Tab December 27, 2021 TREATMENT: No Hydration needed. IV SITE: Ambulatory: A peripheral IV was started in the Right forearm with a Angio cath: 22 gauge. IV SITE APPEARANCE: Clean,Dry and Intact SIGNATURE: Kiki Mccain RN PATIENT NAME: Jana Donis DATE: December 27, 2021 TIME: 10:25 AM documented in this encounter [facility] 12-19-2021 Note COVID 19 RESULT: SARS-CoV-2 (Agent of COVID-19) Not Detected by RT-PCR or equivalent method. This test has been authorized by FDA under an Emergency Use Authorization (EUA). INFLUENZA A PCR: Negative for Influenza A by RT-PCR INFLUENZA B PCR: Negative for Influenza B by RT-PCR RSV PCR: Negative for Respiratory Syncytial Virus (RSV) by PCR [facility] Comment on above: Performed By: #### [id number] #### [facility] CLIA [id number] [address] [place] [address] [facility] 12-19-2021 Note HNO ID: [id number] Author: Sally Ramirez RT(R) Service: Radiology Author Type: Hockey Player Type: Progress Notes Filed: 12/19/2021 2:49 PM Note Text: Radiology Service Progress Note PATIENT NAME: Jana Donis DATE OF SERVICE: December 19, 2021 TIME: 2:49 PM PATIENT IDENTITY VERIFICATION COMPLETED USING TWO (2) IDENTIFIERS: Name and Date of confirmed by patient verbally and Name and Date of confirmed by identification band. FALL SCREENING: Has the patient had 2 falls in the last year or 1 fall with injury or currently using an Ambulatory Assistive Device (Walker, Cane, Wheelchair, Crutches, etc.)? Emergency Room Patient: Screened in ED PATIENT GENDER DATA: Female. status: : No status: NO. PATIENT RELEVANT IMPLANT DATA REVIEWED: Not Applicable RADIOLOGY DEPARTMENT: CT; Exam(s) Completed: Brain PERIPHERAL IV DATA: Not applicable SIGNED BY: RT Nae(R) December 19, 2021 2:49 PM [facility] 12-19-2021 Miscellaneous Notes FYI-After reviewing with patient and spouse your recommendations, she would prefer to go to the closest [facility] ED. She states the Ibuprofen is only taking the edge off the pain. And is also concerned about waiting to set up scans. Patient is very anxious about recent change in status. Kiki Scott RN I definitely think it would be reasonable for the patient to go to the [facility] ER if she prefers urgent treatment today. Otherwise I would recommend a brain CT. If the brain CT is negative we can then order a brain MRI for follow-up. Note that her brain MRI March 2021 was negative. ANA PAULA Johnson Patient has been having pounding headaches for the past 6 days. Patient normally does not get headaches nor does she take medications. states she has had 800 mg of Ibuprofen since 6:15 this morning. No other symptoms noted. Patient is very concerned and is fearful that something is going on with her cancer diagnosis. She is thinking she should go to [facility] ED for evaluation. felt they should call you first for your recommendation. Please advise. Kiki Scott RN documented in this encounter [facility] 11-30-2021 Miscellaneous Notes Please review and sign pended labs to obtain with CT for follow up Bibi Ramos RN documented in this encounter [facility] 08-03-2021 Evaluation note Encounter Date Diagnosis Assessment Notes Aug, Acute sinusitis, recurrence not specified, unspecified location (ICD-10 - J01.90) Drink plenty fluids, get plenty of rest. Continue home medications as prescribed. Use the Flonase inhaler, start that today. Go to the ER for any worsening of symptoms including fever, worsening pain, dizziness, nausea, vomiting. Follow-up with your family physician if no improvement in 2 to 3 days. [facility] Other 05-03-2022 History of Present illness Narrative* Niall Lane MD - 07/05/2021 6:55 AM EDT PATIENT NAME: Jana Donis DATE: 07/05/2021 PRIMARY CARE PHYSICIAN: Dr. Al Bryan OTHER PHYSICIANS: Dr. Lerner, Dr. Samayoa, Dr. Gudelia Mckay Portions of this encounter note have been copied from the note from 02/22/2021 and has been updatedwhere appropriate, and reflect my current medical decision making from today. CC: This is a 66 year old female with a history of lung cancer, seen for scheduled follow-up. INTERIM HISTORY: Since the patient's last visit here she has had no significant medical changes. She still has occasional dizziness, but not as severe. No other neurological symptoms. She denies any cough, shortness of breath, or pulmonary symptoms. Overall the patient feels extremely well with no particular complaints. She just returned from a nice vacation in [facility]. MEDICATIONS: No prescriptions on file. ALLERGIES: Patient has no known allergies. PAST MEDICAL HISTORY: PAST MEDICAL HISTORY Diagnosis Date Anemia Malignant neoplasm of lower lobe of left lung (HCC) 02/08/2015 Stage IIIA (pT2a, N2, M0) adenocarcinoma of the left lower lobe Malignant neoplasm of lower lobe of right lung (HCC) 02/21/2016 Stage IA (T1a, N0, M0) adenocarcinoma of the right lower lobe Malignant neoplasm of lower lobe of right lung (HCC) 12/01/2019 non small cell lung ca Port catheter in place PAST SURGICAL HISTORY: PAST SURGICAL HISTORY Procedure Laterality Date BIOPSY BREAST right breast COLONSCOPY SCREENING HIGH RISK HEMORRHOIDECTOMY HYSTERECTOMY HX 2006 LUNG BIOPSY 12/31/2014 OTHER SURGICAL HISTORY (PLEASE SPECIFY) HX right jaw surgery OTHER SURGICAL HISTORY (PLEASE SPECIFY) HX PORTOCATH PLACEMENT PORTOCATH PLACEMENT REDUCTION OF LARGE BREAST REMOVAL OF LUNG,LOBECTOMY Left 02/08/2015 Muscle sparing thoracotomy, left lower lobectomy with bronchoplasty, vascularized tissue pedicle flap of reconstructed airway, hilar and mediastinal lymphadenectomy WEDGE RESECT LUNG Right 02/21/2016 VATs right lower lung wedge resection and med bx for synchronous stage IA adenocarcinoma WEDGE RESECT LUNG Right 12/01/2019 Robotic assisted right lower lung wedge resection for non small cell lung ca REVIEW OF SYSTEMS: General: No weight loss, malaise or fevers. HEENT: Negative for frequent or significant headaches. No changes in hearing or vision, no nose bleeds or other nasal problems. Respiratory: Negative for cough, wheezing or shortness of breath. Cardiovascular: Negative for chest pain, leg swelling or palpitations. GI: Negative for abdominal discomfort, blood in stools or black stools or change in bowel habits. : No history of dysuria, frequency or incontinence. Musculoskeletal: Negative for joint pain or swelling, back pain and muscle pain. Skin: Negative for lesions, rash, and itching. Hematology/Lymphology: Negative for prolonged bleeding, bruising easily or swollen nodes. Neuro: No history of headaches, syncope, paralysis, seizures or tremors. PHYSICAL EXAM: Vitals: BP 149/71 Pulse 77 Temp 36.2 C (97.2 F) (Temporal) Resp 16 Ht 154.9 cm (5' 0.98 ) Wt 55.9 kg (123 lb 3.2 oz) SpO2 98% BMI 23.29 kg/m ECOG 0 Exam limited to gross visualization where appropriate due to COVID-19. Gen.: This is an age-appropriate patient in no acute distress. Head: Appears atraumatic with no visible lesions. Eyes: Pupils equally round and reactive to light, extraocular muscles are intact. Neck: Supple. Mouth: Mucous membranes appeared to be moist. Respiratory: Appears to be respiring comfortably. Neurologic: Nonfocal to gross visualization. Alert and oriented 3. Psychiatric: No evidence of inappropriate anxiety or depression. Skin: Visible areas of skin without rash, lesions, wounds or petechiae. PATHOLOGY: 12/01/2019 Right lower lobe wedge resection FINAL DIAGNOSIS 1. Right lung, lower lobe, wedge excision (A) - Invasive adenocarcinoma, micropapillary predominant. Greatest dimension: 0.9 cm - Focal necrotizing granuloma. 2. Right lung, lower lobe, new margin, excision (B) No significant pathologic changes. 3. Lymph node, level 8R, excision (C) Fibroadipose tissue with histiocytic aggregates; negative for neoplasm. 4. Lymph nodes, level 9R, level 7, excision, (D-E) - Lymph nodes; negative for neoplasm. - Necrotizing granulomas (level 7, part E), see comment. Immunohistochemistry for PD-L1 expression Tumor Cells Positive: less than1% EGFR - A sequence change [id number] (p.[id number]) in exon 19 was detected at approximately 22% allelic proportion (depth of coverage at change [id number] 02/21/2016 Partial right lower lobectomy/lymph node dissection ([facility]) FINAL DIAGNOSIS 1. Lung, right lower lobe, excision/nodulectomy (A) - Minimally invasive adenocarcinoma (1.2 cm). (See synoptic template). - Parenchymal margin negative. 2. Lymph node, level 8, excision (B) - Negative for tumor (0/1). 3. Lymph node, level 9, excision (C) - Negative for tumor (0/1). 4. Lymph node, level 7, excision (D) - Negative for tumor (0/1). 5. Lymph node, 10R, excision (E) - Negative for tumor (0/1). 6. Lung, additional right lower lobe, wedge resection (F) - Negative for tumor. EGFR - A sequence change: [id number] (p.[id number]) detected at approximately 20% allele proportion. [Reference Sequence: (NM_005228.3)]. KRAS - No variant detected [Reference Sequence: (NM_[id number])]. INTERPRETATION: An EGFR exon 20 insertion is present in this sample at an allele proportion of approximately 20%. Exon 20 insertions in this region have been associated with decreased response to EGFR inhibitors. 02/08/2015 Left lower lobectomy/lymph node dissection ([facility]) FINAL DIAGNOSIS 1. Lung, left lower lobe, lobectomy (A) - Adenocarcinoma (2.2 cm), acinar predominant (40%), with additional micropapillary (30%), cribriform (20%) and lepidic (10%) patterns. (See synoptic template). - Visceral pleural invasion present. - Lymphatic invasion present. - Eleven hilar and peribronchial lymph nodes, negative for tumor (0/11). - Margins negative. 2. Lymph node, level 11L, excision (B) - Metastatic adenocarcinoma, involving one (of one) lymph node (1/1). 3. Lymph nodes, 10L posterior, excision (C) - Two lymph nodes, negative for tumor (0/2). 4. Lymph node, 10L anterior, excision (D) - One lymph node, negative for tumor (0/1). 5. Lymph nodes, level 7, excision (E) - Metastatic adenocarcinoma, involving one of two lymph nodes (1/2). 6. Lymph node, level 9, excision (F) - One lymph node, negative for tumor (0/1). 7. Lymph nodes, level 5, excision (G) - Two lymph nodes, negative for tumor (0/2). 8. Lymph nodes, 10L and 11L, excision (H) - Two lymph nodes, negative for tumor (0/2). LABORATORY DATA: Hemoglobin (g/dL) Date Value 07/01/2021 12.2 02/15/2021 12.5 Hematocrit (%) Date Value 07/01/2021 37.1 02/15/2021 39.1 WBC (k/uL) Date Value 07/01/2021 4.13 02/15/2021 5.98 Platelet Count (k/uL) Date Value 07/01/2021 256 02/15/2021 269 RADIOLOGY/OTHER STUDIES: 07/01/2021 CT chest IMPRESSION: 1. No interval change since 02/15/21. 2. Multiple nodular opacities and groundglass opacities, stable. 3. Bilateral perihilar post radiation changes, stable. 03/15/2021 MRI brain IMPRESSION: Minimal chronic microvascular change. Grossly normal brain volume and morphology. No mass effect or abnormal enhancement to suggest intracranial metastatic disease. Based on the axial T2 flow void pattern, proximal intracranial arterial vasculature, major cortical draining veins, and dural venous sinuses are patent. Concordant appearance on the post gadolinium scans. 02/15/2021 CT chest IMPRESSION: 1. Since 11/19/2020, no significant change. 2. Stable postsurgical changes involving the left lung and right lower lobe. 3. Multiple right lung nodules are unchanged. 4. No lymphadenopathy. 5. Mild fluid within the superior thoracic esophagus, which may be secondary to reflux or esophageal dysmotility. 11/19/2020 CT CHEST IMPRESSION: 1. No interval change since 07/13/2020. 2. Multiple nodular opacities and groundglass opacities, stable. 3. Bilateral perihilar post radiation changes, stable. 07/14/2020 CT CHEST IMPRESSION: 1. Postoperative changes involving the lungs bilaterally. Bilateral perihilar opacities, likely on the basis of prior radiation therapy or postoperative in nature, stable. 2. Several bilateral subcentimeter pulmonary nodules are again identified, unchanged. 03/15/2020 CT CHEST IMPRESSION: 1. Postsurgical changes as noted above. Previously described right lower lobe nodular opacities are no longer visualized. 2. New nodular opacity along a surgical scar. Recommend continued follow-up. 3. Numerous right-sided solid and groundglass nodular opacities, similar in appearance to prior exam. 4. No evidence of bulky intrathoracic lymphadenopathy. 10/08/2019 PET SCAN IMPRESSION: INTERVAL INCREASE IN SIZE OF A LOBULATED NODULE WITH SOFT TISSUE DENSITY IN THE INFERIOR MOST RIGHT LOWER LOBE. PERCEPTIBLE FDG UPTAKE. FINDINGS ARE CONCERNING AND AT A MINIMUM, CLOSE INTERVAL SURVEILLANCE IS SUGGESTED WITH REPEAT CT IN 3 MONTHS. 09/25/[address] IMPRESSION: 1. 1.1 x 0.7 cm lobular right lower lobe nodular opacity, stable since 03/10/2019 but clearly enlarged since 10/16/2017, worrisome for neoplasm. 2. 1 cm right upper lobe groundglass opacity, stable since 03/10/2019 but enlarged since 10/16/2017. Differential diagnosis includes atypical adenomatous hyperplasia, minimally invasive adenocarcinoma, adenocarcinoma in situ and focal fibrosis. 3. Other additional nodular opacities measuring up to 1 cm are stable since 10/16/2017. Almost 2 year stability favors a benign etiology. 4. Bilateral perihilar post radiation changes, stable. ASSESSMENT/PLAN: 1. Primary adenocarcinoma of right lung (lung cancer #3) Stage IA (T1a, N0, M0) adenocarcinoma of the right lower lobe diagnosed November 2019. Status postwedge resection 12/01/2019. Final pathology: Invasive adenocarcinoma, micropapillary predominant, greatest dimension: 0.9 cm. An EGFR in-frame exon 19 deletion was detected in the specimen. Adjuvant chemotherapy and radiation therapy felt not indicated. Currently the patient is clinically stable with no evidence of disease. Most recent chest CT 07/01/2021 was stable without new findings. At this time we recommended continued close observation. We will arrange for a follow-up chest CT in 6 months, she will then return forfollow-up. 2. Primary adenocarcinoma of right lung (lung cancer #2) Stage IA (T1a, N0, M0) adenocarcinoma of the right lower lobe diagnosed January 2016. Status post wedge resection of right lower lobe 02/21/2016. No additional adjuvant therapy given. 3. Malignant neoplasm of lower lobe of left lung (lung cancer #1) Stage IIIA (pT2a, N2, M0) adenocarcinoma of the left lower lobe diagnosed January 2015. Status post left lower lobectomy and lymph node dissection 02/08/2015. Postop the patient received adjuvant chemotherapy with cisplatin and pemetrexed 4 cycles completed 05/31/2015. The patient subsequently received adjuvant radiation therapy to the left left lower lobe and mediastinum 06/30/2015 - 08/09/2015 (5,040 cGy in 28 fractions). The patient's primary tumor was EGFR positive, therefore after completing radiation therapy she was enrolled on the [place] [id number] trial randomizing patients to receive Erlotinib vs placebo 2 years in the adjuvant setting. The patient started treatment per protocol 10/07/2015. The patient was removed from study after being diagnosed with a new primary lung cancer. 4. Pulmonary histoplasmosis Pathology obtained at the time of the patient's right lung surgery November 2019 revealed evidenceof histoplasmosis. Continue management per [facility] pulmonary. 5. Dizzyness Intermittent dizziness with visual changes since December 2020. Brain MRI 03/15/2021 revealed minimalchronic microvascular changes, otherwise normal. Currently the patient has no significant ongoing neurological symptoms. She will follow-up with her PCP if symptoms worsen, in which case a neurology evaluation would be recommended. Niall Lane MD [facility] History of Present illness Narrative* Bibi Ramos RN - 07/01/2021 7:45 AM EDT Radiology Service Progress Note DATE OF SERVICE: July 01, 2021 TIME: 9:06 AM PATIENT WEIGHT: 123 LBS PATIENT IDENTITY VERIFICATION COMPLETED USING TWO (2) STANDARD IDENTIFIERS: Name and Date of confirmed by patient verbally. FALL SCREENING: Has the patient had 2 falls in the last year or 1 fall with injury or currently using an Ambulatory Assistive Device (Walker, Cane, Wheelchair, Crutches, etc.)? No PATIENT GENDER DATA: Female. status: : No status: NO. ALLERGIES: Reviewed and unchanged CONTRAST ALLERGY: No EXAM: CT -CONTRAST INDUCED NEPHROPATHY RISK FACTORS: Patient age > 60 years CREATININE: Creatinine Date Value Ref Range Status 07/01/2021 0.93 0.58 - 0.96 mg/dL Final 02/15/2021 0.77 0.58 - 0.96 mg/dL Final 11/19/2020 0.87 0.58 - 0.96 mg/dL Final Estimated Glomerular Filtration Rate Date Value Ref Range Status 07/01/2021 68 >=60 mL/min/1.73m Final Comment: Estimated Glomerular Filtration Rate (eGFR) is calculated using the 2020 CKD-EPI creatinine equation. This equation utilizes serum creatinine, sex, and age as parameters. The creatinine assay has traceable calibration to isotope dilution- mass spectrometry. Refer to KDIGO guidelines for clinical interpretation. In patients with unstable renal function, e.g. those with acute kidney injury, the eGFRmay not accurately reflect actual GFR. eGFR- Date Value Ref Range Status 02/15/2021 >60 Final P.O.C.T. RESULTS: POC done: Yes, See Lab Tab July 01, 2021 TREATMENT: No Hydration needed. IV SITE: Ambulatory: A peripheral IV was started in the Right antecubital site with a Angio cath: 20 gauge. IV SITE APPEARANCE: Clean,Dry and Intact SIGNATURE: Bibi Ramos RN PATIENT NAME: Jana Donis DATE: July 01, 2021 TIME: 9:06 AM * Lyubov Vasquez, RT(R) - 07/01/2021 7:45 AM EDT Radiology Service Progress Note PATIENT NAME: Jana Donis DATE OF SERVICE: July 01, 2021 TIME: 9:22 AM PATIENT IDENTITY VERIFICATION COMPLETED USING TWO (2) IDENTIFIERS: Name and Date of confirmedby patient verbally. FALL SCREENING: Has the patient had 2 falls in the last year or 1 fall with injury or currently using an Ambulatory Assistive Device (Walker, Cane, Wheelchair, Crutches, etc.)? No PATIENT GENDER DATA: Female. status: : No status: NO. PATIENT RELEVANT IMPLANT DATA REVIEWED: Not Applicable RADIOLOGY DEPARTMENT: CT; Exam(s) Completed: Chest PERIPHERAL IV DATA: Site assessment: Clean,Dry and Intact, Site disposition Discontinued SIGNED BY: RT Radha(R) July 01, 2021 9:22 AM [facility] Miscellaneous Notes* Telephone Encounter - Armida Beck RN - 06/14/2021 10:02 AM EDT Jana Donis [id number] has CT with contrast on 07/01 with office follow up 07/05. She needs labs for CT.Please order Cre for CT or any additional labs needed for follow up. Thank you. [facility] History of Present illness Narrative* Lyubov Vasquez RT(R) - 02/15/2021 10:15 AM EST Radiology Service Progress Note PATIENT NAME: Jana Donis DATE OF SERVICE: February 15, 2021 TIME: 11:10 AM PATIENT IDENTITY VERIFICATION COMPLETED USING TWO (2) IDENTIFIERS: Name and Date of confirmedby patient verbally. FALL SCREENING: Has the patient had 2 falls in the last year or 1 fall with injury or currently using an Ambulatory Assistive Device (Walker, Cane, Wheelchair, Crutches, etc.)? No PATIENT GENDER DATA: Female. status: : No status: NO. PATIENT RELEVANT IMPLANT DATA REVIEWED: Not Applicable RADIOLOGY DEPARTMENT: CT; Exam(s) Completed: Chest PERIPHERAL IV DATA: Site assessment: Clean,Dry and Intact, Site disposition Discontinued SIGNED BY: RT Radha(R) February 15, 2021 11:10 AM documented in this encounter[facility] Nurse Note* Bibi Ramos RN - 02/15/2021 10:15 AM EST Radiology Service Progress Note DATE OF SERVICE: February 15, 2021 TIME: 10:48 AM PATIENT WEIGHT: 119 LBS PATIENT IDENTITY VERIFICATION COMPLETED USING TWO (2) STANDARD IDENTIFIERS: Name and Date of confirmed by patient verbally. FALL SCREENING: Has the patient had 2 falls in the last year or 1 fall with injury or currently using an Ambulatory Assistive Device (Walker, Cane, Wheelchair, Crutches, etc.)? No PATIENT GENDER DATA: Female. status: : No status: NO. ALLERGIES: Reviewed and unchanged CONTRAST ALLERGY: No EXAM: CT -CONTRAST INDUCED NEPHROPATHY RISK FACTORS: Patient age > 60 years CREATININE: Creatinine Date Value Ref Range Status 02/15/2021 0.77 0.58 - 0.96 mg/dL Final 11/19/2020 0.87 0.58 - 0.96 mg/dL Final 07/13/2020 0.78 0.58 - 0.96 mg/dL Final eGFR-All Other Races Date Value Ref Range Status 02/15/2021 >60 . Final Comment: eGFR (Estimated GFR) Units of measure: mL/min/1.73 meters squared eGFR is derived from the reexpressed MDRD Study equation using the following parameters: serum creatinine, age, gender and race. The creatinine assay has been calibrated to be traceable to IDMS. An eGFR <60 mL/min/1.73m2 for >3 months is consistent with chronic kidney disease. Refer to KDOQI guidelines for clinical interpretation. In patients with unstable renal function, e.g. those with acute kidney injury, the eGFR may not accurately reflect actual GFR. Note: On 04/30/2021, the eGFR calculation will be updated to the NKF-ASN Task Force recommended 2020 CKD-EPI creatinine equation which does not include a race variable. For more information or to access a 2020 CKD-EPI calculator, visit the [employer] website at kidney.org/professionals/kdoqi/gfr_calculator. eGFR- Date Value Ref Range Status 02/15/2021 >60 Final P.O.C.T. RESULTS: POC done: Yes, See Lab Tab February 15, 2021 TREATMENT: No Hydration needed. IV SITE: Ambulatory: A peripheral IV was started in the Right antecubital site with a Angio cath: 20 gauge. IV SITE APPEARANCE: Clean,Dry and Intact SIGNATURE: Bibi Ramos RN, BSN PATIENT NAME: Jana Donis DATE: February 15, 2021 TIME: 10:48 AM [facility]12[facility] Nurse Note* Bibi Ramos RN - 02/15/2021 10:15 AM EST Radiology Service Progress Note DATE OF SERVICE: February 15, 2021 TIME: 10:48 AM PATIENT WEIGHT: 119 LBS PATIENT IDENTITY VERIFICATION COMPLETED USING TWO (2) STANDARD IDENTIFIERS: Name and Date of confirmed by patient verbally. FALL SCREENING: Has the patient had 2 falls in the last year or 1 fall with injury or currently using an Ambulatory Assistive Device (Walker, Cane, Wheelchair, Crutches, etc.)? No PATIENT GENDER DATA: Female. status: : No status: NO. ALLERGIES: Reviewed and unchanged CONTRAST ALLERGY: No EXAM: CT -CONTRAST INDUCED NEPHROPATHY RISK FACTORS: Patient age > 60 years CREATININE: Creatinine Date Value Ref Range Status 02/15/2021 0.77 0.58 - 0.96 mg/dL Final 11/19/2020 0.87 0.58 - 0.96 mg/dL Final 07/13/2020 0.78 0.58 - 0.96 mg/dL Final eGFR-All Other Races Date Value Ref Range Status 02/15/2021 >60 . Final Comment: eGFR (Estimated GFR) Units of measure: mL/min/1.73 meters squared eGFR is derived from the reexpressed MDRD Study equation using the following parameters: serum creatinine, age, gender and race. The creatinine assay has been calibrated to be traceable to IDMS. An eGFR <60 mL/min/1.73m2 for >3 months is consistent with chronic kidney disease. Refer to KDOQI guidelines for clinical interpretation. In patients with unstable renal function, e.g. those with acute kidney injury, the eGFR may not accurately reflect actual GFR. Note: On 04/30/2021, the eGFR calculation will be updated to the NKF-ASN Task Force recommended 2020 CKD-EPI creatinine equation which does not include a race variable. For more information or to access a 2020 CKD-EPI calculator, visit the National [employer] website at kidney.org/professionals/kdoqi/gfr_calculator. eGFR- Date Value Ref Range Status 02/15/2021 >60 Final P.O.C.T. RESULTS: POC done: Yes, See Lab Tab February 15, 2021 TREATMENT: No Hydration needed. IV SITE: Ambulatory: A peripheral IV was started in the Right antecubital site with a Angio cath: 20 gauge. IV SITE APPEARANCE: Clean,Dry and Intact SIGNATURE: Bibi Ramos RN, BSN PATIENT NAME: Jana Donis DATE: February 15, 2021 TIME: 10:48 AM documented in this encounterCh[facility]09-28-[facility] History of Past illness Narrative* Problem Noted Date Resolved Date Lung mass 12/01/2019 12/02/2019 Essential hypertension 02/09/2015 0 Overview: History: HTN. Previoiusly was on Bystolic but no longer on any medication Assessment: Plan: . Mechanical venous thromboembolism (VTE) prophyla xis in place 02/09/2015 02/24/2016 Overview: History: No known prior hx of DVT/PE Assessment: The pt is on lovenox SC and SCD for VTE prophylaxis. No signs or symptoms of DVT/PE. The patient is at high risk for VTE. Plan: - Continue lovenox SC while hospitalized - SCD/MERCED - Encourage continued ambulation . DISPOSITION AND FOLLOW-UP 02/09/20152015 Overview: History: Jana Donis is lives in [place], [place]. Assessment: At this time, we anticipate that the patient will be discharged home today. Plan: - Discuss needs with patient. - Collaborate with Case management to facilitate DC process - d/c home today - Follow up in 7-10 days with chest xray . Lung nodules 01/05/2015 12/02/2019 Overview: History: 64 yo F with history of Stage IIIA (T2aN2) NSCLC of LLL s/p open LLL lobectomy in 02/2015 followed by adjuvant chemoradiation (N2 on final path). She had synchronous RLL nodule at that time for which she underwent staged R VATS RLL wedge on 02/2016 revealing stage IA Adenocarcinoma. Now with enlarging RLL nodule, suspicious for malignancy. On 12/01/2019, underwent Robotic right lower lobe wedge resection Assessment: Plan: * documented as of this encounter (statuses as of 06/14/2021) [facility] of Past illness Narrative* Problem Noted Date Resolved Date Lung mass 12/01/2019 12/02/2019 Essential hypertension 02/09/2015 0 Overview: History: HTN. Previoiusly was on Bystolic but no longer on any medication Assessment: Plan: . Mechanical venous thromboembolism (VTE) prophyla xis in place 02/09/2015 02/24/2016 Overview: History: No known prior hx of DVT/PE Assessment: The pt is on lovenox SC and SCD for VTE prophylaxis. No signs or symptoms of DVT/PE. The patient is at high risk for VTE. Plan: - Continue lovenox SC while hospitalized - SCD/MERCED - Encourage continued ambulation . DISPOSITION AND FOLLOW-UP 02/09/20152015 Overview: History: Jana Donis is lives in [place], [place]. Assessment: At this time, we anticipate that the patient will be discharged home today. Plan: - Discuss needs with patient. - Collaborate with Case management to facilitate DC process - d/c home today - Follow up in 7-10 days with chest xray . Lung nodules 01/05/2015 12/02/2019 Overview: History: 64 yo F with history of Stage IIIA (T2aN2) NSCLC of LLL s/p open LLL lobectomy in 02/2015 followed by adjuvant chemoradiation (N2 on final path). She had synchronous RLL nodule at that time for which she underwent staged R VATS RLL wedge on 02/2016 revealing stage IA Adenocarcinoma. Now with enlarging RLL nodule, suspicious for malignancy. On 12/01/2019, underwent Robotic right lower lobe wedge resection Assessment: Plan: * documented as of this encounter (statuses as of 07/07/2021) [facility] of Past illness Narrative* Problem Noted Date Resolved Date Lung mass 12/01/2019 12/02/2019 Essential hypertension 02/09/2015 0 Overview: History: HTN. Previoiusly was on Bystolic but no longer on any medication Assessment: Plan: . Mechanical venous thromboembolism (VTE) prophyla xis in place 02/09/2015 02/24/2016 Overview: History: No known prior hx of DVT/PE Assessment: The pt is on lovenox SC and SCD for VTE prophylaxis. No signs or symptoms of DVT/PE. The patient is at high risk for VTE. Plan: - Continue lovenox SC while hospitalized - SCD/MERCED - Encourage continued ambulation . DISPOSITION AND FOLLOW-UP 02/09/20152015 Overview: History: Jana Donis is lives in [place], [place]. Assessment: At this time, we anticipate that the patient will be discharged home today. Plan: - Discuss needs with patient. - Collaborate with Case management to facilitate DC process - d/c home today - Follow up in 7-10 days with chest xray . Lung nodules 01/05/2015 12/02/2019 Overview: History: 64 yo F with history of Stage IIIA (T2aN2) NSCLC of LLL s/p open LLL lobectomy in 02/2015 followed by adjuvant chemoradiation (N2 on final path). She had synchronous RLL nodule at that time for which she underwent staged R VATS RLL wedge on 02/2016 revealing stage IA Adenocarcinoma. Now with enlarging RLL nodule, suspicious for malignancy. On 12/01/2019, underwent Robotic right lower lobe wedge resection Assessment: Plan: * documented as of this encounter (statuses as of 07/18/2021) [facility] of Past illness Narrative* Problem Noted Date Resolved Date Lung mass 12/01/2019 12/02/2019 Essential hypertension 02/09/2015 0 Overview: History: HTN. Previoiusly was on Bystolic but no longer on any medication Assessment: Plan: . Mechanical venous thromboembolism (VTE) prophyla xis in place 02/09/2015 02/24/2016 Overview: History: No known prior hx of DVT/PE Assessment: The pt is on lovenox SC and SCD for VTE prophylaxis. No signs or symptoms of DVT/PE. The patient is at high risk for VTE. Plan: - Continue lovenox SC while hospitalized - SCD/MERCED - Encourage continued ambulation . DISPOSITION AND FOLLOW-UP 02/09/20152015 Overview: History: Jana Donis is lives in [place], [place]. Assessment: At this time, we anticipate that the patient will be discharged home today. Plan: - Discuss needs with patient. - Collaborate with Case management to facilitate DC process - d/c home today - Follow up in 7-10 days with chest xray . Lung nodules 01/05/2015 12/02/2019 Overview: History: 64 yo F with history of Stage IIIA (T2aN2) NSCLC of LLL s/p open LLL lobectomy in 02/2015 followed by adjuvant chemoradiation (N2 on final path). She had synchronous RLL nodule at that time for which she underwent staged R VATS RLL wedge on 02/2016 revealing stage IA Adenocarcinoma. Now with enlarging RLL nodule, suspicious for malignancy. On 12/01/2019, underwent Robotic right lower lobe wedge resection Assessment: Plan: * documented as of this encounter (statuses as of 11/30/2021) [facility] of Past illness Narrative* Problem Noted Date Resolved Date Lung mass 12/01/2019 12/02/2019 Essential hypertension 02/09/2015 0 Overview: History: HTN. Previoiusly was on Bystolic but no longer on any medication Assessment: Plan: . Mechanical venous thromboembolism (VTE) prophyla xis in place 02/09/2015 02/24/2016 Overview: History: No known prior hx of DVT/PE Assessment: The pt is on lovenox SC and SCD for VTE prophylaxis. No signs or symptoms of DVT/PE. The patient is at high risk for VTE. Plan: - Continue lovenox SC while hospitalized - SCD/MERCED - Encourage continued ambulation . DISPOSITION AND FOLLOW-UP 02/09/20152015 Overview: History: Jana Donis is lives in [place], [place]. Assessment: At this time, we anticipate that the patient will be discharged home today. Plan: - Discuss needs with patient. - Collaborate with Case management to facilitate DC process - d/c home today - Follow up in 7-10 days with chest xray . Lung nodules 01/05/2015 12/02/2019 Overview: History: 64 yo F with history of Stage IIIA (T2aN2) NSCLC of LLL s/p open LLL lobectomy in 02/2015 followed by adjuvant chemoradiation (N2 on final path). She had synchronous RLL nodule at that time for which she underwent staged R VATS RLL wedge on 02/2016 revealing stage IA Adenocarcinoma. Now with enlarging RLL nodule, suspicious for malignancy. On 12/01/2019, underwent Robotic right lower lobe wedge resection Assessment: Plan: * documented as of this encounter (statuses as of 12/20/2021) [facility] of Past illness Narrative* Problem Noted Date Resolved Date Lung mass 12/01/2019 12/02/2019 Essential hypertension 02/09/2015 0 Overview: History: HTN. Previoiusly was on Bystolic but no longer on any medication Assessment: Plan: . Mechanical venous thromboembolism (VTE) prophyla xis in place 02/09/2015 02/24/2016 Overview: History: No known prior hx of DVT/PE Assessment: The pt is on lovenox SC and SCD for VTE prophylaxis. No signs or symptoms of DVT/PE. The patient is at high risk for VTE. Plan: - Continue lovenox SC while hospitalized - SCD/MERCED - Encourage continued ambulation . DISPOSITION AND FOLLOW-UP 02/09/20152015 Overview: History: Jana Donis is lives in [place], [place]. Assessment: At this time, we anticipate that the patient will be discharged home today. Plan: - Discuss needs with patient. - Collaborate with Case management to facilitate DC process - d/c home today - Follow up in 7-10 days with chest xray . Lung nodules 01/05/2015 12/02/2019 Overview: History: 64 yo F with history of Stage IIIA (T2aN2) NSCLC of LLL s/p open LLL lobectomy in 02/2015 followed by adjuvant chemoradiation (N2 on final path). She had synchronous RLL nodule at that time for which she underwent staged R VATS RLL wedge on 02/2016 revealing stage IA Adenocarcinoma. Now with enlarging RLL nodule, suspicious for malignancy. On 12/01/2019, underwent Robotic right lower lobe wedge resection Assessment: Plan: * documented as of this encounter (statuses as of 01/04/2022) [facility] of [facility] illness Narrative* Problem Noted Date Resolved Date Lung mass 12/01/2019 12/02/2019 Essential hypertension 02/09/2015 0 Overview: History: HTN. Previoiusly was on Bystolic but no longer on any medication Assessment: Plan: . Mechanical venous thromboembolism (VTE) prophyla xis in place 02/09/2015 02/24/2016 Overview: History: No known prior hx of DVT/PE Assessment: The pt is on lovenox SC and SCD for VTE prophylaxis. No signs or symptoms of DVT/PE. The patient is at high risk for VTE. Plan: - Continue lovenox SC while hospitalized - SCD/MERCED - Encourage continued ambulation . DISPOSITION AND FOLLOW-UP 02/09/20152015 Overview: History: Jana Donis is lives in [place], [place]. Assessment: At this time, we anticipate that the patient will be discharged home today. Plan: - Discuss needs with patient. - Collaborate with Case management to facilitate DC process - d/c home today - Follow up in 7-10 days with chest xray . Lung nodules 01/05/2015 12/02/2019 Overview: History: 64 yo F with history of Stage IIIA (T2aN2) NSCLC of LLL s/p open LLL lobectomy in 02/2015 followed by adjuvant chemoradiation (N2 on final path). She had synchronous RLL nodule at that time for which she underwent staged R VATS RLL wedge on 02/2016 revealing stage IA Adenocarcinoma. Now with enlarging RLL nodule, suspicious for malignancy. On 12/01/2019, underwent Robotic right lower lobe wedge resection Assessment: Plan: * documented as of this encounter (statuses as of 05/29/2022) [facility] illness Narrative* Problem Noted Date Resolved Date Lung mass 12/01/2019 12/02/2019 Essential hypertension 02/09/2015 0 Overview: History: HTN. Previoiusly was on Bystolic but no longer on any medication Assessment: Plan: . Mechanical venous thromboembolism (VTE) prophyla xis in place 02/09/2015 02/24/2016 Overview: History: No known prior hx of DVT/PE Assessment: The pt is on lovenox SC and SCD for VTE prophylaxis. No signs or symptoms of DVT/PE. The patient is at high risk for VTE. Plan: - Continue lovenox SC while hospitalized - SCD/MERCED - Encourage continued ambulation . DISPOSITION AND FOLLOW-UP 02/09/20152015 Overview: History: Jana Donis is lives in [place], [place]. Assessment: At this time, we anticipate that the patient will be discharged home today. Plan: - Discuss needs with patient. - Collaborate with Case management to facilitate DC process - d/c home today - Follow up in 7-10 days with chest xray . Lung nodules 01/05/2015 12/02/2019 Overview: History: 64 yo F with history of Stage IIIA (T2aN2) NSCLC of LLL s/p open LLL lobectomy in 02/2015 followed by adjuvant chemoradiation (N2 on final path). She had synchronous RLL nodule at that time for which she underwent staged R VATS RLL wedge on 02/2016 revealing stage IA Adenocarcinoma. Now with enlarging RLL nodule, suspicious for malignancy. On 12/01/2019, underwent Robotic right lower lobe wedge resection Assessment: Plan: * documented as of this encounter (statuses as of 07/12/2022) [facility] Narrative* Problem Noted Date Resolved Date Lung mass 12/01/2019 12/02/2019 Essential hypertension 02/09/2015 0 Overview: History: HTN. Previoiusly was on Bystolic but no longer on any medication Assessment: Plan: . Mechanical venous thromboembolism (VTE) prophyla xis in place 02/09/2015 02/24/2016 Overview: History: No known prior hx of DVT/PE Assessment: The pt is on lovenox SC and SCD for VTE prophylaxis. No signs or symptoms of DVT/PE. The patient is at high risk for VTE. Plan: - Continue lovenox SC while hospitalized - SCD/MERCED - Encourage continued ambulation . DISPOSITION AND FOLLOW-UP 02/09/20152015 Overview: History: Jana Donis is lives in [place], [place]. Assessment: At this time, we anticipate that the patient will be discharged home today. Plan: - Discuss needs with patient. - Collaborate with Case management to facilitate DC process - d/c home today - Follow up in 7-10 days with chest xray . Lung nodules 01/05/2015 12/02/2019 Overview: History: 64 yo F with history of Stage IIIA (T2aN2) NSCLC of LLL s/p open LLL lobectomy in 02/2015 followed by adjuvant chemoradiation (N2 on final path). She had synchronous RLL nodule at that time for which she underwent staged R VATS RLL wedge on 02/2016 revealing stage IA Adenocarcinoma. Now with enlarging RLL nodule, suspicious for malignancy. On 12/01/2019, underwent Robotic right lower lobe wedge resection Assessment: Plan: * documented as of this encounter (statuses as of 08/31/2022) [facility] illness Narrative* Problem Noted Date Diagnosed Date Resolved Date Lung mass 12/01/2019 12/02/2019 Essential hypertension 02/09/201512/01 Overview: History: HTN. Previoiusly was on Bystolic but no longer on any medication Assessment: Plan: . Mechanical venous thromboemb olism (VTE) prophylaxis in place 02/09/2015 02/24/2016 Overview: History: No known prior hx of DVT/PE Assessment: The pt is on lovenox SC and SCD for VTE prophylaxis. No signs or symptoms of DVT/PE. The patient is at high risk for VTE. Plan: - Continue lovenox SC while hospitalized - SCD/MERCED - Encourage continued ambulation . DISPOSITION AND FOLLOW-UP 02/09/2015 Overview: History: Jana Donis is lives in [place], [place]. Assessment: At this time, we anticipate that the patient will be discharged home today. Plan: - Discuss needs with patient. - Collaborate with Case management to facilitate DC process - d/c home today - Follow up in 7-10 days with chest xray . Lung nodules 01/05/2015 12/02/2019 Overview: History: 64 yo F with history of Stage IIIA (T2aN2) NSCLC of LLL s/p open LLL lobectomy in 02/2015 followed by adjuvant chemoradiation (N2 on final path). She had synchronous RLL nodule at that time for which she underwent staged R VATS RLL wedge on 02/2016 revealing stage IA Adenocarcinoma. Now with enlarging RLL nodule, suspicious for malignancy. On 12/01/2019, underwent Robotic right lower lobe wedge resection Assessment: Plan: * documented as of this encounter (statuses as of 12/01/2022) [facility] illness Narrative* Problem Noted Date Diagnosed Date Resolved Date Lung mass 12/01/2019 12/02/2019 Essential hypertension 02/09/201512/01 Overview: History: HTN. Previoiusly was on Bystolic but no longer on any medication Assessment: Plan: . Mechanical venous thromboemb olism (VTE) prophylaxis in place 02/09/2015 02/24/2016 Overview: History: No known prior hx of DVT/PE Assessment: The pt is on lovenox SC and SCD for VTE prophylaxis. No signs or symptoms of DVT/PE. The patient is at high risk for VTE. Plan: - Continue lovenox SC while hospitalized - SCD/MERCED - Encourage continued ambulation . DISPOSITION AND FOLLOW-UP 02/09/2015 Overview: History: Jana Donis is lives in [place], [place]. Assessment: At this time, we anticipate that the patient will be discharged home today. Plan: - Discuss needs with patient. - Collaborate with Case management to facilitate DC process - d/c home today - Follow up in 7-10 days with chest xray . Lung nodules 01/05/2015 12/02/2019 Overview: History: 64 yo F with history of Stage IIIA (T2aN2) NSCLC of LLL s/p open LLL lobectomy in 02/2015 followed by adjuvant chemoradiation (N2 on final path). She had synchronous RLL nodule at that time for which she underwent staged R VATS RLL wedge on 02/2016 revealing stage IA Adenocarcinoma. Now with enlarging RLL nodule, suspicious for malignancy. On 12/01/2019, underwent Robotic right lower lobe wedge resection Assessment: Plan: * documented as of this encounter (statuses as of 12/27/2022) [facility] Diagnosis Lung nodules- Primary Other nonspecific abnormal finding of lung field documented [facility] this encounter [facility]* Diagnosis Malignant neoplasm of lower lobe of left lung (HCC)- Primary Lung nodules Other nonspecific abnormal finding of lung field [facility] assessment information availableMary [facility] Work Phone: Evaluation note* Diagnosis Lung nodules- Primary Other nonspecific abnormal finding of lung field [facility] Malignant neoplasm of lower lobe of left lung (HCC)- Primary Primary adenocarcinoma of right lung (HCC) Headaches [facility] Malignant neoplasm of lower lobe of left lung (HCC)- Primary [facility] History of lung cancer- Primary Personal history of malignant neoplasm of bronchus and lung [facility] Malignant neoplasm of lower lobe of right lung (HCC)- Primary Malignant neoplasm of lower lobe of left lung (HCC) Family history of cancer Family history of unspecified malignant neoplasm [facility] History of lung cancer- Primary Personal history of malignant neoplasm of bronchus and lung [facility] Malignant neoplasm of lower lobe of left lung (HCC)- Primary [facility] Malignant neoplasm of lower lobe of left lung (HCC)- Primary History of lung cancer Personal history of malignant neoplasm of bronchus and lung documented in this encounter [facility] ClinicEvaluation note* Diagnosis Malignant neoplasm of lower lobe of left lung (HCC) [facility] Diagnosis Malignant neoplasm of lower lobe of left lung (HCC)- Primary [facility] Diagnosis History of lung cancer Personal history of malignant neoplasm of bronchus and lung [facility] Diagnosis Lung nodules Other nonspecific abnormal finding of lung field [facility] Diagnosis Lung nodules Other nonspecific abnormal finding of lung field [facility] Diagnosis Dizziness Dizziness and giddiness Malignant neoplasm of lower lobe of left lung (HCC) [facility] Diagnosis Malignant neoplasm of lower lobe of left lung (HCC) [facility] Diagnosis History of lung cancer- Primary Personal history of malignant neoplasm of bronchus and lung Shortness of breath [facility] MONTES DE OCA (dyspnea on exertion) [R06.09]- Primary Other dyspnea and respiratory abnormality documented in this encounter [facility] general Narrative - Reported* Type Description Date Medical History Lung Cancer Remission Surgical History Foot Surgery Surgical History hysterectomy Surgical History appendectomy Surgical History hemorrhoidectomy Surgical History colonoscopy Hospitalization History see above [facility] Other Summary Purpose Family History No Family History Records FoundNo Family History Records FoundNo Family History Records FoundNo Family History Records FoundNo Family History Records FoundNo Family History Records Found Advance Directives Documents on File Type Date Recorded Patient Cuff Presser Expl anation Advance Directive(s) 11/28/2019 3:23 PM Advance Directive(s) 02/17/2016 3:02 PM Advance Directive(s) 02/15/2016 8:40 AM Advance Directive(s) 02/08/2015 12:51 PM Documents on File Type Date Recorded Patient Cuff Presser Expl anation Advance Directive(s) 11/28/2019 3:23 PM Advance Directive(s) 02/17/2016 3:02 PM Advance Directive(s) 02/15/2016 8:40 AM Advance Directive(s) 02/08/2015 12:51 PM Advance Directive Response Recorded Date/ Time Advance Directives No July 19 2:38pm Documents on File Type Date Recorded Patient Cuff Presser Expl anation Advance Directive(s) 02/08/2015 12:51 PM Documents on File Type Date Recorded Patient Cuff Presser Expl anation Advance Directive(s) 02/08/2015 12:51 PM Reason for Referral Specialty Diagnoses / Procedures Referred By Ayaz christina Referred To Contact CT IMAGING Diagnoses Lung nodules Procedures CT CHEST W IVCON DIAGNOSTIC COMPUTED TOMOGRAPHY THORAX W/CONTRAST Niall Lane MD [address] [place] [address] [place] [address] Ct Imaging Referral ID Status Reason Start Date Expiration Date Visits Requested Visits Authorized [id number] Authorized Auto-Generat ed Referral 07/05/2021 08/04/2022 1 1 Specialty Diagnoses / Procedures Referred By Ayaz christina Referred To Contact CT IMAGING Diagnoses Malignant neoplasm of unspecified part of unspecified bronchus or lung (HCC) Procedures CT CHEST W IVCON DIAGNOSTIC COMPUTED TOMOGRAPHY THORAX W/CONTRAST Niall Lane MD [address] [place] [address] [place] [address] Ct Imaging Referral ID Status Reason Start Date Expiration Date Visits Requested Visits Authorized [id number] Authorized Auto-Generat ed Referral 01/03/2022 02/02/2023 1 1 Specialty Diagnoses / Procedures Referred By Contac t Referred To Contact Diagnoses Malignant neoplasm of unspecified part of unspecified bronchus or lung (HCC) Procedures CONSULT TO MEDICAL GENETICS - CANCER MEDICAL GENETICS COUNSELING EACH [address] MD [address] [place] [address] [place] [address] [address] Referral ID Status Reason Start Date Expiration Date Visits Requested Visits Authorized [id number] Pending Review PCP Requested Referral Auto-Generate d Referral 07/11/2022 07/11/2023 1 1 Referral ID Status Reason Start Date Expiration Date Visits Requested Visits Authorized [id number] Authorized Auto-Generat ed Referral 07/11/2022 08/10/2023 1 1 Specialty Diagnoses / Procedures Referred By Contac t Referred To Contact CT IMAGING Diagnoses Malignant neoplasm of unspecified part of unspecified bronchus or lung (HCC) Procedures CT CHEST W IVCON DIAGNOSTIC COMPUTED TOMOGRAPHY THORAX W/CONTRAST Niall Lane MD [address] [place] [address] [place] [address] [place] [address] Referral ID Status Reason Start Date Expiration Date Visits Requested Visits Authorized [id number] Authorized Auto-Generat ed Referral 06/27/2023 01/25/2024 1 1 Referral ID Status Reason Start Date Expiration Date Visits Requested Visits Authorized [id number] Pending Review Auto-Generat ed Referral 07/02/2023 07/31/2024 1 1 Referral ID Status Reason Start Date Expiration Date V isits Requested Visits Authorized [id number] Closed Auto-Generate d Referral 06/27/2023 01/25/2024 1 1 Referral ID Status Reason Start Date Expiration Date V isits Requested Visits Authorized [id number] Closed Auto-Generate d Referral 07/11/2022 08/10/2023 1 1 Referral ID Status Reason Start Date Expiration Date V isits Requested Visits Authorized [id number] Closed Auto-Generate d Referral 01/03/2022 02/02/2023 1 1 Specialty Diagnoses / Procedures Referred By Contac t Referred To Contact CT IMAGING Diagnoses Lung nodules Procedures CT CHEST W IVCON DIAGNOSTIC COMPUTED TOMOGRAPHY THORAX W/CONTRAST Niall Lane MD [address] [place] [address] [place] [address] [place] [address] Referral ID Status Reason Start Date Expiration Date V isits Requested Visits Authorized [id number] Closed Auto-Generate d Referral 07/05/2021 08/04/2022 1 1 Specialty Diagnoses / Procedures Referred By Contac t Referred To Contact CT IMAGING Diagnoses Lung nodules Procedures CT CHEST W IVCON CAT SCAN OF CHEST CONTRAST Niall Lane MD [address] [place] [address] [place] [address] [place] [address] Referral ID Status Reason Start Date Expiration Date V isits Requested Visits Authorized [id number] Closed Auto-Generate d Referral 02/22/2021 03/24/2022 1 1 Specialty Diagnoses / Procedures Referred By Contac t Referred To Contact MR IMAGING Diagnoses Dizziness Malignant neoplasm of lower lobe of left lung (HCC) Procedures MRI BRAIN WO/W IVCON MRI BRAIN COMBO Niall Lane MD [address] [place] [address] [place] [address] [place] [address] Referral ID Status Reason Start Date Expiration Date V isits Requested Visits Authorized [id number] Closed Auto-Generate d Referral 02/22/2021 03/24/2022 1 1 Specialty Diagnoses / Procedures Referred By Contac t Referred To Contact CT IMAGING Diagnoses [id number] - CAT SCAN OF CHEST CONTRAST Procedures CT CHEST W IVCON CAT SCAN OF CHEST CONTRAST Niall Lane MD [address] [place] [address] [place] [address] [place] [address] Referral ID Status Reason Start Date Expiration Date V isits Requested Visits Authorized [id number] Closed Auto-Generate d Referral 11/23/2020 12/23/2021 1 1 Referral ID Status Reason Start Date Expiration Date V isits Requested Visits Authorized [id number] Closed Auto-Generate d Referral 07/02/2023 07/31/2024 1 1 Specialty Diagnoses / Procedures Referred By Contac t Referred To Contact Pulmonary and Critical Care Medicine Diagnoses Malignant neoplasm of unspecified part of unspecified bronchus or lung (HCC) Procedures CONSULT TO PULM/CRITICAL CARE OFFICE/OUTPATIENT NEW HIGH MDM [address] MD [address] [place] [address] [place] [address] Referral ID Status Reason Start Date Expiration Date Visits Requested Visits Authorized [id number] Authorized PCP Requested Referral 4 01/21/2025 1 1 Referral ID Status Reason Start Date Expiration Date Visits Requested Visits Authorized [id number] Authorized Auto-Generat ed Referral 4 02/20/2025 1 1 Chief Complaint and Reason for Visit Chief Complaint [id number] Health Concerns Infection Onset Date Last Indicated Resolved Time COVID-19 Rule-Out 12/19/2021 12/19/2021 12/19/2021 4:55 PM EDT Additional Source Comments INFORMATION SOURCE (unrecogn ized section and content) DATE CREATED AUTHOR 06/13/2018 [facility] DATE CREATED AUTHOR AUTHOR'S ORGANIZ ATION 10/08/2019 [facility] DATE CREATED AUTHOR AUTHOR'S ORGANIZ ATION 09/28/2021 [facility] DATE CREATED AUTHOR AUTHOR'S ORGANIZ ATION 12/24/2021 [facility] DATE CREATED AUTHOR AUTHOR'S ORGANIZ ATION 04/08/2022 [facility] DATE CREATED AUTHOR AUTHOR'S ORGANIZ ATION 02/05/2024 [facility] Source Comments (unrecognize d section and content) In the event this informatio n is protected by the Federal Confidentiality of Alcohol and Drug Abuse Patient Records regulations: The Federal rules restrict any use of the information to criminally investigate or prosecute any alcohol or drug abuse patient.[facility] the event this information is protected by the Federal Confidentiality of Alcohol and Drug Abuse Patient Records regulations: The Federal rules restrict any use of the information to criminally investigate or prosecute any alcohol or drug abuse patient.[facility] the event this information is protected by the Federal Confidentiality of Alcohol and Drug Abuse Patient Records regulations: The Federal rules restrict any use of the information to criminally investigate or prosecute any alcohol or drug abuse patient.[facility] the event this information is protected by the Federal Confidentiality of Alcohol and Drug Abuse Patient Records regulations: The Federal rules restrict any use of the information to criminally investigate or prosecute any alcohol or drug abuse patient.[facility] the event this information is protected by the Federal Confidentiality of Alcohol and Drug Abuse Patient Records regulations: The Federal rules restrict any use of the information to criminally investigate or prosecute any alcohol or drug abuse patient.[facility] the event this information is protected by the Federal Confidentiality of Alcohol and Drug Abuse Patient Records regulations: The Federal rules restrict any use of the information to criminally investigate or prosecute any alcohol or drug abuse patient.[facility] the event this information is protected by the Federal Confidentiality of Alcohol and Drug Abuse Patient Records regulations: The Federal rules restrict any use of the information to criminally investigate or prosecute any alcohol or drug abuse patient.[facility] the event this information is protected by the Federal Confidentiality of Alcohol and Drug Abuse Patient Records regulations: The Federal rules restrict any use of the information to criminally investigate or prosecute any alcohol or drug abuse patient.[facility] the event this information is protected by the Federal Confidentiality of Alcohol and Drug Abuse Patient Records regulations: The Federal rules restrict any use of the information to criminally investigate or prosecute any alcohol or drug abuse patient.[facility] the event this information is protected by the Federal Confidentiality of Alcohol and Drug Abuse Patient Records regulations: The Federal rules restrict any use of the information to criminally investigate or prosecute any alcohol or drug abuse patient.[facility] the event this information is protected by the Federal Confidentiality of Alcohol and Drug Abuse Patient Records regulations: The Federal rules restrict any use of the information to criminally investigate or prosecute any alcohol or drug abuse patient.[facility] the event this information is protected by the Federal Confidentiality of Alcohol and Drug Abuse Patient Records regulations: The Federal rules restrict any use of the information to criminally investigate or prosecute any alcohol or drug abuse patient.[facility] the event this information is protected by the Federal Confidentiality of Alcohol and Drug Abuse Patient Records regulations: The Federal rules restrict any use of the information to criminally investigate or prosecute any alcohol or drug abuse patient.[facility] the event this information is protected by the Federal Confidentiality of Alcohol and Drug Abuse Patient Records regulations: The Federal rules restrict any use of the information to criminally investigate or prosecute any alcohol or drug abuse patient.[facility] the event this information is protected by the Federal Confidentiality of Alcohol and Drug Abuse Patient Records regulations: The Federal rules restrict any use of the information to criminally investigate or prosecute any alcohol or drug abuse patient.[facility] the event this information is protected by the Federal Confidentiality of Alcohol and Drug Abuse Patient Records regulations: The Federal rules restrict any use of the information to criminally investigate or prosecute any alcohol or drug abuse patient.[facility] Center[facility] the event this information is protected by the Federal Confidentiality of Alcohol and Drug Abuse Patient Records regulations: The Federal rules restrict any use of the information to criminally investigate or prosecute any alcohol or drug abuse patient.[facility] Center[facility] the event this information is protected by the Federal Confidentiality of Alcohol and Drug Abuse Patient Records regulations: The Federal rules restrict any use of the information to criminally investigate or prosecute any alcohol or drug abuse patient.[facility] Center[facility] the event this information is protected by the Federal Confidentiality of Alcohol and Drug Abuse Patient Records regulations: The Federal rules restrict any use of the information to criminally investigate or prosecute any alcohol or drug abuse patient.[facility] Center[facility] the event this information is protected by the Federal Confidentiality of Alcohol and Drug Abuse Patient Records regulations: The Federal rules restrict any use of the information to criminally investigate or prosecute any alcohol or drug abuse patient.[facility] Center[facility] the event this information is protected by the Federal Confidentiality of Alcohol and Drug Abuse Patient Records regulations: The Federal rules restrict any use of the information to criminally investigate or prosecute any alcohol or drug abuse patient.[facility] Center[facility] the event this information is protected by the Federal Confidentiality of Alcohol and Drug Abuse Patient Records regulations: The Federal rules restrict any use of the information to criminally investigate or prosecute any alcohol or drug abuse patient.[facility] Center[facility] the event this information is protected by the Federal Confidentiality of Alcohol and Drug Abuse Patient Records regulations: The Federal rules restrict any use of the information to criminally investigate or prosecute any alcohol or drug abuse patient.[facility] Center[facility] the event this information is protected by the Federal Confidentiality of Alcohol and Drug Abuse Patient Records regulations: The Federal rules restrict any use of the information to criminally investigate or prosecute any alcohol or drug abuse patient.[facility] Reason for Visit (unrecogniz ed section and content) Reason Comments Radiology CT Specialty Diagnoses / Procedures Referred By Contac t Referred To Contact CT IMAGING Diagnoses Malignant neoplasm of unspecified part of unspecified bronchus or lung (HCC) Procedures CT CHEST W IVCON DIAGNOSTIC COMPUTED TOMOGRAPHY THORAX W/CONTRAST Niall Lane MD [address] [place] [address] [place] [address] [place] [address] Referral ID Status Reason Start Date Expiration Date V isits Requested Visits Authorized [id number] Closed Auto-Generate d Referral 07/11/2022 08/10/2023 1 1 Reason Comments Lab Orders Reason Comments Lung Cancer follow up Reason Comments Orders Reason Comments headaches Reason Comments Lung Cancer Follow up Reason Comments Lung Cancer Follow up Reason Comments Lung Cancer Reason Comments Lung Cancer Reason Comments Radiology [place] Referral ID Status Reason Start Date Expiration Date V isits Requested Visits Authorized [id number] Closed Auto-Generate d Referral 06/27/2023 01/25/2024 1 1 Referral ID Status Reason Start Date Expiration Date V isits Requested Visits Authorized [id number] Closed Auto-Generate d Referral 01/03/2022 02/02/2023 1 1 Specialty Diagnoses / Procedures Referred By Contac t Referred To Contact CT IMAGING Diagnoses Lung nodules Procedures CT CHEST W IVCON DIAGNOSTIC COMPUTED TOMOGRAPHY THORAX W/CONTRAST Niall Lane MD [address] [place] [address] [place] [address] [place] [address] Referral ID Status Reason Start Date Expiration Date V isits Requested Visits Authorized [id number] Closed Auto-Generate d Referral 07/05/2021 08/04/2022 1 1 Specialty Diagnoses / Procedures Referred By Contac t Referred To Contact CT IMAGING Diagnoses Lung nodules Procedures CT CHEST W IVCON CAT SCAN OF CHEST CONTRAST Niall Lane MD [address] [place] [address] [place] [address] [place] [address] Referral ID Status Reason Start Date Expiration Date V isits Requested Visits Authorized [id number] Closed Auto-Generate d Referral 02/22/2021 03/24/2022 1 1 Specialty Diagnoses / Procedures Referred By Contac t Referred To Contact MR IMAGING Diagnoses Dizziness Malignant neoplasm of lower lobe of left lung (HCC) Procedures MRI BRAIN WO/W IVCON MRI BRAIN COMBO Niall Lane MD [address] [place] [address] [place] [address] Referral ID Status Reason Start Date Expiration Date V isits Requested Visits Authorized [id number] Closed Auto-Generate d Referral 02/22/2021 03/24/2022 1 1 Specialty Diagnoses / Procedures Referred By Contac t Referred To Contact CT IMAGING Diagnoses [id number] - CAT SCAN OF CHEST CONTRAST Procedures CT CHEST W IVCON CAT SCAN OF CHEST CONTRAST Niall Lane MD [address] [place] [address] [place] [address] Referral ID Status Reason Start Date Expiration Date V isits Requested Visits Authorized [id number] Closed Auto-Generate d Referral 11/23/2020 12/23/2021 1 1 Referral ID Status Reason Start Date Expiration Date V isits Requested Visits Authorized [id number] Closed Auto-Generate d Referral 07/02/2023 07/31/2024 1 1 Reason Comments Lung Cancer Reason Comments Shortness of Breath History of lung cancer Care Teams (unrecognized sec tion and content) Motor Bus Driver Relationship Specialty Start Date End Date Al Bryan MD [address] [place] [address] PCP - General Family Practice 01/28/13 Damien Quijano [address] [place] [address] Primary Staff Physician Cardiology 05/21/[address] MD [address] [place] [address] Referring Hematology 10/13/19 Motor Bus Driver Relationship Specialty Start Date End Date Al Bryan MD [address] [place] [address] PCP - General Family Practice 01/28/13 [facility] [address] [facility] [place] [address] Primary Staff Physician Cardiology 05/21/[address] MD [address] [place] [address] [place] [address] Referring Hematology 10/13/19 Motor Bus Driver Relationship Specialty Start Date End Date Al Bryan MD [address] [place] [id number] PCP - General Family Practice 01/28/13 [facility] [address] [facility] [place] [address] Primary Staff Physician Cardiology 05/21/[address] MD [address] [place] [address] [place] [address] Referring Hematology 10/13/19 Team Status: Inactive Member Role Status Dates Al rByan MD Primary Care Provider Active Elsy Douglas MD Attending Provider Active Team Status: Active Member Role Status Dates Al Bryan MD Primary Care Provider Active Motor Bus Driver Relationship Specialty Start Date End Date Al Bryan MD [address] [facility] [place] [address] PCP - General Family Medicine 01/28/13 [facility] [address] [facility] [place] [address] Primary Staff Physician Cardiology 05/21/[address] MD [address] [place] [address] Referring Hematology 10/13/19 Motor Bus Driver Relationship Specialty Start Date End Date Al Bryan MD [address] [place] [address] PCP - General Family Medicine 01/28/13 [facility] [address] [place] [address] Primary Staff Physician Cardiology 05/21/[address] MD [address] [place] [address] [place] [address] Referring Hematology 10/13/19 Motor Bus Driver Relationship Specialty Start Date End Date Al Bryan MD [address] [place] [address] PCP - General Family Medicine 01/28/13 [facility] Damien [facility] [address] [place] [address] Primary Staff Physician Cardiology 05/21/[address] MD [address] [place] [address] [place] [address] Referring Hematology 10/13/19 Motor Bus Driver Relationship Specialty Start Date End Date Al Bryan MD [address] [place] [address] PCP - General Family Medicine 01/28/13 [facility] [address] [place] [address] Primary Staff Physician Cardiology 05/21/[address] MD [address] [place] [address] [place] [address] Referring Hematology 10/13/19 Motor Bus Driver Relationship Specialty Start Date End Date Al Bryan MD [address] [place] [address] PCP - General Family Medicine 01/28/13 [facility] [address] [place] [address] Primary Staff Physician Cardiology 05/21/[address] MD [address] [facility] [place] [address] Referring Hematology 10/13/19 Motor Bus Driver Relationship Specialty Start Date End Date Al Bryan MD [address] [facility] [place] [id number] PCP - General Family Medicine 01/28/13 Damien Quijano [address] [place] [address] Primary Staff Physician Cardiology 05/21/[address] MD [address] [place] [address] [place] [address] Referring Hematology 10/13/19 Motor Bus Driver Relationship Specialty Start Date End Date Al Bryan MD [address] [facility] [place] [id number] PCP - General Family Medicine 01/28/13 Damien Quijano [address] [place] [address] Primary Staff Physician Cardiology 05/21/[address] MD [address] [place] [address] Referring Hematology 10/13/19 Motor Bus Driver Relationship Specialty Start Date End Date Al Bryan MD [address] [facility] [place] [address] PCP - General Family Medicine 01/28/13 Damien Quijano [address] [place] [address] Primary Staff Physician Cardiology 05/21/[address] MD [address] [facility] [place] [address] Referring Hematology 10/13/19 Motor Bus Driver Relationship Specialty Start Date End Date Al Bryan MD [address] [place] [address] PCP - General Family Medicine 01/28/13 Damien Quijano [address] [address] Primary Staff Physician Cardiology 05/21/[address] MD [address] [facility] [place] [address] Referring Hematology 10/13/19 Motor Bus Driver Relationship Specialty Start Date End Date Al Bryan MD [address] [place] [address] PCP - General Family Medicine 01/28/13 [facility] [address] [place] [address] Primary Staff Physician Cardiology 05/21/[address] MD [address] [place] [address] Referring Hematology 10/13/19 Motor Bus Driver Relationship Specialty Start Date End Date Al Bryan MD [address] [facility] [place] [id number] PCP - General Family Medicine 01/28/13 Damien Quijano [address] [place] [address] Primary Staff Physician Cardiology 05/21/[address] MD [address] [facility] [place] [address] Referring Hematology 10/13/19 Motor Bus Driver Relationship Specialty Start Date End Date Al Bryan MD [address] [facility] [place] [id number] PCP - General Family Medicine 01/28/13 Damien Quijano [address] [place] [address] Primary Staff Physician Cardiology 05/21/[address] MD [address] [place] [address] Referring Hematology 10/13/19 Motor Bus Driver Relationship Specialty Start Date End Date Al Bryan MD [address] [facility] [place] [phone] PCP - General Family Medicine 01/28/13 Damien Quijano [address] [facility] [place] [address] Primary Staff Physician Cardiology 05/21/[address] MD [address] [facility] [place] [address] Referring Hematology 10/13/19 Motor Bus Driver Relationship Specialty Start Date End Date Al Bryan MD [address] [place] [address] PCP - General Family Medicine 01/28/13 Damien Quijano [address] [place] [address] Primary Staff Physician Cardiology 05/21/[address] MD [address] [place] [address] [place] [address] Referring Hematology 10/13/19 Goals (unrecognized section and content) Goals may be documented in a n alternate sectionNo Information FOR RECORDS PERTAINING TO PATIENTS WHO ARE OR HAVE BEEN ENROLLED IN A CHEMICAL DEPENDENCY/SUBSTANCEABUSE PROGRAM, SOME INFORMATION MAY BE OMITTED. This clinical summary was aggregated from multiple sources. Caution should be exercised in using it in the provision of clinical care. This summary normalizes information from multiple sources, and as a consequence, information in this document may materially change the coding, format and clinical context of patient data. In addition, data may be omitted in some cases. CLINICAL DECISIONS SHOULD BE BASED ON THE PRIMARY CLINICAL RECORDS. [employer] provides no warranty or guarantee of the accuracy or completeness of information in this document.
== END 2024-02-28 13:23 | disposition home or self-care (01) ==
LOC: MRI 13:22
PROVIDERS: PCP Family Medicine
DX: H47.20 Unspecified optic atrophy (principal)
CPT/HCPCS: 70543; 70553; A9575

== ENCOUNTER 2024-10-20 08:05 | Outpatient (OUT) | payer MEDICARE, OTHER, SELFPAY ==
--- NOTE | 2024-10-20 08:07 | MM_ITS ---
Patient Name: ELIF DONIS MR#: [id number] : 1955 Exam Date: 10/20/2024 Ordering Doctor: DR AL BRYAN M.D. RADIOLOGY REPORT PROCEDURE: MM TOMOSYNTHESIS SCREENING BI COMPARISON: MM TOMOSYNTHESIS SCREENING BI, 10/19/2023. MM TOMOSYNTHESIS SCREENING BI, 10/10/2022. MG MAMM SCREEN 3D SANDI CAD, 09/22/2021. BREAST LOCAL EXP, 08/06/2012. INDICATIONS: Screening Calculator Name NCI Breast Cancer Risk Assessment Tool 5 Year Breast Cancer Risk 2.30% Lifetime Breast Cancer Risk 7.10% Personal Breast Cancer No Personal Ovarian Cancer No Treatments left lower lobe lobectomy, chemo and radiation Family Cancers Grandmother-paternal with breast cancer at age 48; Father with esoph and lung cancer at age ~60; Sister with lung cancer at age 57. LOCATION: [facility] BREAST COMPOSITION: There are scattered areas of fibroglandular density. FINDINGS: RIGHT BREAST: No significant suspicious finding. LEFT BREAST: No significant suspicious finding. DIAGNOSTIC CATEGORY 1--NEGATIVE. RECOMMENDATIONS: ROUTINE MAMMOGRAM AND CLINICAL EVALUATION IN 12 MONTHS. PLEASE NOTE: A NORMAL MAMMOGRAM DOES NOT EXCLUDE THE POSSIBILITY OF BREAST CANCER. A CLINICALLY SUSPICIOUS PALPABLE LUMP SHOULD BE BIOPSIED. Dictated by: Marc Madrigal MD on 10/20/2024 at 12:13 Approved by: Marc Madrigal MD on 10/20/2024 at 12:38
--- OUTSIDE RECORDS SUMMARY | 2024-10-20 08:16 | XMS_ITS | CCD ---
Author Organization [facility] Care Team Providers Care Director Of Elementary Education Name Role Phone PHYSICIAN, DEFAULT Admitting Unavailable PHYSICIAN, DEFAULT Attending Unavailable KARYN CHISHOLM Admitting Unavailable KARYN CHISHOLM Attending Unavailable AL BRYAN Referring Unavailable AL BRYAN Primary Care Unavailable Al Bryan MD Primary Care Provider Damien Quijano Unavailable [phone] Domingo ROSALES, Niall Marie Unavailable MD Al Bryan Primary Care Provider MD Elsy Douglas V Attending Provider Radha Drew Unavailable DR AL BRYAN Primary Care Unavailable PAY, DR KRUSE Admitting Unavailable PAY, DR KRUSE Attending Unavailable PAY, DR KRUSE Consulting Unavailable JIM, MIGUEL Consulting Unavailable JOE, ALBERTO Consulting Unavailable RANDI, DR AL Beal Primary Care Unavailable LEYLA TOVAR Admitting Unavailable LEYLA TOVAR Attending Unavailable LATONYA, DR JEANINE Marie Consulting Unavailable LEYLA TOVAR Consulting Unavailable RANDI, DR AL Beal Admitting Unavailable BRYAN, DR AL Beal Attending Unavailable RANDI, DR AL Beal Primary Care Unavailable WEST, DR SANDEEP Sanchez Consulting Unavailable RANDI, DR AL Beal Consulting Unavailable RANDI, DR AL Beal Admitting Unavailable BRYAN, DR AL Beal Attending Unavailable BRYAN, DR AL Beal Primary Care Unavailable BRYAN, DR AL Beal Consulting Unavailable MOUKARBEL, DR CHIN Admitting Unavailable MOUKARBEL, DR CHIN Attending Unavailable RANDI, DR AL Beal Primary Care Unavailable MOUKARBEL, DR CHIN Admitting Unavailable MOUKARBEL, DR CHIN Attending Unavailable BRYAN, DR AL Beal Primary Care Unavailable MOUKARBEL, DR ELSY Consulting Unavailable RANDI, DR AL Beal Primary Care Unavailable MARSHALL, DR ANA Marie Admitting Unavailable MARSHALL, DR ANA Marie Attending Unavailable MARSHALL, DR ANA Marie Consulting Unavailable Al Bryan MD Primary Care Provider Hamdoanl Damien Vagesh Unavailable Niall Lane MD Unavailable [phone] LCURECIA ENRIQUE Attending Unavailable BRYAN, AL E Primary Care Unavailable Randi, Al E Primary Care Unavailable Elsy Douglas V Attending Unavailable Elsy Douglas V Admitting Unavailable Al Bryan MD Primary Care Provider Hamdonal, Damien Vagesh Unavailable Niall Lane MD Unavailable Samm, Damien Vagesh Unavailable Al Bryan MD Primary Care Provider BRYAN, AL E Primary Care Unavailable NIALL SMITH Attending Unavailable BRYAN, AL E Primary Care Unavailable JEANINE MONTERO Referring Unavailable BRYAN, AL E Primary Care Unavailable NIALL LANE Attending UnavailNIALL Ramos Referring Unavailabl e BRYAN, AL E Primary Care Unavailable NIALL SMITH Unavailable BRYAN, AL E Primary Care Unavailable NIALL LANE Referring Unavailabl e BRYAN, AL E Primary Care Unavailable NIALL LANE Attending UnavailNIALL Ramos Referring Unavailabl e BRYAN, AL E Primary Care Unavailable Medications Current Medications Medication Drug Class(es) Dates Sig (Normalized) Sig (Original) fluticasone propionate 0.05 mg/actuat metered dose nasal spray (1 source) Corticosteroid Start: 08-03-2021 take 2 spray(s) nasal route once daily Fluticasone Propionate 50 MCG/ACT 2 sprays Nasally Once a day for 14 day(s) Aug, Active iv contrast (will be provided with radiology test) (7 sources) Start: 07-29-2024 End: 07-30-2024 iv contrast (will be provided with radiology [...] according to line specific nursing protocol in theCT contrast administration guidelines link. 1 each 07/29/2024 07/30/2024 Active Start: 01-22-2024 End: 01-23-2024 iv contrast (will be provide d with [...] Use 1 Drop in eyes. estrogens, conjugated (half-way) 0.45 mg oral tablet (1 source) Estrogen Premarin 0.45 MG 1 tablet Orally Daily for Three Weeks, 1 Week off Not-Taking Problems Active Problems Problem Classification Problem Date Documented Da te Episodic/Chronic Cancer of bronchus; lung (20 sources) Malignant neoplasm of lower lobe of left lung; Translations: [Malignant neoplasm of lower lobe, left bronchus or lung] Onset: 05-05-2015 05-05-2015 Chronic Cancer; other respiratory and intrathoracic (1 source) Malignant neoplasm of lower respiratory tract 07-29-2024 Chronic Conditions associated with dizziness or vertigo (1 source) Dizziness; Translations: [Dizziness and giddiness] 03-15-2021 Episodic Disorders of lipid metabolism (20 sources) Hyperlipidemia; Translations: [Hyperlipidemia, unspecified] Onset: 02-09-2015 02-28-2021 Chronic Headache; including migraine (2 sources) Headache disorder; Translations: [Headache] Onset: 12-19-2021 Episodic Other ear and sense organ disorders (4 sources) Otalgia, right ear; Translations: [OTALGIA RIGHT EAR] Onset: 08-03-2021 Episodic Other eye disorders (1 source) Primary optic atrophy, right eye; Translations: [Primary optic atrophy, right] Onset: 09-23-2024 Chronic Other lower respiratory disease (4 sources) Other forms of dyspnea; Translations: [OTHER FORMS OF DYSPNEA] Onset: 08-04-2021 Episodic Other lower respiratory disease (3 sources) Dyspnea; Translations: [Shortness of breath] 01-23-2024 Episodic [...] [CONTACT W/AND (SUSP) EXPOS COVID-19] Onset: 01-06-2021 Unclassified (1 source) MONTES DE OCA Onset: 09-23-2024 Viral infection (1 source) COVID-19; Translations: [COVID-19] [...] unspecified] Onset: 02-09-2015 02-28-2021 Episodic Essential hypertension (16 sources) Essential hypertension; Translations: [Essential (primary) hypertension] [...] Onset: 10-07-2020 Episodic Other lower respiratory disease (20 sources) Multiple nodules of lung; Translations: [Other nonspecific abnormal finding of lung field] Onset: 01-05-2015 Resolved: 12-02-2019 Episodic Other lower respiratory disease (16 sources) Lung mass; Translations: [Other nonspecific abnormal [...] Onset: 01-30-2014 01-30-2014 Episodic Residual codes; unclassified (16 sources) Device in situ; Translations: [Other specified health status] Onset: 02-09-2015 Resolved: 02-24-2016 02-24-2016 Episodic Screening and history of mental health and substance abuse codes (1 source) Personal history of nicotine dependence; Translations: [PERSONAL HISTORY OF NICOTINE DEPEND] Onset: 01-06-2021 Episodic Unclassified (1 source) CONTACT W/AND (SUSP) EXPOS COVID-19; Translations: [CONTACT W/AND (SUSP) EXPOS COVID-19] Onset: 07-20-2021 Unclassified (16 sources) DISPOSITION AND FOLLOW-UP Onset: 02-09-2015 Resolved: 02-24-2016 02-24-2016 Results Test Name Value Interpretation Reference Range Facility MARIA EUGENIA SerPl-cCncon 09-23-2024 Angiotensin converting enzyme [Catalytic activity/Vol] 47 U/L Normal <=52 [facility] Comment on above: Order Comment: Cheryl bishop Type: BLOOD SPECIMENOrdering Facility: External Submitter Address: , , Result Comment: Cherri ficially low MARIA EUGENIA levels may be found for patients taking MARIA EUGENIA inhibitors or after the administration of gadolinium. This test was developed, and its performance characteristics determined by the [facility] Department of Pathology and Laboratory Medicine. It has not been cleared or approved by the FDA. The [facility] Department of Pathology and Laboratory Medicine is regulated under CLIA as qualified to perform high-complexity testing. This test is used for clinical purposes. It should not be regarded as investigational or for research. Performed By: #### 2 742-5, 38171-9 ####[facility] LABCLIA [id number] [address] [place]#### MISC1 ####NON-INTERFACED REF LABSCLIA SEE SCANNED RESULTSEAST [facility]IO REG[facility] LABCLIA [id number] [address] [place] RADHA BY IFA WITH REFLEXon Nuclear Ab Ql (S) Negative Normal Negative [facility] Comment on above: Order Comment: Cheryl bishop Type: BLOOD SPECIMENOrdering Facility: External Submitter Address: , , Result Comment: Anti -nuclear antibody test is used as an aid in diagnosis of systemic autoimmune diseases. Where positive and clinically warranted, follow-up using disease-specific testing is recommended. Low positive titers are not uncommon with advanced age, certain chronic infections, and malignancies among others. Test methodology: Indirect fluorescence immunoassay (IFA) using HEp-2 cells. Performed By: #### A NAIFR ####[facility] LABCLIA [id number] [address] STATES OF [facility] CBC W Auto Differential pane l (Bld)on 09-23-2024 Basophils (Bld) [#/Vol] 0.03 10*3/uL Normal <0.11 [facility] Comment on above: Order Comment: Speci men Type: BLOOD SPECIMENOrdering Facility: External Submitter Address: , , Performed By: #### 4 537-7, 68507-6 ####[facility] LABCLIA [id number] [address], [place] [address] [place] Basophils/100 WBC (Bld) 0.7 % Normal [facility] Comment on above: Order Comment: Speci men Type: BLOOD SPECIMENOrdering Facility: External Submitter Address: , , Performed By: #### 4 537-7, ####[facility] LABIA [id number] [address], [address] STATES [facility] Differential cell count method Nom (Bld) Auto Normal [facility] Comment on above: Order Comment: Speci men Type: BLOOD SPECIMENOrdering Facility: External Submitter Address: , , Performed By: #### 4 537-7, ####[facility] LABCLIA [id number] [place] [address] [place] Eosinophils (Bld) [#/Vol] 0.04 10*3/uL Normal <0.46 [facility] Comment on above: Order Comment: Speci men Type: BLOOD SPECIMENOrdering Facility: External Submitter Address: , , Performed By: #### 4 537-7, 66603-4 ####[facility] LABCLIA [id number] [address] [place] [address] [place] Eosinophils/100 WBC (Bld) 0.9 % Normal [facility] Comment on above: Order Comment: Speci men Type: BLOOD SPECIMENOrdering Facility: External Submitter Address: , , Performed By: #### 4 537-7, 52980-5 ####[facility] LABIA [id number] [address] [place] [address] [place] Erythrocyte distribution width (RBC) [Ratio] 12.6 % Normal 11.5-15.0 [facility] Comment on above: Order Comment: Speci men Type: BLOOD SPECIMENOrdering Facility: External Submitter Address: , , Performed By: #### 4 537-7, ####[facility] LABIA [id number] [address], [facility] [place] Hematocrit (Bld) [Volume fraction] 39.1 % Normal 36.0-46.0 [facility] Comment on above: Order Comment: Speci men Type: BLOOD SPECIMENOrdering Facility: External Submitter Address: , , Performed By: #### 4 537-7, ####[facility] LABCLIA [id number] [address] [place] [address] [place] Hemoglobin (Bld) [Mass/Vol] 12.7 g/dL Normal 11.5-15.5 [facility] Comment on above: Order Comment: Speci men Type: BLOOD SPECIMENOrdering Facility: External Submitter Address: , , Performed By: #### 4 537-7, ####[facility] LABIA [id number] [address], [facility]95 [place] Immature granulocytes (Bld) [#/Vol] 10*3/uL Normal <0.10 [facility] Comment on above: Order Comment: Speci men Type: BLOOD SPECIMENOrdering Facility: External Submitter Address: , , Performed By: #### 4 537-7, ####[facility] LABCLIA [id number] [address] [place] [address] [place] Immature granulocytes/100 WBC (Bld) 0.0 % Normal [facility] Comment on above: Order Comment: Speci men Type: BLOOD SPECIMENOrdering Facility: External Submitter Address: , , Performed By: #### 4 537-7, 16132-0 ####[facility] LABCLIA [id number] [facility] [address] [place] [address] [facility] Lymphocytes (Bld) [#/Vol] 1.18 10*3/uL Normal 1.00-4.00 [facility] Comment on above: Order Comment: Speci men Type: BLOOD SPECIMENOrdering Facility: External Submitter Address: , , Performed By: #### 4 537-7, 20391-2 ####[facility] LABCLIA [id number] [facility] [address], [facility] [place] [facility] Lymphocytes/100 WBC (Bld) 26.4 % Normal [facility] Comment on above: Order Comment: Speci men Type: BLOOD SPECIMENOrdering Facility: External Submitter Address: , , Performed By: #### 4 537-7, 64799-5 ####[facility] LABCLIA [id number] [facility] [address] [place] [address] [place] MCH (RBC) [Entitic mass] 30.3 pg Normal 26.0-34.0 [facility] Comment on above: Order Comment: Speci men Type: BLOOD SPECIMENOrdering Facility: External Submitter Address: , , Performed By: #### 4 537-7, 97217-6 ####[facility] LABCLIA [id number] [facility] [address] [place] [address] [place] [facility] MCHC (RBC) [Mass/Vol] 32.5 g/dL Normal 30.5-36.0 [facility] Comment on above: Order Comment: Speci men Type: BLOOD SPECIMENOrdering Facility: External Submitter Address: , , Performed By: #### 4 537-7, ####[facility] LABCLIA [id number] [address] [id number] [address] [place] MCV (RBC) [Entitic vol] 93.3 fL Normal 80.0-100.0 [facility] Comment on above: Order Comment: Speci men Type: BLOOD SPECIMENOrdering Facility: External Submitter Address: , , Performed By: #### 4 537-7, ####[facility] LABCLIA [id number] [address] [id number], [place] [address] [place] Monocytes (Bld) [#/Vol] 0.33 10*3/uL Normal <0.87 [facility] Comment on above: Order Comment: Speci men Type: BLOOD SPECIMENOrdering Facility: External Submitter Address: , , Performed By: #### 4 537-7, ####[facility] LABCLIA [id number] [id number], [place] [address] [place] Monocytes/100 WBC (Bld) 7.4 % Normal [facility] Comment on above: Order Comment: Speci men Type: BLOOD SPECIMENOrdering Facility: External Submitter Address: , , Performed By: #### 4 537-7, ####[facility] LABCLIA [id number] [id number], [place] [address] [place] Neutrophils (Bld) [#/Vol] 2.89 10*3/uL Normal 1.45-7.50 [facility] Comment on above: Order Comment: Speci men Type: BLOOD SPECIMENOrdering Facility: External Submitter Address: , , Performed By: #### 4 537-7, ####[facility] LABCLIA [id number] [address] [id number], [place] [address] [place] Neutrophils/100 WBC (Bld) 64.6 % Normal [facility] Comment on above: Order Comment: Speci men Type: BLOOD SPECIMENOrdering Facility: External Submitter Address: , , Performed By: #### 4 537-7, 77629-3 ####[facility] LABIA [id number] [address] Nucleated RBC (Bld) [#/Vol] 10*3/uL Normal <0.01 [facility] Comment on above: Order Comment: Speci men Type: BLOOD SPECIMENOrdering Facility: External Submitter Address: , , Performed By: #### 4 537-7, 08434-6 ####[facility] LABIA [id number] [address] OF [facility] Nucleated RBC/100 WBC (Bld) [Ratio] 0.0 /100 WBC Normal [facility] Comment on above: Order Comment: Speci men Type: BLOOD SPECIMENOrdering Facility: External Submitter Address: , , Performed By: #### 4 537-7, 35450-1 ####[facility] LABIA [id number] [address], [address] [place] Platelet mean volume (Bld) [Entitic vol] Normal [facility] Comment on above: Order Comment: Speci men Type: BLOOD SPECIMENOrdering Facility: External Submitter Address: , , Result Comment: Unab le to Report. Performed By: #### 4 537-7, 30580-3 ####[facility] LABIA [id number] [place] [id number] [facility] [place] Platelets (Bld) [#/Vol] Normal [facility] Comment on above: Order Comment: Speci men Type: BLOOD SPECIMENOrdering Facility: External Submitter Address: , , Result Comment: Plat elet count confirmed by manual review of peripheral blood smear. Results checked and verified.No clot detected.Platelets Clumped Estimate Normal. Performed By: #### 4 537-7, 45926-1 ####[facility] LABIA [id number] [place] [address] [place] RBC (Bld) [#/Vol] 4.19 10*6/uL Normal 3.90-5.20 [facility] Comment on above: Order Comment: Speci men Type: BLOOD SPECIMENOrdering Facility: External Submitter Address: , , Performed By: #### 4 537-7, 07379-6 ####[facility] [id number] [place] [address] [facility] WBC (Bld) [#/Vol] 4.47 10*3/uL Normal 3.70-11.00 [facility] Comment on above: Order Comment: Speci men Type: BLOOD SPECIMENOrdering Facility: External Submitter Address: , , Performed By: #### 4 537-7, 15386-0 ####[facility] [id number] [place] [address] [facility] CNOVon 09-23-2024 CNOV Office Visit (PULMLO ) JANA DONIS ([id number]) 1955 F Date Time Provider Department 09/23/24 10:30 AM NIALL SMITH During your visit today, we recorded the following information about you: Pulse Blood pressure Weight Height 78/minute 134/70 57 kg 1.524 m Niall Smith MD 09/23/2024 10:56 AM Signed . [facility] Note Ms. Donis is a 69 year old female who presents to the [facility] for follow up of dyspnea. HPI: 69 year old female with adenocarcinoma of the right lung s/p wedge resection (11/11/2019) and s/p Left lower lobectomy (02/2015) that presents for follow up of dyspnea. Just came [facility] from [facility] on vac She went to the ocean once and spent time around the pool, Took a 14 mile bike ride and she did well. She believes that her shortness of breath is much better. She did led the pack on the 14 mile bike. NO wheezing or coughing. She is still staying active. Allergies: Patient has no known allergies. Outpatient Medications: cycloSPORINE (RESTASIS MULTIDOSE) 0.05 % drop Use 1 Drop in eyes. PHYSICAL EXAM: BP 134/70 Pulse 78 Ht 5' 0 (1.52m) Wt 125 lb 10.6 oz (57.0kg) SpO2 98% BMI 24.54 kg/(m2). GEN: Alert, comfortable, sitting up in chair, no distress CV: RRR PULM: CTAB, no wheezing or crackles Labs / Imaging / Diagnostic Studies: All radiography listed below personally reviewed by me Data Reviewed from [facility] (in addition to that noted in HPI, and Past histories above): PFT: 11/06/2019: Nl flory, Nl DLCO CT Chest 07/22/24: IMPRESSION: 1. No CT evidence of new metastatic disease in the chest. 2. Stable appearing groundglass and solid pulmonary nodules in both lungs. No new or enlarging pulmonary nodules are identified. 3. No pathologically enlarged lymph nodes identified in the chest. CT Chest 12/25/23: IMPRESSION: 1. No CT evidence of new metastatic disease in the chest. 2. Stable appearing groundglass and solid pulmonary nodules in both lungs. No new or enlarging pulmonary nodules are identified. 3. No pathologically enlarged lymph nodes identified in the chest. Assessment: Ms. Donis is a 69 year old female who presents to the [facility] [place] for evaluation of Dyspnea MONTES DE OCA Her MONTES DE OCA has resolved and she remains active Counseled to continue her physical activity. Lung nodules -she does have a few remaining lung nodules in her chest, overall read as stable per radiology -the most concerning of which is the ALISA groundglass nodule -plan already in place for follow up CT chest with oncology Follow up as needed. Niall Smith MD Pulmonary and Critical Care Staff Niall Smith MD 09/23/2024 10:53 AM Signed Continue to stay active. Follow up as needed. Allergies As of Date: 09/23/2024 (No Known Allergies) Date Reviewed: 09/23/2024 Reviewed by: Lucinda Desai MA - Fully Assessed Reason for Visit: MONTES DE OCA [Other] Primary Visit Diagnosis:Dyspnea and respiratory abnormalities [R06.00, R06.89] [R06.00, R06.89] Prescriptions as of 09/23/2024 - cycloSPORINE (RESTASIS MULTIDOSE) 0.05 % drop Use 1 Drop in eyes. Problem List As Of Date 09/23/2024 Noted Resolved Family history of early CAD [...] of lower lobe of right lung *12/02/2019 Other instructions from your clinician: Continue to stay active. Follow up as needed. Follow-up and Disposition History for Encounter Date Provider Department Center 09/23/2024 [id number]-HZHVPNIALL SMITH [facility] Encounter Status:Closed by NIALL SMITH on 09/23/24 Normal [facility] LEAD PHARMACY TECHNICIAN DEMYELINATING DISEASE Iker SALDIVAR 09-23-2024 LEAD PHARMACY TECHNICIAN DEMYELINATING DISEASE INTERP, S SEE NOTE Normal [facility] Comment on above: Order Comment: Speci men Type: BLOOD SPECIMENOrdering Facility: External Submitter Address: , , Result Comment: No i nformative autoantibodies were detected in this evaluation. A negative result does not preclude a diagnosis of an inflammatory LEAD PHARMACY TECHNICIAN demyelinating disorder. Performed By: #### Giorgio DS1SE ####[facility] LABCLIA [id number] [place] [address] MYELIN OLIGODENDROCYTE GLYCOPROTEIN (MOG-IGG1) FLUORESCENCE-ACTIVA MERCED CELL Negative Normal Negative [facility] Comment on above: Order Comment: Cheryl bishop Type: BLOOD SPECIMENOrdering Facility: External Submitter Address: , , Result Comment: ADDITIONAL INFORMATION This test was developed and its performance characteristics determined by [facility] in a manner consistent with CLIA requirements. This test has not been cleared or approved by the U.S. Food and Drug Administration. Test Performed by: [address] [address] Director Learning: Cece Valdez Ph.D.; CLIA# [id number] Performed By: #### Giorgio DS1SE ####[facility] LABCLIA [id number] [place] [address] NMO/AQPF FACS, S Negative Normal Negative [facility] Comment on above: Order Comment: Cheryl bishop Type: BLOOD SPECIMENOrdering Facility: External Submitter Address: , , Result Comment: ADDITIONAL INFORMATION This test was developed and its performance characteristics determined by [facility] in a manner consistent with CLIA requirements. This test has not been cleared or approved by the U.S. Food and Drug Administration. Performed By: #### Giorgio DS1SE ####[facility] LABCLIA [id number] [place] [address] CRP [facility]2024 CRP [Mass/Vol] mg/L Normal <0.9 [facility] Comment on above: Order Comment: Cheryl bishop Type: BLOOD SPECIMENOrdering Facility: External Submitter Address: , , Performed By: #### 1 1575, 1987-07 ####[facility] LABCLIA [id number] [place] [id number] [place] ESR Westergren method (Bld) [Velocity]on 09-23-2024 ESR (Bld) [Velocity] 5 mm/h Normal 0-20 [facility] Comment on above: Order Comment: Speci men Type: BLOOD SPECIMENOrdering Facility: External Submitter Address: , , Performed By: #### 4 537-7, 32807-8 ####[facility] LABCLIA [id number] [address] [place] LYSOZYME BLDon 09-23-2024 LYSOZYME 0.99 ug/mL Normal <=4.50 [facility] Comment on above: Order Comment: Speci men Type: BLOOD SPECIMENOrdering Facility: External Submitter Address: , , Result Comment: REFE RENCE INTERVAL: Lysozyme, Serum 2.75 ug/mL or less ......... Negative 2.76 - 4.50 ug/mL .......... Equivocal 4.51 ug/mL or greater ...... Positive This test was developed and its performance characteristics determined by [employer]. It has not been cleared or approved by the [place] Food and Drug Administration. This test was performed in a CLIA certified laboratory and is intended for clinical purposes. Performed By: [facility] [employer] [address] [place] [address] Research Clerk: Robert Casarez MD, PhD CLIA Number: [id number] Performed By: #### L YSO2 ####[facility] [id number] [place] [address] [facility] SEND OUT TST 1on 2024 [facility] SCAN TEST RESULTS 1 View results in Scanned Documents link when available Normal [facility] Comment on above: Order Comment: Speci men Type: BLOOD SPECIMENOrdering Facility: External Submitter Address: , , Performed By: #### 2 742-5, 77437-0 ####[facility] LABCLIA [id number] [address] [place]#### MISC1 ####NON-INTERFACED REF LABSCLIA SEE SCANNED [facility] LABCLIA [id number] [address] [place] [address] [facility] 1 (DROP-DOWN) ARUP Normal [facility] Comment on above: Order Comment: Speci men Type: BLOOD SPECIMENOrdering Facility: External Submitter Address: , , Performed By: #### 2 742-5, ####[facility] LABCLIA [id number] [address] [place] [address] [facility]#### MISC1 ####NON-INTERFACED REF LABSCLIA SEE SCANNED [facility] [id number] [address] [place] [address] [facility] TEST 1 Treponema pallidum Antibody, IgG by IFA (FTA-ABS), Serum Normal [facility] Comment on above: Order Comment: Speci men Type: BLOOD SPECIMENOrdering Facility: External Submitter Address: , , Performed By: #### 2 742, ####[facility] LABCLIA [id number] [address] [place] [address] [facility]#### MISC1 ####NON-INTERFACED REF LABSCLIA SEE SCANNED [facility] [id number] [address] [place] [address] [facility] RPR Ser Qlon 09-23-2024 Reagin Ab RPR Ql (S) Non-Reactive Normal Nonreactive [facility] Comment on above: Order Comment: Speci men Type: BLOOD SPECIMENOrdering Facility: External Submitter Address: , , Result Comment: Rapi d plasma reagin (RPR) test detects non-treponemal antibodies. RPR may be reactive in a variety of infectious and non-infectious conditions. Correlation with clinical picture and with treponemal antibody results is required for final interpretation. Performed By: #### 2 742-5, ####[facility] LABCLIA [id number] [address] [place]#### MISC1 ####NON-INTERFACED REF LABSCLIA SEE SCANNED [facility] LABIA [id number] [address] [place] [address] [facility] Reagin and Treponema pallidu m IgG and IgM [Interp]on 09-23-2024 T. pallidum IgG+IgM IA Ql (S) Non-Reactive Normal Nonreactive [facility] Comment on above: Order Comment: Speci men Type: BLOOD SPECIMENOrdering Facility: External Submitter Address: , , Performed By: #### 7 3752-8 ####[facility] LABIA [id number] [address] Reagin+T pallidum IgG+IgM Se rPl-Impon 09-23-2024 Reagin and Treponema pallidum IgG and IgM [Interp] Cannot exclude recent Treponemal infection if specimen collected within 7-10 days after appearance of suspect lesions or 2-3 weeks after an exposure. Clinical correlation is required. Normal [facility] Comment on above: Order Comment: Jimboi men Type: BLOOD SPECIMENOrdering Facility: External Submitter Address: , , Performed By: #### 7 3752-8 ####[facility] LABIA [id number] [address] [place] Rheumatoid fact SerPl-aCncon 09-23-2024 Rheumatoid factor Qn 10 [IU]/mL Normal <16 [facility] Comment on above: Order Comment: Speci men Type: BLOOD SPECIMENOrdering Facility: External Submitter Address: , , Performed By: #### 1 1575, 1987-07 ####[facility] LABIA [id number] [place] [id number] [facility] CNOVSPon 07-29-2024 CNOVSP Visit (SP) Office ([place]) JANA DONIS ([id number]) 1955 F Date Time Provider Department 07/29/24 10:[address] During your visit today, we recorded the following information about you: Temperature Pulse Respiration Blood pressure 97.5 degrees 80/minute 16/minute 136/84 Weight Height 58 kg [address] MD 07/29/2024 8:15 PM Signed PATIENT NAME: Jana Donis DATE: 07/29/2024 PRIMARY CARE PHYSICIAN: Dr. Al Bryan OTHER PHYSICIANS: Dr. Lerner, Dr. Samayoa, Dr. Gudelia Mckay ([facility] ID), Dr. Niall Smith ([facility] Pulmonary) Portions of this encounter note have been copied from the note from 01/22/2024 and has been updated where appropriate, and reflect my current medical decision making from today. CC: This is a 69 year old female with a history of lung cancer, seen for scheduled follow-up. INTERIM HISTORY: Since the patient's last visit here she was seen by [facility] pulmonary for evaluation of intermittent shortness of breath. She was instructed to exercise her lungs , and this has improved her breathing. Currently minimal [place], no cough, and no chest pain. Otherwise she has had no significant medical changes. Overall she feels well. MEDICATIONS: cycloSPORINE (RESTASIS MULTIDOSE) 0.05 % drop [...] seizures or tremors. PHYSICAL EXAM: Vitals: BP 136/84 Pulse 80 Temp 36.4 ?C (97.5 ?F) (Temporal) Resp 16 Ht 153.9 cm (5' 0.59 ) Wt 58 kg (127 lb 13.9 oz) SpO2 99% BMI 24.49 kg/m? Pulse ox walking - lowest 93% Gen.: This is an age-appropriate patient in [...] skin without rash, lesions, wounds or petechiae. Lungs: Clear to auscultation bilaterally PATHOLOGY: 12/01/2019 Right lower lobe wedge resection [...] part E), see comment. Immunohistochemistry for PD-L1 expressi (more content not included)... Normal [facility] CBC W Auto Differential pane l (Bld)on 07-22-2024 Basophils (Bld) [#/Vol] 0.04 10*3/uL Normal <0.11 [facility] Comment on above: Order Comment: Speci men Type: BLOOD SPECIMENOrdering Facility: [facility] Address: [address] [place] [address] Performed By: #### 5 7021-8 ####[facility] LABCLIA [id number] [place] [address] Basophils/100 WBC (Bld) 0.8 % Normal [facility] Comment on above: Order Comment: Speci men Type: BLOOD SPECIMENOrdering Facility: [facility] Address: [address] [place] [address] Performed By: #### 5 7021-8 ####[facility] LABCLIA [id number] [place] [address] Differential cell count method Nom (Bld) Auto Normal [facility] Comment on above: Order Comment: Speci men Type: BLOOD SPECIMENOrdering Facility: [facility] Address: [address] [place] [address] Performed By: #### 5 7021-8 ####[facility] LABCLIA [id number] [place] [address] Eosinophils (Bld) [#/Vol] 0.09 10*3/uL Normal <0.46 [facility] Comment on above: Order Comment: Speci men Type: BLOOD SPECIMENOrdering Facility: [facility] Address: [address] [place] [address] Performed By: #### 5 7021-8 ####[facility] LABCLIA [id number] [place] [address] Eosinophils/100 WBC (Bld) 1.9 % Normal [facility] Comment on above: Order Comment: Speci men Type: BLOOD SPECIMENOrdering Facility: [facility] Address: [address] [place] [address] Performed By: #### 5 7021-8 ####[facility] LABCLIA [id number] [place] [address] Erythrocyte distribution width (RBC) [Ratio] 12.9 % Normal 11.5-15.0 [facility] Comment on above: Order Comment: Speci men Type: BLOOD SPECIMENOrdering Facility: [facility] Address: [address] [place] [address] Performed By: #### 5 7021-8 ####[facility] LABCLIA [id number] [place] [address] Hematocrit (Bld) [Volume fraction] 36.0 % Normal 36.0-46.0 [facility] Comment on above: Order Comment: Speci men Type: BLOOD SPECIMENOrdering Facility: [facility] Address: [address] [place] [address] Performed By: #### 5 7021-8 ####[facility] LABCLIA [id number] [place] [address] Hemoglobin (Bld) [Mass/Vol] 12.0 g/dL Normal 11.5-15.5 [facility] Comment on above: Order Comment: Speci men Type: BLOOD SPECIMENOrdering Facility: [facility] Address: [address] [place] [address] Performed By: #### 5 7021-8 ####[facility] LABCLIA [id number] [place] [address] Immature granulocytes (Bld) [#/Vol] 10*3/uL Normal <0.10 [facility] Comment on above: Order Comment: Speci men Type: BLOOD SPECIMENOrdering Facility: [facility] Address: [address] [place] [address] Performed By: #### 5 7021-8 ####[facility] LABCLIA [id number] [place] [address] Immature granulocytes/100 WBC (Bld) 0.0 % Normal [facility] Comment on above: Order Comment: Speci men Type: BLOOD SPECIMENOrdering Facility: [facility] Address: [address] [place] [address] Performed By: #### 5 7021-8 ####[facility] LABCLIA [id number] [place] [address] Lymphocytes (Bld) [#/Vol] 1.37 10*3/uL Normal 1.00-4.00 [facility] Comment on above: Order Comment: Speci men Type: BLOOD SPECIMENOrdering Facility: [facility] Address: [address] [place] [address] Performed By: #### 5 7021-8 ####[facility] LABCLIA [id number] [place] [address] Lymphocytes/100 WBC (Bld) 28.9 % Normal [facility] Comment on above: Order Comment: Speci men Type: BLOOD SPECIMENOrdering Facility: [facility] Address: [address] [place] [address] Performed By: #### 5 7021-8 ####[facility] LABCLIA [id number] [place] [address] MCH (RBC) [Entitic mass] 30.8 pg Normal 26.0-34.0 [facility] Comment on above: Order Comment: Speci men Type: BLOOD SPECIMENOrdering Facility: [facility] Address: [address] [place] [address] Performed By: #### 5 7021-8 ####[facility] LABCLIA [id number] [place] [address] MCHC (RBC) [Mass/Vol] 33.3 g/dL Normal 30.5-36.0 [facility] Comment on above: Order Comment: Speci men Type: BLOOD SPECIMENOrdering Facility: [facility] Address: [address] [place] [address] Performed By: #### 5 7021-8 ####[facility] LABCLIA [id number] [place] [address] MCV (RBC) [Entitic vol] 92.5 fL Normal 80.0-100.0 [facility] Comment on above: Order Comment: Speci men Type: BLOOD SPECIMENOrdering Facility: [facility] Address: [address] [place] [address] Performed By: #### 5 7021-8 ####[facility] LABCLIA [id number] [place] [address] Monocytes (Bld) [#/Vol] 0.41 10*3/uL Normal <0.87 [facility] Comment on above: Order Comment: Speci men Type: BLOOD SPECIMENOrdering Facility: [facility] Address: [address] [place] [address] Performed By: #### 5 7021-8 ####[facility] LABCLIA [id number] [place] [address] Monocytes/100 WBC (Bld) 8.6 % Normal [facility] Comment on above: Order Comment: Speci men Type: BLOOD SPECIMENOrdering Facility: [facility] Address: [address] [place] [address] Performed By: #### 5 7021-8 ####[facility] LABCLIA [id number] [place] [address] Neutrophils (Bld) [#/Vol] 2.83 10*3/uL Normal 1.45-7.50 [facility] Comment on above: Order Comment: Speci men Type: BLOOD SPECIMENOrdering Facility: [facility] Address: [address] [place] [address] Performed By: #### 5 7021-8 ####[facility] LABCLIA [id number] [place] [address] Neutrophils/100 WBC (Bld) 59.8 % Normal [facility] Comment on above: Order Comment: Speci men Type: BLOOD SPECIMENOrdering Facility: [facility] Address: [address] [place] [address] Performed By: #### 5 7021-8 ####[facility] LABCLIA [id number] [place] [address] Nucleated RBC (Bld) [#/Vol] 10*3/uL Normal <0.01 [facility] Comment on above: Order Comment: Speci men Type: BLOOD SPECIMENOrdering Facility: [facility] Address: [address] [place] [address] Performed By: #### 5 7021-8 ####[facility] LABCLIA [id number] [place] [address] Nucleated RBC/100 WBC (Bld) [Ratio] 0.0 /100 WBC Normal [facility] Comment on above: Order Comment: Speci men Type: BLOOD SPECIMENOrdering Facility: [facility] Address: [address] [place] [address] Performed By: #### 5 7021-8 ####[facility] LABCLIA [id number] [place] [address] Platelet mean volume (Bld) [Entitic vol] 11.1 fL Normal 9.0-12.7 [facility] Comment on above: Order Comment: Speci men Type: BLOOD SPECIMENOrdering Facility: [facility] Address: [address] [place] [address] Performed By: #### 5 7021-8 ####[facility] LABCLIA [id number] [place] [address] Platelets (Bld) [#/Vol] 220 10*3/uL Normal 150-400 [facility] Comment on above: Order Comment: Speci men Type: BLOOD SPECIMENOrdering Facility: [facility] Address: [address] [place] [address] Performed By: #### 5 7021-8 ####[facility] LABIA [id number] [place] [address] RBC (Bld) [#/Vol] 3.89 10*6/uL Low 3.90-5.20 [facility] Comment on above: Order Comment: Speci men Type: BLOOD SPECIMENOrdering Facility: [facility] Address: [address] [place] [address] Performed By: #### 5 7021-8 ####[facility] LABIA [id number] [place] [address] WBC (Bld) [#/Vol] 4.74 10*3/uL Normal 3.70-11.00 [facility] Comment on above: Order Comment: Speci men Type: BLOOD SPECIMENOrdering Facility: [facility] Address: [address] [place] [address] Performed By: #### 5 7021-8 ####[facility] LABIA [id number] [place] [address] CT CHEST W IVCON[address] CT CHEST W IVCON * * *Final Report* * * DATE OF EXAM: Jul 22 2024 8:31AM [facility] 0539 - CT CHEST W IVCON / PROCEDURE REASON: Non-small cell lung cancer (NSCLC), monitor * * * * Physician Interpretation * * * * RESULT: EXAMINATION: CHEST CT WITH CONTRAST CLINICAL HISTORY: Non-small cell lung cancer, monitor Technique: Spiral CT acquisition of the chest from the thoracic inlet to the upper abdomen following IV contrast. MQ: CTCW_6 Contrast: 50 mL Omnipaque [address] Radiation dose: Integrated Dose-length product (DLP) for this visit = 151 mGy*cm CT Dose Reduction Employed: Automated exposure control (AEC) Comparison: Multiple previous chest CTs, the most recent dated 12/25/2023 RESULT: Limitations: None. Lines, tubes, and devices: None. Lung parenchyma and airways: Stable postsurgical changes from left lower lobectomy. And right lower lobe wedge resection, with unchanged associated pleural-parenchymal scarring noted in both lungs. There are stable appearing paramedian opacity in the posterior left perihilar and infrahilar region, likely representing stable post radiation therapy change. Multiple groundglass and solid pulmonary nodules are again noted, comparison to previously measured nodules is as follows: 1.4 cm right upper lobe groundglass nodule on series 4 image 30. 7 mm right upper lobe groundglass nodule on series 4 image 61. 1.3 cm right middle lobe groundglass nodule on series 4 image 117. 5 mm right middle lobe nodule on series 4 image 141. All of the above nodules are unchanged from prior. A few additional smaller solid and groundglass pulmonary nodules are stable as well. No new pulmonary nodules or masses are identified. Unchanged incidental calcified granulomas in the right lung. No new airspace consolidation. Minimal biapical pleural-parenchymal scarring is unchanged. The central airways are patent. Pleural space: [...] thickening. Bones and soft tissues: No destructive skeletal lesion is present. Mild multilevel thoracic spine degenerative disc disease is noted. Upper abdomen: The included images of the upper abdomen are unremarkable. Localizer images: No additional findings. IMPRESSION: 1. No CT evidence of new metastatic disease in the chest. 2. Stable appearing groundglass and solid pulmonary nodules in both lungs. No new or enlarging pulmonary nodules are identified. 3. No pathologically enlarged lymph nodes identified in the chest. Transcribe Date/Time: Jul 22 2024 11:51A Dictated by: UMA MOYER MD This examination was interpreted and the report reviewed and electronically signed by: UMA MOYER MD on Jul 22 2024 12:04PM EST Thank you for allowing us to participate in the care of your patient. Should there be any questions regarding this interpretation, please call [phone]. If you are unable to reach us at the number above, please feel free to contact [facility] at [phone]. [id number] Normal [facility] Comprehensive metabolic 2000 panelon 07-22-2024 Albumin [Mass/Vol] 4.4 g/dL Normal 3.9-4.9 [facility] Comment on above: Order Comment: Speci men Type: BLOOD SPECIMENOrdering Facility: [facility] Address: [address] [place] [address] Performed By: #### 2 4323-8 ####[facility] LABCLIA [id number] [place] [address] ALP [Catalytic activity/Vol] 105 U/L Normal 34-123 [facility] Comment on above: Order Comment: Speci men Type: BLOOD SPECIMENOrdering Facility: [facility] Address: [address] [place] [address] Performed By: #### 2 4323-8 ####[facility] LABCLIA [id number] [place] [address] ALT [Catalytic activity/Vol] 15 U/L Normal 7-38 [facility] Comment on above: Order Comment: Speci men Type: BLOOD SPECIMENOrdering Facility: [facility] Address: [address] [place] [address] Performed By: #### 2 4323-8 ####[facility] LABCLIA [id number] [place] [address] Anion gap [Moles/Vol] 10 mmol/L Normal 8-15 [facility] Comment on above: Order Comment: Speci men Type: BLOOD SPECIMENOrdering Facility: [facility] Address: [address] [place] [address] Performed By: #### 2 4323-8 ####[facility] LABCLIA [id number] [place] [address] AST [Catalytic activity/Vol] 19 U/L Normal 13-35 [facility] Comment on above: Order Comment: Speci men Type: BLOOD SPECIMENOrdering Facility: [facility] Address: [address] [place] [address] Performed By: #### 2 4323-8 ####[facility] LABCLIA [id number] [place] [address] Bilirubin [Mass/Vol] 0.5 mg/dL Normal 0.2-1.3 [facility] Comment on above: Order Comment: Speci men Type: BLOOD SPECIMENOrdering Facility: [facility] Address: [address] [place] [address] Performed By: #### 2 4323-8 ####[facility] LABCLIA [id number] [place] [address] Calcium [Mass/Vol] 9.7 mg/dL Normal 8.5-10.2 [facility] Comment on above: Order Comment: Speci men Type: BLOOD SPECIMENOrdering Facility: [facility] Address: [address] [place] [address] Performed By: #### 2 4323-8 ####[facility] LABCLIA [id number] [place] [address] Chloride [Moles/Vol] 102 mmol/L Normal 98-107 [facility] Comment on above: Order Comment: Speci men Type: BLOOD SPECIMENOrdering Facility: [facility] Address: [address] [place], [place] [address] Performed By: #### 2 4323-8 ####[facility] LABCLIA [id number] [place] [address] CO2 [Moles/Vol] 27 mmol/L Normal 22-30 [facility] Comment on above: Order Comment: Speci men Type: BLOOD SPECIMENOrdering Facility: [facility] Address: [address] [place] [address] Performed By: #### 2 4323-8 ####[facility] LABCLIA [id number] [place] [address] Creatinine [Mass/Vol] 0.76 mg/dL Normal 0.58-0.96 [facility] Comment on above: Order Comment: Speci men Type: BLOOD SPECIMENOrdering Facility: [facility] Address: [address] [place] [address] Performed By: #### 2 4323-8 ####[facility] LABCLIA [id number] [place] [address] Creatinine and Glomerular filtration rate.predicted panel (S/P/Bld) 85 mL/min/1.73m??? Normal >=60 [facility] Comment on above: Order Comment: Speci men Type: BLOOD SPECIMENOrdering Facility: [facility] Address: [address] [place] [address] Result Comment: Meena mated Glomerular Filtration Rate [...] actual GFR. Performed By: #### 2 4323-8 ####[facility] LABCLIA [id number] [place] [address] Glucose [Mass/Vol] 93 mg/dL Normal 74-99 [facility] Comment on above: Order Comment: Speci men Type: BLOOD SPECIMENOrdering Facility: [facility] Address: [address] [place] [id number] Result Comment: The [place] [employer] Association (ADA) provides guidance for cutoff [...] Standards of Medical Care in Diabetes 2016, [place] [employer]. Diabetes Care. 2016.39(Suppl 1). Performed By: #### 2 4323-8 ####[facility] LABCLIA [id number] [place] [address] Potassium [Moles/Vol] 4.4 mmol/L Normal 3.7-5.1 [facility] Comment on above: Order Comment: Speci men Type: BLOOD SPECIMENOrdering Facility: [facility] Address: [address] [place] [address] Performed By: #### 2 4323-8 ####[facility] LABCLIA [id number] [place] [address] Protein [Mass/Vol] 7.1 g/dL Normal 6.3-8.0 [facility] Comment on above: Order Comment: Speci men Type: BLOOD SPECIMENOrdering Facility: [facility] Address: [address] [place] [address] Performed By: #### 2 4323-8 ####[facility] LABCLIA [id number] [place] [address] Sodium [Moles/Vol] 139 mmol/L Normal 136-144 [facility] Comment on above: Order Comment: Speci men Type: BLOOD SPECIMENOrdering Facility: [facility] Address: [address] [place] [address] Performed By: #### 2 4323-8 ####[facility] LABCLIA [id number] [place] [address] Urea nitrogen [Mass/Vol] 25 mg/dL High 7-21 [facility] Comment on above: Order Comment: Speci men Type: BLOOD SPECIMENOrdering Facility: [facility] Address: [address] [place] [address] [place] [address] Performed By: #### 2 4323-8 ####[facility] [id number] [place] [address] CNOVon 02-28-2024 CNOV Office Visit (PULMLO ) JANA DONIS ([id number]) 1955 F Date Time Provider Department 02/28/24 8:00 AM NIALL SMITH PULCARLOS During your visit today, we recorded the following information about you: Pulse Blood pressure Weight Height 71/minute 122/65 54.9 kg 1.539 m Niall Smith MD 02/28/2024 8:43 AM Signed . Respiratory [place] Note Ms. Donis is a 69 year old female who presents to the [facility] Respiratory [place]. Consultation requested by Dr. Lane for an opinion regarding dyspnea.. 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 GEN: Alert, comfortable, sitting up in chair, no distress, very pleasant CV: RRR PULM: CTAB, no wheezing or crackles Labs / Imaging / Diagnostic Studies: All radiography listed below personally reviewed by me Data Reviewed from [facility] (in addition to that noted in HPI, and Past histories above): PFT: 11/06/2019: Nl flory, Nl DLCO CT Chest 12/25/23: IMPRESSION: 1. No CT evidence of new metastatic (more content not included)... Normal [facility] HISTORY PHYSICALon HISTORY PHYSICAL HNO ID: [id number] Author: NIALL SMITH MD Service: ? Author Type: Physician Type: H&P Filed: 02/28/2024 08:43 Note Text: . Respiratory [place] Note Ms. Donis is a 69 year old female who presents to the [facility] [place]. Consultation requested by Dr. Lane for an opinion regarding dyspnea.. 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 GEN: Alert, comfortable, sitting up in chair, no distress, very pleasant CV: RRR PULM: CTAB, no wheezing or crackles Labs / Imaging / Diagnostic Studies: All radiography listed below personally reviewed by me Data Reviewed from [facility] (in addition to that noted in HPI, [...] Ms. Donis is a 69 year old femal (more content not included)... Normal [facility] Tayla 02-04-2024 [facility] Telephone ([id number]) AJNA DONIS Nay ([id number]) 1955 F Date Time Provider Department 02/04/24 ZHANE MCDUFFIE [id number] During your visit today, we recorded the [...] Encounter Status:Closed by ZHANE MCDUFFIE on 02/04/24 Normal [facility] CNOVSPon 01-22-2024 CNOVSP Visit (SP) Office (HEMASA) JANA DONIS ([id number]) 1955 F Date Time Provider Department 01/22/24 [...] for neop (more content not included)... Normal [facility] CNPNon 01-22-2024 CNPN Telephone (PULMMN) JANA DONIS ([id number]) 1955 F Date Time Provider Department 01/22/24 ANITA ALVARADO During your visit today, we recorded the following information about you: [place] 01/22/2024 11:[address] Samayoa office called and would like to refer patient here. Regarding her history of cancer and SOB. Allergies As of Date: 01/22/2024 (No Known Allergies) Date Reviewed: 01/22/2024 Reviewed by: Nicolasa Soria MA - Fully Assessed Reason for Visit: Referral Information [1475] Prescriptions as of 04/02/2024 - cycloSPORINE (RESTASIS MULTIDOSE) 0.05 % drop Use 1 Drop in eyes. Problem List As Of Date 01/22/2024 Noted Resolved Family history of early CAD [...] of right lung *12/02/2019 Encounter Status:Closed by HEDY NARAYANAN on 04/02/24 Normal [facility] CBC W Auto Differential pane l (Bld)on 12-25-2023 Basophils (Bld) [#/Vol] 0.03 10*3/uL [facility] Basophils/100 WBC (Bld) 0.8 % [facility] Differential cell count method Nom (Bld) Auto [facility] Eosinophils (Bld) [#/Vol] 0.06 10*3/uL [facility] Eosinophils/100 WBC (Bld) 1.6 % [facility] Erythrocyte distribution width (RBC) [Ratio] 12.9 % 11.5 - 15.0 % [facility] Hematocrit (Bld) [Volume fraction] 35.2 % Low 36.0 - 46.0 % [facility] Hemoglobin (Bld) [Mass/Vol] 11.9 g/dL 11.5 - 15.5 g/dL [facility] Immature granulocytes (Bld) [#/Vol] [facility] Immature granulocytes/100 WBC (Bld) 0.3 % [facility] Interpretation and review of laboratory results Abnormal [facility] Lymphocytes (Bld) [#/Vol] 1.39 10*3/uL [facility] Lymphocytes/100 WBC (Bld) 36.0 % [facility] MCH (RBC) [Entitic mass] 31.4 pg 26.0 - 34.0 pg [facility] MCHC (RBC) [Mass/Vol] 33.8 g/dL 30.5 - 36.0 g/dL [facility] MCV (RBC) [Entitic vol] 92.9 fL 80.0 - 100.0 fL [facility] Monocytes (Bld) [#/Vol] 0.36 10*3/uL [facility] Monocytes/100 WBC (Bld) 9.3 % [facility] Neutrophils (Bld) [#/Vol] 2.01 10*3/uL [facility] Neutrophils/100 WBC (Bld) 52.0 % [facility] Nucleated RBC (Bld) [#/Vol] NINF [facility] Nucleated RBC/100 WBC (Bld) [Ratio] 0.0 % /100 WBC [facility] Platelet mean volume (Bld) [Entitic vol] 10.4 fL 9.0 - 12.7 fL [facility] Platelets (Bld) [#/Vol] 230 10*3/uL [facility] RBC (Bld) [#/Vol] 3.79 10*6/uL Low 3.90 - 5.2 0 m/uL [facility] WBC (Bld) [#/Vol] 3.86 10*3/uL [facility] Basophils (Bld) [#/Vol] 0.03 10*3/uL Normal <0.11 [facility] Comment on above: Order Comment: Speci men Type: BLOOD SPECIMENOrdering Facility: [facility] Address: [address] [place] [address] Performed By: #### 5 7021-8 ####[facility] LABCLIA [id number] [place] [address] Basophils/100 WBC (Bld) 0.8 % Normal [facility] Comment on above: Order Comment: Speci men Type: BLOOD SPECIMENOrdering Facility: [facility] Address: [address] [place] [address] Performed By: #### 5 7021-8 ####[facility] LABIA [id number] [place] [address] Differential cell count method Nom (Bld) Auto Normal [facility] Comment on above: Order Comment: Speci men Type: BLOOD SPECIMENOrdering Facility: [facility] Address: [address] [place] [address] Performed By: #### 5 7021-8 ####[facility] LABCLIA [id number] [place] [address] Eosinophils (Bld) [#/Vol] 0.06 10*3/uL Normal <0.46 [facility] Comment on above: Order Comment: Speci men Type: BLOOD SPECIMENOrdering Facility: [facility] Address: [address] [place] [address] Performed By: #### 5 7021-8 ####[facility] LABCLIA [id number] [place] [address] Eosinophils/100 WBC (Bld) 1.6 % Normal [facility] Comment on above: Order Comment: Speci men Type: BLOOD SPECIMENOrdering Facility: [facility] Address: [address] [place] [address] Performed By: #### 5 7021-8 ####[facility] LABCLIA [id number] [place] [address] Erythrocyte distribution width (RBC) [Ratio] 12.9 % Normal 11.5-15.0 [facility] Comment on above: Order Comment: Speci men Type: BLOOD SPECIMENOrdering Facility: [facility] Address: [address] [place] [address] Performed By: #### 5 7021-8 ####[facility] LABCLIA [id number] [place] [address] Hematocrit (Bld) [Volume fraction] 35.2 % Low 36.0-46.0 [facility] Comment on above: Order Comment: Speci men Type: BLOOD SPECIMENOrdering Facility: [facility] Address: [address] [place] [address] Performed By: #### 5 7021-8 ####[facility] LABCLIA [id number] [place] [address] Hemoglobin (Bld) [Mass/Vol] 11.9 g/dL Normal 11.5-15.5 [facility] Comment on above: Order Comment: Speci men Type: BLOOD SPECIMENOrdering Facility: [facility] Address: [address] [place] [address] Performed By: #### 5 7021-8 ####[facility] LABCLIA [id number] [place] [address] Immature granulocytes (Bld) [#/Vol] 10*3/uL Normal <0.10 [facility] Comment on above: Order Comment: Speci men Type: BLOOD SPECIMENOrdering Facility: [facility] Address: [address] [place] [address] Performed By: #### 5 7021-8 ####[facility] LABCLIA [id number] [place] [address] Immature granulocytes/100 WBC (Bld) 0.3 % Normal [facility] Comment on above: Order Comment: Speci men Type: BLOOD SPECIMENOrdering Facility: [facility] Address: [address] [place] [address] Performed By: #### 5 7021-8 ####[facility] LABCLIA [id number] [place] [address] Lymphocytes (Bld) [#/Vol] 1.39 10*3/uL Normal 1.00-4.00 [facility] Comment on above: Order Comment: Speci men Type: BLOOD SPECIMENOrdering Facility: [facility] Address: [address] [place] [address] Performed By: #### 5 7021-8 ####[facility] LABCLIA [id number] [place] [address] Lymphocytes/100 WBC (Bld) 36.0 % Normal [facility] Comment on above: Order Comment: Speci men Type: BLOOD SPECIMENOrdering Facility: [facility] Address: [address] [place] [address] Performed By: #### 5 7021-8 ####[facility] LABCLIA [id number] [place] [address] MCH (RBC) [Entitic mass] 31.4 pg Normal 26.0-34.0 [facility] Comment on above: Order Comment: Speci men Type: BLOOD SPECIMENOrdering Facility: [facility] Address: [address] [place] [address] Performed By: #### 5 7021-8 ####[facility] LABCLIA [id number] [place] [address] MCHC (RBC) [Mass/Vol] 33.8 g/dL Normal 30.5-36.0 [facility] Comment on above: Order Comment: Speci men Type: BLOOD SPECIMENOrdering Facility: [facility] Address: [address] [place] [address] Performed By: #### 5 7021-8 ####[facility] LABIA [id number] [place] [address] MCV (RBC) [Entitic vol] 92.9 fL Normal 80.0-100.0 [facility] Comment on above: Order Comment: Speci men Type: BLOOD SPECIMENOrdering Facility: [facility] Address: [address] [place] [address] Performed By: #### 5 7021-8 ####[facility] LABIA [id number] [place] [address] Monocytes (Bld) [#/Vol] 0.36 10*3/uL Normal <0.87 [facility] Comment on above: Order Comment: Speci men Type: BLOOD SPECIMENOrdering Facility: [facility] Address: [address] [place] [address] Performed By: #### 5 7021-8 ####[facility] LABIA [id number] [place] [address] Monocytes/100 WBC (Bld) 9.3 % Normal [facility] Comment on above: Order Comment: Speci men Type: BLOOD SPECIMENOrdering Facility: [facility] Address: [address] [place] [address] Performed By: #### 5 7021-8 ####[facility] LABCLIA [id number] [place] [address] Neutrophils (Bld) [#/Vol] 2.01 10*3/uL Normal 1.45-7.50 [facility] Comment on above: Order Comment: Speci men Type: BLOOD SPECIMENOrdering Facility: [facility] Address: [address] [place] [address] Performed By: #### 5 7021-8 ####[facility] LABCLIA [id number] [place] [address] Neutrophils/100 WBC (Bld) 52.0 % Normal [facility] Comment on above: Order Comment: Speci men Type: BLOOD SPECIMENOrdering Facility: [facility] Address: [address] [place] [address] Performed By: #### 5 7021-8 ####[facility] LABCLIA [id number] [place] [address] Nucleated RBC (Bld) [#/Vol] 10*3/uL Normal <0.01 [facility] Comment on above: Order Comment: Speci men Type: BLOOD SPECIMENOrdering Facility: [facility] Address: [address] [place] [address] Performed By: #### 5 7021-8 ####[facility] LABIA [id number] [place] [address] Nucleated RBC/100 WBC (Bld) [Ratio] 0.0 /100 WBC Normal [facility] Comment on above: Order Comment: Speci men Type: BLOOD SPECIMENOrdering Facility: [facility] Address: [address] [place] [address] Performed By: #### 5 7021-8 ####[facility] LABIA [id number] [place] [address] Platelet mean volume (Bld) [Entitic vol] 10.4 fL Normal 9.0-12.7 [facility] Comment on above: Order Comment: Speci men Type: BLOOD SPECIMENOrdering Facility: [facility] Address: [address] [place] [address] Performed By: #### 5 7021-8 ####[facility] LABCLIA [id number] [place] [address] Platelets (Bld) [#/Vol] 230 10*3/uL Normal 150-400 [facility] Comment on above: Order Comment: Speci men Type: BLOOD SPECIMENOrdering Facility: [facility] Address: [address] [place] [address] Performed By: #### 5 7021-8 ####[facility] LABIA [id number] [place] [address] RBC (Bld) [#/Vol] 3.79 10*6/uL Low 3.90-5.20 [facility] Comment on above: Order Comment: Speci men Type: BLOOD SPECIMENOrdering Facility: [facility] Address: [address] [place] [address] Performed By: #### 5 7021-8 ####[facility] LABIA [id number] [place] [address] WBC (Bld) [#/Vol] 3.86 10*3/uL Normal 3.70-11.00 [facility] Comment on above: Order Comment: Speci men Type: BLOOD SPECIMENOrdering Facility: [facility] Address: [address] [place] [address] Performed By: #### 5 7021-8 ####[facility] LABIA [id number] [place] [address] CT [address] CHEST W IVCON * * *Final Report* * * DATE OF EXAM: Dec 25 2023 9:58AM [facility] 0539 - CT CHEST W IVCON / [...] any questions regarding this interpretation, please call [phone]. If you are unable to reach us at the number above, please feel free to contact [facility] at [phone]. [id number] Normal [facility] CT Chest W contrast Jorge IMPRESSION: 1. [...] any questions regarding this interpretation, please call [phone]. If you are unable to reach us at the number above, please feel free to contact [facility] at [phone]. DIVISION OF RADIOLOGY * * *Final Report* * * DATE OF EXAM: Dec 25 2023 9:58AM [facility] 0539 - CT CHEST W IVCON / [...] No additional findings. DIVISION OF RADIOLOGY Provider, [facility] - 12/25/2023 * * *Final Report* * * DATE OF EXAM: Dec 25 2023 9:58AM [facility] 0539 - CT CHEST W IVCON / [...] any questions regarding this interpretation, please call [phone]. If you are unable to reach us at the number above, please feel free to contact [facility] eRadiology at [phone]. [facility] Radiology Study observation (narrative) [facility] CT Chest W contrast IVOrdere d By: [facility]cf Provider on 12-25-2023 [facility] Comprehensive metabolic 2000 panelOrdered By: Kodak Espinosa on 12-25-2023 Albumin [Mass/Vol] 4.3 g/dL 3.9 - 4.9 g/dL [facility] ALP [Catalytic activity/Vol] 81 U/L 34 - 123 U/L [facility] ALT [Catalytic activity/Vol] 14 U/L 7 - 38 U/L [facility] Anion gap [Moles/Vol] 10 mmol/L 8 - 15 mmol/L [facility] AST [Catalytic activity/Vol] 17 U/L 13 - 35 U/L [facility] Bilirubin [Mass/Vol] 0.6 mg/dL 0.2 - 1.3 mg/dL [facility] Calcium [Mass/Vol] 9.2 mg/dL 8.5 - 10. 2 mg/dL [facility] Chloride [Moles/Vol] 108 mmol/L High 98 - 107 mmol/L [facility] CO2 [Moles/Vol] 26 mmol/L 22 - 30 mmol/L [facility] Creatinine [Mass/Vol] 0.87 mg/dL 0.58 - 0.96 mg/dL [facility] GFR/1.73 sq M.predicted among non-blacks MDRD (S/P/Bld) [Vol rate/Area] 73 mL/min/{1.73_m2} - PINF [facility] Comment on above: Estimated Glomerular Filtration Rate [...] [Mass/Vol] 89 mg/dL 74 - 99 mg/dL [facility] Comment on above: The [place] Diabete s Association (ADA) provides guidance for [...] Standards of Medical Care in Diabetes 2016, [place] Diabetes Association. Diabetes Care. 2016.39(Suppl 1). Interpretation and review of laboratory results Abnormal [facility] Potassium [Moles/Vol] 4.1 mmol/L 3.7 - 5.1 mmol/L [facility] Protein [Mass/Vol] 6.8 g/dL 6.3 - 8.0 g/dL Cl [facility] Sodium [Moles/Vol] 144 mmol/L 136 - 144 mmol/L [facility] Urea nitrogen [Mass/Vol] 17 mg/dL 7 - 21 mg/dL [facility] Comprehensive metabolic 2000 panelon 12-25-2023 Albumin [Mass/Vol] 4.3 g/dL Normal 3.9-4.9 [facility] Comment on above: Order Comment: Speci men Type: BLOOD SPECIMENOrdering Facility: [facility] Address: [facility] [place] [address] Performed By: #### 2 4323-8 ####[facility] LABCLIA [id number] [place] [address] ALP [Catalytic activity/Vol] 81 U/L Normal 34-123 [facility] Comment on above: Order Comment: Speci men Type: BLOOD SPECIMENOrdering Facility: [facility] Address: [address] [place] [address] Performed By: #### 2 4323-8 ####[facility] LABCLIA [id number] [place] [address] ALT [Catalytic activity/Vol] 14 U/L Normal 7-38 [facility] Comment on above: Order Comment: Speci men Type: BLOOD SPECIMENOrdering Facility: [facility] Address: [address] [place] [address] Performed By: #### 2 4323-8 ####[facility] LABCLIA [id number] [place] [address] Anion gap [Moles/Vol] 10 mmol/L Normal 8-15 [facility] Comment on above: Order Comment: Speci men Type: BLOOD SPECIMENOrdering Facility: [facility] Address: [address] [place] [address] Performed By: #### 2 4323-8 ####[facility] LABCLIA [id number] [place] [address] AST [Catalytic activity/Vol] 17 U/L Normal 13-35 [facility] Comment on above: Order Comment: Speci men Type: BLOOD SPECIMENOrdering Facility: [facility] Address: [address] [place] [address] Performed By: #### 2 4323-8 ####[facility] LABIA [id number] [place] [address] Bilirubin [Mass/Vol] 0.6 mg/dL Normal 0.2-1.3 [facility] Comment on above: Order Comment: Speci men Type: BLOOD SPECIMENOrdering Facility: [facility] Address: [address] [place] [address] Performed By: #### 2 4323-8 ####[facility] LABCLIA [id number] [place] [address] Calcium [Mass/Vol] 9.2 mg/dL Normal 8.5-10.2 [facility] Comment on above: Order Comment: Speci men Type: BLOOD SPECIMENOrdering Facility: [facility] Address: [address] [place] [address] Performed By: #### 2 4323-8 ####[facility] LABCLIA [id number] [place] [address] Chloride [Moles/Vol] 108 mmol/L High 98-107 [facility] Comment on above: Order Comment: Speci men Type: BLOOD SPECIMENOrdering Facility: [facility] Address: [address] [place] [address] Performed By: #### 2 4323-8 ####[facility] LABCLIA [id number] [place] [address] CO2 [Moles/Vol] 26 mmol/L Normal 22-30 [facility] Comment on above: Order Comment: Speci men Type: BLOOD SPECIMENOrdering Facility: [facility] Address: [address] [place] [address] Performed By: #### 2 4323-8 ####[facility] LABCLIA [id number] [place] [address] Creatinine [Mass/Vol] 0.87 mg/dL Normal 0.58-0.96 [facility] Comment on above: Order Comment: Speci men Type: BLOOD SPECIMENOrdering Facility: [facility] Address: [address] [place] [address] Performed By: #### 2 4323-8 ####[facility] LABCLIA [id number] [place] [address] Creatinine and Glomerular filtration rate.predicted panel (S/P/Bld) 73 mL/min/1.73m??? Normal >=60 [facility] Comment on above: Order Comment: Cheryl bishop Type: BLOOD SPECIMENOrdering Facility: [facility] Address: [address] [place] [address] Result Comment: Meena mated Glomerular Filtration Rate [...] actual GFR. Performed By: #### 2 4323-8 ####[facility] LABCLIA [id number] [place] [address] Glucose [Mass/Vol] 89 mg/dL Normal 74-99 [facility] Comment on above: Order Comment: Cheryl bishop Type: BLOOD SPECIMENOrdering Facility: [facility] Address: [address] [place] [id number] Result Comment: The [place] Diabetes Association (ADA) provides guidance for cutoff [...] Standards of Medical Care in Diabetes 2016, [place] Diabetes Association. Diabetes Care. 2016.39(Suppl 1). Performed By: #### 2 4323-8 ####[facility] LABCLIA [id number] [place] [address] Potassium [Moles/Vol] 4.1 mmol/L Normal 3.7-5.1 [facility] Comment on above: Order Comment: Cheryl bishop Type: BLOOD SPECIMENOrdering Facility: [facility] Address: [address] [place] [address] Performed By: #### 2 4323-8 ####[facility] LABIA [id number] [place] [address] Protein [Mass/Vol] 6.8 g/dL Normal 6.3-8.0 [facility] Comment on above: Order Comment: Speci men Type: BLOOD SPECIMENOrdering Facility: [facility] Address: [address] [place] [address] Performed By: #### 2 4323-8 ####[facility] LABIA [id number] [place] [address] Sodium [Moles/Vol] 144 mmol/L Normal 136-144 [facility] Comment on above: Order Comment: Speci men Type: BLOOD SPECIMENOrdering Facility: [facility] Address: [address] [place] [address] Performed By: #### 2 4323-8 ####[facility] LABIA [id number] [place] [address] Urea nitrogen [Mass/Vol] 17 mg/dL Normal 7-21 [facility] Comment on above: Order Comment: Speci men Type: BLOOD SPECIMENOrdering Facility: [facility] Address: [address] [place] [address] Performed By: #### 2 4323-8 ####[facility] LABIA [id number] [place] [address] Tayla 11-13-2023 CNPN Telephone (HEMTSA) JANA ODNIS ([id number]) 1955 F Date Time Provider Department 11/13/23 ARMIDA FALCON HEMTSA During your visit today, we recorded the [...] BLOOD COUNT AND DIFFERENTIAL [SQCBCDIF] Order #: [id number] FUTURE COMPREHENSIVE METABOLIC PANEL [SQCMP] Order #: [id number] FUTURE Prescriptions as of 11/20/2023 - cycloSPORINE [...] Encounter Status:Closed by ARMIDA FALCON on 11/20/23 Normal [facility] CBC W Auto Differential pane l (Bld)on 06-27-2023 Basophils (Bld) [#/Vol] 0.05 10*3/uL [facility] Basophils/100 WBC (Bld) 1.4 % [facility] Differential cell count method Nom (Bld) Auto [facility] Eosinophils (Bld) [#/Vol] 0.09 10*3/uL [facility] Eosinophils/100 WBC (Bld) 2.5 % [facility] Erythrocyte distribution width (RBC) [Ratio] 12.6 % 11.5 - 15.0 % [facility] Hematocrit (Bld) [Volume fraction] 37.7 % 36.0 - 46.0 % [facility] Hemoglobin (Bld) [Mass/Vol] 12.2 g/dL 11.5 - 15.5 g/dL [facility] Immature granulocytes (Bld) [#/Vol] [facility] Immature granulocytes/100 WBC (Bld) 0.0 % [facility] Interpretation and review of laboratory results Abnormal [facility] Lymphocytes (Bld) [#/Vol] 1.15 10*3/uL [facility] Lymphocytes/100 WBC (Bld) 32.3 % [facility] MCH (RBC) [Entitic mass] 29.6 pg 26.0 - 34.0 pg [facility] MCHC (RBC) [Mass/Vol] 32.4 g/dL 30.5 - 36.0 g/dL [facility] MCV (RBC) [Entitic vol] 91.5 fL 80.0 - 100.0 fL [facility] Monocytes (Bld) [#/Vol] 0.26 10*3/uL [facility] Monocytes/100 WBC (Bld) 7.3 % [facility] Neutrophils (Bld) [#/Vol] 2.01 10*3/uL [facility] Neutrophils/100 WBC (Bld) 56.5 % [facility] Nucleated RBC (Bld) [#/Vol] [facility] Nucleated RBC/100 WBC (Bld) [Ratio] 0.0 % /100 WBC [facility] Platelet mean volume (Bld) [Entitic vol] 9.9 fL 9.0 - 12.7 fL [facility] Platelets (Bld) [#/Vol] 257 10*3/uL [facility] RBC (Bld) [#/Vol] 4.12 10*6/uL 3.90 - 5.2 0 m/uL [facility] WBC (Bld) [#/Vol] 3.56 10*3/uL Low [facility] CT Chest W contrast Jorge IMPRESSION: [...] any questions regarding this interpretation, please call [phone]. If you are unable to reach us at the number above, please feel free to contact [facility] at [phone]. DIVISION OF RADIOLOGY * * *Final Report* * * DATE OF EXAM: Jun 27 2023 9:32AM [facility] 0539 - CT CHEST W IVCON / [...] abdomen: Visualized upper abdomen is grossly unremarkable. [employer] (topogram) images: Unremarkable. DIVISION OF RADIOLOGY [facility], [facility] - 06/27/[facility]23 * * *Final Report* * * DATE OF EXAM: Jun 27 2023 9:32AM [facility] 0539 - CT CHEST W IVCON / [...] abdomen: Visualized upper abdomen is grossly unremarkable. [employer] (topogram) images: Unremarkable. IMPRESSION IMPRESSION: Unchanged appearance [...] any questions regarding this interpretation, please call [phone]. If you are unable to reach us at the number above, please feel free to contact [facility]iology at [phone]. [facility] Radiology Study observation (narrative) [facility] CT Chest W contrast IVOrdere d By: Ccf Provider on 06-27-2023 [facility] Comprehensive metabolic 2000 panelOrdered By: Monet Yin on 06-27-2023 Albumin [Mass/Vol] 4.4 g/dL 3.9 - 4.9 g/dL [facility] ALP [Catalytic activity/Vol] 86 U/L 34 - 123 U/L [facility] ALT [Catalytic activity/Vol] 11 U/L 7 - 38 U/L [facility] Anion gap [Moles/Vol] 11 mmol/L 9 - 18 mmol/L [facility] AST [Catalytic activity/Vol] 15 U/L 13 - 35 U/L [facility] Bilirubin [Mass/Vol] 0.9 mg/dL 0.2 - 1.3 mg/dL [facility] Calcium [Mass/Vol] 10.0 mg/dL 8.5 - 10. 2 mg/dL [facility] Chloride [Moles/Vol] 105 mmol/L 97 - 105 mmol/L [facility] CO2 [Moles/Vol] 27 mmol/L 22 - 30 mmol/L [facility] Creatinine [Mass/Vol] 0.84 mg/dL 0.58 - 0.96 mg/dL [facility] GFR/1.73 sq M.predicted among non-blacks MDRD (S/P/Bld) [Vol rate/Area] 76 mL/min/{1.73_m2} - PINF [facility] Comment on above: Estimated Glomerular Filtration Rate [...] [Mass/Vol] 93 mg/dL 74 - 99 mg/dL [facility] Comment on above: The [place] Diab[employer] s Association (ADA) provides guidance for [...] Standards of Medical Care in Diabetes 2016, [place] [employer]. Diabetes Care. 2016.39(Suppl 1). Interpretation and review of laboratory results Normal [facility] Potassium [Moles/Vol] 4.2 mmol/L 3.7 - 5.1 mmol/L [facility] Protein [Mass/Vol] 7.1 g/dL 6.3 - 8.0 g/dL [facility] Sodium [Moles/Vol] 143 mmol/L 136 - 144 mmol/L [facility] Urea nitrogen [Mass/Vol] 11 mg/dL 7 - 21 mg/dL [facility] CT Chest W contrast Jorge IMPRESSION: [...] any questions regarding this interpretation, please call [phone]. If you are unable to reach us at the number above, please feel [facility] [phone]. DIVISION OF RADIOLOGY * * *Final Report* * * DATE OF EXAM: Dec 18 2022 12:20PM [facility] 0539 - CT CHEST W IVCON / [...] images through the upper abdomen appears stable. [employer] Washer (topogram) images: No additional findings. DIVISION OF RADIOLOGY Provider, Jennifer Altagracia [facility] - 12/19/2022 * * *Final Report* * * DATE OF EXAM: Dec 18 2022 12:20PM [facility] 0539 - CT CHEST W IVCON / [...] images through the upper abdomen appears stable. [employer] (topogram) images: No additional findings. IMPRESSION IMPRESSION: [...] any questions regarding this interpretation, please call [phone]. If you are unable to reach us at the number above, please feel free to contact [facility] e[facility]iology at [phone]. [facility] CT Chest W contrast IVOrdere d By: Ccf Provider on 12-19-2022 [facility] CBC W Auto Differential pane l (Bld)on 12-18-2022 Basophils (Bld) [#/Vol] 0.04 10*3/uL [facility] Basophils/100 WBC (Bld) 0.8 % [facility] Differential cell count method Nom (Bld) Auto [facility] Eosinophils (Bld) [#/Vol] 0.08 10*3/uL [facility] Eosinophils/100 WBC (Bld) 1.7 % [facility] Erythrocyte distribution width (RBC) [Ratio] 12.9 % 11.5 - 15.0 % [facility] Hematocrit (Bld) [Volume fraction] 37.7 % 36.0 - 46.0 % [facility] Hemoglobin (Bld) [Mass/Vol] 12.2 g/dL 11.5 - 15.5 g/dL [facility] Immature granulocytes (Bld) [#/Vol] [facility] Immature granulocytes/100 WBC (Bld) 0.2 % [facility] Interpretation and review of laboratory results Abnormal [facility] Lymphocytes (Bld) [#/Vol] 0.92 10*3/uL Low [facility] Lymphocytes/100 WBC (Bld) 19.0 % [facility] MCH (RBC) [Entitic mass] 29.5 pg 26.0 - 34.0 pg [facility] MCHC (RBC) [Mass/Vol] 32.4 g/dL 30.5 - 36.0 g/dL [facility] MCV (RBC) [Entitic vol] 91.1 fL 80.0 - 100.0 fL [facility] Monocytes (Bld) [#/Vol] 0.31 10*3/uL NINF [facility] Monocytes/100 WBC (Bld) 6.4 % [facility] Neutrophils (Bld) [#/Vol] 3.48 10*3/uL [facility] Neutrophils/100 WBC (Bld) 71.9 % [facility] Nucleated RBC (Bld) [#/Vol] NINF [facility] Nucleated RBC/100 WBC (Bld) [Ratio] 0.0 % /100 WBC [facility] Platelet mean volume (Bld) [Entitic vol] 9.8 fL 9.0 - 12.7 fL [facility] Platelets (Bld) [#/Vol] 263 10*3/uL [facility] RBC (Bld) [#/Vol] 4.14 10*6/uL 3.90 - 5.2 0 m/uL [facility] WBC (Bld) [#/Vol] 4.84 10*3/uL [facility] CT Chest W contrast Jorge Radiology Study observation (narrative) [facility] Comprehensive metabolic 2000 panelOrdered By: Monet Yin on 12-18-2022 Albumin [Mass/Vol] 4.7 g/dL 3.9 - 4.9 g/dL [facility] ALP [Catalytic activity/Vol] 95 U/L 34 - 123 U/L [facility] ALT [Catalytic activity/Vol] 16 U/L 7 - 38 U/L [facility] Anion gap [Moles/Vol] 10 mmol/L 9 - 18 mmol/L [facility] AST [Catalytic activity/Vol] 18 U/L 13 - 35 U/L [facility] Bilirubin [Mass/Vol] 0.7 mg/dL 0.2 - 1.3 mg/dL [facility] Calcium [Mass/Vol] 10.4 mg/dL High 8.5 - 10. 2 mg/dL [facility] Chloride [Moles/Vol] 104 mmol/L 97 - 105 mmol/L [facility] CO2 [Moles/Vol] 27 mmol/L 22 - 30 mmol/L [facility] Creatinine [Mass/Vol] 0.85 mg/dL 0.58 - 0.96 mg/dL [facility] GFR/1.73 sq M.predicted among non-blacks MDRD (S/P/Bld) [Vol rate/Area] 75 mL/min/{1.73_m2} - PINF [facility] Comment on above: Estimated Glomerular Filtration Rate [...] [Mass/Vol] 98 mg/dL 74 - 99 mg/dL [facility] Comment on above: The [place] Diabete s Association (ADA) provides guidance for [...] Standards of Medical Care in Diabetes 2016, [place] [employer]. Diabetes Care. 2016.39(Suppl 1). Interpretation and review of laboratory results Abnormal [facility] Potassium [Moles/Vol] 4.3 mmol/L 3.7 - 5.1 mmol/L [facility] Protein [Mass/Vol] 7.3 g/dL 6.3 - 8.0 g/dL [facility] Sodium [Moles/Vol] 141 mmol/L 136 - 144 mmol/L [facility] Urea nitrogen [Mass/Vol] 16 mg/dL 7 - 21 mg/dL [facility] CBC W Auto Differential pane l (Bld)on 07-04-2022 Basophils (Bld) [#/Vol] 0.06 10*3/uL [facility] Basophils/100 WBC (Bld) 1.4 % [facility] Differential cell count method Nom (Bld) Auto [facility] Eosinophils (Bld) [#/Vol] 0.27 10*3/uL [facility] Eosinophils/100 WBC (Bld) 6.1 % [facility] Erythrocyte distribution width (RBC) [Ratio] 13.0 % 11.5 - 15.0 % [facility] Hematocrit (Bld) [Volume fraction] 39.3 % 36.0 - 46.0 % [facility] Hemoglobin (Bld) [Mass/Vol] 12.8 g/dL 11.5 - 15.5 g/dL [facility] Immature granulocytes (Bld) [#/Vol] [facility] Immature granulocytes/100 WBC (Bld) 0.2 % [facility] Lymphocytes (Bld) [#/Vol] 1.21 10*3/uL [facility] Lymphocytes/100 WBC (Bld) 27.3 % [facility] MCH (RBC) [Entitic mass] 30.3 pg 26.0 - 34.0 pg [facility] MCHC (RBC) [Mass/Vol] 32.6 g/dL 30.5 - 36.0 g/dL [facility] MCV (RBC) [Entitic vol] 92.9 fL 80.0 - 100.0 fL [facility] Monocytes (Bld) [#/Vol] 0.29 10*3/uL [facility] Monocytes/100 WBC (Bld) 6.5 % [facility] Neutrophils (Bld) [#/Vol] 2.59 10*3/uL [facility] Neutrophils/100 WBC (Bld) 58.5 % [facility] Nucleated RBC (Bld) [#/Vol] [facility] Nucleated RBC/100 WBC (Bld) [Ratio] 0.0 % /100 WBC [facility] Platelet mean volume (Bld) [Entitic vol] 10.1 fL 9.0 - 12.7 fL [facility] Platelets (Bld) [#/Vol] 244 10*3/uL [facility] RBC (Bld) [#/Vol] 4.23 10*6/uL 3.90 - 5.2 0 m/uL [facility] WBC (Bld) [#/Vol] 4.43 10*3/uL [facility] CT Chest W contrast Jorge IMPRESSION: [...] any questions regarding this interpretation, please call [phone]. If you are unable to reach us at the number above, please feel free to contact [facility]Radiology at [phone]. DIVISION OF RADIOLOGY * * *Final Report* * * DATE OF EXAM: Jul 04 2022 9:39AM [facility] 0539 - CT CHEST W IVCON / [...] No abnormality in the imaged upper abdomen. Sanitation Tank Washer (topogram) images: No additional findings. DIVISION OF RADIOLOGY Provider, [facility] - 07/04/2022 * * *Final Report* * * DATE OF EXAM: Jul 04 2022 9:39AM [facility] 0539 - CT CHEST W IVCON / [...] No abnormality in the imaged upper abdomen. San[employer] Washer (topogram) images: No additional findings. IMPRESSION IMPRESSION: [...] any questions regarding this interpretation, please call [phone]. If you are unable to reach us at the number above, please feel free to contact [facility]iology at [phone]. [facility] Radiology Study observation (narrative) [facility] CT Chest W contrast IVOrdere d By: Ccf Provider on 07-04-2022 [facility] Comprehensive metabolic 2000 panelOrdered By: Juliet Elizalde on 07-04-2022 Albumin [Mass/Vol] 4.5 g/dL 3.9 - 4.9 g/dL [facility] ALP [Catalytic activity/Vol] 103 U/L 34 - 123 U/L [facility] ALT [Catalytic activity/Vol] 18 U/L 7 - 38 U/L [facility] Anion gap [Moles/Vol] 9 mmol/L 9 - 18 mmol/L [facility] AST [Catalytic activity/Vol] 19 U/L 13 - 35 U/L [facility] Bilirubin [Mass/Vol] 0.7 mg/dL 0.2 - 1.3 mg/dL [facility] Calcium [Mass/Vol] 10.1 mg/dL 8.5 - 10. 2 mg/dL [facility] Chloride [Moles/Vol] 102 mmol/L 97 - 105 mmol/L [facility] CO2 [Moles/Vol] 29 mmol/L 22 - 30 mmol/L [facility] Creatinine [Mass/Vol] 0.94 mg/dL 0.58 - 0.96 mg/dL [facility] GFR/1.73 sq M.predicted among non-blacks MDRD (S/P/Bld) [Vol rate/Area] 67 mL/min/{1.73_m2} - PINF [facility] Comment on above: Estimated Glomerular Filtration Rate [...] [Mass/Vol] 96 mg/dL 74 - 99 mg/dL [facility] Comment on above: The [place] Diabete s Association (ADA) provides guidance for [...] Standards of Medical Care in Diabetes 2016, [place] [employer]. Diabetes Care. 2016.39(Suppl 1). Interpretation and review of laboratory results Normal [facility] Potassium [Moles/Vol] 3.8 mmol/L 3.7 - 5.1 mmol/L [facility] Protein [Mass/Vol] 7.4 g/dL 6.3 - 8.0 g/dL [facility] Sodium [Moles/Vol] 140 mmol/L 136 - 144 mmol/L [facility] Urea nitrogen [Mass/Vol] 18 mg/dL 7 - 21 mg/dL [facility] CT Chest W contrast Jorge IMPRESSION: [...] any questions regarding this interpretation, please call [phone]. If you are unable to reach us at the number above, please feel free to contact [facility] eRadiology at [phone]. DIVISION OF RADIOLOGY * * *Final Report* * * DATE OF EXAM: Dec 27 2021 10:27AM [facility] 0539 - CT CHEST W IVCON / [...] images through the upper abdomen appears stable. Sanitation Tank Washer (topogram) images: No additional findings. DIVISION OF RADIOLOGY Provider, Jennifer Altagracia [facility] - 12/28/2021 * * *Final Report* * * DATE OF EXAM: Dec 27 2021 10:27AM [facility] 0539 - CT CHEST W IVCON / [...] images through the upper abdomen appears stable. San[employer] Washer (topogram) images: No additional findings. IMPRESSION IMPRESSION: [...] report reviewed and electronically signed by: YAHIR CMGEE MD on Dec 28 2021 8:05AM EST Thank you for allowing us to participate in the care of your patient. Should there be any questions regarding this interpretation, please call [phone]. If you are unable to reach us at the number above, please feel free to contact [facility] eRadiology at [phone]. [facility] CT Chest W contrast IVOrdere d By: Ccf Provider on 12-28-[address] [facility] [address] Chest W contrast Jorge Radiology Study observation (narrative) [facility] Comprehensive metabolic 2000 panelOrdered By: Kodak Espinosa on 12-27-2021 Albumin [Mass/Vol] 4.4 g/dL 3.9 - 4.9 g/dL [facility] ALP [Catalytic activity/Vol] 79 U/L 34 - 123 U/L [facility] ALT [Catalytic activity/Vol] 9 U/L 7 - 38 U/L [facility] Anion gap [Moles/Vol] 8 mmol/L Low 9 - 18 mmol/L [facility] AST [Catalytic activity/Vol] 16 U/L 13 - 35 U/L [facility] Bilirubin [Mass/Vol] 0.5 mg/dL 0.2 - 1.3 mg/dL [facility] Calcium [Mass/Vol] 9.6 mg/dL 8.5 - 10. 2 mg/dL [facility] Chloride [Moles/Vol] 101 mmol/L 97 - 105 mmol/L [facility] CO2 [Moles/Vol] 27 mmol/L 22 - 30 mmol/L [facility] Creatinine [Mass/Vol] 0.87 mg/dL 0.58 - 0.96 mg/dL [facility] GFR/1.73 sq M.predicted among non-blacks MDRD (S/P/Bld) [Vol rate/Area] 74 mL/min/{1.73_m2} - PINF [facility] Comment on above: Estimated Glomerular Filtration Rate [...] [Mass/Vol] 88 mg/dL 74 - 99 mg/dL [facility] Comment on above: The [place] Diabete s Association (ADA) provides guidance for [...] Standards of Medical Care in Diabetes 2016, [place] Diabetes [employer]. Diabetes Care. 2016.39(Suppl 1). Interpretation and review of laboratory results Abnormal [facility] Potassium [Moles/Vol] 3.9 mmol/L 3.7 - 5.1 mmol/L [facility] Protein [Mass/Vol] 6.9 g/dL 6.3 - 8.0 g/dL [facility] Sodium [Moles/Vol] 136 mmol/L 136 - 144 mmol/L [facility] Urea nitrogen [Mass/Vol] 17 mg/dL 7 - 21 mg/dL [facility] CBC W Auto Differential pane l (Bld)on 12-19-2021 Basophils (Bld) [#/Vol] 0.03 10*3/uL Normal <0.11 [facility] Comment on above: Order Comment: Speci men Type: BLOOD SPECIMEN Ordering Facility: [facility] Address: [address] [place] [address] Performed By: #### 5 7021-8 #### [facility] CLIA [id number] [facility] [place] [address] [place] Basophils/100 WBC (Bld) 0.7 % Normal [facility] Comment on above: Order Comment: Speci men Type: BLOOD SPECIMEN Ordering Facility: [facility] Address: [address] [place] [address] Performed By: #### 5 7021-8 #### [facility] [place] [id number] [address] [place] [address] [place] Differential cell count method Nom (Bld) Auto Normal [facility] Comment on above: Order Comment: Speci men Type: BLOOD SPECIMEN Ordering Facility: [facility] Address: [address] [place], [place] [id number] Performed By: #### 5 7021-8 #### [facility] IA [id number] [place] [address] [place] Eosinophils (Bld) [#/Vol] 0.06 10*3/uL Normal <0.46 [facility] Comment on above: Order Comment: Speci men Type: BLOOD SPECIMEN Ordering Facility: [facility] Address: [address] [place] [address] Performed By: #### 5 7021-8 #### [facility] IA [id number] [address] [place] [address] [place] Eosinophils/100 WBC (Bld) 1.4 % Normal [facility] Comment on above: Order Comment: Speci men Type: BLOOD SPECIMEN Ordering Facility: [facility] Address: [address] [place], [place] [id number] Performed By: #### 5 7021-8 #### [facility] IA [id number] [address] [place] [address] [place] Erythrocyte distribution width (RBC) [Ratio] 12.5 % Normal 11.5-15.0 [facility] Comment on above: Order Comment: Speci men Type: BLOOD SPECIMEN Ordering Facility: [facility] Address: [address] [place], [place] [id number] Performed By: #### 5 7021-8 #### [facility] CLIA [id number] [place] [address] [place] Hematocrit (Bld) [Volume fraction] 35.7 % Low 36.0-46.0 [facility] Comment on above: Order Comment: Speci men Type: BLOOD SPECIMEN Ordering Facility: [facility] Address: [address] [place] [address] Performed By: #### 5 7021-8 #### [facility] CLIA [id number] [address] [place] [address] [place] Hemoglobin (Bld) [Mass/Vol] 11.7 g/dL Normal 11.5-15.5 [facility] Comment on above: Order Comment: Speci men Type: BLOOD SPECIMEN Ordering Facility: [facility] Address: [address] [place] [address] Performed By: #### 5 7021-8 #### [facility] CLIA [id number] [address] [place] [address] [place] Immature granulocytes (Bld) [#/Vol] 10*3/uL Normal <0.10 [facility] Comment on above: Order Comment: Speci men Type: BLOOD SPECIMEN Ordering Facility: [facility] Address: [address] [place] [address] Performed By: #### 5 7021-8 #### [facility] CLIA [id number] [address] [place] [address] [place] Immature granulocytes/100 WBC (Bld) 0.2 % Normal [facility] Comment on above: Order Comment: Speci men Type: BLOOD SPECIMEN Ordering Facility: [facility] Address: [address] [place] [address] Performed By: #### 5 7021-8 #### [facility] CLIA [id number] [address] [place] [address] [place] Lymphocytes (Bld) [#/Vol] 1.00 10*3/uL Normal 1.00-4.00 [facility] Comment on above: Order Comment: Speci men Type: BLOOD SPECIMEN Ordering Facility: [facility] Address: [address] Performed By: #### 5 7021-8 #### [facility] [place] [id number] [place] [facility] Lymphocytes/100 WBC (Bld) 23.4 % Normal [facility] Comment on above: Order Comment: Speci men Type: BLOOD SPECIMEN Ordering Facility: [facility] Address: [address] [place] [address] Performed By: #### 5 7021-8 #### [facility] [place] [id number] [place] [address] [place] MCH (RBC) [Entitic mass] 30.3 pg Normal 26.0-34.0 [facility] Comment on above: Order Comment: Speci men Type: BLOOD SPECIMEN Ordering Facility: [facility] Address: [address] [place] [address] Performed By: #### 5 7021-8 #### [facility] IA [id number] [address] [place] [address] [place] MCHC (RBC) [Mass/Vol] 32.8 g/dL Normal 30.5-36.0 [facility] Comment on above: Order Comment: Speci men Type: BLOOD SPECIMEN Ordering Facility: [facility] Address: [address] [place] [address] Performed By: #### 5 7021-8 #### [facility] IA [id number] [address] [place] [address] [place] MCV (RBC) [Entitic vol] 92.5 fL Normal 80.0-100.0 [facility] Comment on above: Order Comment: Speci men Type: BLOOD SPECIMEN Ordering Facility: [facility] Address: [address] [place], [place] [id number] Performed By: #### 5 7021-8 #### [facility] IA [id number] [place] [address] [place] Monocytes (Bld) [#/Vol] 0.48 10*3/uL Normal <0.87 [facility] Comment on above: Order Comment: Speci men Type: BLOOD SPECIMEN Ordering Facility: [facility] Address: [address] [place], [place] [address] Performed By: #### 5 7021-8 #### [facility] CLIA [id number] [place] [address] [place] Monocytes/100 WBC (Bld) 11.2 % Normal [facility] Comment on above: Order Comment: Speci men Type: BLOOD SPECIMEN Ordering Facility: [facility] Address: [address] [place], [place] [address] Performed By: #### 5 7021-8 #### [facility] CLIA [id number] [address] [place] [address] [place] Neutrophils (Bld) [#/Vol] 2.70 10*3/uL Normal 1.45-7.50 [facility] Comment on above: Order Comment: Speci men Type: BLOOD SPECIMEN Ordering Facility: [facility] Address: [address] [place], [place] [address] Performed By: #### 5 7021-8 #### [facility] LABORATORY CLIA [id number] [address] [place] [address] [place] Neutrophils/100 WBC (Bld) 63.1 % Normal [facility] Comment on above: Order Comment: Speci men Type: BLOOD SPECIMEN Ordering Facility: [facility] Address: [address] [place], [place] [address] Performed By: #### 5 7021-8 #### [facility] CLIA [id number] [address] [place] [address] [place] Nucleated RBC (Bld) [#/Vol] 10*3/uL Normal <0.01 [facility] Comment on above: Order Comment: Speci men Type: BLOOD SPECIMEN Ordering Facility: [facility] Address: [address] [place], [place] [address] Performed By: #### 5 7021-8 #### [facility] CLIA [id number] [address] [place] [address] [place] Nucleated RBC/100 WBC (Bld) [Ratio] 0.0 /100 WBC Normal [facility] Comment on above: Order Comment: Speci men Type: BLOOD SPECIMEN Ordering Facility: [facility] Address: [address] [place] [address] Performed By: #### 5 7021-8 #### [facility] CLIA [id number] [address] [place] [address] [place] Platelet mean volume (Bld) [Entitic vol] 10.9 fL Normal 9.0-12.7 [facility] Comment on above: Order Comment: Speci men Type: BLOOD SPECIMEN Ordering Facility: [facility] Address: [address] [place] [address] Performed By: #### 5 7021-8 #### [facility] CLIA [id number] [address] [place] [address] [place] Platelets (Bld) [#/Vol] 202 10*3/uL Normal 150-400 [facility] Comment on above: Order Comment: Speci men Type: BLOOD SPECIMEN Ordering Facility: [facility] Address: [address] [place], [place] [address] Performed By: #### 5 7021-8 #### [facility] CLIA [id number] [address] [place] [address] [place] RBC (Bld) [#/Vol] 3.86 10*6/uL Low 3.90-5.20 [facility] Comment on above: Order Comment: Speci men Type: BLOOD SPECIMEN Ordering Facility: [facility] Address: [address] [place], [place] [address] Performed By: #### 5 7021-8 #### [facility] CLIA [id number] [address] [place] [address] [place] WBC (Bld) [#/Vol] 4.28 10*3/uL Normal 3.70-11.00 [facility] Comment on above: Order Comment: Speci men Type: BLOOD SPECIMEN Ordering Facility: [facility] Address: [address] [place], [place] [address] [place] [address] Performed By: #### 5 7021-8 #### [facility] CLIA [id number] [address] [place] [address] [facility] [place] CRP SerPl-mCncon 12-19-2021 CRP [Mass/Vol] mg/L Normal <0.9 [facility] Comment on above: Order Comment: Speci men Type: BLOOD SPECIMEN Ordering Facility: [facility] Address: [address] [place] [address] Performed By: #### 2 4323-8, 1987-07 #### [facility] CLIA [id number] [address] [place] [address] [facility] [place] [address] BRAIN WO IVCONon 12-20-19 CT BRAIN WO IVCON * * *Final Report* * * DATE OF EXAM: Dec 19 2021 2:51PM [facility] 0504 - CT BRAIN WO IVCON / [...] base and imaged soft tissues are unremarkable. Sanitation Tank Washer (topogram) images: No additional findings. IMPRESSION: No acute intracranial hemorrhage or mass effect is seen Electric Sign Assembler: BRANDYN Transcribe Date/Time: Dec 19 2021 2:57P Dictated by : MARAH COBB MD This examination was interpreted and the report reviewed and electronically signed by: MARAH COBB MD on Dec 19 2021 2:59PM EST [id number] Normal [facility] Comprehensive metabolic 2000 panelon 12-19-2021 Albumin [Mass/Vol] 4.3 g/dL Normal 3.9-4.9 [facility] Comment on above: Order Comment: Speci men Type: BLOOD SPECIMEN Ordering Facility: [facility] Address: [address] [place] [address] Performed By: #### 2 4322-10, 1987-07 #### [facility] CLIA [id number] [address] [place] [address] [place] ALP [Catalytic activity/Vol] 77 U/L Normal 34-123 [facility] Comment on above: Order Comment: Speci men Type: BLOOD SPECIMEN Ordering Facility: [facility] Address: [address] [place], [place] [phone] Performed By: #### 2 4322-10, 1987-07 #### [facility] CLIA [id number] [address] [place] [address] [place] ALT [Catalytic activity/Vol] 10 U/L Normal 7-38 [facility] Comment on above: Order Comment: Speci men Type: BLOOD SPECIMEN Ordering Facility: [facility] Address: [address] [place], [place] [phone] Performed By: #### 2 4322-10, 1987-07 #### [facility] CLIA [id number] [address] [place] [address] [place] Anion gap [Moles/Vol] 6 mmol/L Low 9-18 [facility] Comment on above: Order Comment: Speci men Type: BLOOD SPECIMEN Ordering Facility: [facility] Address: [address] [place], [place] [phone] Performed By: #### 2 43205-10, 1987-07 #### [facility] CLIA [id number] [address] [place] [address] [place] AST [Catalytic activity/Vol] 14 U/L Normal 13-35 [facility] Comment on above: Order Comment: Speci men Type: BLOOD SPECIMEN Ordering Facility: [facility] Address: [address] [place] [address] Performed By: #### 2 4322-10, 1987-07 #### [facility] CLIA [id number] [address] [place] [address] [place] Bilirubin [Mass/Vol] 0.9 mg/dL Normal 0.2-1.3 [facility] Comment on above: Order Comment: Speci men Type: BLOOD SPECIMEN Ordering Facility: [facility] Address: [address] [place] [phone] Performed By: #### 2 4322-10, 1987-07 #### [facility] [place] [id number] [address] [place] [address] [place] Calcium [Mass/Vol] 9.2 mg/dL Normal 8.5-10.2 [facility] ospital Comment on above: Order Comment: Speci men Type: BLOOD SPECIMEN Ordering Facility: [facility] Address: [address] [place] [phone] Performed By: #### 2 4322-10, 1987-07 #### [facility] CLIA [id number] [address] [place] [address] [place] Chloride [Moles/Vol] 104 mmol/L Normal 97-105 [facility] Comment on above: Order Comment: Speci men Type: BLOOD SPECIMEN Ordering Facility: [facility] Address: [address] [place] [phone] Performed By: #### 2 4322-10, 1987-07 #### [facility] CLIA [id number] [address] [place] [address] [place] CO2 [Moles/Vol] 28 mmol/L Normal 22-30 [facility] ital Comment on above: Order Comment: Speci men Type: BLOOD SPECIMEN Ordering Facility: [facility] Address: [address] [place] [phone] Performed By: #### 2 43205-10, 1987-07 #### [facility] CLIA [id number] [address] [place] [address] [place] Creatinine [Mass/Vol] 0.79 mg/dL Normal 0.58-0.96 [facility] Comment on above: Order Comment: [facility] Type: BLOOD SPECIMEN Ordering Facility: [facility] Address: [address] [place] [phone] Performed By: #### 2 43205-10, 1987-07 #### [facility] CLIA [id number] [address] [place] [address] [place] ESTIMATED GLOMERULAR FILTRATION RATE 83 mL/min/1.73m??? Normal >=60 [facility] Comment on above: Order Comment: Cheryl bishop Type: BLOOD SPECIMEN Ordering Facility: [facility] Address: [address] [place] [phone] Result Comment: Emena mated Glomerular Filtration Rate (eGFR) is calculated [...] reflect actual GFR. Performed By: #### 2 43205-10, 1987-07 #### [facility] CLIA [id number] [address] [place] [address] [place] Glucose [Mass/Vol] 89 mg/dL Normal 74-99 [facility] Comment on above: Order Comment: [facility] Type: BLOOD SPECIMEN Ordering Facility: [facility] Address: [address] [place] [phone] Result Comment: The [place] Diabetes Association (ADA) provides guidance for cutoff [...] Standards of Medical Care in Diabetes 2016, [place] Diabetes Association. Diabetes Care. 2016.39(Suppl 1). Performed By: #### 2 4322-10, 1987-07 #### [facility] CLIA [id number] [address] [place] [address] [place] Potassium [Moles/Vol] 3.8 mmol/L Normal 3.7-5.1 [facility] Comment on above: Order Comment: Speci men Type: BLOOD SPECIMEN Ordering Facility: [facility] Address: [address] [place], [place] [phone] Performed By: #### 2 4322-10, 1987-07 #### [facility] IA [id number] [address] [place] [address] [place] Protein [Mass/Vol] 6.6 g/dL Normal 6.3-8.0 [facility] Comment on above: Order Comment: Speci men Type: BLOOD SPECIMEN Ordering Facility: [facility] Address: [address] [place], [place] [phone] Performed By: #### 2 4322-10, 1987-07 #### [facility] IA [id number] [address] [place] [address] [place] Sodium [Moles/Vol] 138 mmol/L Normal 136-144 [facility] Comment on above: Order Comment: Speci men Type: BLOOD SPECIMEN Ordering Facility: [facility] Address: [address] [place] [address] Performed By: #### 2 4322-10, 1987-07 #### [facility] IA [id number] [address] [place] [address] [place] Urea nitrogen [Mass/Vol] 13 mg/dL Normal 7-21 [facility] Comment on above: Order Comment: Speci men Type: BLOOD SPECIMEN Ordering Facility: [facility] Address: [address] [place] [phone] Performed By: #### 2 4323-8, 1987-07 #### [facility] CLIA [id number] [address] [facility] [place] [address] [facility] ED NOTEon 12-19-2021 ED NOTE HNO ID: [id number] Author: Poli Rangel RN Service: ? Author [...] acute distress. RR even and unlabored. Normal [facility] ED NOTE HNO ID: [id number] Author: Gisselle Muro RN Service: ? Author Type: Registered Nurse Type: ED Notes Filed: 12/19/2021 2:11 PM Note Text: Pt presents to the ED with frontal headache since Sunday (10/12). Pt took 400mg ibuprofen at 0830 with minimal relief. Pt denies vision changes and neuro status is intact. Normal [facility] ED PROV NOTEon 12-19-2021 ED PROV NOTE HNO ID: [id number] Author: Lucrecia Enrique MD Service: Emergency Medicine [...] Diagnostic Test (more content not included)... Normal [facility] MAMM SCREEN 3D SANDI CADon 09-22-2021 MAMM SCREEN 3D SANDI CAD Patient: JANA DONIS Exam Date: 09/22/2021 : 1955 Gender:F Ordering : DR AL BRYAN M.D. Admission #: [id number] Family : Order #: [id number] CLICK HERE TO VIEW EXAM RADIOLOGY REPORT [...] lung cancer at age 57. LOCATION: [facility] BREAST COMPOSITION: Heterogeneously dense,which may obscure small [...] Rose MD on 09/22/2021 at 12:26 Normal [facility] LIPID PROFILEon 09-13-2021 CHOL-HDL RATIO NORM SEE BELOW Normal [facility] Comment on above: Result Comment: 3.3 - 4.4 LOW RISK 4.4 - 7.1 AVERAGE RISK 7.1 - 11.0 MODERATE RISK >11.0 HIGH RISK Performed By: #### L IPID #### [facility] [address] [place] [address] Dr. Sonny Bustos Cholesterol [Mass/Vol] 248 mg/dL Critically high <=200 [facility] Comment on above: Performed By: #### L IPID #### [facility] [address] [place] [address] Dr. Sonny Bustos Cholesterol in HDL [Mass/Vol] 84 mg/dL Critically high 40-60 [facility] Comment on above: Performed By: #### L IPID #### [facility] [address] [address] [address] Sonny Bustos Cholesterol in LDL [Mass/Vol] 131.0 mg/dL Normal [facility] Comment on above: Performed By: #### L IPID #### [facility] [address] [place] [address] Dr. Sonny Bustos Cholesterol.total/C holesterol in HDL [Mass ratio] 3.0 {ratio} Normal [facility] Comment on above: Performed By: #### L IPID #### [facility] [address] [place] [address] Dr. Sonny Bustos HDL NORMAL > or = 60 mg/dl - LO W CARDIOVASCULAR RISK <40 mg/dl - HIGH CARDIOVASCULAR RISK Normal [facility] Comment on above: Performed By: #### L IPID #### [facility] [address] [place] [address] Dr. Sonny Bustos LDL CALC NORMAL SEE BELOW Normal [facility] Comment on above: Result Comment: <100 mg/dl OPTIMAL 100 - 129 mg/dl NEAR OR ABOVE OPTIMAL 130 - 159 mg/dl BORDERLINE HIGH 160 - 189 mg/dl HIGH >190 mg/dl VERY HIGH Performed By: #### L IPID #### [facility] [address] [place] [address] Dr. Sonny Bustos Triglyceride [Mass/Vol] 165 mg/dL Critically high <=150 [facility] Comment on above: Performed By: #### L IPID #### [facility] [address] [place] [address] Dr. Sonny Bustos VLDL CALC 33.0 mg/dL Normal [facility] Comment on above: Performed By: #### L IPID #### [facility] [address] [place] [address] Dr. Sonny Bustos CBC AUTO DIFFon 08-03-2021 BASO # 0.0 103/ul Normal 0.0-0.1 [facility] Comment on above: Performed By: #### C BC #### [facility] [address] [place] [address] Dr. Sonny Bustos Basophils/100 WBC (Bld) 0.3 % Normal 0.2-2.[address] [facility] Comment on above: Performed By: #### C BC #### [facility] [address] [place] [address] Dr. Sonny Bustos EO # 0.0 103/ul Normal 0.0-0.7 [facility] Comment on above: Performed By: #### C BC #### [facility] [address] [address] [address] Sonny Bustos Eosinophils/100 WBC (Bld) 0.1 % Critically low 0.9-7.0 [facility] Comment on above: Performed By: #### C BC #### [facility] [address] [place] [address] Dr. Sonny Bustos Erythrocyte distribution width (RBC) [Ratio] 12.9 % Normal 11.0-15.0 [facility] Comment on above: Performed By: #### C BC #### [facility] [address] [place] [address] Dr. Sonny Bustos Hematocrit (Bld) [Volume fraction] 38.7 % Normal 36.0-48.0 [facility] Comment on above: Performed By: #### C BC #### [facility] [address] [place] [address] Dr. Sonny Bustos Hemoglobin (Bld) [Mass/Vol] 12.4 g/dL Normal 12.0-16.0 [facility] Comment on above: Performed By: #### C BC #### [facility] [address] [place] [address] Dr. Sonny Bustos IG # 0.03 10e3/ul Normal 0.00-0.[address] [facility] Comment on above: Performed By: #### C BC #### [facility] [address] [place] [address] Dr. Sonny Bustos IG % 0.3 % Normal 0.0-0.[address] [facility] Comment on above: Performed By: #### C BC #### [facility] [address] [place] [address] Dr. Sonny Bustos LYMPH # 0.7 103/ul Critically low 1.2-3.8 [facility] Comment on above: Performed By: #### C BC #### [facility] [address] [place] [address] Dr. Sonny Bustos Lymphocytes/100 WBC (Bld) 6.4 % Critically low 20.5-60.0 [facility] Comment on above: Performed By: #### C BC #### [facility] [address] [place] [address] Dr. Sonny Bustos MANUAL DIFF REQ NO Normal [facility] Comment on above: Performed By: #### C BC #### [facility] [address] [place] [address] Dr. Sonny Bustos MCH (RBC) [Entitic mass] 30.1 pg Normal 26.7-34.0 [facility] Comment on above: Performed By: #### C BC #### [facility] [address] [place] [address] Dr. Sonny Bustos MCHC (RBC) [Mass/Vol] 32.0 g/dL Normal 29.9-35.2 [facility] Comment on above: Performed By: #### C BC #### [facility] [address] [place] [address] Dr. Sonny Bustos MCV (RBC) [Entitic vol] 93.9 fL Normal 81.0-99.0 [facility] Comment on above: Performed By: #### C BC #### [facility] [address] [place] [address] Dr. Sonny Bustos MONO # 0.7 103/ul Normal 0.3-0.8 [facility] Comment on above: Performed By: #### C BC #### [facility] [address] [place] [address] Dr. Sonny Bustos Monocytes/100 WBC (Bld) 6.0 % Normal 1.7-12.[address] [facility] Comment on above: Performed By: #### C BC #### [facility] [address] [place] [address] Dr. Sonny Bustos NEUT # 9.8 103/ul Critically high 1.4-6.5 [facility] Comment on above: Performed By: #### C BC #### [facility] [address] [place] [address] Dr. Sonny Bustos Neutrophils/100 WBC (Bld) 86.9 % Critically high 43.0-75.[address] [facility] Comment on above: Performed By: #### C BC #### [facility] [address] [place] [address] Dr. Sonny Bustos Platelet mean volume (Bld) [Entitic vol] 12.7 fL Normal 9.5-13.5 [facility] Comment on above: Performed By: #### C BC #### [facility] [address] [address] [address] Sonny Bustos PLT 130 103/ul Critically low 150-450 [facility] Comment on above: Performed By: #### C BC #### [facility] [address] [address] [address] Sonny Bustos RBC 4.12 106/ul Critically low 4.20-5.40 [facility] Comment on above: Performed By: #### C BC #### [facility] [address] [address] [address] Sonny Bustos WBC 11.3 103/ul Critically high 4.0-11.0 [facility] Comment on above: Performed By: #### C BC #### [facility] [address] [address] [address] Sonny Bustos CRPon 08-03-2021 CRP [Mass/Vol] mg/L Normal <=1.0 [facility] Comment on above: Performed By: #### B MP, HSTROPN, CRP ####[facility] [address] [id number] Sonny Bustos CTA NECK WO W CONon [...] ALBERTO JOE Date: 2021-08-03 19:[address] [facility] PROF CHEM 8 (BAS METB)on Anion gap [Moles/Vol] 12.7 mmol/L Normal [facility] Comment on above: Performed By: #### B MP, HSTROPN, CRP #### [facility] [address] [place] [address] Dr. Sonny Bustos Calcium [Mass/Vol] 9.4 mg/dL Normal 8.5-10.1 [facility] Comment on above: Performed By: #### B MP, HSTROPN, CRP #### [facility] [address] [place] [address] Dr. Sonny Bustos Chloride [Moles/Vol] 101 mmol/L Normal 98-107 [facility] Comment on above: Performed By: #### B MP, HSTROPN, CRP #### [facility] [address] [place] [address] Dr. Sonny Bustos CO2 [Moles/Vol] 26.1 mmol/L Normal 21.0-32.0 [facility] Comment on above: Performed By: #### B MP, HSTROPN, CRP #### [facility] [address] [place] [address] Dr. Sonny Bustos Creatinine [Mass/Vol] 0.70 mg/dL Normal 0.55-1.02 [facility] Comment on above: Performed By: #### B MP, HSTROPN, CRP #### [facility] [address] [place] [address] Dr. Sonny Bustos EGFR-AF GEORGIAN >60 Normal >=60 [facility] Comment on above: Performed By: #### B MP, HSTROPN, CRP #### [facility] [address] [place] [address] Dr. Sonny Bustos EGFR-NON AF GEORGIAN >60 Normal >=[address] [facility] Comment on above: Performed By: #### B MP, HSTROPN, CRP #### [facility] [address] [address] [address] Sonny Bustos Glucose [Mass/Vol] 106 mg/dL Normal 74-106 [facility] Comment on above: Performed By: #### B MP, HSTROPN, CRP #### [facility] [address] [address] [address] Sonny Bustos Potassium [Moles/Vol] 3.8 mmol/L Normal 3.5-5.[address] [facility] Comment on above: Performed By: #### B MP, HSTROPN, CRP #### [facility] [address] [address] [address] Sonny Bustos Sodium [Moles/Vol] 136 mmol/L Normal 136-145 [facility] Comment on above: Performed By: #### B MP, HSTROPN, CRP #### [facility] [address] [address] [address] Sonny Bustos Urea nitrogen [Mass/Vol] 16.0 mg/dL Normal 7.0-18.0 [facility] Comment on above: Performed By: #### B MP, HSTROPN, CRP #### [facility] [address] [place] [address] Dr. Sonny Bustos Urea nitrogen/Creatinine [Mass ratio] 22.9 mg/mg Normal [facility] Comment on above: Performed By: #### B MP, HSTROPN, CRP #### [facility] [address] [address] [address] Sonny Bustos [facility] 15 mm/hr Normal <=[address] [facility] Comment on above: Performed By: #### S EDR ####[facility] [address] [address]Dr. Sonny Bustos TROPONIN, HIGH SENSITIVITYon 08-03-2021 HSTROP 23.4 pg/mL Normal 4.0-51.[address] [facility] Comment on above: Result Comment: CUT- OFF POINTS HAVE BEEN ESTABLISHED BASED ON THE FOURTH UNIVERSAL DEFINITIONS OF MYOCARDIAL INFARCTION. THE UPPER REFERENCE LIMIT (URL) OF TROPONIN, DEFINED THE 99TH PERCENTILE OF cTnI DISTRIBUTION IN A REFERENCE POPULATION, HAS BEEN CONFIRMED THE DECISION THRESHOLD FOR [place] DIAGNOSIS. Performed By: #### B MP, HSTROPN, CRP #### [facility] [address] [place], [place] [address] Dr. Sonny Bustos [facility] echo transthoracicon [facility] echo transthoracic [facility] [place] [address] Echocardiogram Signed Patient: Jana Donis MR#: [id number] 3 : 1955 Acct:[id number] Age/Sex: 66 / F ADM Date: 07/29/21 Loc: Room: Type: [facility] Attending Dr: Elsy Douglas MD Ordering Provider: Elsy Douglas MD Date of Service: 07/29/21/ [facility] echo transthoracic: SYNCOPE Copies to: MD Chris [...] FS: 36.5 % Ao root area: 7.1 [id number] ap4: 7.2 cm RV S Coco: EDV(Teich): [...] 07/29/21 0848 Signed By: Chris Butler MD 07/29/2151 Normal [facility] US carotid doppler BIon 07-04 US carotid doppler BI [facility] [place] [address] Ultrasound Report Signed Patient: Jana Donis MR#: [id number] 3 : 1955 Acct:[id number] Age/Sex: 66 / F ADM Date: 07/29/21 Loc: Room: Type: [facility] Attending Dr: Elsy Douglas MD Ordering [...] Ciro Boyd M.D.07/29/2021 12:40 PM Dictation Location: [place] [address] Tech: Kiki Zane Transcribed By: MYRON 07/29/21 1240 Dictated By: Ciro Boyd MD 07/29/21 1238 Signed By: 07/29/[address] [facility] Covid-19 PCR (CVDTBH)on 07-03 SARS-CoV-2 (COVID-19) RNA MART+probe Ql (Unsp spec) Detected Critically abnormal NOT DETECTED [facility] Comment on above: Result Comment: This test is not yet approved or cleared by the [place] FDA. When there are no FDA-approved or cleared tests available, and other criteria are met, FDA can make tests available under an emergency access mechanism called an Emergency Use Authorization (EUA). The EUA for this test is supported by the Community Development Aide of Health and Human Service's (HHS's) declaration [...] longer be used). Performed By: #### C [facility] ####[facility] [address] [place], [place] [address]Bz. Sonny Bustos CBC W Auto Differential pane l (Bld)on 07-01-2021 Basophils (Bld) [#/Vol] 0.03 10*3/uL [facility] Basophils/100 WBC (Bld) 0.7 % [facility] Differential cell count method Nom (Bld) Auto [facility] Eosinophils (Bld) [#/Vol] 0.08 10*3/uL [facility] Eosinophils/100 WBC (Bld) 1.9 % [facility] Erythrocyte distribution width (RBC) [Ratio] 13.1 % 11.5 - 15.0 % [facility] Hematocrit (Bld) [Volume fraction] 37.1 % 36.0 - 46.0 % [facility] Hemoglobin (Bld) [Mass/Vol] 12.2 g/dL 11.5 - 15.5 g/dL [facility] Immature granulocytes (Bld) [#/Vol] [facility] Immature granulocytes/100 WBC (Bld) 0.2 % [facility] Lymphocytes (Bld) [#/Vol] 1.13 10*3/uL [facility] Lymphocytes/100 WBC (Bld) 27.4 % [facility] MCH (RBC) [Entitic mass] 30.6 pg 26.0 - 34.0 pg [facility] MCHC (RBC) [Mass/Vol] 32.9 g/dL 30.5 - 36.0 g/dL [facility] MCV (RBC) [Entitic vol] 93.0 fL 80.0 - 100.0 fL [facility] Monocytes (Bld) [#/Vol] 0.39 10*3/uL [facility] Monocytes/100 WBC (Bld) 9.4 % [facility] Neutrophils (Bld) [#/Vol] 2.49 10*3/uL [facility] Neutrophils/100 WBC (Bld) 60.4 % [facility] Nucleated RBC (Bld) [#/Vol] NINF [facility] Nucleated RBC/100 WBC (Bld) [Ratio] 0.0 % /100 WBC [facility] Platelet mean volume (Bld) [Entitic vol] 9.9 fL 9.0 - 12.7 fL [facility] Platelets (Bld) [#/Vol] 256 10*3/uL [facility] RBC (Bld) [#/Vol] 3.99 10*6/uL 3.90 - 5.2 0 m/uL [facility] WBC (Bld) [#/Vol] 4.13 10*3/uL [facility] This is an appended report. These results have been appended to a previously verified report. [facility] CT Chest W contrast Jorge IMPRESSION: [...] any questions regarding this interpretation, please call [phone]. If you are unable to reach us at the number above, please feel free to contact [facility] eRadiology at [phone]. [email or web address] E_DIVISION OF RADIOLOGY * * *Final Report* * * DATE OF EXAM: Jul 01 2021 9:29AM [facility] 0539 - CT CHEST W IVCON / [...] abdomen: No evidence of an adrenal mass. [email or web address] E_DIVISION OF RADIOLOGY Provider, [facility] - 07/01/2021 * * *Final Report* * * DATE OF EXAM: Jul 01 2021 9:29AM [facility] 0539 - CT CHEST W IVCON / [...] any questions regarding this interpretation, please call [phone]. If you are unable to reach us at the number above, please feel free to contact [facility] eRadiology at [phone]. [facility] Radiology Study observation (narrative) [facility] CT Chest W contrast IVOrdere d By: Praveen Provider on 07-01-2021 [facility] Comprehensive metabolic 2000 panelOrdered By: Monet Yin on 07-01-2021 Albumin [Mass/Vol] 4.6 g/dL 3.9 - 4.9 g/dL Cl [facility] ALP [Catalytic activity/Vol] 91 U/L 34 - 123 U/L [facility] ALT [Catalytic activity/Vol] 15 U/L 7 - 38 U/L [facility] Anion gap [Moles/Vol] 10 mmol/L 9 - 18 mmol/L [facility] AST [Catalytic activity/Vol] 20 U/L 13 - 35 U/L [facility] Bilirubin [Mass/Vol] 0.5 mg/dL 0.2 - 1.3 mg/dL [facility] Calcium [Mass/Vol] 9.9 mg/dL 8.5 - 10. 2 mg/dL [facility] Chloride [Moles/Vol] 103 mmol/L 97 - 105 mmol/L [facility] CO2 [Moles/Vol] 29 mmol/L 22 - 30 mmol/L [facility] Creatinine [Mass/Vol] 0.93 mg/dL 0.58 - 0.96 mg/dL [facility] GFR/1.73 sq M.predicted among non-blacks MDRD (S/P/Bld) [Vol rate/Area] 68 mL/min/{1.73_m2} - PINF [facility] Comment on above: Estimated Glomerular Filtration Rate [...] [Mass/Vol] 94 mg/dL 74 - 99 mg/dL [facility] Comment on above: The [place] Diabete s Association (ADA) provides guidance for [...] Standards of Medical Care in Diabetes 2016, [place] Diabetes Association. Diabetes Care. 2016.39(Suppl 1). Interpretation and review of laboratory results Normal [facility] Potassium [Moles/Vol] 4.1 mmol/L 3.7 - 5.1 mmol/L [facility] Protein [Mass/Vol] 6.9 g/dL 6.3 - 8.0 g/dL [facility] Sodium [Moles/Vol] 142 mmol/L 136 - 144 mmol/L [facility] Urea nitrogen [Mass/Vol] 20 mg/dL 7 - 21 mg/dL [facility] MR Brain WO and W contrast I Von 03-15-2021 IMPRESSION: Minimal chronic microvascular change. Grossly normal brain volume and morphology. No mass effect or abnormal enhancement to suggest intracranial metastatic disease. Based on the axial T2 flow void pattern, proximal intracranial arterial vasculature, major cortical draining veins, and dural venous sinuses are patent. Concordant appearance on the post gadolinium scans. Electric Sign Assembler: [facility] Transcribe Date/Time: Mar 15 2021 10:25A Dictated by : DAVID BROWNING MD This examination was interpreted and the report reviewed and electronically signed by: DAVID BROWNING MD on Mar 15 2021 10:33AM [facility] DIVISION OF RADIOLOGY * * *Final Report* * * DATE OF EXAM: Mar 15 2021 10:12AM [facility] 0295 - MRI BRAIN WO/W IVCON / PROCEDURE REASON: multiple diagnoses * * * * Physician Interpretation * * * * EXAMINATION: MRI BRAIN WO/W IVCON HISTORY: Dizziness Malignant neoplasm of lower lobe of left lung (HCC). This information is taken directly from the short order fry cook system. TECHNIQUE: Routine brain MRI protocol without [...] tissues are unremarkable. DIVISION OF RADIOLOGY Provider, [facility] - 03/15/2021 * * *Final Report* * * DATE OF EXAM: Mar 15 2021 10:12AM [facility] 0295 - MRI BRAIN WO/W IVCON / PROCEDURE REASON: multiple diagnoses * * * * Physician Interpretation * * * * EXAMINATION: MRI BRAIN WO/W IVCON HISTORY: Dizziness Malignant neoplasm of lower lobe of left lung (HCC). This information is taken directly from the short order fry cook system. TECHNIQUE: Routine brain MRI protocol without [...] Concordant appearance on the post gadolinium scans. Electric Sign Assembler: [facility] Transcribe Date/Time: Mar 15 2021 10:25A Dictated by : DAVID BROWNING MD This examination was interpreted and the report reviewed and electronically signed by: DAVID BROWNING MD on Mar 15 2021 10:33AM EST [facility] Radiology Study observation (narrative) [facility] MR Brain WO and W contrast I VOrdered By: Ccf Provider on 03-15-[address] [facility] [address] Chest W contrast Jorge IMPRESSION: [...] any questions regarding this interpretation, please call [phone]. If you are unable to reach us at the number above, please feel free to contact [facility] eRadiology at [phone]. DIVISION OF RADIOLOGY * * *Final Report* * * DATE OF EXAM: Feb 15 2021 11:08AM [facility] 0539 - CT CHEST W IVCON / [...] No abnormality in the imaged upper abdomen. Sanitation Tank Washer (topogram) images: No additional findings. DIVISION OF RADIOLOGY Provider, [facility] - 02/15/2021 * * *Final Report* * * DATE OF EXAM: Feb 15 2021 11:08AM [facility] 0539 - CT CHEST W IVCON / [...] No abnormality in the imaged upper abdomen. Sanitation Tank Washer (topogram) images: No additional findings. IMPRESSION IMPRESSION: [...] any questions regarding this interpretation, please call [phone]. If you are unable to reach us at the number above, please feel free to contact [facility] eRadiology at [phone]. [facility] Radiology Study observation (narrative) [facility] CT Chest W contrast IVOrdere d By: Ccf Provider on 02-15-2021 [facility] AMYLASEon 01-05-2021 Amylase [Catalytic activity/Vol] 41 U/L Normal 31-[address] [facility] Comment on above: Performed By: #### A MY, LIPA, CMP #### [facility] [address] [place], [place] [address] Dr. Sonny Bustos CBC AUTO DIFFon 01-05-2021 BASO # 0.0 103/ul Normal 0.0-0.1 [facility] Comment on above: Performed By: #### C BC ####[facility] [address] [place] [address]Dr. Sonny Bustos Basophils/100 WBC (Bld) 0.3 % Normal 0.2-2.[address] [facility] Comment on above: Performed By: #### C BC ####[facility] [address] [place] [address]Dr. Sonny Bustos EO # 0.1 103/ul Normal 0.0-0.[address] [facility] Comment on above: Performed By: #### C BC ####[facility] [address] [place] [address]Dr. Sonny Bustos Eosinophils/100 WBC (Bld) 0.5 % Critically low 0.9-7.[address] [facility] Comment on above: Performed By: #### C BC ####[facility] [address] [place], [place] [address]Dr. Sonny Bustos Erythrocyte distribution width (RBC) [Ratio] 12.5 % Normal 11.0-15.[address] [facility] Comment on above: Performed By: #### C BC ####[facility] [address] [place], [place] [address]Dr. Sonny Bustos Hematocrit (Bld) [Volume fraction] 37.5 % Normal 36.0-48.[address] [facility] Comment on above: Performed By: #### C BC ####[facility] [address] [place], [place] [address]Dr. Sonny Bustos Hemoglobin (Bld) [Mass/Vol] 12.0 g/dL Normal 12.0-16.[address] [facility] Comment on above: Performed By: #### C BC ####[facility] [address] [place] [address]Dr. Sonny Bustos IG # 0.03 10e3/ul Normal 0.00-0.[address] [facility] Comment on above: Performed By: #### C BC ####[facility] [address] [place] [address]Dr. Sonny Bustos IG % 0.3 % Normal 0.0-0.[address] [facility] Comment on above: Performed By: #### C BC ####[facility] [address] [place] [address]Dr. Sonny Bustos LYMPH # 0.7 103/ul Critically low 1.2-3.8 [facility] Comment on above: Performed By: #### C BC ####[facility] [address] [place] [id number]. Sonny Bustos Lymphocytes/100 WBC (Bld) 6.7 % Critically low 20.5-60.[address] [facility] Comment on above: Performed By: #### C BC ####[facility] [address] [place] [address]Dr. Maryamantonio Bustos MANUAL DIFF REQ NO Normal [facility] Comment on above: Performed By: #### C BC ####[facility] [address] [place] [id number]. Sonny Akash MCH (RBC) [Entitic mass] 30.5 pg Normal 26.7-34.[address] [facility] Comment on above: Performed By: #### C BC ####[facility] [address] [place] [address]Dr. Sonny Bustos MCHC (RBC) [Mass/Vol] 32.0 g/dL Normal 29.9-35.[address] [facility] Comment on above: Performed By: #### C BC ####[facility] [address] [place] [id number]. Sonny Akash MCV (RBC) [Entitic vol] 95.4 fL Normal 81.0-99.[address] [facility] Comment on above: Performed By: #### C BC ####[facility] [address] [place] [address]Dr. Sonny Akash MONO # 1.0 103/ul Critically high 0.3-0.8 [facility] Comment on above: Performed By: #### C BC ####[facility] [address] [place] [address]Dr. Sonny Akash Monocytes/100 WBC (Bld) 9.5 % Normal 1.7-12.[address] [facility] Comment on above: Performed By: #### C BC ####[facility] [address] [place], [place] [address]Ua. Sonny Bustos NEUT # 8.9 103/ul Critically high 1.4-6.5 [facility] Comment on above: Performed By: #### C BC ####[facility] [address] [place], [place] [address]Ke. Sonny Bustos Neutrophils/100 WBC (Bld) 82.7 % Critically high 43.0-75.[address] [facility] Comment on above: Performed By: #### C BC ####[facility] [address] [place] [id number]. Sonny Bustos Platelet mean volume (Bld) [Entitic vol] 10.2 fL Normal 9.5-13.[address] [facility] Comment on above: Performed By: #### C BC ####[facility] [address] [place] [id number]. Sonny Bustos PLT 239 103/ul Normal 150-[address] [facility] Comment on above: Performed By: #### C BC ####[facility] [address] [place] [address]Dr. Sonny Bustos RBC 3.93 106/ul Critically low 4.20-5.40 [facility] Comment on above: Performed By: #### C BC ####[facility] [address] [place] [id number]. Sonny Bustos WBC 10.8 103/ul Normal 4.0-11.[address] [facility] Comment on above: Performed By: #### C BC ####[facility] [address] [place] [id number]. Sonny Bustos Covid-19 PCR (CVDTB)on SARS-CoV-2 (COVID-19) RNA MART+probe Ql (Unsp spec) Not detected Normal NOT DETECTED [facility] Comment on above: Result Comment: When diagnostic testing is negative, the possibility of a false negative should be considered in the context of a patient's recent exposures and the presence of clinical signs and symptoms consistent with SARS-CoV-2. Performed By: #### C VDTBH ####[facility] [address] [place] [address]Dr. Sonny Bustos LIPASEon 01-05-2021 Lipase [Catalytic activity/Vol] 85.0 U/L Normal 23.0-300.0 [facility] Comment on above: Performed By: #### A MY LIPA, CMP #### [facility] [address] [place] [address] [address] Sonny Bustos PROF 14(COMP METB)on 021 Albumin [Mass/Vol] 3.6 g/dL Normal 3.5-5.0 [facility] Comment on above: Performed By: #### A MY LIPA, CMP #### [facility] [address] [place] [address] Dr. Sonny Bustos Albumin/Globulin [Mass ratio] 1.1 {ratio} Normal [facility] Comment on above: Performed By: #### A MY LIPA, CMP #### [facility] [address] [place] [address] [address] Sonny Bustos ALP [Catalytic activity/Vol] 80 U/L Normal 38-126 [facility] Comment on above: Performed By: #### A MY LIPA, CMP #### [facility] [address] [place] [address] Dr. Sonny Bustos ALT [Catalytic activity/Vol] 28 U/L Normal 9-52 [facility] Comment on above: Performed By: #### A MY LIPA, CMP #### [facility] [address] [place] [address] [address] Sonny Bustos Anion gap [Moles/Vol] 10.5 mmol/L Normal [facility] Comment on above: Performed By: #### A MY, LIPA, CMP #### [facility] [address] [place] [address] Dr. Sonny Bustos AST [Catalytic activity/Vol] 20 U/L Normal 14-36 [facility] Comment on above: Performed By: #### A MY LIPA, CMP #### [facility] [address] [place] [address] Dr. Sonny Bustos Bilirubin [Mass/Vol] 0.4 mg/dL Normal 0.2-1.[address] [facility] Comment on above: Performed By: #### A OC HUMMEL, CMP #### [facility] [address] [place] [address] [address] Sonny Bustos Calcium [Mass/Vol] 8.8 mg/dL Normal 8.4-10.2 [facility] Comment on above: Performed By: #### A ESTEPHANIE LIPA, CMP #### [facility] [address] [place] [address] [address] Sonny Bustos Chloride [Moles/Vol] 108 mmol/L Critically high 98-[address] [facility] Comment on above: Performed By: #### A OC HUMMEL, CMP #### [facility] [address] [place] [address] Dr. Sonny Bustos CO2 [Moles/Vol] 28.0 mmol/L Normal 22.0-30.0 [facility] [place] [facility] Comment on above: Performed By: #### A KAILASH HUMMELA, CMP #### [facility] [address] [place] [address] Dr. Sonny Bustos Creatinine [Mass/Vol] 0.96 mg/dL Normal 0.52-1.[address] [facility] Comment on above: Performed By: #### A OC HUMMEL, CMP #### [facility] [address] [place] [address] Dr. Sonny Bustos EGFR-AF GEORGIAN >60 Normal >=60 [facility] [place] [facility] Comment on above: Performed By: #### A KAILASH HUMMELA, CMP #### [facility] [address] [place] [address] Dr. Sonny Bustos EGFR-NON AF GEORGIAN 58 mL/min/1.73m2 Critically low >=[address] [facility] Comment on above: Performed By: #### A ESTEPHANIE LIPA, CMP #### [facility] [address] [place] [address] Dr. Sonny Bustos Globulin (S) [Mass/Vol] 3.3 g/dL Normal [facility] Comment on above: Performed By: #### A MY, LIPA, CMP #### [facility] [address] [place] [address] [address] Sonny Bustos Glucose [Mass/Vol] 95 mg/dL Normal 74-106 [facility] Comment on above: Performed By: #### A ESTEPHANIE LIPA, CMP #### [facility] [address] [place] [address] [address] Sonny Bustos Potassium [Moles/Vol] 4.5 mmol/L Normal 3.4-5.0 [facility] Comment on above: Performed By: #### A ESTEPHANIE LIPA, CMP #### [facility] [address] [place] [address] [address] Sonny Bustos Protein [Mass/Vol] 6.9 g/dL Normal 6.1-8.2 [facility] Comment on above: Performed By: #### A ESTEPHANIE LIPA, CMP #### [facility] [address] [place] [address] [address] Sonny Bustos Sodium [Moles/Vol] 142 mmol/L Normal 137-145 [facility] Comment on above: Performed By: #### A ESTEPHANIE LIPA, CMP #### [facility] [address] [place] [address] [address] Sonny Bustos Urea nitrogen [Mass/Vol] 20.0 mg/dL Critically high 7.0-17.0 [facility] Comment on above: Performed By: #### A ESTEPHANIE LIPA, CMP #### [facility] [address] [place] [address] [address] Sonny Bustos Urea nitrogen/Creatinine [Mass ratio] 20.8 mg/mg Normal [facility] Comment on above: Performed By: #### A ESTEPHANIE LIPA, CMP #### [facility] [address] [place] [address] [address] Sonny Bustos US JAYCOB DOP LEG RTon 10-06-19 US JAYCOB DOP LEG RT EXAMINATION: US [...] JEANINE HANKS Date: 2020-10-05 14:[address] [facility] Ophthalmic Eye Examon 2019 Ophthalmic Eye Exam DOCUMENT REVIEWED BY : uLcrecia Malin MD DOCUMENT SIGNED ELECTRONICALLY BY Lucrecia Malin MD ON 10/07/2019 04:57:23 PM [place] [id number], [address] [place], [address] [phone] THIS DOCUMENT WAS CREATED ON: 10/07/2019 04:57:18 PM BY: SAL Amaya MD [id number] Exam Date: Monday, October 07, 2019 PATIENT [...] PRESSURES: 16 15 DATE-TIME: 03:37 PM 03:37 STUDENT SERVICES DEAN: Kaur Dietrich CONFRONTATION VF see HVF, temporal [...] TO DISC: .55 .35 OPTIC DISC: atrophy [place] VITREOUS: PVD syneresis MACULA: Normal [...] 07 2019 4:57PM Eastern Standard Time Normal [facility] Ophthalmic Letteron 10-07-19 Ophthalmic Letter DOCUMENT REVIEWED [...] Sincerely, Lucrecia Malin M.D., Ph.D. Neuro-Ophthalmology Service [facility] [place] [address] Email: [email or web address] Received for:Lucrecia Malin Oct 07 2019 4:57PM Eastern Standard Time Normal [facility] Ophthalmic Eye Examon 2019 Ophthalmic Eye Exam DOCUMENT REVIEWED BY : Lucrecia Malin MD DOCUMENT SIGNED ELECTRONICALLY BY Lucrecia Malin MD ON 09/03/2019 04:14:[address], [address] [phone] THIS DOCUMENT WAS CREATED ON: 09/03/2019 04:14:36 PM BY: Lucrecia Altman performed [id number] Exam Date: Tuesday, September 03, 2019 PATIENT [...] PRESSURES: 14 14 DATE-TIME: 03:01 PM 03:01 STUDENT SERVICES DEAN: [email or web address] CONFRONTATION VF Full to count fingers Full [...] TO DISC: .55 .35 OPTIC DISC: atrophy [place] VITREOUS: PVD syneresis MAC[place]A: Normal [...] Received for:Lucrecia Malin Sep 03 2019 4:14PM [place] Standard Time Normal [facility] Ophthalmic Letteron 09-03-19 Ophthalmic Letter DOCUMENT REVIEWED BY : Lucrecia Malin MD DOCUMENT SIGNED ELECTRONICALLY BY Lucrecia Mailn MD ON 09/03/2019 04:09:27 PM 09/03/2019 Patient [...] brain vs retina. s/p PC IOL OD 2019. s/p Yag Cap OD 07/2019. pt reports [...] your patients with neuro-ophthalmologica l problems. Sincerely, Lucrceia Malin M.D., Ph.D. Neuro-Ophthalmology Service [facility] [place] [address] Email: [email or web address] Received for:Lucrecia Malin Sep 03 2019 4:09PM Eastern Standard Time Normal [facility] Vital Signs Date Time Vital Sign Value Performing Clinician Facility 09-23-2024 10:15-0400 Body height 152.4 cm Niall Smith MD Work Phone: [facility] 09-23-2024 10:15-0400 Body mass index (BMI) [Ratio] 24.54 kg/m2 Niall Smith MD Work Phone: [facility] 09-23-2024 10:15-0400 Body weight 57 kg Niall Smith MD Work Phone: [facility] 09-23-2024 10:15-0400 Diastolic blood pressure 70 mm[Hg] Niall Smith MD Work Phone: [facility] 09-23-2024 10:15-0400 Heart rate 78 /min Niall Smith MD Work Phone: [facility] 09-23-2024 10:15-0400 SaO2% (BldA) [Mass fraction] 98 % Niall Smith MD Work Phone: [facility] 09-23-2024 10:15-0400 Systolic blood pressure 134 mm[Hg] Niall Smith MD Work Phone: [facility] 07-29-2024 10:04-0400 Body height 153.[address] MD Work Phone: [facility] 07-29-2024 10:04-0400 Body mass index (BMI) [Ratio] 24.49 kg/m2 Niall Lane MD Work Phone: [facility] 07-29-2024 10:04-0400 Body temperature 97.5 [degF] Niall Lane MD Work Phone: [facility] 07-29-2024 10:04-0400 Body weight [address] MD Work Phone: [facility] 07-29-2024 10:04-0400 Diastolic blood pressure 84 mm[Hg] Niall Lane MD Work Phone: [facility] 07-29-2024 10:04-0400 Heart rate 80 /min Niall Lane MD Work Phone: [facility] 07-29-2024 10:04-0400 Respiratory rate 16 /min Niall Lane MD Work Phone: [facility] 07-29-2024 10:04-0400 SaO2% (BldA) [Mass fraction] 99 % Niall Lane MD Work Phone: [facility] 07-29-2024 10:04-0400 Systolic blood pressure 136 mm[Hg] Nilal Lane MD Work Phone: [facility] 02-28-2024 07:54-0500 Body height 153.9 cm Niall Smith MD Work Phone: [facility] 02-28-2024 07:54-0500 Body mass index (BMI) [Ratio] 23.17 kg/m2 Niall Smith MD Work Phone: [facility] 02-28-2024 07:54-0500 Body weight 54.9 kg Niall Smith MD Work Phone: [facility] 02-28-2024 07:54-0500 Diastolic blood pressure 65 mm[Hg] Niall Smith MD Work Phone: [facility] 02-28-2024 07:54-0500 Heart rate 71 /min Niall Smith MD Work Phone: [facility] 02-28-2024 07:54-0500 SaO2% (BldA) [Mass fraction] 99 % Niall Smith MD Work Phone: [facility] Comment on above: 02-28-2024 07:54-0500 Systolic blood pressure 122 mm[Hg] Niall Smith MD Work Phone: [facility] 01-22-2024 10:46-0500 SaO2% (BldA) [Mass fraction] 95 % Niall Lane MD Work Phone: [facility] Comment on above: with walking 2x around [facility] 01-22-2024 10:19-0500 Body mass index (BMI) [Ratio] 23.84 kg/m2 Niall Lane MD Work Phone: [facility] 01-22-2024 10:19-0500 Body temperature 97.3 [degF] Niall Lane MD Work Phone: [facility] 01-22-2024 10:19-0500 Body weight 57.[address] MD Work Phone: [facility] 01-22-2024 10:19-0500 Diastolic blood pressure 73 mm[Hg] Niall Lane MD Work Phone: [facility] 01-22-2024 10:19-0500 Heart rate 86 /min Niall Lane MD Work Phone: [facility] 01-22-2024 10:19-0500 Respiratory rate 16 /min Niall Lane MD Work Phone: [facility] 01-22-2024 10:19-0500 Systolic blood pressure 110 mm[Hg] Niall Lane MD Work Phone: [facility] 07-02-2023 14:36-0400 Body mass index (BMI) [Ratio] 24.3 kg/m2 Niall Lane MD Work Phone: [facility] 07-02-2023 14:36-0400 Body temperature 97.81 [degF] Niall Lane MD Work Phone: [facility] 07-02-2023 14:36-0400 Body weight 58.[address] MD Work Phone: [facility] 07-02-2023 14:36-0400 Diastolic blood pressure 74 mm[Hg] Niall Lane MD Work Phone: [facility] 07-02-2023 14:36-0400 Heart rate 83 /min Niall Lane MD Work Phone: [facility] 07-02-2023 14:36-0400 Respiratory rate 18 /min Niall Lane MD Work Phone: [facility] 07-02-2023 14:36-0400 SaO2% (BldA) [Mass fraction] 98 % Niall Lane MD Work Phone: [facility] 07-02-2023 14:36-0400 Systolic blood pressure 126 mm[Hg] Niall Lane MD Work Phone: [facility] 12-26-2022 09:54-0400 Body height 154.[address] MD Work Phone: [facility] 12-26-2022 09:54-0400 Body temperature 97.59 [degF] Niall Lane MD Work Phone: [facility] 12-26-2022 09:54-0400 Body weight 58.[address] MD Work Phone: [facility] 12-26-2022 09:54-0400 Diastolic blood pressure 72 mm[Hg] Niall Lane MD Work Phone: [facility] 12-26-2022 09:54-0400 Heart rate 71 /min Niall Lane MD Work Phone: [facility] 12-26-2022 09:54-0400 Respiratory rate 16 /min Niall Lane MD Work Phone: [facility] 12-26-2022 09:54-0400 SaO2% (BldA) [Mass fraction] 100 % Niall Lane MD Work Phone: [facility] 12-26-2022 09:54-0400 Systolic blood pressure 127 mm[Hg] Niall Lane MD Work Phone: [facility] 07-11-2022 09:00-0400 Body height 154.[address] MD Work Phone: [facility] 07-11-2022 09:00-0400 Body temperature 97.2 [degF] Niall Lane MD Work Phone: [facility] 07-11-2022 09:00-0400 Body weight 58.[address] MD Work Phone: [facility] 07-11-2022 09:00-0400 Diastolic blood pressure 84 mm[Hg] Niall Lane MD Work Phone: [facility] 07-11-2022 09:00-0400 Heart rate 80 /min Niall Lane MD Work Phone: [facility] 07-11-2022 09:00-0400 Respiratory rate 16 /min Niall Lane MD Work Phone: [facility] 07-11-2022 09:00-0400 SaO2% (BldA) [Mass fraction] 100 % Niall Lane MD Work Phone: [facility] 07-11-2022 09:00-0400 Systolic blood pressure 110 mm[Hg] Niall Lane MD Work Phone: [facility] 01-03-2022 08:53-0400 Body height 154.[address] MD Work Phone: [facility] 01-03-2022 08:53-0400 Body temperature 97.59 [degF] Niall Lane MD Work Phone: [facility] 01-03-2022 08:53-0400 Body weight 55.[address] MD Work Phone: [facility] 01-03-2022 08:53-0400 Diastolic blood pressure 74 mm[Hg] Niall Lane MD Work Phone: [facility] 01-03-2022 08:53-0400 Heart rate 76 /min Niall Lane MD Work Phone: [facility] 01-03-2022 08:53-0400 Respiratory rate 16 /min Niall Lane MD Work Phone: [facility] 01-03-2022 08:53-0400 SaO2% (BldA) [Mass fraction] 100 % Niall Lane MD Work Phone: [facility] 01-03-2022 08:53-0400 Systolic blood pressure 139 mm[Hg] Niall Lane MD Work Phone: [facility] 08-03-2021 16:05-0400 Body height 154.94 cm Radha Drew Other [facility] Other 08-03-2021 16:05-0400 Body mass index (BMI) [Ratio] 23.62 kg/m2 Radha Drew Other [facility] Other 08-03-2021 16:05-0400 Body temperature 97.9 [degF] Radha Drew Other [facility] Other 08-03-2021 16:05-0400 Body weight 56.7 kg Radha Drew Other [facility] Other 08-03-2021 16:05-0400 Diastolic blood pressure 78 mm[Hg] Radha Drew Other [facility] Other 08-03-2021 16:05-0400 Respiratory rate 18 /min Radha Drew Other [facility] Other 08-03-2021 16:05-0400 SaO2% (BldA) [Mass fraction] 99 % Radha Drew Other [facility] Other 08-03-2021 16:05-0400 Systolic blood pressure 129 mm[Hg] Radha Drew Other [facility] Other 07-05-2021 08:12-0400 Body height 154.[address] MD Work Phone: [facility] 07-05-2021 08:12-0400 Body temperature 97.2 [degF] Niall Lane MD Work Phone: [facility] 07-05-2021 08:12-0400 Body weight 55.[address] MD Work Phone: [facility] 07-05-2021 08:12-0400 Diastolic blood pressure 71 mm[Hg] Niall Lane MD Work Phone: [facility] 07-05-2021 08:12-0400 Heart rate 77 /min Niall Lane MD Work Phone: [facility] 07-05-2021 08:12-0400 Respiratory rate 16 /min Niall Lane MD Work Phone: [facility] 07-05-2021 08:12-0400 SaO2% (BldA) [Mass fraction] 98 % Niall Lane MD Work Phone: [facility] 07-05-2021 08:12-0400 Systolic blood pressure 149 mm[Hg] Niall Lane MD Work Phone: [facility] Encounters Encounter Date Encounter Type Care Provider Facility Start: 09-23-2024 End: 09-23-2024 ambulatory JEANINE MONTERO Facility:[facility] Start: 09-23-2024 End: 09-23-2024 Patient encounter procedure Niall Smith MD Work Phone: Pulmonary Medicine Comment on above: Dyspnea and respirat ory abnormalities [R06.00, R06.89] (Primary Dx) Start: 09-23-2024 End: 09-23-2024 ambulatory NIALL SMITH Facility:[facility] Start: 07-29-2024 End: 07-29-2024 Patient encounter procedure Niall Lane MD Work Phone: Hematology/Oncology Start: 07-29-2024 End: 07-29-[address] MD Work Phone: Hematology/Oncology Comment on above: Malignant neoplasm o f lower lobe of left lung (HCC) (Primary Dx); History of lung cancer; Shortness of breath Start: 07-22-[address] cility:[facility] Start: 02-28-2024 End: 02-28-2024 ambulatory NIALL SMITH Facility:[facility] Start: 02-28-2024 End: 02-28-2024 Patient encounter procedure Niall Smith MD Work Phone: Pulmonary Medicine Comment on above: MONTES DE OCA (dyspnea on exer tion) [R06.09] (Primary Dx) Start: 02-04-2024 End: 02-04-2024 Telephone encounter Zhane Mcduffie [employer] Admitting Start: 01-22-2024 End: 04-02-2024 Telephone encounter Anita Alvarado RN Pulmonary Medicine Comment on above: Referral Information Start: 01-22-2024 End: 01-22-[address] Facility:[facility] Start: 01-22-2024 End: 01-22-2024 Office outpatient visit [address] MD Work Phone: Hematology/Oncology Comment on above: History of lung canc er (Primary Dx); Shortness of breath Start: 12-25-2023 End: 12-25-2023 ambulatory AL BRYAN Facility:[facility] Start: 12-25-2023 End: 12-25-2023 Subsequent hospital visit [...] Work Phone: Hematology/Oncology Start: 06-27-2023 End: 06-27-2023 Subsequent hospital visit by physician Arrival Time Radiology Work Phone: Radiology [facility] Start: 12-26-2022 End: 12-26-[address] MD Work Phone: Hematology/Oncology Comment on above: Malignant neoplasm o f lower lobe of left lung (HCC) (Primary Dx) Start: 12-26-2022 End: 12-26-2022 Patient encounter procedure Niall Lane MD Work Phone: [facility] Start: 12-18-2022 End: 12-18-2022 Subsequent hospital visit by physician Arrival Time Radiology Work Phone: Radiology [facility] Start: 11-30-2022 Telephone encounter Niall peterson MD Work Phone: Hematology/Oncology Comment on above: Orders Start: 08-29-2022 End: 08-29-2022 ambulatory Kings MATTHEWS Work Phone: [facility] Comment on above: Malignant neoplasm o f lower lobe of right lung (HCC) (Primary Dx); Malignant neoplasm of lower lobe of left lung (HCC); Family history of cancer Start: 08-29-2022 End: 08-29-2022 Telemedicine consultation with patient Kings Aubrey MATTHEWS Work Phone: [facility] Start: 07-11-2022 End: 07-11-2022 ambulatory Niall [...] 12-19-2021 End: 12-19-2021 Emergency department patient visit [facility] Facility:[facility] Start: 12-19-2021 Telephone encounter Kiki Scott RN Hematology/Oncology Comment on above: headaches Start: 11-30-2021 Telephone encounter Bibi Miranda Hematology/Oncology Comment on above: Orders Start: 09-22-2021 End: 09-23-[address] AL BRYAN Facility:[facility] Start: 09-13-2021 End: 09-14-[address] ELSY DOUGLAS Facility:[facility] Start: 08-04-2021 End: 08-05-[address] ELSY DOUGLAS Facility:[facility] Start: 08-03-2021 End: 08-03-[address] AL BRYAN [employer] Other Start: 08-03-2021 Office outpatient ne w 20 minutes Radha Drew [facility] Start: 07-29-2021 End: 07-29-2021 ambulatory Al Bryan Facility:[facility] Start: 07-29-2021 End: 07-29-2021 Patient encounter procedure MD Al Bryan Work Phone: [facility] Start: 07-20-2021 End: 07-20-[address] AL [...] End: 03-15-2021 Subsequent hospital visit by physician [facility] Aneta (1.5t) Work Phone: Radiology Comment on above: Dizziness [R42] Start: 02-15-2021 End: 02-15-2021 Subsequent hospital visit by physician Arrival Time Radiology Work Phone: Radiology Pet CT Start: 01-05-2021 End: 01-05-[address] AL BRYAN Facility:[facility] Start: 10-05-2020 End: 10-05-[address] AL BRYAN Facility:[facility] Start: 06-07-2018 End: 06-08-2018 Patient encounter procedure KARYN CHISHOLM Facility:[facility] Start: 05-20-2018 End: 05-21-2018 Patient encounter procedure DEFAULT PHYSICIAN Facility:[facility] Procedures Date Procedure Procedure Detail [...] MD Work Phone: Start: 08-10-2022 Colonoscopy Kings [employer] Work Phone: Start: 07-04-2022 Ct thorax w/contrast material Niall Lane MD Work Phone: Start: 07-04-2022 Blood count complete auto&auto difrntl wbc Niall Lane MD Work Phone: Start: 12-27-2021 Ct thorax w/contrast material Niall Lane MD Work Phone: Start: 12-27-2021 Comprehensive metabo lic panel Olga Wesley [employer]ISTR[employer] Work Phone: Start: 07-29-2021 Doppler ultrasonogra phy [...] RSV Vaccine (1 - 1-dose 75+ series) [facility] Start: 07-23-2027 [facility] Start: 12-24-2026 [facility] Start: 06-26-2026 [facility] Start: 02-15-2026 Lipid 1996 panel - S abimbola or Plasma Lipid Screening [facility] Start: 02-15-2026 Lipid panel Lipid Screening [facility] Start: 02-15-2026 LIPID SCREEN LIPID SCREEN [facility] Start: 12-18-2025 [facility] Start: 07-04-2025 DIABETES SCREEN DIABETES SCREEN [facility] Start: 07-04-2025 [facility] Start: 01-29-2025 End: 04-30-2025 CBC W Auto Differential panel - Blood COMPLETE BLOOD COUNT AND DIFFERENTIAL Lab Routine Expected: 01/29/2025 (Approximate), Expires: 04/30/2025 [facility] Comment on above: Expected: 01/29/2025 (Approximate), Expires: 04/30/2025 Start: 01-29-2025 End: 04-30-2025 Comprehensive metabolic 2000 panel - Serum or Plasma COMPREHENSIVE METABOLIC PANEL Lab Routine Expected: 01/29/2025 (Approximate), Expires: 04/30/2025 [facility] Comment on above: Expected: 01/29/2025 (Approximate), Expires: 04/30/2025 Start: 01-29-2025 End: 08-28-2025 CT Chest W contrast IV CT CHEST W IVCON Radiology Routine Expected: 01/29/2025 (Approximate), Expires: 08/28/2025 [facility] Work Phone: Comment on above: Expected: 01/29/2025 (Approximate), Expires: 08/28/2025 Start: 01-20-2025 End: 01-20-2025 Follow-up encounter 01/20/2025 9:30 AM EST Visit (SP) Office Hematology/Oncology [address] [place] [address] Marisol Manning PA-C [address] [place] [address] 6 month follow up for ct and lab results Hematology/Oncology Comment on above: 6 month follow up fo r ct and lab results Start: 01-13-2025 End: 01-13-2025 Patient encounter procedure 01/13/2025 7:45 AM EST Appointment Radiology [facility] [address] [place] [address] Ct Chest with contrast and lab [facility]iology [facility] CT Comment on above: Ct Chest with contra st and lab Start: 12-27-2024 DIABETES SCREEN DIABETES SCREEN [facility] Start: 12-19-2024 DIABETES SCREEN DIABETES SCREEN [facility] Start: 11-03-2024 Influenza vaccination [facility] Start: 09-23-2024 End: 09-23-2024 Patient encounter procedure 09/23/2024 10:30 AM EDT Office Visit Pulmonary Medicine [address] [place] [address] Niall Smith MD [address] [place] [address] Return in about 6 months (around 08/28/2024). Pulmonary Medicine Comment on above: Return in about 6 mo nths (around 08/28/2024). Start: 08-28-2024 End: 08-28-2024 Patient encounter procedure 08/28/2024 9:30 AM EDT Office Visit Pulmonary Medicine [address] [facility] [place] [address] Niall Smith MD [address] [place] [address] Return in about 6 months (around 08/28/2024). Pulmonary Medicine Comment on above: Return in about 6 mo nths (around 08/28/2024). Start: 07-29-2024 End: 07-29-2024 Follow-up encounter 07/29/2024 10:00 AM EDT Visit (SP) Office Hematology/Oncology [address] [address] MD [address] [place] [address] 6 month follow up after ct and lab / Requested to see [facility] Hematology/Oncology Comment on above: [address] and lab / Requested to see [facility] Start: 07-22-2024 End: 07-22-2024 Patient encounter procedure 07/22/2024 9:45 AM EDT Appointment Radiology [facility] CT [address] [place] [address] Ct Chest with IV contrast and lab Radiology Pet CT Comment on above: Ct Chest with IV con trast and lab Start: 07-21-2024 End: 10-20-2024 CBC W Auto Differential panel - Blood COMPLETE BLOOD COUNT AND DIFFERENTIAL Lab Routine Expected: 07/21/2024 (Approximate), Expires: 10/20/2024 [facility] Comment on above: Expected: 07/21/2024 (Approximate), Expires: 10/20/2024 Start: 07-21-2024 End: 10-20-2024 Comprehensive metabolic 2000 panel - Serum or Plasma COMPREHENSIVE METABOLIC PANEL Lab Routine Expected: 07/21/2024 (Approximate), Expires: 10/20/2024 [facility] Comment on above: Expected: 07/21/2024 (Approximate), Expires: 10/20/2024 Start: 07-01-2024 DIABETES SCREEN DIABETES SCREEN [facility] Start: 03-05-2024 Advance Directive Discussion Advance Directive Discussion [facility] Start: 02-28-2024 End: 02-28-2024 Patient encounter procedure 02/28/2024 8:00 AM EST Office Visit Pulmonary Medicine [address] [facility] [place] [address] Niall Smith MD [address] [facility] [place] [address] hc of Lung cancer and shortness osf breath Pulmonary Medicine Comment on above: hc of Lung cancer an d shortness osf breath Start: 02-16-2024 DIABETES SCREEN DIABETES SCREEN [facility] Start: 01-07-2024 End: 01-07-2024 Follow-up encounter Hematology/Oncology Comment on above: [address] and lab Start: 12-31-2023 End: 12-31-2023 Follow-up encounter 12/31/2023 2:30 PM EDT Visit (SP) Office Hematology/Oncology [address] [address] MD [address] [address] 6 month follow up after ct and lab Hematology/Oncology Comment on above: [address] and lab Start: 12-25-2023 End: 12-25-2023 Patient encounter procedure 12/25/2023 8:45 AM EDT Appointment Radiology Pet CT [address] [place] [address] Ct Chest with contrast and lab Radiology Pet CT Comment on above: Ct Chest with contra st and lab Start: 11-13-2023 End: 02-12-2024 CBC W Auto Differential panel - Blood COMPLETE BLOOD COUNT AND DIFFERENTIAL Lab Routine Malignant neoplasm of lower lobe of left lung (HCC) Expected: 11/13/2023, Expires: 02/12/2024 [facility] Work Phone: Comment on above: Expected: 11/13/2023 , Expires: 02/12/2024 Start: 11-13-2023 End: 02-12-2024 Comprehensive metabolic 2000 panel - Serum or Plasma COMPREHENSIVE METABOLIC PANEL Lab Routine Malignant neoplasm of lower lobe of left lung (HCC) Expected: 11/13/2023, Expires: 02/12/2024 [facility] Comment on above: Expected: 11/13/2023 , Expires: 02/12/2024 Start: 11-04-2023 Covid-19 Vaccine () Covid-19 Vaccine () [facility] Start: 11-04-2023 Covid-19 Vaccine () Covid-19 Vaccine () [facility] Start: 11-04-2023 [facility] Start: 08-11-2023 Colonoscopy COLONOSCOPY [facility] Start: 08-11-2023 COLORECTAL CANCER SCREENING COLORECTAL CANCER SCREENING [facility] Start: 08-11-2023 Screening for malign ant neoplasm of colon [facility] Start: 06-27-2023 End: 09-26-2023 CBC W Auto Differential panel - Blood CBC + DIFF Lab Routine Malignant neoplasm of lower lobe of left lung (HCC) Expected: 06/27/2023 (Approximate), Expires: 09/26/2023 [facility] Work Phone: Comment on above: Expected: 06/27/2023 (Approximate), Expires: 09/26/2023 Start: 06-27-2023 End: 09-26-2023 Comprehensive metabolic 2000 panel - Serum or Plasma COMP METABOLIC PANEL Lab Routine Malignant neoplasm of lower lobe of left lung (HCC) Expected: 06/27/2023 (Approximate), Expires: 09/26/2023 [facility] Work Phone: Comment on above: Expected: 06/27/2023 (Approximate), Expires: 09/26/2023 Start: 06-27-2023 End: 01-25-2024 CT CHEST W IVCON CT CHEST W IVCON Radiology Routine Expected: 06/27/2023 (Approximate), Expires: 01/25/2024 [facility] Work Phone: Comment on above: Expected: 06/27/2023 (Approximate), Expires: 01/25/2024 Start: 03-05-2023 Advance Directive Discussion Advance Directive Discussion [facility] Start: 03-05-2023 Behavioral Health Screening Behavioral Health Screening [facility] Start: 11-13-2023 Pneumococcal Vaccine : 50+ (3 of 3 - PCV20 or PCV21) Pneumococcal Vaccine: 50+ (3 of 3 - PCV20 or PCV21) [facility] Start: 01-15-2023 Pneumococcal Vaccine : 65+ (3 - PPSV23 or PCV20) Pneumococcal Vaccine: 65+ (3 - PPSV23 or PCV20) [facility] Start: 01-15-2023 Pneumococcal Vaccine : 65+ (3 of 3 - PPSV23 or PCV20) Pneumococcal Vaccine: 65+ (3 of 3 - PPSV23 or PCV20) [facility] Start: 12-18-2022 End: 02-17-2023 CBC W Auto Differential panel - Blood CBC + DIFF Lab Routine History of lung cancer Expected: 12/18/2022, Expires: 02/17/2023 [facility] Work Phone: Comment on above: Expected: 12/18/2022 , Expires: 02/17/2023 Start: 12-18-2022 End: 02-17-2023 Comprehensive metabolic 2000 panel - Serum or Plasma COMP METABOLIC PANEL Lab Routine History of lung cancer Expected: 12/18/2022, Expires: 02/17/2023 [facility] Work Phone: Comment on above: Expected: 12/18/2022 , Expires: 02/17/2023 Start: 11-03-2022 Covid-19 Vaccine ( season) Covid-19 Vaccine ( season) [facility] Start: 11-03-2022 Influenza vaccination Influenza Vacc ine (#1) [facility] Start: 08-29-2022 End: 10-29-2022 MISC SEND OUT TST 1 [facility] Work Phone: Comment on above: Expected: 08/29/2022 , Expires: 10/29/2022 Start: 07-05-2022 Adult depression screening assessment DEPRESSION SCREENING [facility] Start: 07-04-2022 End: 09-03-2022 CBC W Auto Differential panel - Blood CBC + DIFF Lab Routine Malignant neoplasm of lower lobe of left lung (HCC) Expected: 07/04/2022, Expires: 09/03/2022 [facility] Work Phone: Comment on above: Expected: 07/04/2022 , Expires: 09/03/2022 Start: 07-04-2022 End: 09-03-2022 Comprehensive metabolic 2000 panel - Serum or Plasma COMP METABOLIC PANEL Lab Routine Malignant neoplasm of lower lobe of left lung (HCC) Expected: 07/04/2022, Expires: 09/03/2022 [facility] Work Phone: Comment on above: Expected: 07/04/2022 , Expires: 09/03/2022 Start: 03-31-2022 Covid-19 Vaccine (5 - Moderna series) Covid-19 Vaccine (5 - Moderna series) [facility] Start: 03-05-2022 ADVANCE DIRECTIVE DISCUSSION ADVANCE DIRECTIVE DISCUSSION [facility] Start: 03-05-2022 DEPRESSION ASSESSMENT DEPRESSION ASS ESSMENT [facility] Start: 02-19-2022 Adult depression screening assessment DEPRESSION SCREENING [facility] Start: 11-30-2021 End: 01-30-2022 CBC W Auto Differential panel - Blood CBC + DIFF Lab Routine Lung nodules Expected: 11/30/2021, Expires: 01/30/2022 [facility] Work Phone: Comment on above: Expected: 11/30/2021 , Expires: 01/30/2022 Start: 11-30-2021 End: 01-30-2022 Comprehensive metabolic 2000 panel - Serum or Plasma COMP METABOLIC PANEL Lab Routine Lung nodules Expected: 11/30/2021, Expires: 01/30/2022 [facility] Work Phone: Comment on above: Expected: 11/30/2021 , Expires: 01/30/2022 Start: 11-03-2021 Influenza vaccination [facility] Start: 08-02-2021 End: 10-02-2021 Comprehensive metabolic 2000 panel - Serum or Plasma COMP METABOLIC PANEL Lab Routine Lung nodules Malignant neoplasm of lower lobe of left lung (HCC) Expected: 08/02/2021, Expires: 10/02/2021 [facility] Work Phone: Comment on above: Expected: 08/02/2021 , Expires: 10/02/2021 Start: 07-05-2021 End: 09-04-2021 CBC W Auto Differential panel - Blood CBC + DIFF Lab Routine Lung nodules Malignant neoplasm of lower lobe of left lung (HCC) Expected: 07/05/2021, Expires: 09/04/2021 [facility] Work Phone: Comment on above: Expected: 07/05/2021 , Expires: 09/04/2021 Start: 07-01-2021 End: 08-31-2021 CBC W Auto Differential panel - Blood CBC + DIFF Lab Routine Lung nodules Expected: 07/01/2021 (Approximate), Expires: 08/31/2021 [facility] Work Phone: Comment on above: Expected: 07/01/2021 (Approximate), Expires: 08/31/2021 Start: 07-01-2021 End: 08-31-2021 Comprehensive metabolic 2000 panel - Serum or Plasma COMP METABOLIC PANEL Lab Routine Lung nodules Expected: 07/01/2021 (Approximate), Expires: 08/31/2021 [facility] Work Phone: Comment on above: Expected: 07/01/2021 (Approximate), Expires: 08/31/2021 Start: 05-01-2021 COVID-19 VACCINE (4 - Booster for Moderna series) COVID-19 VACCINE (4 - Booster for Moderna series) [facility] Start: 03-05-2021 ADVANCE DIRECTIVE DISCUSSION ADVANCE DIRECTIVE DISCUSSION [facility] Start: 03-05-2021 DEPRESSION ASSESSMENT DEPRESSION ASS ESSMENT [facility] Start: 02-23-2021 COVID-19 VACCINE (4 - Booster for Moderna series) COVID-19 VACCINE (4 - Booster for Moderna series) [facility] Start: 02-23-2021 PNEUMOCOCCAL: 65+ (#3) PNEUMOCOCCAL: 65+ (#3) [facility] Start: 02-23-2021 PNEUMOCOCCAL: 65+ (3 - PPSV23 if available, else PCV20) PNEUMOCOCCAL: 65+ (3 - PPSV23 if available, else PCV20) [facility] Start: 02-23-2021 PNEUMOVAX AGE 65 AND OVER WITH 5YR LOOKBACK (#1) PNEUMOVAX AGE 65 AND OVER WITH 5YR LOOKBACK (#1) [facility] Start: 02-07-2020 BONE DENSITY BONE DENSITY [facility] Start: 02-07-2020 Bone Density Screening Bone Density Screening [facility] Start: 02-07-2020 Screening for osteoporosis Bone Density Screening [facility] Start: 07-03-2017 Medicare Annual Well ness Visit Medicare Annual Wellness Visit [facility] Start: 2015 RSV Vaccine (1 - 1-d ose 60+ series) RSV Vaccine (1 - 1-dose 60+ series) [facility] Start: 2005 SHINGRIX VACCINE (1 of 2) SHINGRIX VACCINE (1 of 2) [facility] Start: 02-07-2000 COLOGUARD (FIT-DNA) COLOGUARD (FIT-D NA) [facility] Start: 02-07-2000 Colonoscopy COLONOSCOPY [facility] Start: 02-07-2000 COLORECTAL CANCER SCREENING COLORECTAL CANCER SCREENING [facility] Start: 02-07-[address] COLONOGRAPHY [facility] Start: 02-07-2000 FECAL OCCULT BLOOD FECAL OCCULT BLOO D [facility] Start: 02-07-2000 Screening for malign ant neoplasm of colon [facility] Start: 02-07-2000 SIGMOIDOSCOPY SIGMOIDOSCOPY [facility] Start: 1995 Mammography [facility] Start: 1995 Screening for malign ant neoplasm of breast Mammogram Screening [facility] Start: 1974 Urine microalbumin profile [facility] [facility] Anxiety Screening Anxiety Screening [facility] Start: 1973 Depression Screening Depression Scre ening [facility] Start: 1973 HEPATITIS C SCREENING HEPATITIS C [facility] Start: 1973 Hepatitis C screening Hepatitis C [facility] End: 07-31-2024 CT Chest W contrast IV CT CHEST W IVCON Radiology Routine 1 Occurrences starting 07/02/2023 until 07/31/2024 [facility] Work Phone: Comment on above: 1 Occurrences starti ng 07/02/2023 until 07/31/2024 End: 02-20-2025 CT Chest W contrast IV CT CHEST W IVCON Radiology Routine 1 Occurrences starting 01/22/2024 until 02/20/2025 [facility] Work Phone: Comment on above: 1 Occurrences starti ng 01/22/2024 until 02/20/2025 End: 02-02-2023 CT CHEST W IVCON CT CHEST W IVCON Radiology Routine 1 Occurrences starting 01/03/2022 until 02/02/2023 [facility] Work Phone: Comment on above: 1 Occurrences starti ng 01/03/2022 until 02/02/2023 End: 08-10-2023 CT CHEST W IVCON CT CHEST W IVCON Radiology Routine 1 Occurrences starting 07/11/2022 until 08/10/2023 [facility] Work Phone: Comment on above: 1 Occurrences starti ng 07/11/2022 until 08/10/2023 End: 08-04-2022 Ct thorax w/contrast material CT CHEST W IVCON Radiology Routine Lung nodules 1 Occurrences starting 07/05/2021 until 08/04/2022 [facility] Work Phone: Comment on above: 1 Occurrences starti ng 07/05/2021 until 08/04/2022 [facility] Immunizations Immunization Date Immunization Notes Care Provider [facility] 02-01-2022 influenza (aIIV4) vaccine, age 65+ yr, quadrivalent, PF (FLUAD QUAD) Niall Lane MD Work Phone: [facility] 02-01-2022 influenza virus vacc ine, unspecified formulation Niall Lane MD Work Phone: [facility] 12-29-2020 COVID-19 original vaccine, full dose, monovalent (MODERNA) Niall Lane MD Work Phone: [facility] 05-12-2020 COVID-19 vaccine, fu ll dose (MODERNA) Armida Beck RN [facility] 04-14-2020 COVID-19 vaccine, fu ll dose (MODERNA) Armida Beck RN [facility] 12-03-2019 influenza, injectabl e, quadrivalent, preservative free Armida Beck RN [facility] 12-20-2018 influenza, injectabl e, quadrivalent, preservative free Armida Beck RN [facility] 03-12-2018 influenza, injectabl e, quadrivalent, contains preservative Armida Beck RN [facility] 03-12-2018 influenza, injectabl e, quadrivalent, preservative free Armida Beck RN [facility] 01-15-2018 pneumococcal conjuga te vaccine, 13 valent Armida Beck RN [facility] 02-24-2016 pneumococcal polysaccharide vaccine, 23 valent Armida Beck RN [facility] 12-30-2015 influenza, injectabl e, quadrivalent, preservative free Armida Beck RN [facility] 02-09-2015 influenza, injectabl e, quadrivalent, preservative free Armida Beck RN [facility] 01-14-2009 novel influenza-H1N1 -09, all formulations Armida Beck RN [facility] 01-14-2009 novel influenza-H1N1 -09, preservative-free, injectable Armida Beck RN [facility] 12-28-2008 influenza virus vacc ine, whole virus Armida Beck [facility] Payers Date Payer Category Payer Self-pay [id number] 2020 Private Health Insurance [id number] 2020 Unknown 2017 Medicare MEDICARE MEDICAR E A AND B [id number] 2017-Present [phone] [address] [address] [place] [address] Medicare [id number] 2017 Medicare [id number] 1959 Medicare [id number] 1959 Unknown [id number] 1955 Unknown [id number] [id number] 1955 Unknown [id number] [id number] 1955 Unknown [id number] [id number] 1955 Unknown [id number] [id number] 1955 Unknown [id number] [id number] 1955 Unknown [id number] [id number] 1955 Unknown [id number] [id number] 1955 Unknown [id number] [id number] 1955 Unknown [id number] [id number] Private Health Insurance [id number] Unknown [employer] [id number] Unknown [id number] Social History Date Type Detail Facility Start: 01-18-2018 End: 02-28-2024 Tobacco smoking status NHIS Ex-smoker [facility] Start: 04-01-1973 End: 04-01-1984 History of tobacco use Current smoker [facility] Start: 04-01-1973 End: 04-01-1984 History of tobacco use Cigarette Smoker [facility] Start: 02-22-2021 End: 09-23-2024 Alcohol intake Current drinker of alcohol (finding) [facility] Start: 04-01-2013 History SDOH Alcohol Comment occasionally [facility] Start: 12-02-2019 History SDOH Financial 5 [facility] Start: 12-02-2019 History SDOH Food Worry 1 [facility] Start: 12-02-2019 History SDOH Transpo rt Med 2 [facility] Start: 1955 Sex Assigned At Not on file [facility] Start: 01-16-2021 End: 01-03-2022 Exposure to SARS-CoV-2 (event) Not sure [facility] Start: 1955 Sex Assigned At Female F [facility] Start: 12-02-2019 End: 07-11-2022 Sex Assigned At [facility] Work Phone: Start: 01-18-2018 End: 07-11-2022 Cigarettes smoked current (pack per day) - Reported 0.5 [facility] Work Phone: Start: 01-18-2018 End: 02-28-2024 Tobacco use and exposure Smokeless tobacco non-user [facility] History of tobacco use Passive smoker [facility] Start: 01-03-2022 Tobacco Comment second hand ci garette exposure as a child [facility] How hard is it for y ou to pay for the very basics like food, housing, medical care, and heating Not hard at all [facility] Work Phone: (I/We) worried sendy er (my/our) food would run out before (I/we) got money to buy more. Never true [facility] Work Phone: Functional Status Date Assessment Result Facility 12-03-2019 Are you deaf, or do you have serious difficulty hearing No 12/03/2019 7:52 AM Shawn Ruelas RN No [facility] 12-03-2019 Are you blind, or do you have serious difficulty seeing, even when wearing glasses No 12/03/2019 7:52 AM Shawn Ruelas RN No [facility] 12-03-2019 Do you have serious difficulty walking or climbing stairs No 12/03/2019 7:52 AM Shawn Ruelas RN No [facility] 12-03-2019 Do you have difficul ty dressing or bathing No 12/03/2019 7:52 AM Shawn Ruelas RN [facility] 12-03-2019 Because of a physica l, mental, or emotional condition, do you have difficulty doing errands alone such as visiting a physician's office or shopping No 12/03/2019 7:52 AM EDT Shawn Looney RN No [facility] Mental Status Date Assessment Result Facility 12-03-2019 Because of a physica l, mental, or emotional condition, do you have serious difficulty concentrating, remembering, or making decisions No 12/03/2019 7:52 AM EDT Shawn Looney RN No [facility] Clinical Notes 12-01-2019 to 09-23-2024 Patient Niall Barnes MD - 09/23/2024 10:30 AM EDTMNiall perera MD - 07/28/2024 7:15 AM EDTPatient Niall Barnes MD - 02/28/2024 8:00 AM EST Note Date & Type Note Facility 09-23-2024 Instructions Niall Smith MD - 09/23/2024 10:53 AM EDT Continue to stay active. Follow up as needed. documented in this encounter [facility] 09-23-2024 History of Presen t illness Narrative Images from the original note were not included. . [facility] Note Ms. Donis is a 69 year old female who presents to the [facility] for follow up of dyspnea. HPI: 69 year old female with adenocarcinoma of the right lung s/p wedge resection (11/11/2019) and s/p Left lower lobectomy (02/2015) that presents for follow up of dyspnea. Just came back from [facility] on vac She went to the ocean once and spent time around the pool, Took a 14 mile bike ride and she did well. She believes that her shortness of breath is much better. She did led the pack on the 14 mile bike. NO wheezing or coughing. She is still staying active. Allergies: Patient has no known allergies. Outpatient Medications: cycloSPORINE (RESTASIS MULTIDOSE) 0.05 % drop Use 1 Drop in eyes. PHYSICAL EXAM: BP 134/70 Pulse 78 Ht 5' 0 (1.52m) Wt 125 lb 10.6 oz (57.0kg) SpO2 98% BMI 24.54 kg/(m^2). GEN: Alert, comfortable, sitting up in chair, no distress CV: RRR PULM: CTAB, no wheezing or crackles Labs / Imaging / Diagnostic Studies: All radiography listed below personally reviewed by me Data Reviewed from [facility] (in addition to that noted in HPI, and Past histories above): PFT: 11/06/2019: Nl flory, Nl DLCO CT Chest 07/22/24: IMPRESSION: 1. No CT evidence of new metastatic disease in the chest. 2. Stable appearing groundglass and solid pulmonary nodules in both lungs. No new or enlarging pulmonary nodules are identified. 3. No pathologically enlarged lymph nodes identified in the chest. CT Chest 12/25/23: IMPRESSION: 1. No CT evidence of new metastatic disease in the chest. 2. Stable appearing groundglass and solid pulmonary nodules in both lungs. No new or enlarging pulmonary nodules are identified. 3. No pathologically enlarged lymph nodes identified in the chest. Assessment: Ms. Donis is a 69 year old female who presents to the [facility] for evaluation of Dyspnea MONTES DE OCA Her MONTES DE OCA has resolved and she remains active Counseled to continue her physical activity. Lung nodules -she does have a few remaining lung nodules in her chest, overall read as stable per radiology -the most concerning of which is the ALISA groundglass nodule -plan already in place for follow up CT chest with oncology Follow up as needed. Niall Smith MD Pulmonary and Critical Care Staff documented in this encounter [facility] 09-23-2024 Note HNO ID: [id number] Author: NIALL SMITH MD Service: ? Author Type: Physician Type: Progress Notes Filed: 09/23/2024 10:56 Note Text: . [facility] [place] Note Ms. Donis is a 69 year old female who presents to the [facility] for follow up of dyspnea. HPI: 69 year old female with adenocarcinoma of the right lung s/p wedge resection (11/11/2019) and s/p Left lower lobectomy (02/2015) that presents for follow up of dyspnea. Just came back from [facility] on vac She went to the ocean once and spent time around the pool, Took a 14 mile bike ride and she did well. She believes that her shortness of breath is much better. She did led the pack on the 14 mile bike. NO wheezing or coughing. She is still staying active. Allergies: Patient has no known allergies. Outpatient Medications: cycloSPORINE (RESTASIS MULTIDOSE) 0.05 % drop Use 1 Drop in eyes. PHYSICAL EXAM: BP 134/70 Pulse 78 Ht 5' 0 (1.52m) Wt 125 lb 10.6 oz (57.0kg) SpO2 98% BMI 24.54 kg/(m2). GEN: Alert, comfortable, sitting up in chair, no distress CV: RRR PULM: CTAB, no wheezing or crackles Labs / Imaging / Diagnostic Studies: All radiography listed below personally reviewed by me Data Reviewed from [facility] (in addition to that noted in HPI, and Past histories above): PFT: 11/06/2019: Nl flory, Nl DLCO CT Chest 07/22/24: IMPRESSION: 1. No CT evidence of new metastatic disease in the chest. 2. Stable appearing groundglass and solid pulmonary nodules in both lungs. No new or enlarging pulmonary nodules are identified. 3. No pathologically enlarged lymph nodes identified in the chest. CT Chest 12/25/23: IMPRESSION: 1. No CT evidence of new metastatic disease in the chest. 2. Stable appearing groundglass and solid pulmonary nodules in both lungs. No new or enlarging pulmonary nodules are identified. 3. No pathologically enlarged lymph nodes identified in the chest. Assessment: Ms. Donis is a 69 year old female who presents to the [facility] for evaluation of Dyspnea MONTES DE OCA Her MONTES DE OCA has resolved and she remains active Counseled to continue her physical activity. Lung nodules -she does have a few remaining lung nodules in her chest, overall read as stable per radiology -the most concerning of which is the ALISA groundglass nodule -plan already in place for follow up CT chest with oncology Follow up as needed. Niall Smith MD Pulmonary and Critical Care Staff [facility] 07-28-2024 Note HNO ID: [id number] Author: NIALL LANE MD Service: ? Author Type: Physician Type: Progress Notes Filed: 07/29/2024 20:15 Note Text: PATIENT NAME: Jana Donis DATE: 07/29/2024 PRIMARY CARE PHYSICIAN: Dr. Al Bryan OTHER PHYSICIANS: Dr. Lerner, Dr. Samayoa, Dr. Gudelia Mckay ([facility] ID), Dr. Niall Smith ([facility] Pulmonary) Portions of this encounter note have been copied from the note from 01/22/2024 and has been updated where appropriate, and reflect my current medical decision making from today. CC: This is a 69 year old female with a history of lung cancer, seen for scheduled follow-up. INTERIM HISTORY: Since the patient's last visit here she was seen by [facility] pulmonary for evaluation of intermittent shortness of breath. She was instructed to exercise her lungs , and this has improved her breathing. Currently minimal MONTES DE OCA, no cough, and no chest pain. Otherwise she has had no significant medical changes. Overall she feels well. MEDICATIONS: cycloSPORINE (RESTASIS MULTIDOSE) 0.05 % drop [...] seizures or tremors. PHYSICAL EXAM: Vitals: BP 136/84 Pulse 80 Temp 36.4 ?C (97.5 ?F) (Temporal) Resp 16 Ht 153.9 cm (5' 0.59 ) Wt 58 kg (127 lb 13.9 oz) SpO2 99% BMI 24.49 kg/m? Pulse ox walking - lowest 93% Gen.: This is an age-appropriate patient in [...] skin without rash, lesions, wounds or petechiae. Lungs: Clear to auscultation bilaterally PATHOLOGY: 12/01/2019 Right lower lobe wedge resection [...] than1% EGFR - A sequence change [id number] ([id number]) in exon 19 was detected at approximately 22% allelic proportion (depth of coverage at change [id number] 02/21/2016 Partial right lower lobectomy/lymph node dissection ([facility]) FINAL DIAGNOSIS 1. Lung, (more content not included)... [facility] 07-28-2024 History of Presen t illness Narrative PATIENT NAME: Jana Donis DATE: 07/29/2024 PRIMARY CARE PHYSICIAN: Dr. Al Bryan OTHER PHYSICIANS: Dr. Lerner, Dr. Samayoa, Dr. Gudelia Mckay ([facility] ID), Dr. Niall Smith ([facility]) Portions of this encounter note have been copied from the note from 01/22/2024 and has been updated where appropriate, and reflect my current medical decision making from today. CC: This is a 69 year old female with a history of lung cancer, seen for scheduled follow-up. INTERIM HISTORY: Since the patient's last visit here she was seen by [facility] for evaluation of intermittent shortness of breath. She was instructed to exercise her lungs , and this has improved her breathing. Currently minimal MONTES DE OCA, no cough, and no chest pain. Otherwise she has had no significant medical changes. Overall she feels well. MEDICATIONS: cycloSPORINE (RESTASIS MULTIDOSE) 0.05 % drop [...] seizures or tremors. PHYSICAL EXAM: Vitals: BP 136/84 Pulse 80 Temp 36.4 C (97.5 F) (Temporal) Resp 16 Ht 153.9 cm (5' 0.59 ) Wt 58 kg (127 lb 13.9 oz) SpO2 99% BMI 24.49 kg/m Pulse ox walking - lowest 93% Gen.: This is an age-appropriate patient in [...] skin without rash, lesions, wounds or petechiae. Lungs: Clear to auscultation bilaterally PATHOLOGY: 12/01/2019 Right lower lobe wedge resection [...] than1% EGFR - A sequence change [id number] (p.[id number]) in exon 19 was detected at approximately 22% allelic proportion (depth of coverage at change 65058 02/21/2016 Partial right lower lobectomy/lymph node dissection [...] tumor. EGFR - A sequence change: [id number] (p.[id number]) detected at approximately 20% allele proportion. [Reference [...] (0/2). LABORATORY DATA: Hemoglobin (g/dL) Date Value 07/22/2024 12.0 02/15/2021 12.5 Hematocrit (%) Date Value 07/22/2024 36.0 02/15/2021 39.1 WBC (k/uL) Date Value 07/22/2024 4.74 02/15/2021 5.98 Platelet Count (k/uL) Date Value 07/22/2024 220 02/15/2021 269 RADIOLOGY/OTHER STUDIES: 07/22/2024 CT chest IMPRESSION: 1. No CT evidence of new metastatic disease in the chest. 2. Stable appearing groundglass and solid pulmonary nodules in both lungs. No new or enlarging pulmonary nodules are identified. 3. No pathologically enlarged lymph nodes identified in the chest. 12/25/2023 CT chest IMPRESSION: 1. No CT [...] evidence of disease. Most recent chest CT 07/22/2024 stable. At this time will continue close observation. Repeat labs and chest CT in 6 months, the patient will then return for follow-up. Further evaluation will be discussed (PET scan, biopsy, etc.) if CT scans indicate any suspicious changes. 2. Primary adenocarcinoma of right lung (lung [...] radiation therapy she was enrolled on the [employer] [id number] trial randomizing patients to receive Erlotinib vs placebo 2 years in the adjuvant setting. The patient started treatment per protocol 10/07/2015. The patient was removed from study after being diagnosed with a new primary lung cancer. 4. Pulmonary histoplasmosis Pathology obtained at the time of the patient's right lung surgery November 2019 revealed evidence of histoplasmosis. Per [facility] infectious disease no treatment recommended. 5. Shortness of breath - ICD9: 786.05, ICD10: R06.02 The patient has chronic dyspnea on exertion which has slowly worsened. Etiology multifactorial, in part due to multiple lung surgeries as well as previous pulmonary histoplasmosis. She has been referred to [facility] pulmonary (Dr. Smith) for evaluation and treatment. Niall Lane MD documented in this encounter [facility] 07-22-2024 Note HNO ID: [id number] Author: LYUBOV VASQUEZ, RT(R) Service: ? Author Type: Technologist Type: Progress Notes Filed: 07/22/2024 08:18 Note Text: Radiology Service Progress Note PATIENT NAME: Jana Donis DATE OF SERVICE: July 22, 2024 TIME: 8:18 AM PATIENT IDENTITY VERIFICATION COMPLETED USING TWO (2) IDENTIFIERS: Name and Date of confirmed by patient verbally. FALL SCREENING: Has the patient had 2 falls in the last year or 1 fall with injury or currently using an Ambulatory Assistive Device (Walker, Cane, Wheelchair, Crutches, etc.)? No PATIENT GENDER DATA: Assigned female at . status: : No status: NO. PATIENT RELEVANT IMPLANT DATA REVIEWED: Not Applicable PATIENT PRESENTS WITH AN IMPLANTABLE OR ATTACHED TENSION MACHINE OPERATOR: No RADIOLOGY DEPARTMENT: CT; Exam(s) Completed: Chest PERIPHERAL IV DATA: Site assessment: Clean,Dry and Intact, Site disposition Discontinued SIGNED BY: Lyubov Vasquez, RT(R) July 22, 2024 8:18 AM [facility] 07-22-2024 Note HNO ID: [id number] Author: ELODIA MILLER RN Service: ? Author Type: Registered Nurse Type: Progress Notes Filed: 07/22/2024 08:07 Note Text: Radiology Service Progress Note DATE OF SERVICE: July 22, 2024 TIME: 8:06 AM PATIENT WEIGHT: 127LBS PATIENT IDENTITY VERIFICATION COMPLETED USING TWO (2) STANDARD IDENTIFIERS: Name and Date of confirmed by patient verbally. FALL SCREENING: Has the patient had 2 falls in the last year or 1 fall with injury or currently using an Ambulatory Assistive Device (Walker, Cane, Wheelchair, Crutches, etc.)? No PATIENT GENDER DATA: Assigned female at . status: : No status: NO. ALLERGIES: Reviewed and unchanged CONTRAST ALLERGY: No EXAM: CT -CONTRAST INDUCED NEPHROPATHY RISK FACTORS: Patient age > 60 years CREATININE: Creatinine Date Value Ref Range Status 07/22/2024 0.76 0.58 - 0.96 mg/dL Final 12/25/2023 0.87 0.58 - 0.96 mg/dL Final 06/27/2023 0.84 0.58 - 0.96 mg/dL Final Estimated Glomerular Filtration Rate Date Value Ref Range Status 07/22/2024 85 >=60 mL/min/1.73m? Final Comment: Estimated Glomerular Filtration [...] POC done: Yes, See Lab Tab July 22, 2024 TREATMENT: N/A IV SITE: Ambulatory: A peripheral IV was started in the Right antecubital site with a Angio cath: 20 gauge. IV SITE APPEARANCE: Clean,Dry and Intact SIGNATURE: Elodia Miller RN PATIENT NAME: Jana Donis DATE: July 22, 2024 TIME: 8:06 AM [facility] 02-28-2024 Instructions Niall Smith MD - 02/28/2024 8:34 AM EST As noted, we reviewed your CT chest and previous Breathing tests We have decided to increase activity to include this activities that cause your shortness of breath to increase stamina. Follow up in 6 months. documented in this encounter [facility] 02-28-2024 History and physical note . [facility] [place] Note Ms. Donis is a 69 year old female who presents to the [facility] [place]. Consultation requested by Dr. 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 Niall Smith MD Pulmonary Critical Care Staff [facility] 02-28-2024 History and physical note . [facility] [place] Note Ms. Donis is a 69 year old female who presents to the [facility] [place]. Consultation requested by Dr. 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 Niall Smith MD Pulmonary Critical Care Staff documented in this encounter [facility] 02-04-2024 Telephone encounter Note Spoke with pt to schedule NPV 02/27 [facility] 02-04-2024 Miscellaneous Notes Spoke with pt to schedule NPV 02/27 documented in this encounter [facility] 01-22-[address] Samayoa office called and would like to refer patient here. Regarding her history of cancer and SOB. [facility] 01-22-[address] Samayoa office called and would like to refer patient here. Regarding her history of cancer and SOB. documented in this encounter [facility] 01-22-2024 Nurse Note Patient walked around [facility], Oxygen noted at 95% at lowest. Nicolasa Soria MA [facility] 01-22-2024 Nurse Note Patient walked around [facility], Oxygen noted at 95% at lowest. Nicolasa Soria MA Patient states that she has noticed being more short of breath, going up stairs etc. She doesn't know if it is age or something else going on. Nicolasa Soria MA documented in this encounter [facility] 01-22-2024 Nurse Note Patient states that she has noticed being more short of breath, going up stairs etc. She doesn't know if it is age or something else going on. Nicolasa Soria MA [facility] 01-21-2024 Note HNO ID: [id number] Author: NIALL LANE MD Service: ? Author [...] than1% EGFR - A sequence change c.2235_2242delGGAATTAAGAGAAGC (p.[id number]) in exon 19 was detected at approximately 22% allelic proportion (depth of coverage (more content not included)... [facility] 01-21-2024 History of Presen t illness Narrative [...] than1% EGFR - A sequence change c.2235_224delGGAATTAAGAGAAGC (p.[id number]) in exon 19 was detected at approximately 22% allelic proportion (depth of coverage at change 01416 02/21/2016 Partial right lower lobectomy/lymph node dissection [...] tumor. EGFR - A sequence change: c.2303_2304insTGTGGCCAG (p.[id number]) detected at approximately 20% allele proportion. [Reference [...] radiation therapy she was enrolled on the [employer] [id number] trial randomizing patients to receive Erlotinib vs placebo 2 years in the adjuvant setting. The patient started treatment per protocol 10/07/2015. The patient was removed from study after being diagnosed with a new primary lung cancer. 4. Pulmonary histoplasmosis Pathology obtained at the time of the patient's right lung surgery November 2019 revealed evidence of histoplasmosis. Per [facility] infectious disease no treatment recommended. 5. Shortness of breath - ICD9: 786.05, ICD10: R06.02 The patient has chronic dyspnea on exertion which has slowly worsened. Etiology multifactorial, in part due to multiple lung surgeries as well as previous pulmonary histoplasmosis. Per patient request we will refer to [facility] pulmonary for evaluation and management. The patient requests to be seen at a [facility] facility (Dr. Smith at [facility] or [place]). Niall Lane MD documented in this encounter [facility] 12-25-2023 History of Presen t illness Narrative [...] PATIENT PRESENTS WITH AN IMPLANTABLE OR ATTACHED TENSION MACHINE OPERATOR: No CREATININE: Creatinine Date Value Ref Range [...] contrast PATIENT DISCHARGED TO: Ambulatory patient, left [place] department area. A Diagnostic radioactive procedure has taken place, with no further precautions necessary other than routine body substance precautions. More information regarding radiation safety can be found using this link: [email or web address] %[email or web address]-%20Diagnostic% 20Nuclear%20Medicine%20Procedur es.pdf SIGNATURE: BOB Garcia) PATIENT NAME: Jana Donis DATE: December 25, 2023 TIME: 10:16 AM PAGER/CONTACT #: documented in this encounter [facility] 12-25-2023 Note HNO ID: [id number] Author: LYUBOV VASQUEZ RT (R) Service: ? Author Type: Technologist [...] PATIENT PRESENTS WITH AN IMPLANTABLE OR ATTACHED TENSION MACHINE OPERATOR: No CREATININE: Creatinine Date Value Ref Range [...] contrast PATIENT DISCHARGED TO: Ambulatory patient, left [place] department area. A Diagnostic radioactive procedure has taken place, with no further precautions necessary other than routine body substance precautions. More information regarding radiation safety can be found using this link: [email or web address] %20Protection%20-% 20Diagnostic%20Nuclear%20Medici ne%20Procedures.pdf SIGNATURE: RT Radha(R) PATIENT NAME: Jana Donis DATE: December 25, 2023 TIME: 10:16 AM PAGER/CONTACT #: [facility] 11-13-2023 Telephone encounter Note Patient is scheduled for scan on 12/24. F/u with you on 12/30. An updated cre is needed prior to scan. I pended labs for f/u please sign if agreeable, Thanks! Armida Falcon RN [facility] 11-13-2023 Miscellaneous Notes Patient is scheduled for scan on 12/24. F/u with you on 12/30. An updated cre is needed prior to scan. I pended labs for f/u please sign if agreeable, Thanks! Armida Falcon RN documented in this encounter [facility] 07-01-2023 History of Presen t illness [...] than1% EGFR - A sequence change c.2235_224delGGAATTAAGAGAAGC (p.[id number]) in exon 19 was detected at approximately 22% allelic proportion (depth of coverage at change 09733 02/21/2016 Partial right lower lobectomy/lymph node dissection [...] tumor. EGFR - A sequence change: c.2303_2304insTGTGGCCAG (p.[id number]) detected at approximately 20% allele proportion. 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 EGFR - A sequence change: c.2303_2304insTGTGGCCAG (p.[id number]_[id number]) detected at approximately 20% allele proportion. [Reference [...] radiation therapy she was enrolled on the [employer] [id number] trial randomizing patients to receive Erlotinib vs [...] Niall Lane MD documented in this encounter [facility] 12-18-2022 History of Presen t illness Narrative [...] 2022 12:39 PM documented in this encounter [facility] 11-30-2022 Miscellaneous Notes Please order labs for upcoming appt with you-will draw with CT on 12/18 Thank You! Elodia Miller RN documented in this encounter [facility] 08-29-2022 History of Presen t illness Narrative [facility] Consultation Note Genetic Counselor: Kings Burgos, , CGC Patient: Jana Donis Patient Name and confirmed at initiation of visit. Appointment occurred with audiovisual communication through [employer] Virtual Visit. I have communicated my name and active licensure. The patient's identity and physical location were verified at the time of this visit. Either the patient or their legal procurement representative has been informed of the risks [...] appropriate standard National Comprehensive Cancer Network and [place] [employer] guidelines, with consideration of their personal and family history risk factors. In this case, the patient will be referred back to their care providers for discussions of management. Based on this assessment of the patient's family and personal history, genetic testing is recommended. The patient was offered Multi-Cancer panel through [facility]. After considering the risks, benefits, and limitations, [...] PALB2, PDGFRA, PHOX2B, PMS2, POLD1, POLE, POT1, EREER3T, PTCH1, PTEN, RAD50, RAD51C, RAD51D, RB1, RECQL4, RET, RUNX1, SDHA, SDHAF2, SDHB, SDHC, SDHD, SMAD4, SMARCA4, SMARCB1, SMARCE1, STK11, SUFU, TERC, TERT, NQIS109, TP53, TSC1, TSC2, VHL, WRN, and WT1. [...] greater than 50% of which was spent [id number] counseling. This plan is being carried out under the oversight of Dr. Olga Lidia Henriquez. This note will also be sent to the referring provider via the electronic medical record. Kings Burgos MS, [facility] Licensed, Certified Genetic Counselor [facility] CC: Dr. Niall Henriquez [facility] documented in this encounter [facility] 07-11-2022 History of Presen t illness Narrative [...] than1% EGFR - A sequence change c.2235_2247delGGAATTAAGAGAAGC (p.[id number]) in exon 19 was detected at approximately 22% allelic proportion ([place] at change 49553 02/21/2016 Partial right lower lobectomy/lymph node dissection [...] tumor. EGFR - A sequence change: c.2303_2304insTGTGGCCAG (p.[id number]) detected at approximately 20% allele proportion. [Reference [...] adenocarcinoma, involving one (of one) lymph node (1/). 3. Lymph nodes, 10L posterior, excision (C) [...] At patient request we will refer to medical genetics for genomic analysis. 2. Primary adenocarcinoma of [...] radiation therapy she was enrolled on the [employer] [id number] trial randomizing patients to receive Erlotinib vs [...] Niall Lane MD documented in this encounter [facility] 07-04-2022 History of Presen t illness Narrative [...] TIME: 9:45 AM documented in this encounter [facility] 05-29-2022 Miscellaneous Notes Please sign pended labs for follow up to obtain with CT. Bibi Ramos RN documented in this encounter [facility] 01-03-2022 History of Presen t illness Narrative [...] severe headaches, and was seen at the [facility] ER on 12/19/2021. Brain CT (without contrast) [...] than1% EGFR - A sequence change c.2235_2249delGGAATTAAGAGAAGC (p.[id number]) in exon 19 was detected at approximately 22% allelic proportion (depth [place] at change 23375 02/21/2016 Partial right lower lobectomy/lymph node dissection [...] tumor. EGFR - A sequence change: c.2303_2304insTGTGGCCAG (p.[id number]_Rgh096cbjBddVfiLst) detected at approximately 20% allele proportion. [Reference [...] radiation therapy she was enrolled on the [employer] [id number] trial randomizing patients to receive Erlotinib vs [...] Niall Lane MD documented in this encounter [facility] 12-27-2021 History of Presen t illness Narrative [...] TIME: 10:25 AM documented in this encounter [facility] 12-19-2021 Note COVID 19 RESULT: SARS-CoV-2 (Agent of COVID-19) Not Detected by RT-PCR or equivalent method. This test has been authorized by FDA under an Emergency Use Authorization (EUA). INFLUENZA A PCR: Negative for Influenza A by RT-PCR INFLUENZA B PCR: Negative for Influenza B by RT-PCR RSV PCR: Negative for Respiratory Syncytial Virus (RSV) by PCR [facility] Comment on above: Performed By: #### 9 [id number] #### [facility] CLIA [id number] [place] [address] [facility] 12-19-2021 Note HNO ID: [id number] Author: BOB Shi) Service: Radiology Author Type: [employer] Practitioner Type: Progress Notes Filed: 12/19/2021 2:49 PM [...] RT Nae(R) December 19, 2021 2:49 PM [facility] 12-19-2021 Miscellaneous Notes FYI-After reviewing with patient and spouse your recommendations, she would prefer to go to the closest [facility] ED. She states the Ibuprofen is only taking the edge off the pain. And is also concerned about waiting to set up scans. Patient is very anxious about recent change in status. Kiki Scott RN I definitely think it would be reasonable for the patient to go to the [facility] ER if she prefers urgent treatment today. [...] She is thinking she should go to [facility] ED for evaluation. felt they should call you first for your recommendation. Please advise. Kiki Scott RN documented in this encounter [facility] 11-30-2021 Miscellaneous Notes Please review and sign pended labs to obtain with CT for follow up Bibi Ramos RN documented in this encounter [facility] 08-03-2021 Evaluation note Encounter Date Diagnosis Assessment [...] no improvement in 2 to 3 days. [facility] Other 05-03-2022 History of Present illness Narrative* [...] just returned from a nice vacation in [place]. MEDICATIONS: No prescriptions on file. ALLERGIES: Patient [...] than1% EGFR - A sequence change c.2235_224delGGAATTAAGAGAAGC (p.[id number]) in exon 19 was detected at approximately 22% allelic proportion (depth of coverage at change 54652 02/21/2016 Partial right lower lobectomy/lymph node dissection [...] tumor. EGFR - A sequence change: c.2303_2304insTGTGGCCAG (p.[id number]_Fhl627onsUngQfnXin) detected at approximately 20% allele proportion. [Reference [...] radiation therapy she was enrolled on the [employer] [id number] trial randomizing patients to receive Erlotinib vs [...] recommended. Niall Lane MD [facility] History of Present illness Narrative* Bibi Ramos [...] SIGNATURE: Bibi Ramos RN PATIENT NAME: Jana oDnis DATE: July 01, 2021 TIME: 9:06 AM [...] 01, 2021 9:22 AM [facility] Miscellaneous Notes* Telephone Encounter - Armida Beck RN - 06/14/2021 10:02 AM EDT Jana Donis [id number] has CT with contrast on 07/01 with office follow up 07/05. She needs labs for CT.Please order Cre for CT or any additional labs needed for follow up. Thank you. [facility] History of Present illness Narrative* Lyubov Vasquez RT(Cynthia) - 02/15/2021 10:15 AM EST Radiology Service [...] 15, 2021 11:10 AM [facility] Note* Bibi Ramos RN - 02/15/2021 [...] DATE: February 15, 2021 TIME: 10:48 AM [facility]12-14-2021 Nurse Note* Bibi Ramos RN - 02/15/2021 [...] 2021 TIME: 10:48 AM [facility] History of Past illness Narrative* Problem Noted [...] Overview: History: Jana Donis is lives in [place], [place]. Assessment: At this time, we anticipate [...] of this encounter (statuses as of 06/14/2021) [facility] History of Past illness Narrative* Problem Noted [...] Overview: History: Jana Donis is lives in [place], [place]. Assessment: At this time, we anticipate [...] of this encounter (statuses as of 07/07/2021) [facility] History of Past illness Narrative* Problem Noted [...] Overview: History: Jana Donis is lives in [place], [place]. Assessment: At this time, we anticipate [...] of this encounter (statuses as of 07/18/2021) [facility] History of Past illness Narrative* Problem Noted [...] Overview: History: Jana Donis is lives in [place], [place]. Assessment: At this time, we anticipate [...] of this encounter (statuses as of 11/30/2021) [facility] of [facility] Narrative* Problem Noted [...] Overview: History: Jana Donis is lives in [place], [place]. Assessment: At this time, we anticipate [...] of this encounter (statuses as of 12/20/2021) [facility] History of Past illness Narrative* Problem Noted [...] Overview: History: Jana Donis is lives in [place], [place]. Assessment: At this time, we anticipate [...] of this encounter (statuses as of 01/04/2022) [facility] Narrative* Problem Noted [...] Overview: History: Jana Donis is lives in [place], [place]. Assessment: At this time, we anticipate [...] of this encounter (statuses as of 05/29/2022) [facility] of [facility] Narrative* Problem Noted [...] Overview: History: Jana Donis is lives in [place], [place]. Assessment: At this time, we anticipate [...] of this encounter (statuses as of 07/12/2022) [facility] Narrative* Problem Noted [...] Overview: History: Jana Donis is lives in [place], [place]. Assessment: At this time, we anticipate [...] of this encounter (statuses as of 08/31/2022) [facility] of [facility] Narrative* Problem Noted [...] Overview: History: Jana Donis is lives in [place], [place]. Assessment: At this time, we anticipate [...] of this encounter (statuses as of 12/01/2022) [facility] of [facility] Narrative* Problem Noted [...] Overview: History: Jana Donis is lives in [place], [place]. Assessment: At this time, we anticipate [...] of this encounter (statuses as of 12/27/2022) [facility] Diagnosis Lung nodules- Primary Other nonspecific abnormal finding of lung field [facility] Diagnosis Malignant neoplasm of lower lobe of left lung (HCC)- Primary Lung nodules Other nonspecific abnormal finding of lung field [facility] noteNo assessment information availableNationwide Children'[facility] Work Phone: Evaluation note* Diagnosis Lung nodules- Primary Other nonspecific abnormal finding of lung field [facility] Diagnosis Malignant neoplasm of lower lobe of left lung (HCC)- Primary Primary adenocarcinoma of right lung (HCC) Headaches [facility] Diagnosis Malignant neoplasm of lower lobe of left lung (HCC)- Primary [facility] Diagnosis History of lung cancer- Primary Personal history of malignant neoplasm of bronchus and lung [facility] Diagnosis Malignant neoplasm of lower lobe of right lung (HCC)- Primary Malignant neoplasm of lower lobe of left lung (HCC) Family history of cancer Family history of unspecified malignant neoplasm [facility] Diagnosis History of lung cancer- Primary Personal history of malignant neoplasm of bronchus and lung [facility] Diagnosis Malignant neoplasm of lower lobe of left lung (HCC)- Primary [facility]* Diagnosis Malignant neoplasm of lower lobe of left lung (HCC)- Primary History of lung cancer Personal history of malignant neoplasm of bronchus and lung [facility] Diagnosis Malignant neoplasm of lower lobe of left lung (HCC) [facility] Diagnosis Malignant neoplasm of lower lobe of left lung (HCC)- Primary [facility]* Diagnosis History of lung cancer Personal history of malignant neoplasm of bronchus and lung [facility] Diagnosis Lung nodules Other nonspecific abnormal finding of lung field [facility]* Diagnosis Lung nodules Other nonspecific abnormal finding of lung field [facility]* Diagnosis Dizziness Dizziness and giddiness Malignant neoplasm of lower lobe of left lung (HCC) [facility] Diagnosis Malignant neoplasm of lower lobe of left lung (HCC) [facility]* Diagnosis History of lung cancer- Primary Personal history of malignant neoplasm of bronchus and lung Shortness of breath [facility]* Diagnosis [place] OCA (dyspnea on exertion) [R06.09]- Primary Other dyspnea and respiratory abnormality [facility] Diagnosis Malignant neoplasm of lower lobe of left lung (HCC)- Primary History of lung cancer Personal history of malignant neoplasm of bronchus and lung Shortness of breath [facility] Diagnosis Dyspnea and respiratory abnormalities [R06.00, R06.89]- Primary Other dyspnea and respiratory abnormality documented in this encounter [facility] general Narrative - Reported* Type Description Date Medical History Lung Cancer Remission Surgical History Foot Surgery Surgical History hysterectomy Surgical History appendectomy Surgical History hemorrhoidectomy Surgical History colonoscopy Hospitalization History see above [facility] Other Summary Purpose Family History No Family History Records FoundNo Family History Records FoundNo Family History Records FoundNo Family History Records FoundNo Family History Records FoundNo Family History Records Found Advance Directives No Advanced Directives Records FoundDocuments on File Type Date Recorded Patient Public Health Internship Expl anation Advance Directive(s) 11/28/2019 3:23 PM Advance Directive(s) 02/17/2016 3:02 PM Advance Directive(s) 02/15/2016 8:40 AM Advance Directive(s) 02/08/2015 12:51 PM Documents on File Type Date Recorded Patient Public Health Internship Expl anation Advance Directive(s) 11/28/2019 3:23 PM Advance Directive(s) 02/17/2016 3:02 PM Advance Directive(s) 02/15/2016 8:40 AM Advance Directive(s) 02/08/2015 12:51 PM Advance Directive Response Recorded Date/ Time Advance Directives No July 19 2:38pm Documents on File Type Date Recorded Patient Public Health Internship Expl anation Advance Directive(s) 02/08/2015 12:51 PM Documents on File Type Date Recorded Patient Public Health Internship Expl anation Advance Directive(s) 02/08/2015 12:51 PM Reason for Referral Specialty Diagnoses / Procedures Referred By Ayaz christina Referred To Contact CT IMAGING Diagnoses Lung nodules Procedures CT CHEST W IVCON DIAGNOSTIC COMPUTED TOMOGRAPHY THORAX W/CONTRAST Niall Lane MD [address] [place] [address] [place] [address] Ct Imaging Referral ID Status Reason Start Date Expiration Date Visits Requested Visits Authorized [id number] Authorized Auto-Generat ed Referral 07/05/2021 08/04/2022 1 1 Specialty Diagnoses / Procedures Referred By Contac t Referred To Contact CT IMAGING Diagnoses Malignant neoplasm of unspecified part of unspecified bronchus or lung (HCC) Procedures CT CHEST W IVCON DIAGNOSTIC COMPUTED TOMOGRAPHY THORAX W/CONTRAST Niall Lane MD [address] [place] [address] [place] [address] Ct Imaging Referral ID Status Reason Start Date Expiration Date Visits Requested Visits Authorized [id number] Authorized Auto-Generat ed Referral 01/03/2022 02/02/2023 1 1 Specialty Diagnoses / Procedures Referred By Contac t Referred To Contact Diagnoses Malignant neoplasm of unspecified part of unspecified bronchus or lung (HCC) Procedures CONSULT TO MEDICAL GENETICS - CANCER MEDICAL GENETICS COUNSELING EACH [address] MD [address] [place] [address] [place] [address] [address] Referral ID Status Reason Start Date Expiration Date Visits Requested Visits Authorized [id number] Pending Review PCP Requested Referral Auto-Generate d Referral 07/11/2022 07/11/2023 1 1 Referral ID Status Reason Start Date Expiration Date Visits Requested Visits Authorized [id number] Authorized Auto-Generat ed Referral 07/11/2022 08/10/2023 1 1 Specialty Diagnoses / Procedures Referred By Contac t Referred To Contact CT IMAGING Diagnoses Malignant neoplasm of unspecified part of unspecified bronchus or lung (HCC) Procedures CT CHEST W IVCON DIAGNOSTIC COMPUTED TOMOGRAPHY THORAX W/CONTRAST Niall Lane MD [address] [place] [address] [place] [address] [place] [id number] Referral ID Status Reason Start Date Expiration Date Visits Requested Visits Authorized [id number] Authorized Auto-Generat ed Referral 06/27/2023 01/25/2024 1 1 Referral ID Status Reason Start Date Expiration Date Visits Requested Visits Authorized [id number] Pending Review Auto-Generat ed Referral 07/02/2023 07/31/2024 1 1 Referral ID Status Reason Start Date Expiration Date V isits Requested Visits Authorized [id number] Closed Auto-Generate d Referral 06/27/2023 01/25/2024 1 1 Referral ID Status Reason Start Date Expiration Date V isits Requested Visits Authorized [id number] Closed Auto-Generate d Referral 07/11/2022 08/10/2023 1 1 Referral ID Status Reason Start Date Expiration Date V isits Requested Visits Authorized [id number] Closed Auto-Generate d Referral 01/03/2022 02/02/2023 1 1 Specialty Diagnoses / Procedures Referred By Contac t Referred To Contact CT IMAGING Diagnoses Lung nodules Procedures CT CHEST W IVCON DIAGNOSTIC COMPUTED TOMOGRAPHY THORAX W/CONTRAST Niall Lane MD [address] [place] [address] [place] [address] [place] [address] Referral ID Status Reason Start Date Expiration Date V isits Requested Visits Authorized [id number] Closed Auto-Generate d Referral 07/05/2021 08/04/2022 1 1 Specialty Diagnoses / Procedures Referred By Contac t Referred To Contact CT IMAGING Diagnoses Lung nodules Procedures CT CHEST W IVCON CAT SCAN OF CHEST CONTRAST Niall Lane MD [address] [place] [address] [place] [address] Ct Imaging [facility]95 Referral ID Status Reason Start Date Expiration Date V isits Requested Visits Authorized [id number] Closed Auto-Generate d Referral 02/22/2021 03/24/2022 1 1 Specialty Diagnoses / Procedures Referred By Contac t Referred To Contact MR IMAGING Diagnoses Dizziness Malignant neoplasm of lower lobe of left lung (HCC) Procedures MRI BRAIN WO/W IVCON MRI BRAIN COMBO Niall Lane MD [address] [place] [address] [place] [address] [place] [address] Referral ID Status Reason Start Date Expiration Date V isits Requested Visits Authorized [id number] Closed Auto-Generate d Referral 02/22/2021 03/24/2022 1 1 Specialty Diagnoses / Procedures Referred By Contac t Referred To Contact CT IMAGING Diagnoses [id number] - CAT SCAN OF CHEST CONTRAST Procedures CT CHEST W IVCON CAT SCAN OF CHEST CONTRAST Niall Lane MD [address] [place] [address] [place] [address] [place] [address] Referral ID Status Reason Start Date Expiration Date V isits Requested Visits Authorized [id number] Closed Auto-Generate d Referral 11/23/2020 12/23/2021 1 1 Referral ID Status Reason Start Date Expiration Date V isits Requested Visits Authorized [id number] Closed Auto-Generate d Referral 07/02/2023 07/31/2024 1 1 Specialty Diagnoses / Procedures Referred By Contac t Referred To Contact Pulmonary and Critical Care Medicine Diagnoses Malignant neoplasm of unspecified part of unspecified bronchus or lung (HCC) Procedures CONSULT TO PULM/CRITICAL CARE OFFICE/OUTPATIENT [facility] [address] MD [address] [place] [address] [place] [address] Referral ID Status Reason Start Date Expiration Date Visits Requested Visits Authorized [id number] Authorized PCP Requested Referral 4 01/21/2025 1 1 Referral ID Status Reason Start Date Expiration Date Visits Requested Visits Authorized [id number] Authorized Auto-Generat ed Referral 4 02/20/2025 1 1 Chief Complaint and Reason for Visit Chief Complaint [id number] Health Concerns Infection Onset Date Last Indicated Resolved Time COVID-19 Rule-Out 12/19/2021 12/19/2021 12/19/2021 4:55 PM EDT Additional Source Comments INFORMATION SOURCE (unrecogn ized section and content) DATE CREATED AUTHOR 06/13/2018 [facility] DATE CREATED AUTHOR AUTHOR'S ORGANIZ ATION 10/08/2019 [employer] DATE CREATED AUTHOR AUTHOR'S ORGANIZ ATION 09/28/2021 [facility] DATE CREATED AUTHOR AUTHOR'S ORGANIZ ATION 12/24/2021 [facility] DATE CREATED AUTHOR AUTHOR'S ORGANIZ ATION 04/08/2022 [facility] DATE CREATED AUTHOR AUTHOR'S ORGANIZ ATION 10/08/2024 [facility] Source Comments (unrecognize d section and content) In the event this informatio n is protected by the Federal Confidentiality of Alcohol and Drug Abuse Patient Records regulations: The Federal rules restrict any use of the information to criminally investigate or prosecute any alcohol or drug abuse patient.[facility] the event this information is protected by the Federal Confidentiality of Alcohol and Drug Abuse Patient Records regulations: The Federal rules restrict any use of the information to criminally investigate or prosecute any alcohol or drug abuse patient.[facility] the event this information is protected by the Federal Confidentiality of Alcohol and Drug Abuse Patient Records regulations: The Federal rules restrict any use of the information to criminally investigate or prosecute any alcohol or drug abuse patient.[facility] the event this information is protected by the Federal Confidentiality of Alcohol and Drug Abuse Patient Records regulations: The Federal rules restrict any use of the information to criminally investigate or prosecute any alcohol or drug abuse patient.[facility] the event this information is protected by the Federal Confidentiality of Alcohol and Drug Abuse Patient Records regulations: The Federal rules restrict any use of the information to criminally investigate or prosecute any alcohol or drug abuse patient.[facility] the event this information is protected by the Federal Confidentiality of Alcohol and Drug Abuse Patient Records regulations: The Federal rules restrict any use of the information to criminally investigate or prosecute any alcohol or drug abuse patient.[facility] the event this information is protected by the Federal Confidentiality of Alcohol and Drug Abuse Patient Records regulations: The Federal rules restrict any use of the information to criminally investigate or prosecute any alcohol or drug abuse patient.[facility] the event this information is protected by the Federal Confidentiality of Alcohol and Drug Abuse Patient Records regulations: The Federal rules restrict any use of the information to criminally investigate or prosecute any alcohol or drug abuse patient.[facility] the event this information is protected by the Federal Confidentiality of Alcohol and Drug Abuse Patient Records regulations: The Federal rules restrict any use of the information to criminally investigate or prosecute any alcohol or drug abuse patient.[facility] the event this information is protected by the Federal Confidentiality of Alcohol and Drug Abuse Patient Records regulations: The Federal rules restrict any use of the information to criminally investigate or prosecute any alcohol or drug abuse patient.[facility] the event this information is protected by the Federal Confidentiality of Alcohol and Drug Abuse Patient Records regulations: The Federal rules restrict any use of the information to criminally investigate or prosecute any alcohol or drug abuse patient.[facility] the event this information is protected by the Federal Confidentiality of Alcohol and Drug Abuse Patient Records regulations: The Federal rules restrict any use of the information to criminally investigate or prosecute any alcohol or drug abuse patient.[facility] the event this information is protected by the Federal Confidentiality of Alcohol and Drug Abuse Patient Records regulations: The Federal rules restrict any use of the information to criminally investigate or prosecute any alcohol or drug abuse patient.[facility] the event this information is protected by the Federal Confidentiality of Alcohol and Drug Abuse Patient Records regulations: The Federal rules restrict any use of the information to criminally investigate or prosecute any alcohol or drug abuse patient.[facility] the event this information is protected by the Federal Confidentiality of Alcohol and Drug Abuse Patient Records regulations: The Federal rules restrict any use of the information to criminally investigate or prosecute any alcohol or drug abuse patient.[facility] the event this information is protected by the Federal Confidentiality of Alcohol and Drug Abuse Patient Records regulations: The Federal rules restrict any use of the information to criminally investigate or prosecute any alcohol or drug abuse patient.[facility] the event this information is protected by the Federal Confidentiality of Alcohol and Drug Abuse Patient Records regulations: The Federal rules restrict any use of the information to criminally investigate or prosecute any alcohol or drug abuse patient.[facility] the event this information is protected by the Federal Confidentiality of Alcohol and Drug Abuse Patient Records regulations: The Federal rules restrict any use of the information to criminally investigate or prosecute any alcohol or drug abuse patient.[facility] the event this information is protected by the Federal Confidentiality of Alcohol and Drug Abuse Patient Records regulations: The Federal rules restrict any use of the information to criminally investigate or prosecute any alcohol or drug abuse patient.[facility]In the event this information is protected by the Federal Confidentiality of Alcohol and Drug Abuse Patient Records regulations: The Federal rules restrict any use of the information to criminally investigate or prosecute any alcohol or drug abuse patient.[facility] the event this information is protected by the Federal Confidentiality of Alcohol and Drug Abuse Patient Records regulations: The Federal rules restrict any use of the information to criminally investigate or prosecute any alcohol or drug abuse patient.[facility] the event this information is protected by the Federal Confidentiality of Alcohol and Drug Abuse Patient Records regulations: The Federal rules restrict any use of the information to criminally investigate or prosecute any alcohol or drug abuse patient.[facility] HospitalIn the event this information is protected by the Federal Confidentiality of Alcohol and Drug Abuse Patient Records regulations: The Federal rules restrict any use of the information to criminally investigate or prosecute any alcohol or drug abuse patient.[facility]In the event this information is protected by the Federal Confidentiality of Alcohol and Drug Abuse Patient Records regulations: The Federal rules restrict any use of the information to criminally investigate or prosecute any alcohol or drug abuse patient.[facility]In the event this information is protected by the Federal Confidentiality of Alcohol and Drug Abuse Patient Records regulations: The Federal rules restrict any use of the information to criminally investigate or prosecute any alcohol or drug abuse patient.[facility]In the event this information is protected by the Federal Confidentiality of Alcohol and Drug Abuse Patient Records regulations: The Federal rules restrict any use of the information to criminally investigate or prosecute any alcohol or drug abuse patient.[facility]In the event this information is protected by the Federal Confidentiality of Alcohol and Drug Abuse Patient Records regulations: The Federal rules restrict any use of the information to criminally investigate or prosecute any alcohol or drug abuse patient.[facility] Reason for Visit (unrecogniz ed section and content) Reason Comments Radiology CT Specialty Diagnoses / Procedures Referred By Contac t Referred To Contact CT IMAGING Diagnoses Malignant neoplasm of unspecified part of unspecified bronchus or lung (HCC) Procedures CT CHEST W IVCON DIAGNOSTIC COMPUTED TOMOGRAPHY THORAX W/CONTRAST Niall Lane MD [address] [place] [address] [place] [address] [place] [address] Referral ID Status Reason Start Date Expiration Date V isits Requested Visits Authorized [id number] Closed Auto-Generate d Referral 07/11/2022 08/10/2023 1 1 Reason Comments Lab Orders Reason Comments Lung Cancer follow up Reason Comments Orders Reason Comments headaches Reason Comments Lung Cancer Follow up Reason Comments Lung Cancer Follow up Reason Comments Lung Cancer Reason Comments Lung Cancer Reason Comments Radiology [place] Referral ID Status Reason Start Date Expiration Date V isits Requested Visits Authorized [id number] Closed Auto-Generate d Referral 06/27/2023 01/25/2024 1 1 Referral ID Status Reason Start Date Expiration Date V isits Requested Visits Authorized [id number] Closed Auto-Generate d Referral 01/03/2022 02/02/2023 1 1 Specialty Diagnoses / Procedures Referred By Contac t Referred To Contact CT IMAGING Diagnoses Lung nodules Procedures CT CHEST W IVCON DIAGNOSTIC COMPUTED TOMOGRAPHY THORAX W/CONTRAST Niall Lane MD [address] [place] [address] [place] [address] Ct Imaging [facility]95 Referral ID Status Reason Start Date Expiration Date V isits Requested Visits Authorized [id number] Closed Auto-Generate d Referral 07/05/2021 08/04/2022 1 1 Specialty Diagnoses / Procedures Referred By Contac t Referred To Contact CT IMAGING Diagnoses Lung nodules Procedures CT CHEST W IVCON CAT SCAN OF CHEST CONTRAST Niall Lane MD [address] [place] [address] [place] [address] Ct Imaging [facility]95 Referral ID Status Reason Start Date Expiration Date V isits Requested Visits Authorized [id number] Closed Auto-Generate d Referral 02/22/2021 03/24/2022 1 1 Specialty Diagnoses / Procedures Referred By Contac t Referred To Contact MR IMAGING Diagnoses Dizziness Malignant neoplasm of lower lobe of left lung (HCC) Procedures MRI BRAIN WO/W IVCON MRI BRAIN COMBO Niall Lane MD [address] [place] [address] [place] [address] [place] [address] Referral ID Status Reason Start Date Expiration Date V isits Requested Visits Authorized [id number] Closed Auto-Generate d Referral 02/22/2021 03/24/2022 1 1 Specialty Diagnoses / Procedures Referred By Contreal t Referred To Contact CT IMAGING Diagnoses [id number] - CAT SCAN OF CHEST CONTRAST Procedures CT CHEST W IVCON CAT SCAN OF CHEST CONTRAST Niall Lane MD [address] [place] [address] [place] [address] [place] [address] Referral ID Status Reason Start Date Expiration Date V isits Requested Visits Authorized [id number] Closed Auto-Generate d Referral 11/23/2020 12/23/2021 1 1 Referral ID Status Reason Start Date Expiration Date V isits Requested Visits Authorized [id number] Closed Auto-Generate d Referral 07/02/2023 07/31/2024 1 1 Reason Comments Lung Cancer Reason Comments Shortness of Breath History of lung cancer Reason Comments Referral Information Reason Comments [facility] Care Teams (unrecognized sec tion and content) Director Of Elementary Education Relationship Specialty Start Date End Date Al Bryan MD [address] [place] [address] PCP - General Family Practice 01/28/[address] [address] Primary Staff Physician Cardiology 05/21/[address] MD [address] [place] [address] [place] [address] Referring Hematology 10/13/19 Director Of Elementary Education Relationship Specialty Start Date End Date Al Bryan MD [address] [place] [address] PCP - General Family Practice 01/28/13 [facility] [address] [place] [address] Primary Staff Physician Cardiology 05/21/[address] MD [address] [place] [address] [place] [address] Referring Hematology 10/13/19 Director Of Elementary Education Relationship Specialty Start Date End Date Al Bryan MD [address] [place] [address] PCP - General Family Practice 01/28/[address] [address] Primary Staff Physician Cardiology 05/21/[address] MD [address] [facility] [place] [address] Referring Hematology 10/13/19 Team Status: Inactive Member Role Status Dates Al Bryan MD Primary Care Provider Active Elsy Douglas MD Attending Provider Active Team Status: Active Member Role Status Dates Al Bryan MD Primary Care Provider Active Director Of Elementary Education Relationship Specialty Start Date End Date Al Bryan MD [address] [place] [address] PCP - General Family Medicine 01/28/[address] [address] Primary Staff Physician Cardiology 05/21/[address] MD [address] [facility] [place] [address] Referring Hematology 10/13/19 Director Of Elementary Education Relationship Specialty Start Date End Date Al Bryan MD [address] [place] [address] PCP - General Family Medicine 01/28/13 [address] [place] [address] Primary Staff Physician Cardiology 05/21/18 Niall aLne MD [address] [place] [address] [place] [address] Referring Hematology 10/13/19 Director Of Elementary Education Relationship Specialty Start Date End Date Al Bryan MD [address] [place] [address] PCP - General Family Medicine 01/28/13 [facility] [address] [place] [address] Primary Staff Physician Cardiology 05/21/[address] MD [address] [facility] [address] Referring Hematology 10/13/19 Director Of Elementary Education Relationship Specialty Start Date End Date Al Bryan MD [address] [place] [address] PCP - General Family Medicine 01/28/13 [facility] [address] [facility] [facility] [place] [address] Primary Staff Physician Cardiology 05/21/[address] MD [address] [facility] [address] Referring Hematology 10/13/19 Director Of Elementary Education Relationship Specialty Start Date End Date Al Bryan MD [address] [place] [address] PCP - General Family Medicine 01/28/13 [facility] [address] [address] Primary Staff Physician Cardiology 05/21/[address] MD [address] [facility] [address] Referring Hematology 10/13/19 Director Of Elementary Education Relationship Specialty Start Date End Date Al Bryan MD [address] [place] [address] PCP - General Family Medicine 01/28/13 Damien Quijano [address] [place] [address] Primary Staff Physician Cardiology 05/21/[address] MD [address] [place] [address] Referring Hematology 10/13/19 Director Of Elementary Education Relationship Specialty Start Date End Date Al Bryan MD [address] [place] [address] PCP - General Family Medicine 01/28/13 Damien Quijano [address] [place] [address] Primary Staff Physician Cardiology 05/21/[address] MD [address] [facility] [address] Referring Hematology 10/13/19 Director Of Elementary Education Relationship Specialty Start Date End Date Al Bryan MD [address] [place] [address] PCP - General Family Medicine 01/28/13 Damien Quijano [address] [place] [address] Primary Staff Physician Cardiology 05/21/[address] MD [address] [facility] [place] [address] Referring Hematology 10/13/19 Director Of Elementary Education Relationship Specialty Start Date End Date Al Bryan MD [address] [place] [id number] PCP - General Family Medicine 01/28/13 Damien Quijano [address] [place] [address] Primary Staff Physician Cardiology 05/21/[address] MD [address] [place] [address] Referring Hematology 10/13/19 Director Of Elementary Education Relationship Specialty Start Date End Date Al Bryan MD [address] [place] [address] PCP - General Family Medicine 01/28/13 Damien Quijano [address] [place] [address] Primary Staff Physician Cardiology 05/21/[address] MD [address] [facility] [address] Referring Hematology 10/13/19 Director Of Elementary Education Relationship Specialty Start Date End Date Al Bryan MD [address] [place] [address] PCP - General Family Medicine 01/28/13 Damien Quijano [address] [place] [address] Primary Staff Physician Cardiology 05/21/[address] MD [address] [facility] [place] [address] Referring Hematology 10/13/19 Director Of Elementary Education Relationship Specialty Start Date End Date Al Bryan MD [address] [place] [address] PCP - General Family Medicine 01/28/13 Damien Quijano [address] [place] [address] Primary Staff Physician Cardiology 05/21/[address] MD [address] [place] [address] [place] [address] Referring Hematology 10/13/19 Director Of Elementary Education Relationship Specialty Start Date End Date Al Bryan MD [address] [place] [address] PCP - General Family Medicine 01/28/13 Damien Quijano [address] [place] [address] Primary Staff Physician Cardiology 05/21/[address] MD [address] [place] [address] Referring Hematology 10/13/19 Director Of Elementary Education Relationship Specialty Start Date End Date Al Bryan MD [address] [place] [address] PCP - General Family Medicine 01/28/13 Damien Quijano [address] [place] [address] Primary Staff Physician Cardiology 05/21/[address] MD [address] [place] [address] Referring Hematology 10/13/19 Director Of Elementary Education Relationship Specialty Start Date End Date Al Bryan MD [address] [place] [address] PCP - General Family Medicine 01/28/13 Christal Quijanotan Tiffanie [address] [place] [address] Primary Staff Physician Cardiology 05/21/[address] MD [address] [place] [address] Referring Hematology 10/13/19 Director Of Elementary Education Relationship Specialty Start Date End Date Al Bryan MD [address] [place] [address] PCP - General Family Medicine 01/28/13 Damien Quijano [address] [place] [address] Primary Staff Physician Cardiology 05/21/18 Goals (unrecognized section and content) Goals may [...] BE BASED ON THE PRIMARY CLINICAL RECORDS. [employer] [facility]. provides no warranty or guarantee of the accuracy or completeness of information in this document.
== END 2024-10-20 08:06 | disposition home or self-care (01) ==
LOC: MAMMO 08:05
PROVIDERS: PCP Family Medicine; Visit Provider Family Medicine
DX: Z12.31 Encounter for screening mammogram for malignant neoplasm of breast (principal); Z80.3 Family history of malignant neoplasm of breast; Z80.1 Family history of malignant neoplasm of trachea, bronchus and lung; Z80.8 Family history of malignant neoplasm of other organs or systems
CPT/HCPCS: 77063; 77067